=== PATIENT | male | born 1975 | race Caucasian/White ===

== ENCOUNTER 2018-04-04 17:18 | Emergency (ER) | payer MEDICAID, SELFPAY ==
[2018-04-04 17:21] VITALS: BP 130/93; PULSE 105; RESP 16; TEMP 36.9; O2SAT 93; BMI 28.0
--- NOTE | 2018-04-04 17:51 | EKG12_ITS ---
Test Reason : Blood Pressure : / mmHG Vent. Rate : 091 BPM Atrial Rate : 091 BPM P-R Int : 170 ms QRS Dur : 102 ms QT Int : 372 ms P-R-T Axes : 058 118 007 degrees QTc Int : 457 ms Normal sinus rhythm Right ventricular hypertrophy Abnormal ECG Confirmed by ANN-MARIE STUBBS, DELIA ([id number]), photo editor EILEEN DOVE ([id number]) on 04/09/2018 1:37:49 PM Referred By: MACKENZIE Confirmed By:DELIA JACOBSEN MD
--- NOTE | 2018-04-04 17:57 | ED.DCSUM_ITS ---
- ER Visit Summary Date of Service: 04/04/18 Chief Complaint: Right upper quadrant epigastric abdominal pain History of Present Illness: The patient is a 42 M history of cirrhosis which he states he stopped drinking and his liver functions are back to normal according the patient. Also reflux, insulin-dependent diabetes and pulmonary hypertension. Patient denies any prior abdominal surgeries. States for the last 2 days since Sunday he has had epigastric right upper quadrant abdominal pain. Associated nausea no vomiting or diarrhea no fever or melena no trauma. Says food may make it a little worse. No prior history of this. It does wrap around both sides. He denies any chest pain or shortness of breath. He has never had pain like this before he states. Physical Examination: Well-appearing middle-age male. Vital signs are stable afebrile. He does not look septic or toxic. He is in no acute distress. H EENT exam unremarkable neck nontender. Lungs clear to auscultation bilaterally. Heart regular rhythm no murmur rate about 100. Abdomen is soft nondistended. Normal bowel sounds. He does have mild epigastric and right upper quadrant tenderness. No Mendoza sign. No pulsatile masses. Both the right lower quadrant left upper and left lower quadrants are unremarkable. No hernias or masses normal bowel sounds. Soft he is moving all 4 extremities. Neurovascular intact. Calves are nontender without edema or cords. Neurologically is awake alert without focal deficits. Back exam nontender. Test Results: CBC normal with a white count of 9. Normal H&H. BMP unremarkable gap of 11. Creatinine normal. Liver enzymes are elevated but consistent with prior elevated liver enzymes in this particular patient. Troponin normal. Lipase elevated at 2686 consistent with acute pancreatitis. EKG sinus rhythm a rate of 91. Right upper quadrant ultrasound revealed multiple gallstones. But a normal common bile duct. With also a thickened gallbladder wall. Emergency Department Course and Treatment: Patient with abdominal pain. Will be treated with morphine and Zofran for pain. Labs will be obtained. Treatment Plan: Patient was initially treated with morphine and Zofran had some improvement was then given Toradol and additional dose of morphine is resting much more comfortably on multiple repeat exams. I spoke to the general surgeon chief librarian circulation department who was concerned due to the patient's history of liver disease and the only surgeon that does ERCP is currently out of town that she felt the patient would be better served to be transferred. I discussed that with the patient and obtain a receiving facility. Disposition: Admission Impression: Acute abdominal pain secondary to gallstone pancreatitis This note was generated with [employer] dictation software. It may contain incorrect words, spelling, and punctuation that were not noted in review of the chart prior to signing ED Disposition - Plan for ED Patient: Chief Complaint: Abd Pain Referrals: Tino Ovalle MD [Primary Care Provider] -
[2018-04-04] MEDS: Ondansetron 4 MG/2 ML Vial IV (18:02)
[2018-04-04] MEDS: Morphine 4 MG/ML Syringe IV (18:02)
[2018-04-04 18:25] LABS: AST(SGOT) 101 U/L (15-37); Alanine Aminotransfer ALT/SGPT 96 U/L (16-61); Alkaline Phosphatase 77 U/L (45-117); Anion Gap 11 (5-15); BUN 14 mg/dL (7-18); BUN/Creat Ratio 15.3 RATIO (10-20); Bilirubin, Direct 0.81 mg/dL (0.00-0.30); Chloride 106 mmol/L (98-107); Creatinine, Serum 0.92 mg/dL (0.70-1.30); EST Glomerular Filtration Rate 95 mL/min (>60); Est Glom Filt Rate - Afr Amer 115 mL/min (>60); Estimated Creatinine Clearance 102.46 ml/min; Globulin 3.9 g/dL (2.2-4.2); Glucose 134 mg/dL (74-106); Lipase 2686 U/L (73-393); Potassium 3.4 mmol/L (3.5-5.1); Protein, Total 7.9 g/dL (6.4-8.2); Sodium Level 141 mmol/L (136-145)
[2018-04-04 18:33] LABS: Absolute Lymphocyte Count 1.61 X10^3/ul (0.83-4.51); Absolute Neutrophil Count 6.6 X10^3/uL (2.0-7.7); Basophil# 0.02 X10^3/uL; Basophil% 0.2 % (0-1); Eosinophil# 0.28 X10^3/uL; Hematocrit 46.9 % (40-54); Hemoglobin 16.9 g/dl (13.0-16.5); Lymphocyte # 1.61 X10^3/ul (4.0); Lymphocyte % 17.4 % (19-41); Mean Corpuscular Hgb 30.6 pg (27.0-32.0); Mean Platelet Vol. 11.5 fl (6.2-12.0); Monocyte# 0.74 X10^3/uL; Neutrophil # 6.56 X10^3/uL (2.7-7.7); Neutrophil % 71.2 % (47-70); Platelet Count 96 K/mm3 (150-450); RBC Distribution Width CV 14.9 % (11.6-14.6); RBC Distribution Width SD 46.2 fl (35.1-43.9); Red Blood Count 5.52 M/mm3 (4.6-6.2); White Blood Count 9.2 K/mm3 (4.4-11.0)
[2018-04-04 18:46] LABS: Differential Indicated SCAN CRITERIA MET; POSITIVE COUNT NO; POSITIVE DIFFERENTIAL NO; POSITIVE MORPHOLOGY YES
--- NOTE | 2018-04-04 19:32 | US_ITS ---
STUDY: ABDOMINAL ULTRASOUND - RIGHT UPPER QUADRANT REASON FOR VISIT: Male, 42 years old. Epigastric pain TECHNIQUE: Ultrasound evaluation of the right upper quadrant was performed with real-time and static reyes-scale imaging. TECHNICAL QUALITY: Adequate. COMPARISON: None. FINDINGS: Liver: The liver measures 16.7 cm. There is heterogeneous echogenicity of the liver. The bile ducts are within normal limits. There is hepatic color flow. The direction of portal flow is hepatopetal. There is no demonstrated mass lesion. Gallbladder: Normal distended gallbladder. The gallbladder wall measures 4 mm. There is a negative sonographic Mendoza's sign. There is no pericholecystic fluid. There are multiple gallstones. Common Bile Duct (C.B.D.): The common bile duct measures 4 mm. Pancreas: Not well visualized due to bowel gas producing artifact. Right Kidney: Normal size of the right kidney. The right kidney measures 11.8 x 5.3 x 5.9 cm. Normal renal cortex. The right cortex measures 2.1 cm. There is no demonstrated renal mass or cyst. There is no right hydronephrosis. US/Gallbladder IMPRESSION: Findings consistent with nonspecific hepatocellular disease. Thick-walled gallbladder with multiple stones. If concern for acute inflammation HIDA scan recommended for further assessment Electronically Signed: Daren Bates MD at 20:55 EDT , Service support ,
[2018-04-04] MEDS: Ketorolac 30 MG/ML Syringe IV (20:13)
[2018-04-04] MEDS: morphine 8 MG/ML Syringe 6 MG IV (20:13)
[2018-04-04 20:16] VITALS: BP 107/63; PULSE 110; RESP 16; O2SAT 96
[2018-04-04 20:30] VITALS: BP 107/63; PULSE 110; RESP 16; TEMP 36.7; O2SAT 95
--- NOTE | 2018-04-04 21:31 | HP.PCM_ITS ---
History of Present Illness The patient is a 42 year old M [] Past Medical History Past Medical History (Chronic Problems): Chronic Problems (Last Reviewed 02/26/18 @ 12:32 by Kinsey Raines) Tobacco dependence in remission (Chronic) Cirrhosis (Chronic) Portopulmonary hypertension (Chronic) Allergies No Known Allergies Allergy (Verified 02/26/18 12:31) Home Medications: Ambulatory Orders Medication Instructions Recorded Liraglutide [Victoza 2-Terry] 1.8 mg SQ DAILY 02/19/14 Omeprazole [Prilosec] 20 mg PO DAILY 02/19/14 Insulin Glargine [Lantus (BKC)] 30 units SC BID 03/07/16 Magnesium Oxide [Mag-Ox 400] 400 mg PO TID 03/07/16 Rifaximin [Xifaxan] 550 mg PO BID 03/07/16 furosemide 20 mg tablet 40 mg PO TID tab 02/22/18 oxazepam 10 mg capsule 10 mg PO DAILY cap 02/22/18 oxycodone 5 mg capsule 5 mg PO Q8H cap 02/22/18 potassium citrate ER 10 mEq (1,080 10 meq PO BID tab 02/22/18 mg) tablet,extended release pramipexole 0.125 mg tablet 0.25 mg PO DAILY tab 02/22/18 spironolactone 25 mg tablet 50 mg PO QDAY tab 02/22/18 ambrisentan 10 mg tablet 10 mg PO DAILY #30 tab 02/26/18 Paroxetine [Paxil] 10 mg PO DAILY 04/04/18 Smoking Status: Never smoker - Physical Exam Vital Signs Temp Pulse Resp BP Pulse Ox 98.1 F 110 H 16 107/63 95 04/04/18 20:30 04/04/18 20:30 04/04/18 20:30 04/04/18 20:30 04/04/18 20:30 Oxygen Delivery Method Room Air Weight: 190 lb Body Mass Index (BMI) 28.0 Laboratory Tests Past 24 Hrs 04/04/18 04/04/18 17:30 17:30 WBC 9.2 RBC 5.52 Hgb 16.9 H Hct 46.9 MCV 85.0 MCH 30.6 MCHC 36.0 RDW 14.9 H RDW Differential 46.2 H Plt Count 96 L MPV 11.5 Immature Gran % (Auto) 0.200 Neut % (Auto) 71.2 H Lymph % (Auto) 17.4 L [place] % (Auto) 8.0 Eos % (Auto) 3.0 Baso % (Auto) 0.2 Absolute Neuts (auto) 6.6 Absolute Lymphs (auto) 1.61 Total Counted Not Reportable Differential Comment Sodium 141 Potassium 3.4 L Chloride 106 Carbon Dioxide 24.0 Anion Gap 11 BUN 14 Creatinine 0.92 Estim Creat Clear Calc 102.46 Est GFR (MDRD) Af Amer 115 Est GFR (MDRD) Non-Af 95 BUN/Creatinine Ratio 15.3 Glucose 134 H Calcium 9.0 Total Bilirubin 1.80 H Direct Bilirubin 0.81 H AST 101 H ALT 96 H Alkaline Phosphatase 77 Troponin I < 0.015 Total Protein 7.9 Albumin 4.0 Globulin 3.9 Lipase 2686 H
[2018-04-04 23:03] VITALS: BP 112/74; PULSE 108; RESP 16; TEMP 36.3; O2SAT 96
[2018-04-04 23:04] VITALS: BP 112/74; PULSE 108; RESP 16; TEMP 36.3; O2SAT 96
[2018-04-05] MEDS: Morphine 4 MG/ML Syringe IV
== END 2018-04-05 01:01 | disposition short-term general hospital (02) ==
PROVIDERS: Emergency Provider Emergency Medicine; Family Provider Family Medicine; PCP Family Medicine
DX: K85.10 Biliary acute pancreatitis without necrosis or infection (principal); K21.9 Gastro-esophageal reflux disease without esophagitis; I27.20 Pulmonary hypertension, unspecified; E11.9 Type 2 diabetes mellitus without complications; Z79.4 Long term (current) use of insulin; Z79.899 Other long term (current) drug therapy
CPT/HCPCS: 76705; 80048; 80076; 83690; 84484; 85025; 93005; 96374; 96375; 96376; 99284; A4216; J2405

== ENCOUNTER → 2018-04-12 12:11 | Outpatient (CLI) | payer MEDICAID, SELFPAY ==
[2018-04-12 13:16] LABS: Anion Gap 8 (5-15); BUN 14 mg/dL (7-18); BUN/Creat Ratio 10.2 RATIO (10-20); Calcium,Total 8.8 mg/dL (8.5-10.1); Chloride 100 mmol/L (98-107); Creatinine, Serum 1.37 mg/dL (0.70-1.30); EST Glomerular Filtration Rate 60 mL/min (>60); Est Glom Filt Rate - Afr Amer 72 mL/min (>60); Glucose 385 mg/dL (74-106); Potassium 3.9 mmol/L (3.5-5.1); Sodium Level 135 mmol/L (136-145)
== END ==
PROVIDERS: Nurse Practitioner Acute Care; Family Provider Family Medicine; PCP Family Medicine; Visit Provider Family Medicine
DX: K76.6 Portal hypertension (principal)
CPT/HCPCS: 36415; 80048

== ENCOUNTER 2018-04-12 12:23 | Emergency (ER) | payer MEDICAID, SELFPAY ==
[2018-04-12 12:25] VITALS: BP 134/85; PULSE 93; RESP 18; TEMP 36.3; O2SAT 96; BMI 27.7
--- NOTE | 2018-04-12 14:04 | ED.VISSUMM ---
- ER Visit Summary Date of Service: 04/12/18 Chief Complaint: Chronic abdominal pain History of Present Illness: The patient is a 42 M recently diagnosed with gallstone pancreatitis was transferred to [facility] they currently have him on antibiotics and are planning a cholecystectomy once he inflammation resolves according to the patient. He presented a primary care physician office and was sent to the ER. He states his abdominal pain he always has. He denies any fever or hematemesis he denies any nausea or vomiting. Denies any melena or currently any diarrhea. He is just looking for something to help him with his pain. Physical Examination: Well-appearing middle-age male. Vital signs stable afebrile. No distress. H EENT exam unremarkable. Neck nontender lungs clear to auscultation bilaterally. Heart regular rate and rhythm no murmur. Abdomen is soft. He has ascites. However he is nontender currently. There are no peritoneal signs. Normal bowel sounds. No hernias or masses. No signs of obstruction. In all 4 extremities. Neurologically is awake and alert without focal motor deficits. Test Results: None. Emergency Department Course and Treatment: Patient has no change. He said this is the same discomfort as all the time his abdominal exam is benign. He is hoping for something for pain. Normally his primary care physician Dr. Tino Ovalle according to the patient prescribed oxycodone. Treatment Plan: Oxycodone 10 no refill. Follow his primary care physician for further pain medication. Her labs of the patient was discharged I was called by the pharmacist at 1425 where he was trying to fill the prescription. He states this patient gets chronic pain medication gets it filled the beginning of every month and is written for 3 oxycodone per day. He just had filled around 2 weeks ago and should have plenty for the rest of the month. We canceled his prescription for today then. Disposition: Discharge Impression: Acute on chronic abdominal pain Drug seeking behavior History of alcoholic cirrhosis History of gallstones Status post pancreatitis. History of insulin diabetes and pulmonary hypertension This note was generated with [employer] dictation software. It may contain incorrect words, spelling, and punctuation that were not noted in review of the chart prior to signing ED Disposition - Plan for ED Patient: Disposition: Home or Assisted Living Chief Complaint: Abd Pain Instructions: ED Chronic Pain Management Prescriptions: Oxycodone [Oxyir] 5 mg PO Q6H PRN PRN #10 tab PRN Reason: Pain Referrals: Tino Ovalle MD [Primary Care Provider] - As soon as possible Additional Instructions: On follow-up with your doctor for further pain medication. Use her pain medication sparingly and limited to make it last.
--- NOTE | 2018-04-12 14:08 | ED.DEP ---
ED Disposition - Plan for ED Patient: Disposition: Home or Assisted Living Chief Complaint: Abd Pain Instructions: ED Chronic Pain Management Prescriptions: Oxycodone [Oxyir] 5 mg PO Q6H PRN PRN #10 tab PRN Reason: Pain Referrals: Tino Ovalle MD [Primary Care Provider] - As soon as possible Additional Instructions: On follow-up with your doctor for further pain medication. Use her pain medication sparingly and limited to make it last.
== END 2018-04-12 14:25 | disposition home or self-care (01) ==
PROVIDERS: Emergency Provider Emergency Medicine; Family Provider Family Medicine; PCP Family Medicine
DX: R10.9 Unspecified abdominal pain (principal); G89.29 Other chronic pain; Z76.5 Malingerer [conscious simulation]; K70.30 Alcoholic cirrhosis of liver without ascites; K85.10 Biliary acute pancreatitis without necrosis or infection; E11.9 Type 2 diabetes mellitus without complications; I27.20 Pulmonary hypertension, unspecified; Z87.891 Personal history of nicotine dependence; Z79.4 Long term (current) use of insulin; Z79.899 Other long term (current) drug therapy; K76.6 Portal hypertension
CPT/HCPCS: 36415; 80048; 99282

== ENCOUNTER 2018-04-28 20:51 | Inpatient (IN) | payer MEDICAID, SELFPAY ==
[2018-04-28 20:51] VITALS: BP 152/92; PULSE 107; RESP 16; TEMP 36.4; O2SAT 97; BMI 25.8
[2018-04-28] MEDS: Ondansetron 4 MG/2 ML Vial IV (21:40)
[2018-04-28] MEDS: Ketorolac 30 MG/ML Syringe IV (21:40)
[2018-04-28] MEDS: 0.9% Normal Saline 1,000 ML 1000 ML IV (21:41)
[2018-04-28] MEDS: morphine 8 MG/ML Syringe 6 MG IV ×2 (21:42→23:30)
[2018-04-28 21:53] LABS: Absolute Neutrophil Count 8.1 X10^3/uL (2.0-7.7); Basophil# 0.02 X10^3/uL; Basophil% 0.2 % (0-1); Eosinophil# 0.01 X10^3/uL; Eosinophils% 0.1 % (0-5); Hematocrit 45.6 % (40-54); Lymphocyte % 5.4 % (19-41); Mean Corp Hgb Conc 35.1 g/gl (32-36); Mean Corpuscular Hgb 30.1 pg (27.0-32.0); Mean Corpuscular Volume 85.9 fL (80-94); Mean Platelet Vol. 12.1 fl (6.2-12.0); Monocyte# 0.63 X10^3/uL; Monocyte% 6.8 % (0-10); Neutrophil # 8.09 X10^3/uL (2.7-7.7); Neutrophil % 87.4 % (47-70); Platelet Count 79 K/mm3 (150-450); RBC Distribution Width CV 14.8 % (11.6-14.6); RBC Distribution Width SD 46.2 fl (35.1-43.9); Red Blood Count 5.31 M/mm3 (4.6-6.2); White Blood Count 9.3 K/mm3 (4.4-11.0)
[2018-04-28 21:55] LABS: Differential Indicated SCAN CRITERIA MET; POSITIVE COUNT NO; POSITIVE DIFFERENTIAL YES; POSITIVE MORPHOLOGY NO
[2018-04-28 22:08] LABS: AST(SGOT) 128 U/L (15-37); Alanine Aminotransfer ALT/SGPT 155 U/L (16-61); Albumin, Serum 3.6 g/dL (3.2-5.0); Alkaline Phosphatase 271 U/L (45-117); Anion Gap 12 (5-15); BUN 13 mg/dL (7-18); BUN/Creat Ratio 14.1 RATIO (10-20); Bilirubin, Direct 6.72 mg/dL (0.00-0.30); Calcium,Total 9.1 mg/dL (8.5-10.1); Chloride 106 mmol/L (98-107); Creatinine, Serum 0.92 mg/dL (0.70-1.30); EST Glomerular Filtration Rate 94 mL/min (>60); Est Glom Filt Rate - Afr Amer 114 mL/min (>60); Estimated Creatinine Clearance 102.46 ml/min; Glucose 132 mg/dL (74-106); Lipase 29323 U/L (73-393); Potassium 3.8 mmol/L (3.5-5.1); Protein, Total 7.6 g/dL (6.4-8.2); Sodium Level 135 mmol/L (136-145)
[2018-04-28 22:20] LABS: Differential Comment SCANNED
[2018-04-28 23:10] VITALS: BP 134/89; PULSE 93; RESP 16; O2SAT 94
--- NOTE | 2018-04-28 23:10 | ED.VISSUMM ---
- ER Visit Summary Date of Service: 04/28/18 Chief Complaint: Epigastric abdominal pain History of Present Illness: The patient is a 42 M known history of pancreatitis, gallstones, and diabetes. Complaining of epigastric abdominal pain for the last 3 hours. Associated nausea and vomiting. No hematemesis. No melena. No fever. Physical Examination: Signs are stable afebrile. He does not look septic or toxic. HEENT exam unremarkable with moist wheeze membranes. Neck nontender. Lungs clear to auscultation bilaterally. Heart regular rate and rhythm. Rate about 100. Abdomen is soft. Epigastric tenderness. Nondistended. Normal bowel sounds. No peritoneal signs. Right upper and right lower quadrants are unremarkable. No signs of obstruction. Moving all 4 extremities. Back exam normal and nontender. Neurologically is awake and alert. Test Results: CBC shows low platelets of 79,000. His platelets have been low before. Normal white count. Normal H&H. Electrolytes are unremarkable. Normal gap and creatinine. CO2 is low at 17. Liver enzymes are elevated including a total bilirubin of 8.7. Lipase is elevated at 29,000. Consistent with acute pancreatitis. Emergency Department Course and Treatment: Patient treated with IV fluids, IV morphine, IV Zofran and Toradol. He will be given a second dose of morphine. And admitted. On repeat exam he still having some pain but is feeling better. Treatment Plan: IV fluids and pain medication. Admitted via the hospitalist. Disposition: Admission Impression: Acute abdominal pain secondary to acute pancreatitis Hx of Gallstones History of liver cirrhosis This note was generated with [employer] dictation software. It may contain incorrect words, spelling, and punctuation that were not noted in review of the chart prior to signing ED Disposition - Plan for ED Patient: Chief Complaint: Abd Pain Referrals: Tino Ovalle MD [Primary Care Provider] -
--- NOTE | 2018-04-28 23:15 | ED.DCSUM_ITS ---
- ER Visit Summary Date of Service: 04/28/18 Chief Complaint: Epigastric abdominal pain History of Present Illness: The patient is a 42 M known history of pancreatitis , gallstones, and diabetes. Complaining of epigastric abdominal pain for the last 3 hours. Associated nausea and vomiting. No hematemesis. No melena. No fever. Physical Examination: Signs are stable afebrile. He does not look septic or toxic. HEENT exam unremarkable with moist wheeze membranes. Neck nontender. Lungs clear to auscultation bilaterally. Heart regular rate and rhythm. Rate about 100. Abdomen is soft. Epigastric tenderness. Nondistended. Normal bowel sounds. No peritoneal signs. Right upper and right lower quadrants are unremarkable. No signs of obstruction. Moving all 4 extremities. Back exam normal and nontender. Neurologically is awake and alert. Test Results: CBC shows low platelets of 79,000. His platelets have been low before. Normal white count. Normal H&H. Electrolytes are unremarkable. Normal gap and creatinine. CO2 is low at 17. Liver enzymes are elevated including a total bilirubin of 8.7. Lipase is elevated at 29,000. Consistent with acute pancreatitis. Emergency Department Course and Treatment: Patient treated with IV fluids, IV morphine, IV Zofran and Toradol. He will be given a second dose of morphine. And admitted. On repeat exam he still having some pain but is feeling better. Treatment Plan: IV fluids and pain medication. Admitted via the hospitalist. Disposition: Admission Impression: Acute abdominal pain secondary to acute pancreatitis Hx of Gallstones History of liver cirrhosis This note was generated with [employer] dictation software. It may contain incorrect words, spelling, and punctuation that were not noted in review of the chart prior to signing ED Disposition - Plan for ED Patient: Chief Complaint: Abd Pain Referrals: Tino Ovalle MD [Primary Care Provider] -
[2018-04-28 23:23] VITALS: BP 147/96; PULSE 95; RESP 16; O2SAT 94
--- NOTE | 2018-04-28 23:53 | PCM.HP.STD ---
Problem List (1) Pancreatitis Status: Acute (2) Transaminitis Status: Acute (3) HTN (hypertension) Status: Chronic (4) Tobacco dependence in remission Status: Chronic (5) Cirrhosis Status: Chronic (6) Portopulmonary hypertension Status: Chronic History of Present Illness Date of Admission: 04/28/18 Chief Complaint: Pancreatitis The patient is a 42 year old male w/ h/o cirrhosis, HTN, and pancreatitis admitted for pancreatitis. He had an episode of gall stone pancreatitis a month ago. However, there was no surgical followup. He has been having sharp epigastric abdominal pain x 4 days. Nothing appeared to make it better or worse. Pain was not associated with food. He also has nausea and vomiting. In the last few days, he ate mostly soup. His pain radiated to the back. In the last day, he noted that pain is constant and severe. Pain also has gradually worsened. He went to the ED for further workup. Past Medical History Past Medical History (Chronic Problems): Chronic Problems (Last Reviewed 02/26/18 @ 12:32 by Kinsey Raines) HTN (hypertension) (Chronic) Tobacco dependence in remission (Chronic) Cirrhosis (Chronic) Portopulmonary hypertension (Chronic) Medical History: Medical History (Last Reviewed 02/26/18 @ 12:32 by Kinsey Raines) Abnormal electrocardiogram R94.31 Tobacco dependence in remission F17.201 Tobacco use Z72.0 Anxiety F41.9 Cardiomyopathy I42.9 Cervical radiculopathy M54.12 Cirrhosis K74.60 with alcohol abuse Diverticulitis K57.92 Impingement syndrome, shoulder, left M75.42 Left shoulder pain M25.512 Left ventricular hypertrophy I51.7 Nonrheumatic tricuspid (valve) insufficiency I36.1 Pulmonary HTN I27.20 Type 2 diabetes mellitus with complication E11.8 Allergies No Known Allergies Allergy (Verified 04/28/18 20:53) Home Medications: Ambulatory Orders Medication Instructions Recorded Liraglutide [Victoza 2-Terry] 1.8 mg SQ DAILY 02/19/14 Omeprazole [Prilosec] 20 mg PO DAILY 02/19/14 Insulin Glargine [Lantus (BKC)] 30 units SC BID 03/07/16 Magnesium Oxide [Mag-Ox 400] 400 mg PO TID 03/07/16 Rifaximin [Xifaxan] 550 mg PO BID 03/07/16 oxazepam 10 mg capsule 10 mg PO DAILY cap 02/22/18 potassium citrate ER 10 mEq (1,080 10 meq PO BID tab 02/22/18 mg) tablet,extended release pramipexole 0.125 mg tablet 0.25 mg PO DAILY tab 02/22/18 spironolactone 25 mg tablet 50 mg PO QDAY tab 02/22/18 Paroxetine [Paxil] 10 mg PO DAILY 04/04/18 Oxycodone [Oxyir] 5 mg PO Q6H PRN PRN #10 tab 04/12/18 Ambrisentan [Letairis] 10 mg PO DAILY 04/29/18 Furosemide 40 mg PO TID 04/29/18 Surgical History: Surgical History (Last Reviewed 02/26/18 @ 12:32 by Kinsey Raines) History of liver biopsy Z98.890 2010 Lives: Spouse/ Significant Other Smoking Status: Former smoker Alcohol: None Drugs: None - *Family History Maternal Family History: Family History (Last Reviewed 02/26/18 @ 12:32 by Kinsey Raines) Brother CAD (coronary artery disease) Mother Lung cancer Father Lung cancer History Items: No pertinent history Review of Systems Constitutional: Denies: Chills, Fever, Weight Change HEENT: Denies: Head Aches, Sinus Congestion, Sinus Drainage Cardiovascular: Denies: Chest Pain, Palpitations Respiratory: Denies: Cough, Shortness of breath at rest, Sputum production Gastrointestinal: Reports: Abdominal Pain, Nausea, Vomiting Genitourinary: Denies: Dysuria Musculoskeletal: Denies: Joint Pain, Joint Tenderness Skin: Denies: Rash, Wounds Neurological: Denies: Numbness, Tingling, Focal weakness Psychiatric: Denies: Anxiety, Depression, Homicidal Ideations, Suicidal Ideations Hematologic/ Lymphatic: Denies: Easy Bruising, Easy Bleeding VTE Information - Inpt Only VTE Present on Admission: No VTE Mechan Device Prophylaxis: SCD's VTE Pharm Prophylaxis ordered?: Yes Patient Problems: Active and Suspected Problems (Last Reviewed 02/26/18 @ 12:32 by Kinsey Raines) Pancreatitis (Acute) Transaminitis (Acute) - Physical Exam General: Alert, Oriented x3, Cooperative HEENT: Atraumatic, PERRLA, EOMI, Normocephalic Neck: Supple, No JVD, Negative Carotid Bruits Lungs: Clear to auscultation, Normal air movement Cardiovascular: Regular rate, No murmurs Abdomen: Bowel Sounds Present, Soft, Tender Extremities: No edema, Capillary Refill Less than 3 Seconds Skin: No rashes, No breakdown Musculoskeletal: No Tenderness to Palpation of Joints or Extremities Neurological: Cranial nerves II-XII grossly intact Psych/Mental Status: Normal Affect, Appropriate Vital Signs Temp Pulse Resp BP Pulse Ox 97.5 F L 95 16 147/96 H 94 04/28/18 20:51 04/28/18 23:23 04/28/18 23:23 04/28/18 23:23 04/28/18 23:23 Oxygen Delivery Method Room Air Weight: 79.379 kg Body Mass Index (BMI) 25.8 Laboratory Tests Past 24 Hrs 04/28/18 04/28/18 21:45 21:45 WBC 9.3 RBC 5.31 Hgb 16.0 Hct 45.6 MCV 85.9 MCH 30.1 MCHC 35.1 RDW 14.8 H RDW Differential 46.2 H Plt Count 79 L MPV 12.1 H Immature Gran % (Auto) 0.100 Neut % (Auto) 87.4 H Lymph % (Auto) 5.4 L [place] % (Auto) 6.8 Eos % (Auto) 0.1 Baso % (Auto) 0.2 Absolute Neuts (auto) 8.1 H Absolute Lymphs (auto) 0.50 L Total Counted Not Reportable Differential Comment SCANNED Sodium 135 L Potassium 3.8 Chloride 106 Carbon Dioxide 17.0 L Anion Gap 12 BUN 13 Creatinine 0.92 Estim Creat Clear Calc 102.46 Est GFR (MDRD) Af Amer 114 Est GFR (MDRD) Non-Af 94 BUN/Creatinine Ratio 14.1 Glucose 132 H Calcium 9.1 Total Bilirubin 8.70 H Direct Bilirubin 6.72 H AST 128 H ALT 155 H Alkaline Phosphatase 271 H Total Protein 7.6 Albumin 3.6 Globulin 4.0 Lipase 34133 H Assessment/Plan All Active Problems (Last Reviewed 02/26/18 @ 12:32 by Kinsey Raines) Pancreatitis (Acute) Transaminitis (Acute) 42 year old male w/ h/o cirrhosis, HTN, and pancreatitis admitted for pancreatitis. 1) Pancreatitis: Probably gallstone pancreatitis. Lipase 29K Will get gallstone US. IVF hydration. Pain controlled w/ morphine. Consult surgery. 2) Transaminitis: Probably secondary to gallstone pancreatitis. H/o cirrhosis. Will get hepatitis panel. Will also follow level. If no improvement, will consider auto-immune and other workup. 3) HTN: Resume home meds. Monitor. 4) Prophylaxis: Heparin / SCD.
--- NOTE | 2018-04-29 00:07 | DT_ITS ---
This patient was seen during an EMR downtime April 29, 2018 - May 06, 2018. This patient may have a combination of paper and electronic documentation or all paper documentation. All documentation is viewable within the e-chart portion of [facility] for each patient visit.
[2018-04-29 00:15] VITALS: BMI 26.8
[2018-04-29 00:17] VITALS: BMI 26.8
[2018-04-29 00:31] VITALS: BP 148/99; PULSE 95; RESP 14; TEMP 36.8; O2SAT 97
[2018-04-29] MEDS: 0.9% Normal Saline 1,000 ML 150 ML IV (00:44)
[2018-04-29] MEDS: Morphine 2 MG/ML Syringe IV (00:56)
[2018-04-29] MEDS: HYDROmorphone 0.5 MG/0.5 ML SYRINGE 1 MG IV (02:10)
[2018-04-29] MEDS: 0.9% NaCl Peripheral Flush Adult/Peds IV (02:11)
[2018-04-29 02:26] LABS: Bedside Glucose 115 mg/dL (70-110)
--- NOTE | 2018-04-29 05:55 | US_ITS ---
STUDY: ABDOMINAL ULTRASOUND - RIGHT UPPER QUADRANT REASON FOR VISIT: Male, 42 years old. Abnormal labs. TECHNIQUE: Ultrasound evaluation of the right upper quadrant was performed with real-time and static reyes-scale imaging. TECHNICAL QUALITY: Examination limited by bowel gas. COMPARISON: Gallbladder ultrasound, April 04, 2018. CT of the abdomen and pelvis, April 02, 2017. FINDINGS: Liver: The liver measures 15.4 cm. There is increased echogenicity consistent with fatty infiltration. The liver is cirrhotic in appearance with nodular surface pattern and prominent left lateral and caudate lobes The bile ducts are within normal limits. There is hepatic color flow. The direction of portal flow is hepatopetal. There is no demonstrated mass lesion. Gallbladder: The gallbladder is well distended. The gallbladder wall measures 6 mm. There is a negative sonographic Mendoza's sign. There is no pericholecystic fluid. There are multiple layering gallstones. Common Bile Duct (C.B.D.): The common bile duct measures 6 mm. Pancreas: The pancreas is partially obscured by bowel gas. There is normal echogenicity of the pancreas. There is no demonstrated pancreatic mass or cyst. Right Kidney: Normal size of the right kidney. The right kidney measures 11.1 cm. Normal renal cortex. The right cortex measures 1.9 cm. There is no demonstrated renal mass or cyst. There is no right hydronephrosis. US/Gallbladder IMPRESSION: 1. Cirrhotic appearing liver with increased echogenicity consistent with fatty infiltration or diffuse hepatocellular process. 2. Multiple gallstones and mildly thickened gallbladder. There is a negative sonographic Mendoza's sign. If there is concern for acute cholecystitis, HIDA scan is recommended. 3. No major change in findings from the prior ultrasound. Electronically Signed: Jarrod Rabago DO at 16:04 EDT Tel [phone], Service support ,
--- NOTE | 2018-05-01 16:16 | ECHOD_ITS ---
Reason For Study: ABN EKG, PRE OP Procedure This was a 2D Doppler, Color Flow transthoracic echocardiogram. Exam performed in department. Left Ventricle Severe concentric left ventricular hypertrophy. D shaped septum in diastole. The estimated ejection fraction is 75 %. Stage 1 diastolic dysfunction. No regional wall motion abnormalities noted. Right Ventricle Severely dilated right ventricle. Moderate segmental dysfunction of right ventricle. Atria Normal left atrium. The right atrium is severely enlarged. Normal atrial septum. Mitral Valve The mitral valve is structurally normal. No prolapse or stenosis seen. Tricuspid Valve Normal tricuspid valve. Moderately severe (3+) tricuspid valve insufficiency. Right ventricular systolic pressure estimated to be 118 mmHg. Severe pulmonary hypertension. Aortic Valve Normal aortic valve. Trisinus/trileaflet aortic valve. Pulmonic Valve Normal pulmonic valve. Great Vessels Normal aortic root. The inferior vena cava is dilated. Inferior vena cava collapse with sniff. Pericardium/Pleural No pericardial effusion. MMode/2D Measurements & Calculations LVIDd: 2.9 cm IVSd: 1.4 cm Ao root diam: 3.1 cm LVIDs: 1.7 cm LVPWd: 1.4 cm LA dimension: 3.2 cm RVDd: 4.8 cm FS: 41.0 % Doppler Measurements & Calculations MV E max sam: 85.4 cm/sec Lat Peak E' Sam: 9.6 cm/sec Med Peak E' Sam: 10.0 cm/sec MV A max sam: 108.8 cm/sec E/E' lat: 8.9 E/E' med: 8.5 MV E/A: 0.78 Ao V2 max: 151.5 cm/sec LV V1 max: 137.0 cm/sec PA V2 max: 117.3 cm/sec Ao max P.2 mmHg LV V1 max P.5 mmHg TR max sam: 524.5 cm/sec TR max P.1 mmHg Interpretation Summary Severe concentric left ventricular hypertrophy. The estimated ejection fraction is 75 %. D shaped septum in diastole. Stage 1 diastolic dysfunction. Severely dilated right ventricle. Moderate segmental dysfunction of right ventricle. The right atrium is severely enlarged. Moderately severe (3+) tricuspid valve insufficiency. Right ventricular systolic pressure estimated to be 118 mmHg. Severe pulmonary hypertension. Compared to echo report dated 01/31/2017, LV function has remained the same, but RVSP has increased from 80 to 118 mm Hg. Ordering Physician: Tino Mensah Referring Physician: Tino Ovalle Performed By: Analilia Lazar RDCS, RVT
[2018-05-02 17:19] LABS: Hematocrit 41.1 % (40-54); Hemoglobin 14.2 g/dl (13.0-16.5); Lymphocyte % 6.5 % (19-41); Mean Corp Hgb Conc 34.5 g/gl (32-36); Mean Corpuscular Hgb 30.5 pg (27.0-32.0); Mean Corpuscular Volume 88.4 fL (80-94); Mean Platelet Vol. 12.6 fl (6.2-12.0); Neutrophil % 86.2 % (47-70); POSITIVE COUNT NO; POSITIVE DIFFERENTIAL NO; POSITIVE MORPHOLOGY NO; Platelet Count 69 K/mm3 (150-450); RBC Distribution Width CV 15.2 % (11.6-14.6); RBC Distribution Width SD 48.8 fl (35.1-43.9); Red Blood Count 4.65 M/mm3 (4.6-6.2); White Blood Count 10.2 K/mm3 (4.4-11.0)
[2018-05-02 17:20] LABS: Absolute Lymphocyte Count 0.67 X10^3/ul (0.83-4.51); Absolute Neutrophil Count 8.8 X10^3/uL (2.0-7.7); Basophil% 0.1 % (0-1); Eosinophils% 0.2 % (0-5); Lymphocyte # 0.67 X10^3/ul (4.0); Monocyte% 6.7 % (0-10); Neutrophil # 8.82 X10^3/uL (2.7-7.7)
[2018-05-03 11:34] LABS: Hematocrit 39.3 % (40-54); Hemoglobin 13.3 g/dl (13.0-16.5); Mean Corpuscular Volume 90.3 fL (80-94); Red Blood Count 4.35 M/mm3 (4.6-6.2); White Blood Count 8.4 K/mm3 (4.4-11.0)
[2018-05-03 11:35] LABS: Mean Corp Hgb Conc 33.8 g/gl (32-36); Mean Corpuscular Hgb 30.6 pg (27.0-32.0); Mean Platelet Vol. 12.4 fl (6.2-12.0); Platelet Count 57 K/mm3 (150-450); RBC Distribution Width CV 15.5 % (11.6-14.6); RBC Distribution Width SD 50.9 fl (35.1-43.9); Scan Indicated on CBC? Y/N NO
[2018-05-04 08:26] LABS: BUN 13 mg/dL (7-18); BUN/Creat Ratio 12.3 RATIO (10-20); Calcium,Total 8.2 mg/dL (8.5-10.1); Creatinine, Serum 1.06 mg/dL (0.70-1.30); EST Glomerular Filtration Rate 81 mL/min (>60); Est Glom Filt Rate - Afr Amer 98 mL/min (>60); Estimated Creatinine Clearance 88.93 ml/min; Glucose 106 mg/dL (74-106); Magnesium 1.4 mg/dL (1.6-2.6); Potassium 4.1 mmol/L (3.5-5.1); Sodium Level 140 mmol/L (136-145)
[2018-05-04 08:27] LABS: Anion Gap 10 (5-15); Chloride 107 mmol/L (98-107)
[2018-05-04 09:21] LABS: Platelet Count 81 K/mm3 (150-450)
[2018-05-04 09:57] LABS: ALB/GLOB Ratio 0.7 RATIO (0.9-2.4); AST(SGOT) 42 U/L (15-37); Albumin, Serum 2.9 g/dL (3.2-5.0); BUN 11 mg/dL (7-18); BUN/Creat Ratio 11.2 RATIO (10-20); Calcium,Total 7.8 mg/dL (8.5-10.1); Creatinine, Serum 0.98 mg/dL (0.70-1.30); EST Glomerular Filtration Rate 88 mL/min (>60); Est Glom Filt Rate - Afr Amer 107 mL/min (>60); Estimated Creatinine Clearance 96.19 ml/min; Glucose 91 mg/dL (74-106); Phosphorus 2.4 mg/dL (2.5-4.9); Protein, Total 6.9 g/dL (6.4-8.2)
[2018-05-04 09:58] LABS: Alanine Aminotransfer ALT/SGPT 77 U/L (16-61); Alkaline Phosphatase 179 U/L (45-117); Anion Gap 10 (5-15); Chloride 107 mmol/L (98-107); Magnesium 1.6 mg/dL (1.6-2.6); Potassium 3.2 mmol/L (3.5-5.1); Sodium Level 140 mmol/L (136-145)
[2018-05-04 10:28] LABS: Hematocrit 38.8 % (40-54); International Normalized Ratio 1.3; Mean Corp Hgb Conc 33.5 g/gl (32-36); Mean Corpuscular Hgb 30.2 pg (27.0-32.0); Partial Thromboplast Time 46.8 Seconds (24.1-36.2); Prothrombin Time (Protime)PT. 15.9 SECONDS (11.7-14.9); RBC Distribution Width CV 15.3 % (11.6-14.6); Red Blood Count 4.31 M/mm3 (4.6-6.2); White Blood Count 7.3 K/mm3 (4.4-11.0)
[2018-05-04 10:29] LABS: Mean Platelet Vol. 12.3 fl (6.2-12.0); Platelet Count 73 K/mm3 (150-450); Scan Indicated on CBC? Y/N NO
[2018-05-04 10:31] LABS: Lipase 8607 U/L (73-393)
[2018-05-04 10:48] LABS: Fibrinogen 681 mg/dl (203-444); International Normalized Ratio 1.2; Prothrombin Time (Protime)PT. 14.8 SECONDS (11.7-14.9)
[2018-05-04 12:45] LABS: ALB/GLOB Ratio 0.7 RATIO (0.9-2.4); AST(SGOT) 31 U/L (15-37); Alanine Aminotransfer ALT/SGPT 59 U/L (16-61); Albumin, Serum 2.6 g/dL (3.2-5.0); Alkaline Phosphatase 150 U/L (45-117); Anion Gap 8 (5-15); BUN 8 mg/dL (7-18); BUN/Creat Ratio 9.5 RATIO (10-20); Calcium,Total 8.1 mg/dL (8.5-10.1); Chloride 102 mmol/L (98-107); Creatinine, Serum 0.84 mg/dL (0.70-1.30); EST Glomerular Filtration Rate 106 mL/min (>60); Est Glom Filt Rate - Afr Amer 128 mL/min (>60); Estimated Creatinine Clearance 112.22 ml/min; Globulin 3.8 g/dL (2.2-4.2); Glucose 134 mg/dL (74-106); Magnesium 1.6 mg/dL (1.6-2.6); Phosphorus 2.4 mg/dL (2.5-4.9); Potassium 2.9 mmol/L (3.5-5.1); Protein, Total 6.4 g/dL (6.4-8.2); Sodium Level 139 mmol/L (136-145)
[2018-05-04 12:49] LABS: ALB/GLOB Ratio 0.7 RATIO (0.9-2.4); Albumin, Serum 2.9 g/dL (3.2-5.0); BUN 8 mg/dL (7-18); BUN/Creat Ratio 9.3 RATIO (10-20); Calcium,Total 8.2 mg/dL (8.5-10.1); Creatinine, Serum 0.86 mg/dL (0.70-1.30); EST Glomerular Filtration Rate 103 mL/min (>60); Est Glom Filt Rate - Afr Amer 125 mL/min (>60); Estimated Creatinine Clearance 109.61 ml/min; Glucose 138 mg/dL (74-106); Protein, Total 6.9 g/dL (6.4-8.2)
[2018-05-04 12:50] LABS: AST(SGOT) 37 U/L (15-37); Alanine Aminotransfer ALT/SGPT 63 U/L (16-61); Alkaline Phosphatase 165 U/L (45-117); Anion Gap 9 (5-15); Chloride 101 mmol/L (98-107); Potassium 2.9 mmol/L (3.5-5.1); Sodium Level 138 mmol/L (136-145)
[2018-05-05 10:47] LABS: Hematocrit 35.1 % (40-54); Mean Corpuscular Volume 87.3 fL (80-94); Red Blood Count 4.02 M/mm3 (4.6-6.2); White Blood Count 6.9 K/mm3 (4.4-11.0)
[2018-05-05 10:48] LABS: Absolute Lymphocyte Count 1.06 X10^3/ul (0.83-4.51); Basophil# 0.02 X10^3/uL; Basophil% 0.3 % (0-1); Eosinophil# 0.23 X10^3/uL; Eosinophils% 3.4 % (0-5); Lymphocyte # 1.06 X10^3/ul (4.0); Lymphocyte % 15.5 % (19-41); Mean Corp Hgb Conc 34.2 g/gl (32-36); Mean Corpuscular Hgb 29.9 pg (27.0-32.0); Mean Platelet Vol. 11.9 fl (6.2-12.0); Monocyte# 0.59 X10^3/uL; Monocyte% 8.6 % (0-10); Neutrophil # 4.95 X10^3/uL (2.7-7.7); Neutrophil % 72.2 % (47-70); POSITIVE COUNT NO; POSITIVE DIFFERENTIAL NO; POSITIVE MORPHOLOGY NO; Platelet Count 74 K/mm3 (150-450); RBC Distribution Width CV 14.5 % (11.6-14.6); RBC Distribution Width SD 46.2 fl (35.1-43.9)
[2018-05-05 10:49] LABS: International Normalized Ratio 1.2; Partial Thromboplast Time 43.9 Seconds (24.1-36.2); Prothrombin Time (Protime)PT. 15.4 SECONDS (11.7-14.9)
[2018-05-07 14:43] LABS: Bedside Glucose 137 mg/dL (70-110)
[2018-05-07 14:45] LABS: Bedside Glucose 92 mg/dL (70-110)
[2018-05-07 14:46] LABS: Bedside Glucose 148 mg/dL (70-110)
[2018-05-07 14:55] LABS: Bedside Glucose 144 mg/dL (70-110)
--- NOTE | 2018-05-08 11:36 | CON.PCM_ITS ---
- Problem List (1) Coagulopathy Status: Acute (2) Thrombocytopenia Status: Acute (3) Pancreatitis Status: Acute (4) Cirrhosis Status: Chronic Consult Referring Physician: Dr. Delong Consult Results: Coagulopathy and thrombocytopenia Subjective Date of Service:: 05/01/18 Chief Complaint: Severe Abd pain History of Present Illness: Patient is a 42-year-old male admitted with acute abdominal pain and a working diagnosis of acute pancreatitis secondary to calculi or gallbladder disease. This is his second hospitalization this year with the same illness. His first hospitalization was at [facility]. None of the [facility] records were available. An elective cholecystectomy has been advised to prevent further attacks of pancreatitis. Patient's past medical history is notable for liver cirrhosis secondary to alcoholism plus or minus untreated chronic virus hepatitis. Patient's reports that his disease had advanced to a point where he developed ascites and required tapping when he decided to stop alcohol approximately 6 years ago. He has not required any tapping for ascites since. He has no prior history of excessive bleeding and is unaware of any present external blood loss. However he developed an extensive subcutaneous bruising following low-dose prophylactic heparin the last dose of which was over 12 hours earlier (April 30 at 10 PM). Hematology is being consulted due to abnormal prolongation of PT, PTT and thrombocytopenia. Past Medical History: Chronic Problems (Last Reviewed 02/26/18 @ 12:32 by Kinsey Raines) HTN (hypertension) (Chronic) Tobacco dependence in remission (Chronic) Cirrhosis (Chronic) Portopulmonary hypertension (Chronic) Past Medical/Surgical History: Past Medical History - Most Recent Inpatient Visit Past Medical History Start: 04/29/18 00: 12 Text: Status: Complete Freq: ONCE Protocol: Document 04/29/18 00:17 BD (Rec: 04/29/18 00:22 [facility] [id number]) BMI Required to complete PMH What is Patient's BMI 26.8 Neurologic Medical History Hx Stroke/TIA No Hx Dementia/Alzheimer's No Hx Parkinson's Disease No Hx Seizures No Hx Multiple Sclerosis No Hx Migraines No Cardiac Medical History VTE Present on Admission No Hx of Deep Vein Thrombosis/VTE/PE No Hx Hypertension No Hx Chest Pain/Angina Yes: EVERY DAY CHEST PAIN Hx Heart Attack No Hx Cardiac Surgery/Stents/Etc. No Hx Heart Failure No Hx Pacemaker/AICD No Hx Irregular Heartbeat and/or Afib Yes: CARDIOMYOPATHY PULMONARY HYPERTENSION Hx Anticoagulant Therapy No Query Text:(Coumadin, Aspirin, Plavix, Xarelto, etc.) Hx Pain in Legs when Walking/Leg Cramps No Respiratory Medical History Hx COPD No Hx Emphysema No Hx Smoking Yes Smoking Status Former smoker Hx Smoking Cessation Counseling No Hx Smoking Exposure No Hx Tobacco Use in last 12 months No Hx of Pipe Smoking No Hx Sleep Apnea No CPAP No BIPAP No Do you snore loudly (louder than talking No or can be heard through closed doors)? Do you often feel tired/ fatigued/ Yes sleepy during daytime? Has anyone observed you stop breathing No during sleep? STOP Results Negative GI Medical History Hx Ulcer No Hx Hepatitis No Hx Cirrhosis Yes: LIVER Hx GI Bleed No Hx Unplanned Weight Loss Yes: current admission Genitourinary Medical History Indwelling Catheter in Place on Arrival/ No Admission Hx Renal Disease No Hx Dialysis No Musculoskeletal History Hx Arthritis No Hx Rheumatoid Arthritis No Endocrine Medical History Hx Diabetes Yes: type 2 Hx Thyroid Disease No Hematologic Medical History Hx of Blood Transfusion No Hx of Transfusion in last 3 Months No Ever experience any problems with No transfusion(s)? Hx of Preganancy in last 3 Months N/A Nurse Filling Out Transfusion & [id number] Questions: Date: 04/29/18 Time: 00:21 Psycho/Social Medical History Hx Depression No Hx Anxiety Yes: ON MEDS Hx Behavior Disorder No Hx Alcohol Use Yes: 6 YRS sober Hx Substance Use No Other Medical History Hx Blood Disorders No Hx Anemia No Hx Cancer No Hx Drug Resistant Organism No Wound/Pressure Injury Present on Arrival No /Admission Query Text:If yes, chart assessment in Shift/Clinical Findings Central Line/PICC/VAD Present on Arrival No /Admission Antibiotics within last 7 days? No Methicillin Resistant Staphylococcus aureus Screening Active MRSA No Risk for Readmission Number of Risk Factors 5 At Risk for Readmission Patient is At Risk For Readmission Patient is eligible for Call Back Y Past Medical History (Last Reviewed 02/26/18 @ 12:32 by Kinsey Raines) Abnormal electrocardiogram (Acute) Tobacco dependence in remission (Acute) Tobacco use (Acute) Anxiety (Chronic) Cardiomyopathy (Chronic) Cervical radiculopathy (Chronic) Cirrhosis (Chronic) Diverticulitis (Chronic) Impingement syndrome, shoulder, left (Chronic) Left shoulder pain (Chronic) Left ventricular hypertrophy (Chronic) Nonrheumatic tricuspid (valve) insufficiency (Chronic) Pulmonary HTN (Chronic) Type 2 diabetes mellitus with complication (Chronic) Past Surgical History (Last Reviewed 02/26/18 @ 12:32 by Kinsey Raines) History of liver biopsy (Resolved) Maternal Family History: Family History (Last Reviewed 02/26/18 @ 12:32 by Kinsey Raines) Brother CAD (coronary artery disease) Mother Lung cancer Father Lung cancer Family History: No pertinent history - Social History Lives: Spouse/ Significant Other Smoking Status: Former smoker Alcohol: None Drugs: None Allergies/Adverse Reactions: Allergy/AdvReac Type Severity Reaction Status Date / Time No Known Allergies Allergy Verified 04/28/18 20:53 Review of Systems Constitutional:: Denies: Fever, Sweats, Weight loss, Appetite change, Chills Cardiovascular:: Denies: Chest pain, Palpitations, Dyspnea on exertion, Orthopnea, PND, Shortness of breath Respiratory: Denies: Cough, Hemoptysis, Shortness of Breath, Wheezing Gastrointestinal:: Reports: Abdominal pain. Denies: Nausea, Vomiting, Diarrhea , Constipation, Hematochezia Genitourinary: Denies: Dysuria, Hematuria, 15, Flank pain Musculoskeletal:: Denies: Back pain, Myalgia, Arthralgia Skin: Reports: - - Bruise right lower quadrant abdomen following subcu heparin. Denies: Rash, Skin Changes, Wounds Neurological:: Denies: Headache, Dizziness, Visual changes, Tinnitus, Hearing loss Psychiatric: Denies: Anxiety, Depression, Homicidal Ideations, Suicidal Ideations Vital Signs Height 5 ft 9 in Weight: 82.27 kg Weight in Pounds 181.4 lbs Pulse Ox 97 Temperature 98.2 F Pulse Rate 95 Respiratory Rate 14 Blood Pressure 148/99 Blood Pressure Position Sitting - Physical Exam General: Alert, Oriented x3, No apparent distress, - - ECOG 0 HEENT: Atraumatic, PERRLA, EOMI, Normocephalic, - - scleral icterus no mucosal petechiae Oropharynx:: Dry mucosa Neck:: Supple, Trachea midline. Negative for: JVD, bilateral Cardiac:: Regular rate, Regular rhythm, Normal S1, Normal S2. Negative for: Murmur Lungs: Clear to auscultation, Diminished, Excusion symmetrical. Negative for: Rhonchi, Wheezes Abdomen:: Soft, Non-tender, Non-distended, - - No ascites to palpation. Negative for: Hepatosplenomegaly Extremities:: Negative for: Cyanosis, Edema Neurological: Neuro grossly intact Skin:: Ecchymosis - An extensive area of subcutaneous bruising occupies most of the right lower quadrant of the abdomen. Negative for: Lesions, Rash, Petechiae Psychiatric:: Appropriate affect, Euthymic Lymphatics:: Negative for: Cervical lymphadenopathy, Supraclavicular lymphadenopathy, Axillary lymphadenopathy Laboratory Data: Laboratory Tests 3 04/29/18 04/29/18 04/29/18 Range/Units 21:40 16:50 11:00 POC Glucose 144 H 148 H 92 (70-110) mg/dL 3 04/29/18 Range/Units 08:45 POC Glucose 137 H (70-110) mg/dL Laboratory Tests 09/12/12 09/12/12 11/12/13 13:57 13:57 11:19 Plt Count 97 L 81 L PT APTT Fibrinogen Total Bilirubin Direct Bilirubin ALT Alkaline Phosphatase Prealbumin 12.7 L Albumin 02/18/14 10/23/14 08/23/15 09:17 10:24 14:20 Plt Count 90 L 114 L PT 15.1 H APTT Fibrinogen Total Bilirubin Direct Bilirubin ALT Alkaline Phosphatase Prealbumin Albumin 04/02/17 04/04/18 04/28/18 12:55 17:30 21:45 Plt Count 96 L 96 L 79 L PT APTT Fibrinogen Total Bilirubin Direct Bilirubin ALT Alkaline Phosphatase Prealbumin Albumin 04/28/18 04/29/18 04/29/18 21:45 09:45 Unknown Plt Count 57 L 69 L PT APTT Fibrinogen Total Bilirubin 8.70 H Direct Bilirubin 6.72 H ALT Alkaline Phosphatase Prealbumin Albumin 05/01/18 05/01/18 05/01/18 05:00 05:00 17:35 Plt Count 73 L 81 L PT 15.9 H APTT 46.8 H Fibrinogen Total Bilirubin Direct Bilirubin ALT Alkaline Phosphatase Prealbumin Albumin 05/01/18 05/02/18 05/02/18 Unknown 05:00 05:00 Plt Count 74 L PT 14.8 15.4 H APTT 40.0 H 43.9 H Fibrinogen 681 H Total Bilirubin Direct Bilirubin ALT Alkaline Phosphatase Prealbumin Albumin 05/02/18 08:00 Plt Count PT APTT Fibrinogen Total Bilirubin 2.90 H Direct Bilirubin ALT 63 H Alkaline Phosphatase 165 H Prealbumin Albumin 2.9 L Diagnostic Data: Diagnostic Data Gallbladder Ultrasound 04/29/18 05:55 IMPRESSION: 1. Cirrhotic appearing liver with increased echogenicity consistent with fatty infiltration or diffuse hepatocellular process. 2. Multiple gallstones and mildly thickened gallbladder. There is a negative sonographic Mendoza's sign. If there is concern for acute cholecystitis, HIDA scan is recommended. 3. No major change in findings from the prior ultrasound. Electronically Signed: Jarrod Rabago DO at 16:04 EDT Tel [phone], Service support , Assessment and Plan 42-year-old male admitted with recurrent acute pancreatitis secondary to gallbladder disease. Patient's medical history notable for liver cirrhosis due to past alcoholism plus or minus chronic virus hepatitis, not treated (outside records requested). Patient is advised to have elective cholecystectomy to prevent recurrent attacks of pancreatitis. From the hematology consult view patient has a chronic coagulopathy with prolongation of PT, PTT and a moderately severe thrombocytopenia which appears to be of several years duration and are most consistent with coagulopathy of chronic liver disease plus or minus untreated virus hepatitis. An antiphospholipid antibody within inhibitor is less likely. The hematologic abnormalities were discussed was Baljeet then was patient and his . His surgery is elective and with the coagulopathy he is at a higher risk for excessive potentially life-threatening bleeding and therefore advice rescheduling surgery for a future date once his coagulopathy is further worked up by special coag testing. Lab tests ordered include factors 2, 5, 7, and 8. A repeat PT PTT, T and fibrinogen level. Follow-up in 10-14 days to review the special coag tests (sent out to special coag lab). Further testing may be indicated if the diagnosis remains unclear. Medications: Prescriptions This Visit Medication Instructions Recorded Ambrisentan [Letairis] 10 mg PO DAILY 04/29/18 Furosemide 40 mg PO TID 04/29/18 Primary Care Provider: Tino Ovalle Referring Provider:
[2018-05-08 15:02] LABS: Anion Gap 11 (5-15); BUN 16 mg/dL (7-18); BUN/Creat Ratio 16.7 RATIO (10-20); Calcium,Total 8.5 mg/dL (8.5-10.1); Chloride 110 mmol/L (98-107); Creatinine, Serum 0.96 mg/dL (0.70-1.30); EST Glomerular Filtration Rate 90 mL/min (>60); Est Glom Filt Rate - Afr Amer 109 mL/min (>60); Estimated Creatinine Clearance 98.19 ml/min; Glucose 148 mg/dL (74-106); Potassium 4.1 mmol/L (3.5-5.1); Sodium Level 140 mmol/L (136-145)
[2018-05-11 14:18] LABS: Thrombin Time 13.4 sec (0.0-23.0)
[2018-05-15 10:36] LABS: Bedside Glucose 126 mg/dL (70-110)
[2018-05-15 10:36] LABS: Bedside Glucose 104 mg/dL (70-110)
[2018-05-15 10:36] LABS: Bedside Glucose 114 mg/dL (70-110)
[2018-05-15 10:36] LABS: Bedside Glucose 107 mg/dL (70-110)
== END 2018-05-02 12:26 | disposition home or self-care (01) | DRG 204 ==
LOC: ED 21:26 → MS3 04-29 00:15
PROVIDERS: Internal Medicine; Internal Medicine Hematology & Oncology; Surgery; Admitting Provider Internal Medicine; Emergency Provider Emergency Medicine; Family Provider Family Medicine; PCP Family Medicine; Visit Provider Internal Medicine
DX: K85.10 Biliary acute pancreatitis without necrosis or infection (principal); K70.30 Alcoholic cirrhosis of liver without ascites; D68.4 Acquired coagulation factor deficiency; D69.6 Thrombocytopenia, unspecified; I10 Essential (primary) hypertension; Z53.09 Procedure and treatment not carried out because of other contraindication; I27.20 Pulmonary hypertension, unspecified; F10.11 Alcohol abuse, in remission; E11.9 Type 2 diabetes mellitus without complications; Z79.4 Long term (current) use of insulin; E87.6 Hypokalemia; E83.42 Hypomagnesemia; F17.201 Nicotine dependence, unspecified, in remission
CPT/HCPCS: 36415; 76705; 80048; 80053; 80074; 80076; 82962; 83690; 83735; 84100; 84484; 85025; 85027; 85049; 85384; 85610; 85670; 85730; 86850; 86900; 93005; 93306; 97802; 99284; J7030; A4216; J2405

== ENCOUNTER → 2018-05-14 10:59 | Outpatient (CLI) | payer MEDICAID, SELFPAY ==
[2018-05-14 12:35] LABS: Absolute Lymphocyte Count 1.28 X10^3/ul (0.83-4.51); Absolute Neutrophil Count 4.6 X10^3/uL (2.0-7.7); Basophil# 0.03 X10^3/uL; Basophil% 0.5 % (0-1); Hematocrit 43.7 % (40-54); Hemoglobin 15.3 g/dl (13.0-16.5); Lymphocyte # 1.28 X10^3/ul (4.0); Lymphocyte % 19.5 % (19-41); Mean Corpuscular Hgb 30.2 pg (27.0-32.0); Mean Corpuscular Volume 86.2 fL (80-94); Mean Platelet Vol. 11.3 fl (6.2-12.0); Monocyte# 0.42 X10^3/uL; Monocyte% 6.4 % (0-10); Neutrophil # 4.62 X10^3/uL (2.7-7.7); Neutrophil % 70.3 % (47-70); Platelet Count 196 K/mm3 (150-450); RBC Distribution Width CV 14.9 % (11.6-14.6); RBC Distribution Width SD 46.4 fl (35.1-43.9); Red Blood Count 5.07 M/mm3 (4.6-6.2); White Blood Count 6.6 K/mm3 (4.4-11.0)
[2018-05-14 12:36] LABS: POSITIVE COUNT NO; POSITIVE DIFFERENTIAL NO; POSITIVE MORPHOLOGY NO
[2018-05-14 12:47] LABS: ALB/GLOB Ratio 0.8 RATIO (0.9-2.4); AST(SGOT) 36 U/L (15-37); Alanine Aminotransfer ALT/SGPT 67 U/L (16-61); Albumin, Serum 3.9 g/dL (3.2-5.0); Alkaline Phosphatase 113 U/L (45-117); Anion Gap 6 (5-15); BUN 20 mg/dL (7-18); BUN/Creat Ratio 17.9 RATIO (10-20); Calcium,Total 9.9 mg/dL (8.5-10.1); Chloride 105 mmol/L (98-107); Creatinine, Serum 1.12 mg/dL (0.70-1.30); EST Glomerular Filtration Rate 75 mL/min (>60); Est Glom Filt Rate - Afr Amer 91 mL/min (>60); Globulin 4.6 g/dL (2.2-4.2); Glucose 310 mg/dL (74-106); Lipase 840 U/L (73-393); Potassium 4.3 mmol/L (3.5-5.1); Protein, Total 8.5 g/dL (6.4-8.2); Sodium Level 137 mmol/L (136-145)
[2018-05-14 12:54] LABS: Hemoglobin A1c 7.6 % (4.2-6.3)
== END ==
PROVIDERS: Family Provider Family Medicine; PCP Family Medicine; Visit Provider Family Medicine
DX: K80.20 Calculus of gallbladder without cholecystitis without obstruction (principal); E11.9 Type 2 diabetes mellitus without complications
CPT/HCPCS: 36415; 80053; 83036; 83690; 85025

== ENCOUNTER 2018-05-20 19:57 | Inpatient (IN) | payer MEDICAID, SELFPAY ==
[2018-05-20 19:58] VITALS: BP 163/100; PULSE 91; RESP 20; TEMP 36.7; O2SAT 98; BMI 25.4
[2018-05-20 20:19] LABS: Bacteria 0 SEEN /hpf (None Seen); Mucous, Urine 0 SEEN /hpf (<or=2+); Red Blood Cells-Urine 0 SEEN /hpf (0-5); Squamous Epithelial Cells - UA 0 SEEN /hpf (0-5); White Blood Cells 0 SEEN /hpf (0-5)
[2018-05-20 20:22] LABS: Color, Urine Yellow (Yellow); Glucose, Dipstick Normal (Normal); Ketone-Dipstick Negative (Negative); Leukocyte Esterase-Dipstick Negative /ul (Negative); Nitrite-Dipstick Negative (Negative); Occult Blood-Urine Negative /ul (Negative); Protein-Dipstick 30 mg/dl (Negative); Urine Bilirubin Dipstick Negative (Negative); Urine Clarity Clear (Clear); Urine Urobilinogen 8 mg/dl (Normal)
[2018-05-20 20:44] LABS: Absolute Lymphocyte Count 1.52 X10^3/ul (0.83-4.51); Absolute Neutrophil Count 9.2 X10^3/uL (2.0-7.7); Basophil# 0.02 X10^3/uL; Basophil% 0.2 % (0-1); Eosinophil# 0.19 X10^3/uL; Eosinophils% 1.7 % (0-5); Hematocrit 49.3 % (40-54); Hemoglobin 17.9 g/dl (13.0-16.5); Lymphocyte # 1.52 X10^3/ul (4.0); Lymphocyte % 13.2 % (19-41); Mean Corp Hgb Conc 36.3 g/gl (32-36); Mean Corpuscular Hgb 30.3 pg (27.0-32.0); Mean Corpuscular Volume 83.6 fL (80-94); Mean Platelet Vol. 11.4 fl (6.2-12.0); Monocyte# 0.52 X10^3/uL; Monocyte% 4.5 % (0-10); Neutrophil # 9.22 X10^3/uL (2.7-7.7); Neutrophil % 80.2 % (47-70); Platelet Count 142 K/mm3 (150-450); RBC Distribution Width CV 14.6 % (11.6-14.6); RBC Distribution Width SD 44.6 fl (35.1-43.9); White Blood Count 11.5 K/mm3 (4.4-11.0)
[2018-05-20 20:45] LABS: POSITIVE COUNT NO; POSITIVE DIFFERENTIAL NO; POSITIVE MORPHOLOGY NO
[2018-05-20 20:57] LABS: Anion Gap 10 (5-15); BUN 23 mg/dL (7-18); BUN/Creat Ratio 19.8 RATIO (10-20); Calcium,Total 9.7 mg/dL (8.5-10.1); Chloride 99 mmol/L (98-107); Creatinine, Serum 1.16 mg/dL (0.70-1.30); EST Glomerular Filtration Rate 72 mL/min (>60); Est Glom Filt Rate - Afr Amer 88 mL/min (>60); Estimated Creatinine Clearance 81.26 ml/min; Glucose 126 mg/dL (74-106); Potassium 3.6 mmol/L (3.5-5.1); Sodium Level 136 mmol/L (136-145)
[2018-05-20 22:41] VITALS: BP 156/108; PULSE 87; RESP 18; O2SAT 98
--- NOTE | 2018-05-20 23:01 | EKG12_ITS ---
Test Reason : CP Blood Pressure : / mmHG Vent. Rate : 074 BPM Atrial Rate : 074 BPM P-R Int : 174 ms QRS Dur : 092 ms QT Int : 436 ms P-R-T Axes : 030 117 033 degrees QTc Int : 483 ms Normal sinus rhythm Prolonged QT Abnormal ECG Confirmed by DELIA JACOBSEN MD ([id number]), editorial project manager MIKE THOMPSON ([id number]) on 05/23/2018 4:20:59 PM Referred By: Tino Ovalle Confirmed By:DELIA JACOBSEN MD
--- NOTE | 2018-05-20 23:01 | US_ITS ---
STUDY: ABDOMINAL ULTRASOUND - RIGHT UPPER QUADRANT REASON FOR VISIT: Male, 42 years old. Abdominal pain, nausea and vomiting. TECHNIQUE: Ultrasound evaluation of the right upper quadrant was performed with real-time and static reyes-scale imaging. TECHNICAL QUALITY: Adequate. COMPARISON: 04/29/2018. FINDINGS: Liver: The liver measures 16 cm. There is a heterogeneous echogenicity of the liver. The bile ducts are within normal limits. There is hepatic color flow. The direction of portal flow is hepatopetal. There is no demonstrated mass lesion. Gallbladder: Normal distended gallbladder. The gallbladder wall measures 4 mm. There is a negative sonographic Mendoza's sign. There is no pericholecystic fluid. There are multiple echogenic structures within the gallbladder, consistent with multiple gallstones. Common Bile Duct (C.B.D.): The common bile duct measures 6 mm. Pancreas: Normal size of the head, body and tail of the pancreas. There is normal echogenicity of the pancreas. There is a probable small hypoechoic lesion likely representing cysts in the head of the pancreas measuring about 8 mm. Right Kidney: Normal size of the right kidney. The right kidney measures 10.4 x 4.9 x 4.8 cm. Normal renal cortex. The right cortex measures 1.5 cm. There is a small cyst in the right kidney measuring about 1.7 cm. There is no right hydronephrosis. US/Gallbladder IMPRESSION: Heterogeneous irregular liver which may reflect cirrhosis and fatty infiltration. Multiple gallstones. Probable small hypoechoic lesion or small cyst near the head of the pancreas . Electronically Signed: Twin Espinoza MD at 0:26 EDT Tel , Service support ,
[2018-05-20] MEDS: 0.9% Normal Saline 1,000 ML 1000 ML IV (23:08)
[2018-05-20] MEDS: Ondansetron 4 MG/2 ML Vial IV (23:08)
[2018-05-20] MEDS: HYDROmorphone 1 MG/ML Syringe IV (23:08)
[2018-05-21] VITALS (7 sets, daily range): BP systolic 132–158; BP diastolic 88–98; PULSE 76–97; RESP 12–18; TEMP 36.6–37; O2SAT 91–97; BMI 25.4; BMI 25.5
[2018-05-21 00:19] LABS: AST(SGOT) 40 U/L (15-37); Alanine Aminotransfer ALT/SGPT 60 U/L (16-61); Albumin, Serum 4.3 g/dL (3.2-5.0); Alkaline Phosphatase 122 U/L (45-117); Bilirubin, Direct 1.07 mg/dL (0.00-0.30); Globulin 5.3 g/dL (2.2-4.2); Lipase 19498 U/L (73-393); Protein, Total 9.6 g/dL (6.4-8.2)
--- NOTE | 2018-05-21 01:13 | PCM.HP.STD ---
Problem List (1) Pancreatitis Status: Acute Qualifiers: Pancreatitis type: unspecified pancreatitis type (2) HTN (hypertension) Status: Chronic (3) Coagulopathy Status: Chronic (4) Tobacco dependence in remission Status: Chronic (5) Cirrhosis Status: Chronic (6) Portopulmonary hypertension Status: Chronic History of Present Illness Date of Admission: 05/21/18 Chief Complaint: abdominal pain The patient is a 42 year old male patient with a significant past medical history of pancreatitis who has been hospitalized several times over the past three weeks presents with the same abdominal pain. He reports having lost 20 lbs over the past 2-3 weeks. He has been afraid to eat. Ultrasound reveals multiple gall stones within the gallbladder but no cholecystitis. He has a remote alcohol history. He will be admitted for recurrent pancreatitis. Past Medical History Past Medical History (Chronic Problems): Chronic Problems (Last Reviewed 02/26/18 @ 12:32 by Kinsey Raines) HTN (hypertension) (Chronic) Coagulopathy (Chronic) Tobacco dependence in remission (Chronic) Cirrhosis (Chronic) Portopulmonary hypertension (Chronic) Medical History: Medical History (Last Reviewed 02/26/18 @ 12:32 by Kinsey Raines) Abnormal electrocardiogram R94.31 Tobacco dependence in remission F17.201 Tobacco use Z72.0 Anxiety F41.9 Cardiomyopathy I42.9 Cervical radiculopathy M54.12 Cirrhosis K74.60 with alcohol abuse Diverticulitis K57.92 Impingement syndrome, shoulder, left M75.42 Left shoulder pain M25.512 Left ventricular hypertrophy I51.7 Nonrheumatic tricuspid (valve) insufficiency I36.1 Pulmonary HTN I27.20 Type 2 diabetes mellitus with complication E11.8 Allergies No Known Allergies Allergy (Verified 05/20/18 20:00) Home Medications: Ambulatory Orders Medication Instructions Recorded Omeprazole [Prilosec] 20 mg PO DAILY 02/19/14 Insulin Glargine [Lantus (BKC)] 30 units SC BID 03/07/16 Magnesium Oxide [Mag-Ox 400] 400 mg PO TID 03/07/16 Rifaximin [Xifaxan] 550 mg PO BID 03/07/16 oxazepam 10 mg capsule 10 mg PO DAILY cap 02/22/18 potassium citrate ER 10 mEq (1,080 10 meq PO BID tab 02/22/18 mg) tablet,extended release pramipexole 0.125 mg tablet 0.25 mg PO DAILY tab 02/22/18 spironolactone 25 mg tablet 50 mg PO QDAY tab 02/22/18 Paroxetine [Paxil] 10 mg PO DAILY 04/04/18 Oxycodone [Oxyir] 5 mg PO Q6H PRN PRN #10 tab 04/12/18 Ambrisentan [Letairis] 10 mg PO DAILY 04/29/18 Furosemide 40 mg PO TID 04/29/18 Insulin Lispro [Humalog] 10 unit SQ TID 05/20/18 Surgical History: Surgical History (Last Reviewed 02/26/18 @ 12:32 by Kinsey Raines) History of liver biopsy Z98.890 2010 Smoking Status: Never smoker - *Family History Maternal Family History: Family History (Last Reviewed 02/26/18 @ 12:32 by Kinsey Raines) Brother CAD (coronary artery disease) Mother Lung cancer Father Lung cancer History Items: No pertinent history Review of Systems Constitutional: Denies: Chills, Fever, Weight Change HEENT: Denies: Head Aches, Sinus Congestion, Sinus Drainage Cardiovascular: Denies: Chest Pain, Palpitations Respiratory: Denies: Cough, Shortness of breath at rest, Sputum production Gastrointestinal: Reports: Abdominal Pain, Nausea Genitourinary: Denies: Dysuria Musculoskeletal: Denies: Joint Pain, Joint Tenderness Skin: Denies: Rash, Wounds Neurological: Denies: Numbness, Tingling, Focal weakness Psychiatric: Denies: Anxiety, Depression, Homicidal Ideations, Suicidal Ideations Hematologic/ Lymphatic: Denies: Easy Bruising, Easy Bleeding VTE Information - Inpt Only VTE Present on Admission: No VTE Mechan Device Prophylaxis: SCD's VTE Pharm Prophylaxis ordered?: No - Physical Exam General: Alert, Oriented x3, Cooperative HEENT: Atraumatic, Normocephalic Neck: Supple Lungs: Clear to auscultation, Normal air movement Cardiovascular: Regular rate, Normal S1, Normal S2, No murmurs Abdomen: Bowel Sounds Present, Guarding, Rigid Extremities: No edema Skin: No rashes, No breakdown Musculoskeletal: No Tenderness to Palpation of Joints or Extremities Neurological: Neuro grossly intact Psych/Mental Status: Normal Affect, Appropriate Vital Signs Temp Pulse Resp BP Pulse Ox 98.0 F 85 18 151/93 H 97 05/20/18 19:58 05/21/18 00:00 05/21/18 00:00 05/21/18 00:00 05/21/18 00:00 Oxygen Delivery Method Room Air Weight: 172 lb 6.424 oz Body Mass Index (BMI) 25.4 Laboratory Tests Past 24 Hrs 05/20/18 05/20/18 05/20/18 20:15 20:32 20:32 WBC 11.5 H RBC 5.90 Hgb 17.9 H Hct 49.3 MCV 83.6 MCH 30.3 MCHC 36.3 H RDW 14.6 RDW Differential 44.6 H Plt Count 142 L MPV 11.4 Immature Gran % (Auto) 0.200 Neut % (Auto) 80.2 H Lymph % (Auto) 13.2 L [place] % (Auto) 4.5 Eos % (Auto) 1.7 Baso % (Auto) 0.2 Absolute Neuts (auto) 9.2 H Absolute Lymphs (auto) 1.52 Total Counted Not Reportable Sodium 136 Potassium 3.6 Chloride 99 Carbon Dioxide 27.0 Anion Gap 10 BUN 23 H Creatinine 1.16 Estim Creat Clear Calc 81.26 Est GFR (MDRD) Af Amer 88 Est GFR (MDRD) Non-Af 72 BUN/Creatinine Ratio 19.8 Glucose 126 H Calcium 9.7 Total Bilirubin Direct Bilirubin AST ALT Alkaline Phosphatase Total Protein Albumin Globulin Lipase Urine Color Yellow Urine Clarity Clear Urine pH 7.0 Ur Specific [place] 1.010 Urine Protein 30 H Urine Glucose (UA) Normal Urine Ketones Negative Urine Occult Blood Negative Urine Nitrite Negative Urine Bilirubin Negative Urine Urobilinogen 8 H Ur Leukocyte Esterase Negative Urine RBC 0 SEEN Urine WBC 0 SEEN Ur Squamous Epith Cells 0 SEEN Urine Bacteria 0 SEEN Urine Mucus 0 SEEN 05/20/18 20:32 WBC RBC Hgb Hct MCV MCH MCHC RDW RDW Differential Plt Count MPV Immature Gran % (Auto) Neut % (Auto) Lymph % (Auto) [place] % (Auto) Eos % (Auto) Baso % (Auto) Absolute Neuts (auto) Absolute Lymphs (auto) Total Counted Sodium Potassium Chloride Carbon Dioxide Anion Gap BUN Creatinine Estim Creat Clear Calc Est GFR (MDRD) Af Amer Est GFR (MDRD) Non-Af BUN/Creatinine Ratio Glucose Calcium Total Bilirubin 2.70 H Direct Bilirubin 1.07 H AST 40 H ALT 60 Alkaline Phosphatase 122 H Total Protein 9.6 H Albumin 4.3 Globulin 5.3 H Lipase 97942 H Urine Color Urine Clarity Urine pH Ur Specific [place] Urine Protein Urine Glucose (UA) Urine Ketones Urine Occult Blood Urine Nitrite Urine Bilirubin Urine Urobilinogen Ur Leukocyte Esterase Urine RBC Urine WBC Ur Squamous Epith Cells Urine Bacteria Urine Mucus Assessment/Plan All Active Problems (Last Reviewed 02/26/18 @ 12:32 by Kinsey Raines) Pancreatitis (Acute) Transaminitis (Acute) Thrombocytopenia (Acute) admit to general medical floor - NPO - dilaudid 1mg IV q 2 hrs - IV normal saline at 125cc/hr - cbc, CMP and lipase in am - SCDs for DVT prophylaxis Code Visit Inpatient E&M: [id number] Init Hosp L2
--- NOTE | 2018-05-21 01:16 | ED.DCSUM_ITS ---
- ER Visit Summary Date of Service: 05/21/18 Chief Complaint: [Abdominal pain] History of Present Illness: The patient is a 42 M [who presents with abdominal pain is epigastric and radiates around both sides to the back. It started yesterday. He has had 3-4 episodes of emesis. He had loose stool yesterday none today. He has not been able to keep anything down. He has had 3 episodes of similar pain in the past where he has had pancreatitis that they think is secondary to gallstones but has not followed up for surgery. He does have a history of cirrhosis and severe pulmonary hypertension. He is followed by Tino Ovalle. He denies alcohol.] Physical Examination: [] WN WD NAD PERRL EOMI MMM NECK supple and nontender, no masses RRR no murmur rub or gallop, no peripheral edema, symmetric radial pulses CTAB no respiratory distress ABDOMEN is soft a tenderness to palpation bilateral upper quadrants and epigastric region no rebound or guarding, normal bowel sounds, no distension, no rebound or guarding he has mild bilateral CVA tenderness SKIN is warm and dry no rashes Alert and Oriented x3, CN II-XII in tact, no motor or sensory deficits, gait normal No lymphadenopathy Test Results: [] Emergency Department Course and Treatment: [She was given fluids nausea medicine and pain medicine. Screening labs were obtained and show a mild leukocytosis and a lipase of 19,000. He also has elevated T bili and D bili. These are slightly increased from the patient's baseline. Right upper quadrant ultrasound shows gallstones with no common bile duct dilation. He was given a second dose of pain and nausea medicine and will be admitted to the hospital I spoke with Dr. Molina] Treatment Plan: [] Disposition: [Admit] Impression: [1. Acute pancreatitis 2. Cholelithiasis] This note was generated with [employer] dictation software. It may contain incorrect words, spelling, and punctuation that were not noted in review of the chart prior to signing ED Disposition - Plan for ED Patient: Chief Complaint: Abd Pain Referrals: Tino Ovalle MD [Primary Care Provider] -
[2018-05-21] MEDS: Ondansetron 4 MG/2 ML Vial IV ×2 (01:21→13:05)
[2018-05-21] MEDS: HYDROmorphone 1 MG/ML Syringe IV ×8 (01:21→18:39)
--- NOTE | 2018-05-21 01:32 | NURSING ---
Called [facility] charge nurse agustín GARNICA to send patient to the floor.
[2018-05-21] MEDS: 0.9% Normal Saline 1,000 ML 125 ML IV ×3 (01:56→18:39)
[2018-05-21] MEDS: LORazepam 2 MG/ML Syringe 0.5 MG IV ×2 (03:30→16:29)
[2018-05-21] MEDS: 0.9% NaCl Peripheral Flush Adult/Peds IV ×5 (03:30→19:26)
[2018-05-21 05:41] LABS: Bedside Glucose 98 mg/dL (70-110)
[2018-05-21 06:11] LABS: Hematocrit 44.1 % (40-54); Hemoglobin 15.7 g/dl (13.0-16.5); Mean Corp Hgb Conc 35.6 g/gl (32-36); Mean Corpuscular Hgb 30.1 pg (27.0-32.0); Mean Corpuscular Volume 84.5 fL (80-94); Mean Platelet Vol. 11.4 fl (6.2-12.0); Platelet Count 139 K/mm3 (150-450); Red Blood Count 5.22 M/mm3 (4.6-6.2)
[2018-05-21 06:15] LABS: Scan Indicated on CBC? Y/N NO
[2018-05-21 06:47] LABS: ALB/GLOB Ratio 0.8 RATIO (0.9-2.4); AST(SGOT) 37 U/L (15-37); Alanine Aminotransfer ALT/SGPT 52 U/L (16-61); Albumin, Serum 3.7 g/dL (3.2-5.0); Alkaline Phosphatase 113 U/L (45-117); Anion Gap 8 (5-15); BUN 21 mg/dL (7-18); BUN/Creat Ratio 18.9 RATIO (10-20); Calcium,Total 8.1 mg/dL (8.5-10.1); Chloride 103 mmol/L (98-107); Creatinine, Serum 1.11 mg/dL (0.70-1.30); EST Glomerular Filtration Rate 76 mL/min (>60); Est Glom Filt Rate - Afr Amer 92 mL/min (>60); Estimated Creatinine Clearance 84.92 ml/min; Globulin 4.6 g/dL (2.2-4.2); Glucose 86 mg/dL (74-106); Lipase 2483 U/L (73-393); Potassium 3.4 mmol/L (3.5-5.1); Protein, Total 8.3 g/dL (6.4-8.2); Sodium Level 139 mmol/L (136-145)
--- NOTE | 2018-05-21 11:44 | CASEMGMT ---
See RN CM Assessment Link. DC PLAN: HOME Pt states it was recommended that he f/u with [facility] for recurrent pancreatitis. Pt states he plans to pursue this and his S.O. Renu can assist with transportation. No other dc needs identified. READMIT NOTE: 04/29/18-05/02/18- treatment for pancreatitis. Pt dc'd to home. States he did f/u with his PCP, had been feeling improved, however recent worsening and susbsequently came to ER.
[2018-05-21 12:16] LABS: Bedside Glucose 83 mg/dL (70-110)
--- NOTE | 2018-05-21 15:12 | CASEMGMT ---
According to [facility] website, the following are in-network tertiary facilities: [facility], [facility], [facility], [facility], [facility], [facility], [place], [facility], and . Kevin PETERS CM
--- NOTE | 2018-05-21 15:16 | PCM.CONS.GEN ---
Problem List (1) Cholelithiasis Status: Acute (2) Pancreatitis Status: Acute Qualifiers: Pancreatitis type: unspecified pancreatitis type Reason for Consult Date of Consultation: 05/21/18 Reason for Consultation: Recurrent pancreatitis. Cholelithiasis. History of Present Illness: The patient is a 42 year old M who presents with a 1 1/2 month history of epigastric pain radiating to the right upper quadrant into mid posterior back. Patient has been admitted on multiple occasions for similar symptoms. His last admission was on April 29. Previous admission he was transferred to [facility]. Both occurrences, he was treated with conservative measures and discharged to home on antibiotics. Patient noted he has also been evaluated in the ED on several occasions between admissions. His last hospitalization, he was discharged on May 02. He followed up with his PCP who assisted with referral to surgeon in [facility]. Patient is uncertain of the surgeons name. Last admission patient was also being worked up for abnormal liver enzymes and thrombocytopenia. Patient notes he was to have a follow-up with Dr. Husain tomorrow. Patient notes in the interim, his symptoms were more under control. He notes last night his RUQ discomfort became worse. He had a repeat RUQ ultrasound which demonstrated cholelithiasis, pancreatic lesion or cyst and irregular liver. Patient has a history of alcoholic cirrhosis, pulmonary hypertension, thrombocytopenia, diabetes. Patient notes taking multiple medications including Victoza, which he has been on for years for diabetes. Patient denies previous abdominal surgeries. Patient follows with Dr. Manrique for pulmonary hypertension. His PCP is Dr. Ovalle. He denies previous myocardial infarction, stroke, and blood clots. Patient denies current alcohol use. Patient notes being a recovering alcoholic for 6 years. Prior to him being sober, he used to drink a case of beer daily. He denies illicit drug use and smoking. He notes losing at least 20 pounds due to the nausea, vomiting and not being able to eat. Past Medical History Past Medical History (Chronic Problems): Chronic Problems (Last Reviewed 02/26/18 @ 12:32 by Kinsey Raines) HTN (hypertension) (Chronic) Coagulopathy (Chronic) Tobacco dependence in remission (Chronic) Cirrhosis (Chronic) Portopulmonary hypertension (Chronic) Medical History: Medical History (Last Reviewed 02/26/18 @ 12:32 by Kinsey Raines) Abnormal electrocardiogram R94.31 Tobacco dependence in remission F17.201 Tobacco use Z72.0 Anxiety F41.9 Cardiomyopathy I42.9 Cervical radiculopathy M54.12 Cirrhosis K74.60 with alcohol abuse Diverticulitis K57.92 Impingement syndrome, shoulder, left M75.42 Left shoulder pain M25.512 Left ventricular hypertrophy I51.7 Nonrheumatic tricuspid (valve) insufficiency I36.1 Pulmonary HTN I27.20 Type 2 diabetes mellitus with complication E11.8 Allergies No Known Allergies Allergy (Verified 05/20/18 20:00) Home Medications: Ambulatory Orders Medication Instructions Recorded Omeprazole [Prilosec] 20 mg PO DAILY 02/19/14 Insulin Glargine [Lantus (BKC)] 30 units SC BID 03/07/16 Magnesium Oxide [Mag-Ox 400] 400 mg PO TID 03/07/16 Rifaximin [Xifaxan] 550 mg PO BID 03/07/16 oxazepam 10 mg capsule 10 mg PO DAILY cap 02/22/18 potassium citrate ER 10 mEq (1,080 10 meq PO BID tab 02/22/18 mg) tablet,extended release pramipexole 0.125 mg tablet 0.25 mg PO DAILY tab 02/22/18 spironolactone 25 mg tablet 50 mg PO QDAY tab 02/22/18 Paroxetine [Paxil] 10 mg PO DAILY 04/04/18 Oxycodone [Oxyir] 5 mg PO Q6H PRN PRN #10 tab 04/12/18 Ambrisentan [Letairis] 10 mg PO DAILY 04/29/18 Furosemide 40 mg PO TID 04/29/18 Insulin Lispro [Humalog] 10 unit SQ TID 05/20/18 Surgical History: Surgical History (Last Reviewed 02/26/18 @ 12:32 by Kinsey Raines) History of liver biopsy Z98.890 2010 Surgical History: no surgical history Psychiatric History: Anxiety Lives: Spouse/ Significant Other Smoking Status: Never smoker - *Family History Maternal Family History: Family History (Last Reviewed 02/26/18 @ 12:32 by Kinsey Raines) Brother CAD (coronary artery disease) Mother Lung cancer Father Lung cancer History Items: No pertinent history Paternal Family History: Family History (Last Reviewed 02/26/18 @ 12:32 by Kinsey Raines) Brother CAD (coronary artery disease) Mother Lung cancer Father Lung cancer History Items: No pertinent history Review of Systems Constitutional: Reports: Anorexia, Weight Change HEENT: Denies: Head Aches, Sinus Congestion, Sinus Drainage Cardiovascular: Denies: Chest Pain, Palpitations Respiratory: Denies: Cough, Shortness of breath at rest, Sputum production Gastrointestinal: Reports: Abdominal Pain, Nausea, Vomiting Genitourinary: Denies: Dysuria Musculoskeletal: Denies: Joint Pain, Joint Tenderness Skin: Denies: Rash, Wounds Neurological: Denies: Numbness, Tingling, Focal weakness Psychiatric: Reports: Anxiety Hematologic/ Lymphatic: Reports: Easy Bruising, Easy Bleeding. Denies: Hx of blood clot, Hx of blood transfusion Patient Problems: Active and Suspected Problems (Last Reviewed 02/26/18 @ 12:32 by Kinsey Raines) Cholelithiasis (Acute) - Physical Exam General: Alert, Oriented x3, Cooperative HEENT: Atraumatic, PERRLA, EOMI, Normocephalic Neck: Supple, No JVD, Negative Carotid Bruits Lungs: Clear to auscultation, Normal air movement Cardiovascular: Regular rate, No murmurs Abdomen: Bowel Sounds Present, Soft, Distended, Tender - epigastric and RUQ pain Extremities: No edema, Capillary Refill Less than 3 Seconds Skin: No rashes, No breakdown Musculoskeletal: No Tenderness to Palpation of Joints or Extremities Neurological: Neuro grossly intact Psych/Mental Status: Normal Affect, Appropriate, Anxious Vital Signs Temp Pulse Resp BP Pulse Ox 98 F 92 14 133/88 H 95 05/21/18 11:43 05/21/18 11:43 05/21/18 11:43 05/21/18 11:43 05/21/18 11:43 Oxygen Delivery Method Room Air Weight: 172 lb 9.951 oz Body Mass Index (BMI) 25.4 Intake and Output for Last 24 Hours 05/19/18 05/20/18 05/21/18 23:59 23:59 23:59 Intake Total 1331 / 1331 Balance 1331 / 1331 Laboratory Tests Past 24 Hrs 05/21/18 05/21/18 05:55 05:55 WBC 8.0 RBC 5.22 Hgb 15.7 Hct 44.1 MCV 84.5 MCH 30.1 MCHC 35.6 RDW 15.0 H RDW Differential 46.0 H Plt Count 139 L MPV 11.4 Sodium 139 Potassium 3.4 L Chloride 103 Carbon Dioxide 28.0 Anion Gap 8 BUN 21 H Creatinine 1.11 Estim Creat Clear Calc 84.92 Est GFR (MDRD) Af Amer 92 Est GFR (MDRD) Non-Af 76 BUN/Creatinine Ratio 18.9 Glucose 86 Calcium 8.1 L Total Bilirubin 2.10 H AST 37 ALT 52 Alkaline Phosphatase 113 Total Protein 8.3 H Albumin 3.7 Globulin 4.6 H Albumin/Globulin Ratio 0.8 L Lipase 2483 H POC Glucose 05/21/18 05/21/18 11:39 05:36 POC Glucose 83 98 Assessment/Plan All Active Problems (Last Reviewed 02/26/18 @ 12:32 by Kinsey Ranies) Pancreatitis (Acute) Transaminitis (Acute) Thrombocytopenia (Acute) Cholelithiasis (Acute) I have been asked to evaluate this patient in conjunction with Dr. Barraza. Impression: Recurrent gallstone pancreatitis. History of alcoholic cirrhosis, pulmonary hypertension, thrombocytopenia Plan: Discussed this patient in conjunction with Dr. Barraza. Patient is at high risk for surgery secondary to his comorbidities. Patient was scheduled for laparoscopic cholecystectomy with Dr. Delong last admission, however was canceled due to abnormal EKG and low platelets. It was recommended the patient be evaluated by a tertiary general surgeon for gallbladder removal. He had followed-up with his PCP for referral to general surgeon. After discussion with Dr. Barraza, it is in the patient's best interest to be transferred to a tertiary facility for a laparoscopic cholecystectomy. Patient is in agreement with transfer. He would like to feel better. Patient had the opportunity to ask and have questions answered. Patient was also discussed with Una Truong CNP. Thank you allowing me to participate in this patient's care. My recommendations will be available via electronic medical records. Code Visit Office Visits / Consults: [id number] IP Consult L3
--- NOTE | 2018-05-21 15:45 | PCM.PROGNOTE ---
<Una Truong - Last Filed: 05/21/18 15:58> Patient Problems: Active and Suspected Problems (Last Reviewed 02/26/18 @ 12:32 by Kinsey Raines) Cholelithiasis (Acute) Subjective: Patient seen and examined. Resting in bed in no acute distress. Continues to complain of mid abdominal pain 9 out of 10. Denies further nausea, vomiting. Remains n.p.o. No other complaints at this time. - Physical Exam General: Alert, Oriented x3, Cooperative, No apparent distress HEENT: Atraumatic, PERRLA, EOMI, Normocephalic Neck: Supple, No JVD, Negative Carotid Bruits Lungs: Clear to auscultation, Normal air movement Cardiovascular: Regular rate, Regular Rhythm, Normal S1, Normal S2, No murmurs Abdomen: Bowel Sounds Present, Soft, Non Tender, Non-Distended Extremities: No clubbing, No cyanosis, No edema, Capillary Refill Less than 3 Seconds Skin: No rashes, No breakdown Musculoskeletal: No Tenderness to Palpation of Joints or Extremities Neurological: Cranial nerves II-XII grossly intact, Neuro grossly intact Psych/Mental Status: Normal Affect, Appropriate Vital Signs Temp Pulse Resp BP Pulse Ox 98 F 92 14 133/88 H 95 05/21/18 11:43 05/21/18 11:43 05/21/18 11:43 05/21/18 11:43 05/21/18 11:43 Oxygen Delivery Method Room Air Weight: 78.3 kg Body Mass Index (BMI) 25.4 Intake and Output for Last 24 Hours 05/19/18 05/20/18 05/21/18 23:59 23:59 23:59 Intake Total 1331 / 1331 Balance 1331 / 1331 Laboratory Tests Past 24 Hrs 05/21/18 05/21/18 05:55 05:55 WBC 8.0 RBC 5.22 Hgb 15.7 Hct 44.1 MCV 84.5 MCH 30.1 MCHC 35.6 RDW 15.0 H RDW Differential 46.0 H Plt Count 139 L MPV 11.4 Sodium 139 Potassium 3.4 L Chloride 103 Carbon Dioxide 28.0 Anion Gap 8 BUN 21 H Creatinine 1.11 Estim Creat Clear Calc 84.92 Est GFR (MDRD) Af Amer 92 Est GFR (MDRD) Non-Af 76 BUN/Creatinine Ratio 18.9 Glucose 86 Calcium 8.1 L Total Bilirubin 2.10 H AST 37 ALT 52 Alkaline Phosphatase 113 Total Protein 8.3 H Albumin 3.7 Globulin 4.6 H Albumin/Globulin Ratio 0.8 L Lipase 2483 H POC Glucose 05/21/18 05/21/18 11:39 05:36 POC Glucose 83 98 Medical Necessity - Tobacco Use Smoking Status: Never smoker Assessment/Plan All Active Problems (Last Reviewed 02/26/18 @ 12:32 by Kinsey Raines) Pancreatitis (Acute) Transaminitis (Acute) Thrombocytopenia (Acute) Cholelithiasis (Acute) Patient is a 42-year-old male admitted 05/21/2018 due to abdominal pain. He has had 3 hospitalizations over the past month due to recurrent pancreatitis. His past medical history includes hypertension, type 2 diabetes mellitus, pulmonary hypertension, liver cirrhosis, history of tobacco use, history of alcohol use. 1. Recurrent gallstone pancreatitis-lipase significantly improved since admission. Remain n.p.o. IV fluids. PRN pain regimen. Patient is high risk for surgery due to severe pulmonary hypertension, liver cirrhosis, coagulopathy. Patient was seen by Dr. Delong during previous admission. It is recommended at this time that patient be transferred to tertiary care center for further evaluation for cholecystectomy. Transfer pending bed availability at [facility]. 2. Severe portal pulmonary arterial hypertension-following with Dr. Manrique. Echocardiogram 05/15/2018 showed an RVSP estimated to be 118 mmHg. Stage I diastolic dysfunction. Moderately severe tricuspid valve insufficiency. 3. Liver cirrhosis secondary to alcoholism-untreated chronic virus hepatitis? Undergoing outpatient workup with Dr. Husain. Special coag tests pending. Patient was to follow-up in office to review results. 4. Coagulopathy-secondary to #3 5. History of alcohol abuse-denies current alcohol use. No alcohol level drawn on admission. 6. Type 2 diabetes mellitus-continue home insulin regimen. Accu-Chek before meals at bedtime with sliding scale insulin. 7. Hypertension-stable, continue home regimen. DVT prophylaxis-SCDs. This patient was seen by SHAVONNE Javier under the supervision of Dr. Diana. <Tino Diana - Last Filed: 05/21/18 16:36> - Physical Exam General: Alert, No apparent distress, - - appears older than stated age. HEENT: Atraumatic, PERRLA, EOMI Neck: No Nodes, Thyroid Normal Size and Texture Lungs: Clear to auscultation, Normal air movement, No rhonchi, No wheeze Cardiovascular: Regular rate, Regular Rhythm, Normal S1, Normal S2 Abdomen: Bowel Sounds Present, Soft Extremities: No edema, No Calf Tenderness Skin: No rashes, No breakdown Psych/Mental Status: Normal Affect, Appropriate Vital Signs Temp Pulse Resp BP Pulse Ox 36.6 C 92 14 133/88 H 95 05/21/18 11:43 05/21/18 11:43 05/21/18 11:43 05/21/18 11:43 05/21/18 11:43 Oxygen Delivery Method Room Air Weight: 78.3 kg Body Mass Index (BMI) 25.4 Intake and Output for Last 24 Hours 05/19/18 05/20/18 05/21/18 23:59 23:59 23:59 Intake Total 1331 / 1331 Balance 1331 / 1331 Laboratory Tests Past 24 Hrs 05/21/18 05/21/18 05:55 05:55 WBC 8.0 RBC 5.22 Hgb 15.7 Hct 44.1 MCV 84.5 MCH 30.1 MCHC 35.6 RDW 15.0 H RDW Differential 46.0 H Plt Count 139 L MPV 11.4 Sodium 139 Potassium 3.4 L Chloride 103 Carbon Dioxide 28.0 Anion Gap 8 BUN 21 H Creatinine 1.11 Estim Creat Clear Calc 84.92 Est GFR (MDRD) Af Amer 92 Est GFR (MDRD) Non-Af 76 BUN/Creatinine Ratio 18.9 Glucose 86 Calcium 8.1 L Total Bilirubin 2.10 H AST 37 ALT 52 Alkaline Phosphatase 113 Total Protein 8.3 H Albumin 3.7 Globulin 4.6 H Albumin/Globulin Ratio 0.8 L Lipase 2483 H POC Glucose 05/21/18 05/21/18 11:39 05:36 POC Glucose 83 98 Assessment/Plan Patient seen and examined independently. Data reviewed. I agree with the above note by the nurse practitioner. 1. Recurrent gallstone pancreatitis Now patient's third admission in slightly over the past month Lipase down today General surgery, again recommends transfer to tertiary facility for cholecystectomy. Given the patient's severe pulmonary hypertension, patient deemed too high risk for this facility. [facility] has been contacted and patient has tentatively been accepted and will be notified when the patient can be transferred In the meantime, patient will be on supportive management with IV fluids, pain control and antiemetics Did review some limited information from March 2018. Limited information was provided with the did mention some bacteremia on top of the gallstone pancreatitis. I do not see any kind of surgical notes or any notes for that matter other than just the patient's discharge instructions. 2. Pulmonary hypertension Patient had right ventricular systolic pressure of 118 from echocardiogram earlier this month which was increased from 2017 where it was [address] Manrique and per his office note from February, this is felt to be due to portopulmonary hypertension Patient had been on medications and including ambrisentan, which will restart but patient will likely have to use his own medications as we likely do not have this in her formulary. 3. Cirrhosis Patient does have an extensive alcohol history but states that he has been sober for 7 years. He states that his cirrhosis is due to alcohol abuse. Patient did have hepatitis studies that were ordered earlier this month but for some reason those were canceled. No prior lab work for hepatitis studies have been performed at this facility. Using [employer],, I did not see any evidence of any acute hepatitis studies being performed. This goes back as far as February 26, 2018. Greater than 45 minutes spent. Greater than 50% of time was coordinating care in regards to discussing general surgery and arranging transport to the [facility] Code Visit Inpatient E&M: 38125 Subs Hosp L3
--- NOTE | 2018-05-21 15:58 | PN_ITS ---
<Una Truong - Last Filed: 05/21/18 15:58> Patient Problems: Active and Suspected Problems (Last Reviewed 02/26/18 @ 12:32 by Kinsey Raines) Cholelithiasis (Acute) Subjective: Patient seen and examined. Resting in bed in no acute distress. Continues to complain of mid abdominal pain 9 out of 10. Denies further nausea, vomiting. Remains n.p.o. No other complaints at this time. - Physical Exam General: Alert, Oriented x3, Cooperative, No apparent distress HEENT: Atraumatic, PERRLA, EOMI, Normocephalic Neck: Supple, No JVD, Negative Carotid Bruits Lungs: Clear to auscultation, Normal air movement Cardiovascular: Regular rate, Regular Rhythm, Normal S1, Normal S2, No murmurs Abdomen: Bowel Sounds Present, Soft, Non Tender, Non-Distended Extremities: No clubbing, No cyanosis, No edema, Capillary Refill Less than 3 Seconds Skin: No rashes, No breakdown Musculoskeletal: No Tenderness to Palpation of Joints or Extremities Neurological: Cranial nerves II-XII grossly intact, Neuro grossly intact Psych/Mental Status: Normal Affect, Appropriate Vital Signs Temp Pulse Resp BP Pulse Ox 98 F 92 14 133/88 H 95 05/21/18 11:43 05/21/18 11:43 05/21/18 11:43 05/21/18 11:43 05/21/18 11:43 Oxygen Delivery Method Room Air Weight: 78.3 kg Body Mass Index (BMI) 25.4 Intake and Output for Last 24 Hours 05/19/18 05/20/18 05/21/18 23:59 23:59 23:59 Intake Total 1331 / 1331 Balance 1331 / 1331 Laboratory Tests Past 24 Hrs 05/21/18 05/21/18 05:55 05:55 WBC 8.0 RBC 5.22 Hgb 15.7 Hct 44.1 MCV 84.5 MCH 30.1 MCHC 35.6 RDW 15.0 H RDW Differential 46.0 H Plt Count 139 L MPV 11.4 Sodium 139 Potassium 3.4 L Chloride 103 Carbon Dioxide 28.0 Anion Gap 8 BUN 21 H Creatinine 1.11 Estim Creat Clear Calc 84.92 Est GFR (MDRD) Af Amer 92 Est GFR (MDRD) Non-Af 76 BUN/Creatinine Ratio 18.9 Glucose 86 Calcium 8.1 L Total Bilirubin 2.10 H AST 37 ALT 52 Alkaline Phosphatase 113 Total Protein 8.3 H Albumin 3.7 Globulin 4.6 H Albumin/Globulin Ratio 0.8 L Lipase 2483 H POC Glucose 05/21/18 05/21/18 11:39 05:36 POC Glucose 83 98 Medical Necessity - Tobacco Use Smoking Status: Never smoker Assessment/Plan All Active Problems (Last Reviewed 02/26/18 @ 12:32 by Kinsey Raines) Pancreatitis (Acute) Transaminitis (Acute) Thrombocytopenia (Acute) Cholelithiasis (Acute) Patient is a 42-year-old male admitted 05/21/2018 due to abdominal pain. He has had 3 hospitalizations over the past month due to recurrent pancreatitis. His past medical history includes hypertension, type 2 diabetes mellitus, pulmonary hypertension, liver cirrhosis, history of tobacco use, history of alcohol use. 1. Recurrent gallstone pancreatitis-lipase significantly improved since admission. Remain n.p.o. IV fluids. PRN pain regimen. Patient is high risk for surgery due to severe pulmonary hypertension, liver cirrhosis, coagulopathy. Patient was seen by Dr. Delong during previous admission. It is recommended at this time that patient be transferred to tertiary care center for further evaluation for cholecystectomy. Transfer pending bed availability at [facility]. 2. Severe portal pulmonary arterial hypertension-following with Dr. Manrique. Echocardiogram 05/15/2018 showed an RVSP estimated to be 118 mmHg. Stage I diastolic dysfunction. Moderately severe tricuspid valve insufficiency. 3. Liver cirrhosis secondary to alcoholism-untreated chronic virus hepatitis? Undergoing outpatient workup with Dr. Husain. Special coag tests pending. Patient was to follow-up in office to review results. 4. Coagulopathy-secondary to #3 5. History of alcohol abuse-denies current alcohol use. No alcohol level drawn on admission. 6. Type 2 diabetes mellitus-continue home insulin regimen. Accu-Chek before meals at bedtime with sliding scale insulin. 7. Hypertension-stable, continue home regimen. DVT prophylaxis-SCDs. This patient was seen by SHAVONNE Javier under the supervision of Dr. Diana. <Tino Diana - Last Filed: 05/21/18 16:36> - Physical Exam General: Alert, No apparent distress, - - appears older than stated age. HEENT: Atraumatic, PERRLA, EOMI Neck: No Nodes, Thyroid Normal Size and Texture Lungs: Clear to auscultation, Normal air movement, No rhonchi, No wheeze Cardiovascular: Regular rate, Regular Rhythm, Normal S1, Normal S2 Abdomen: Bowel Sounds Present, Soft Extremities: No edema, No Calf Tenderness Skin: No rashes, No breakdown Psych/Mental Status: Normal Affect, Appropriate Vital Signs Temp Pulse Resp BP Pulse Ox 36.6 C 92 14 133/88 H 95 05/21/18 11:43 05/21/18 11:43 05/21/18 11:43 05/21/18 11:43 05/21/18 11:43 Oxygen Delivery Method Room Air Weight: 78.3 kg Body Mass Index (BMI) 25.4 Intake and Output for Last 24 Hours 05/19/18 05/20/18 05/21/18 23:59 23:59 23:59 Intake Total 1331 / 1331 Balance 1331 / 1331 Laboratory Tests Past 24 Hrs 05/21/18 05/21/18 05:55 05:55 WBC 8.0 RBC 5.22 Hgb 15.7 Hct 44.1 MCV 84.5 MCH 30.1 MCHC 35.6 RDW 15.0 H RDW Differential 46.0 H Plt Count 139 L MPV 11.4 Sodium 139 Potassium 3.4 L Chloride 103 Carbon Dioxide 28.0 Anion Gap 8 BUN 21 H Creatinine 1.11 Estim Creat Clear Calc 84.92 Est GFR (MDRD) Af Amer 92 Est GFR (MDRD) Non-Af 76 BUN/Creatinine Ratio 18.9 Glucose 86 Calcium 8.1 L Total Bilirubin 2.10 H AST 37 ALT 52 Alkaline Phosphatase 113 Total Protein 8.3 H Albumin 3.7 Globulin 4.6 H Albumin/Globulin Ratio 0.8 L Lipase 2483 H POC Glucose 05/21/18 05/21/18 11:39 05:36 POC Glucose 83 98 Assessment/Plan Patient seen and examined independently. Data reviewed. I agree with the above note by the nurse practitioner. 1. Recurrent gallstone pancreatitis * Now patient's third admission in slightly over the past month * Lipase down today * General surgery, again recommends transfer to tertiary facility for cholecystectomy. Given the patient's severe pulmonary hypertension, patient deemed too high risk for this facility. * [facility] has been contacted and patient has tentatively been accepted and will be notified when the patient can be transferred * In the meantime, patient will be on supportive management with IV fluids, pain control and antiemetics * Did review some limited information from March 2018. Limited information was provided with the did mention some bacteremia on top of the gallstone pancreatitis. I do not see any kind of surgical notes or any notes for that matter other than just the patient's discharge instructions. 2. Pulmonary hypertension * Patient had right ventricular systolic pressure of 118 from echocardiogram earlier this month which was increased from 2017 where it was 80 * Seen by Dr. Manrique and per his office note from February, this is felt to be due to portopulmonary hypertension * Patient had been on medications and including ambrisentan, which will restart but patient will likely have to use his own medications as we likely do not have this in her formulary. 3. Cirrhosis * Patient does have an extensive alcohol history but states that he has been sober for 7 years. He states that his cirrhosis is due to alcohol abuse. * Patient did have hepatitis studies that were ordered earlier this month but for some reason those were canceled. No prior lab work for hepatitis studies have been performed at this facility. * Using [facility],, I did not see any evidence of any acute hepatitis studies being performed. This goes back as far as February 26, 2018. Greater than 45 minutes spent. Greater than 50% of time was coordinating care in regards to discussing general surgery and arranging transport to the [facility] Code Visit Inpatient E&M: 71261 Subs Hosp L3
--- NOTE | 2018-05-21 16:27 | CASEMGMT ---
INSURANCE REVIEW FOR IN-NETWORK FACILITIES IF TRANSFER IS RECOMMENDED: [facility], [facility], [facility], [facility], [facility], [facility], AND . For further questions, please contact Case Mgmnt. Meme KITCHENN RN CM
[2018-05-21 16:45] LABS: Bedside Glucose 94 mg/dL (70-110)
--- NOTE | 2018-05-21 17:00 | DS.PCM_ITS ---
<Una Truong - Last Filed: 05/21/18 17:00> Discharge Date and Diagnosis Date of Admission: 05/21/18 Date of Discharge: 05/21/18 - Primary Discharge Diagnosis Active and Suspected Problems (Last Reviewed 02/26/18 @ 12:32 by Kinsey Raines) 1. Recurrent gallstone pancreatitis 2. Severe portal pulmonary arterial hypertension 3. Liver cirrhosis secondary to alcoholism versus possible untreated chronic viral hepatitis 4. Coagulopathy-secondary to #3 - Secondary Discharge Diagnosis Chronic Problems (Last Reviewed 02/26/18 @ 12:32 by Kinsey Raines) HTN (hypertension) (Chronic) Coagulopathy (Chronic) Tobacco dependence in remission (Chronic) Cirrhosis (Chronic) Portopulmonary hypertension (Chronic) Type 2 diabetes mellitus Hospital Course and Treatment Imaging Results: Diagnostic Data Gallbladder Ultrasound 05/20/18 23:01 IMPRESSION: Heterogeneous irregular liver which may reflect cirrhosis and fatty infiltration. Multiple gallstones. Probable small hypoechoic lesion or small cyst near the head of the pancreas . Electronically Signed: Twin Espinoza MD at 0:26 EDT Tel , Service support , Dr. Barraza- Surgery Operations: None Procedures: None Summary of Care Provided: Patient is a 42-year-old male admitted 05/21/2018 due to abdominal pain. He has had 3 hospitalizations over the past month due to recurrent pancreatitis. His past medical history includes hypertension, type 2 diabetes mellitus, pulmonary hypertension, liver cirrhosis, history of tobacco use, history of alcohol use. 1. Recurrent gallstone pancreatitis-lipase significantly improved since admission. Remain n.p.o. IV fluids. PRN pain regimen. Patient is high risk for surgery due to severe pulmonary hypertension, liver cirrhosis, coagulopathy. Patient was seen by Dr. Delong during previous admission. It is recommended at this time that patient be transferred to tertiary care center for further evaluation for cholecystectomy. Transfer to [facility] facility for further evaluation. 2. Severe portal pulmonary arterial hypertension-following with Dr. Manrique. Echocardiogram 05/15/2018 showed an RVSP estimated to be 118 mmHg. Stage I diastolic dysfunction. Moderately severe tricuspid valve insufficiency. 3. Liver cirrhosis secondary to alcoholism-untreated chronic virus hepatitis? Undergoing outpatient workup with Dr. Husain. Special coag tests pending. Patient was to follow-up in office to review results. 4. Coagulopathy-secondary to #3 5. History of alcohol abuse-denies current alcohol use. No alcohol level drawn on admission. 6. Type 2 diabetes mellitus-continue home insulin regimen. 7. Hypertension-stable, continue home regimen. General: Alert, Oriented x3, Cooperative, No apparent distress HEENT: Atraumatic, PERRLA, EOMI, Normocephalic Neck: Supple, No JVD, Negative Carotid Bruits Lungs: Clear to auscultation, Normal air movement Cardiovascular: Regular rate, Regular Rhythm, Normal S1, Normal S2, No murmurs Abdomen: Bowel Sounds Present, Soft, Non Tender, Non-Distended Extremities: No clubbing, No cyanosis, No edema, Capillary Refill Less than 3 Seconds Skin: No rashes, No breakdown Musculoskeletal: No Tenderness to Palpation of Joints or Extremities Neurological: Cranial nerves II-XII grossly intact, Neuro grossly intact Psych/Mental Status: Normal Affect, Appropriate Patient seen exam prior to discharge. Physical assessment as noted above. Patient is stable for transfer to [facility] for further evaluation of recurrent gallstone pancreatitis. This patient was seen by SHAVONNE Javier under the supervision of Dr. Diana. Home Medications: Medications to take at Discharge Omeprazole [Prilosec] 20 mg PO DAILY 02/19/14 Insulin Glargine [Lantus (BKC)] 30 units SC BID 03/07/16 Magnesium Oxide [Mag-Ox 400] 400 mg PO TID 03/07/16 Rifaximin [Xifaxan] 550 mg PO BID 03/07/16 oxazepam 10 mg capsule 10 mg PO DAILY cap 02/22/18 potassium citrate ER 10 mEq (1,080 mg) tablet,extended release 10 meq PO BID tab 02/22/18 pramipexole 0.125 mg tablet 0.25 mg PO DAILY tab 02/22/18 spironolactone 25 mg tablet 50 mg PO QDAY tab 02/22/18 Paroxetine [Paxil] 10 mg PO DAILY 04/04/18 Oxycodone [Oxyir] 5 mg PO Q6H PRN PRN #10 tab 04/12/18 Ambrisentan [Letairis] 10 mg PO DAILY 04/29/18 Furosemide 40 mg PO TID 04/29/18 Insulin Lispro [Humalog] 10 unit SQ TID 05/20/18 Primary Care Physician: Tino Ovalle MD [Primary Care Provider] - Disposition: Acute care Hospital Minutes spent on discharge:: 35 Patient Condition:: Stable Medical Necessity - Tobacco Use Smoking Status: Never smoker Meaningful Use Info Meaningful Use Diagnoses (Choose all that apply): None applicable <Tino Diana - Last Filed: 05/22/18 07:56> Discharge Date and Diagnosis - Secondary Discharge Diagnosis Chronic Problems (Last Reviewed 02/26/18 @ 12:32 by Kinsey Raines) HTN (hypertension) (Chronic) Coagulopathy (Chronic) Tobacco dependence in remission (Chronic) Cirrhosis (Chronic) Portopulmonary hypertension (Chronic) Hospital Course and Treatment Operations: None Procedures: None Summary of Care Provided: Patient seen and examined independently. Data reviewed. I agree with the above note by the nurse practitioner. The patient is a 42 year old M presents again with gallstone pancreatitis. Patient was deemed high risk given very severe pulmonary hypertension with right ventricular systolic pressure of 118. [facility] contacted and accepted the patient for transfer. Patient was transferred for possible cholecystectomy and a high risk patient. [] Discharge Diet: - - NPO for now Disposition: Acute care Hospital Minutes spent on discharge:: 35 Patient Condition:: Stable Meaningful Use Info Meaningful Use Diagnoses (Choose all that apply): None applicable Code Visit Inpatient E&M: 60824 Disch Hosp
[2018-05-21] MEDS: LORazepam 2 MG/ML Syringe 1 MG IV (19:27)
== END 2018-05-21 19:00 | disposition short-term general hospital (02) | DRG 204 ==
LOC: ED 23:46 → PCU 05-21 01:28
PROVIDERS: Admitting Provider Family Medicine; Emergency Provider Emergency Medicine; Family Provider Family Medicine; PCP Family Medicine
DX: K85.10 Biliary acute pancreatitis without necrosis or infection (principal); I07.1 Rheumatic tricuspid insufficiency; K70.30 Alcoholic cirrhosis of liver without ascites; D68.4 Acquired coagulation factor deficiency; D69.6 Thrombocytopenia, unspecified; I10 Essential (primary) hypertension; F17.201 Nicotine dependence, unspecified, in remission; Z79.4 Long term (current) use of insulin; I27.21 Secondary pulmonary arterial hypertension; E11.9 Type 2 diabetes mellitus without complications; F10.21 Alcohol dependence, in remission
CPT/HCPCS: 36415; 76705; 80048; 80053; 80076; 81001; 82962; 83690; 85025; 85027; 93005; 97802; 99282; J7030; A4216; J2405

== ENCOUNTER → 2018-07-16 09:21 | Outpatient (CLI) | payer MEDICAID, SELFPAY ==
[2018-07-16 10:14] LABS: Absolute Lymphocyte Count 1.14 X10^3/ul (0.83-4.51); Absolute Neutrophil Count 4.1 X10^3/uL (2.0-7.7); Basophil# 0.02 X10^3/uL; Basophil% 0.3 % (0-1); Eosinophil# 0.21 X10^3/uL; Eosinophils% 3.5 % (0-5); Hematocrit 45.8 % (40-54); Hemoglobin 16.4 g/dl (13.0-16.5); Lymphocyte # 1.14 X10^3/ul (4.0); Lymphocyte % 19.2 % (19-41); Mean Corp Hgb Conc 35.8 g/gl (32-36); Mean Corpuscular Hgb 30.4 pg (27.0-32.0); Mean Corpuscular Volume 84.8 fL (80-94); Mean Platelet Vol. 12.4 fl (6.2-12.0); Monocyte# 0.45 X10^3/uL; Monocyte% 7.6 % (0-10); Neutrophil % 69.2 % (47-70); Platelet Count 94 K/mm3 (150-450); RBC Distribution Width CV 14.9 % (11.6-14.6); RBC Distribution Width SD 46.3 fl (35.1-43.9); White Blood Count 5.9 K/mm3 (4.4-11.0)
[2018-07-16 10:15] LABS: POSITIVE COUNT NO; POSITIVE DIFFERENTIAL NO; POSITIVE MORPHOLOGY NO
[2018-07-16 10:42] LABS: ALB/GLOB Ratio 0.9 RATIO (0.9-2.4); AST(SGOT) 21 U/L (15-37); Alanine Aminotransfer ALT/SGPT 25 U/L (16-61); Albumin, Serum 3.9 g/dL (3.2-5.0); Alkaline Phosphatase 67 U/L (45-117); Anion Gap 8 (5-15); BUN 18 mg/dL (7-18); BUN/Creat Ratio 19.6 RATIO (10-20); Calcium,Total 9.2 mg/dL (8.5-10.1); Chloride 104 mmol/L (98-107); Creatinine, Serum 0.92 mg/dL (0.70-1.30); EST Glomerular Filtration Rate 95 mL/min (>60); Est Glom Filt Rate - Afr Amer 115 mL/min (>60); Globulin 4.2 g/dL (2.2-4.2); Glucose 260 mg/dL (74-106); Lipase 309 U/L (73-393); Potassium 3.8 mmol/L (3.5-5.1); Protein, Total 8.1 g/dL (6.4-8.2); Sodium Level 138 mmol/L (136-145)
== END ==
PROVIDERS: Family Provider Family Medicine; PCP Family Medicine; Visit Provider Family Medicine
DX: E11.9 Type 2 diabetes mellitus without complications (principal); K85.90 Acute pancreatitis without necrosis or infection, unspecified
CPT/HCPCS: 36415; 80053; 83690; 85025

== ENCOUNTER → 2018-09-26 11:22 | Outpatient (CLI) | payer MEDICAID, SELFPAY ==
--- NOTE | 2018-09-26 11:26 | RAD_ITS ---
STUDY: X-RAY - CERVICAL SPINE REASON FOR EXAM: Male, 43 years old. Left cervical radiculopathy. TECHNIQUE: 5 view(s) of the cervical spine were obtained. COMPARISON: None FINDINGS: Normal anterior atlantoaxial articulation. Normal odontoid process. There is straightening of the normal cervical lordosis. There is multi-level endplate spondylosis with spurring. There is multi-level degenerative disc disease with C3-4, C5-6 and C6-7 disc space narrowing. There is multi-level osseous foraminal stenosis on the left more than the right. The soft tissue structures are unremarkable. RAD/Cerv Spine 4 or 5 Views IMPRESSION: Cervical spondylosis with left greater than right foraminal narrowing. Electronically Signed: Keo Ojeda MD at 8:00 EDT , Service support ,
[2018-09-26 14:16] LABS: Absolute Lymphocyte Count 1.51 X10^3/ul (0.83-4.51); Absolute Neutrophil Count 3.6 X10^3/uL (2.0-7.7); Basophil# 0.03 X10^3/uL; Basophil% 0.5 % (0-1); Eosinophil# 0.33 X10^3/uL; Eosinophils% 5.6 % (0-5); Hemoglobin 16.6 g/dl (13.0-16.5); Lymphocyte # 1.51 X10^3/ul (4.0); Lymphocyte % 25.5 % (19-41); Mean Corp Hgb Conc 36.1 g/gl (32-36); Mean Corpuscular Hgb 30.7 pg (27.0-32.0); Mean Corpuscular Volume 85.2 fL (80-94); Mean Platelet Vol. 12.4 fl (6.2-12.0); Monocyte# 0.46 X10^3/uL; Monocyte% 7.8 % (0-10); Neutrophil # 3.59 X10^3/uL (2.7-7.7); Neutrophil % 60.4 % (47-70); Platelet Count 112 K/mm3 (150-450); RBC Distribution Width CV 14.9 % (11.6-14.6); RBC Distribution Width SD 46.5 fl (35.1-43.9); White Blood Count 5.9 K/mm3 (4.4-11.0)
[2018-09-26 14:23] LABS: POSITIVE COUNT NO; POSITIVE DIFFERENTIAL NO; POSITIVE MORPHOLOGY NO
[2018-09-26 14:25] LABS: Hemoglobin A1c 7.7 % (4.2-6.3)
[2018-09-26 14:29] LABS: AST(SGOT) 25 U/L (15-37); Alanine Aminotransfer ALT/SGPT 46 U/L (16-61); Albumin, Serum 4.1 g/dL (3.2-5.0); Alkaline Phosphatase 64 U/L (45-117); Anion Gap 8 (5-15); BUN 20 mg/dL (7-18); BUN/Creat Ratio 21.8 RATIO (10-20); Bilirubin, Direct 0.27 mg/dL (0.00-0.30); Calcium,Total 9.1 mg/dL (8.5-10.1); Chloride 108 mmol/L (98-107); Creatinine, Serum 0.92 mg/dL (0.70-1.30); EST Glomerular Filtration Rate 95 mL/min (>60); Est Glom Filt Rate - Afr Amer 115 mL/min (>60); Globulin 3.8 g/dL (2.2-4.2); Glucose 201 mg/dL (74-106); Protein, Total 7.9 g/dL (6.4-8.2); Sodium Level 140 mmol/L (136-145); Thyroid Stim Hormone (TSH) 1.23 uIU/mL (0.358-3.74)
== END ==
PROVIDERS: Family Provider Family Medicine; PCP Family Medicine; Referring Provider Family Medicine; Visit Provider Family Medicine
DX: M54.12 Radiculopathy, cervical region (principal); M47.892 Other spondylosis, cervical region; K74.60 Unspecified cirrhosis of liver; E11.8 Type 2 diabetes mellitus with unspecified complications
CPT/HCPCS: 36415; 72050; 80048; 80076; 83036; 84443; 85025

== ENCOUNTER → 2019-01-27 15:53 | Outpatient (CLI) | payer MEDICAID, SELFPAY ==
--- NOTE | 2019-01-27 15:56 | RAD_ITS ---
STUDY: X-RAY - ABDOMEN/PELVIS REASON FOR EXAM: Male, 43 years old. Nausea. TECHNIQUE: 4 frontal images of the abdomen were obtained COMPARISON: CT dated April 02, 2017 FINDINGS: Normal visualized lung bases. There are scattered air-fluid levels within nondistended loops of bowel. There is no demonstrated free abdominal air. There are rounded calcific foci within the expected region of the gallbladder consistent with gallstones. Normal soft tissue structures. Normal visualized osseous structures. RAD/Abd Inc Decub and/or Erect IMPRESSION: Nonspecific bowel gas pattern. Cholelithiasis. Electronically Signed: Tammy Toscano MD at 20:18 EST Tel , Service support ,
== END ==
PROVIDERS: Family Provider Family Medicine; PCP Family Medicine; Referring Provider Family Medicine; Visit Provider Family Medicine
DX: K80.20 Calculus of gallbladder without cholecystitis without obstruction (principal); R10.13 Epigastric pain
CPT/HCPCS: 74019

== ENCOUNTER → 2019-02-26 08:20 | Outpatient (CLI) | payer MEDICAID, SELFPAY ==
[2019-02-26 09:35] LABS: Anion Gap 4 (5-15); BUN 16 mg/dL (7-18); Chloride 109 mmol/L (98-107); Creatinine, Serum 0.94 mg/dL (0.70-1.30); EST Glomerular Filtration Rate 92 mL/min (>60); Est Glom Filt Rate - Afr Amer 111 mL/min (>60); Glucose 377 mg/dL (74-106); Sodium Level 137 mmol/L (136-145)
== END ==
PROVIDERS: Family Provider Family Medicine; PCP Family Medicine; Referring Provider Nurse Practitioner Acute Care; Visit Provider Nurse Practitioner Acute Care
DX: K76.6 Portal hypertension (principal)
CPT/HCPCS: 36415; 80048

== ENCOUNTER → 2019-03-31 15:16 | Outpatient (CLI) | payer MEDICAID, SELFPAY ==
[2019-02-26 08:01] VITALS: BMI 28.3
[2019-03-31 17:56] LABS: Absolute Lymphocyte Count 1.75 X10^3/ul (0.83-4.51); Absolute Neutrophil Count 3.9 X10^3/uL (2.0-7.7); Basophil# 0.03 X10^3/uL; Basophil% 0.5 % (0-1); Eosinophil# 0.23 X10^3/uL; Eosinophils% 3.6 % (0-5); Hematocrit 49.8 % (40-54); Hemoglobin 17.6 g/dl (13.0-16.5); Lymphocyte # 1.75 X10^3/ul (4.0); Lymphocyte % 27.2 % (19-41); Mean Corp Hgb Conc 35.3 g/gl (32-36); Mean Corpuscular Hgb 29.5 pg (27.0-32.0); Mean Corpuscular Volume 83.6 fL (80-94); Monocyte# 0.56 X10^3/uL; Monocyte% 8.7 % (0-10); Neutrophil # 3.86 X10^3/uL (2.7-7.7); Neutrophil % 59.8 % (47-70); POSITIVE COUNT NO; POSITIVE DIFFERENTIAL NO; POSITIVE MORPHOLOGY NO; Platelet Count 108 K/mm3 (150-450); RBC Distribution Width CV 14.9 % (11.6-14.6); RBC Distribution Width SD 45.1 fl (35.1-43.9); Red Blood Count 5.96 M/mm3 (4.6-6.2); White Blood Count 6.4 K/mm3 (4.4-11.0)
[2019-03-31 18:17] LABS: Hemoglobin A1c 7.9 % (4.2-6.3)
[2019-03-31 18:19] LABS: Vitamin B12 1005 pg/mL (211-911)
[2019-03-31 18:50] LABS: BUN 15 mg/dL (7-18); Creatinine, Serum 1.01 mg/dL (0.70-1.30); Glucose 266 mg/dL (74-106)
[2019-03-31 18:51] LABS: ALB/GLOB Ratio 1.1 RATIO (0.9-2.4); AST(SGOT) 31 U/L (15-37); Alanine Aminotransfer ALT/SGPT 46 U/L (16-61); Albumin, Serum 4.2 g/dL (3.2-5.0); Alkaline Phosphatase 58 U/L (45-117); Anion Gap 9 (5-15); BUN/Creat Ratio 14.9 RATIO (10-20); Calcium,Total 9.2 mg/dL (8.5-10.1); Chloride 107 mmol/L (98-107); EST Glomerular Filtration Rate 85 mL/min (>60); Est Glom Filt Rate - Afr Amer 102 mL/min (>60); Ferritin 286 ng/mL (26-388); Globulin 3.9 g/dL (2.2-4.2); Potassium 4.1 mmol/L (3.5-5.1); Protein, Total 8.1 g/dL (6.4-8.2); Sodium Level 138 mmol/L (136-145); Thyroid Stim Hormone (TSH) 1.52 uIU/mL (0.358-3.74)
== END ==
PROVIDERS: Family Provider Family Medicine; PCP Family Medicine; Referring Provider Family Medicine; Visit Provider Family Medicine
DX: E11.8 Type 2 diabetes mellitus with unspecified complications (principal); F12.90 Cannabis use, unspecified, uncomplicated; R20.2 Paresthesia of skin
CPT/HCPCS: 36415; 80053; 82607; 82728; 82746; 83036; 83655; 84443; 85025

== ENCOUNTER 2019-04-14 16:30 | Outpatient (RCR) | payer MEDICAID, SELFPAY ==
[2019-02-26 08:01] VITALS: BMI 28.3
--- NOTE | 2019-04-07 16:56 | HP.PTEVAL_ITS ---
Patient's Visit Information PAO WARNER is a 43 year old M referred to Physical Therapy by Tino Ovalle MD with a diagnosis of CERVICAL DDD, DJD AND FINGER PARESTHESIA. Date of Evaluation: 04/07/19 Physical Therapist: Valerie Nixon PT, Cert MDT - Visit Plan Frequency: 2-3x /Week Duration: 4-6 Weeks Plan: CONSIDER CTX, POSTURE CORRECTION/STRENGTHENING, INSTRUCTION IN APPROPRIATE BODY MECHANICS AND ACTIVITY MODIFICATIONS. YOBANI UE ROM, STRETCHING AND ST RENGTHENING. HEP INSTRUCTION. - Subjective Findings: Diagnosis: FINGER PARESTHESIA; CERVICAL DDD, DJD. Work/Leisure: UNEMPLOYEED. Disability: YES - SINCE APPROX 2011 - FOR PULMONARY HYPERTENSION. Present symptoms: NECK PAIN, SHOULDER PAIN, AND YOBANI UE PAIN, NUMBNESS AND TINGLING DOWN UE'S TO FINGERS. YOBANI UE WEAKNESS. Present since: LUE SX'S HAVE BEEN GOING ON FOR 20 PLUS YEARS. RIGHT UE NUMBNESS STARTED ABOUT 6 MONTHS AGO. Pain Scale: Worst - 10/10 Least - 6/10. Currently: 10. Commenced as a result of: PINCHED NERVE IN NECK FOR NO APPARENT REASON A LONG TIME AGO - ABOUT 18 YEARS OLD. RIGHT UE SX'S STARTED RECENTLY FOR NO APPARENT REASON. Symptoms at onset: LEFT NECK. Worse: ANY KIND OF LIFTING, REACHING, SWEEPING, GOING GROERY SHOPPING, PUTTING MILK IN THE FRIG, MOWING THE YARD, FISHING, PLAYING GUITAR, EVERYTHING. Better: NOTHING. OXICODONE. Disturbed sleep: YES. Previous history/Previous treatment: PRESCRIPTION MEDICATION, PHYSICAL THERAPY - WORSE, NO CHIROPRACTOR, NO NECK SURGERY. PAIN MGMT YEARS AGO - MELITON'S ABOUT 5 TIMES OR LESS - DIDN'T HELP. Dizziness: SOMETIMES. Tinnitis: NO. Nausea: NO. Shortness of Breath: ALWAYS. Difficulty Swollowing: NO. Gait: NORMAL. Accidents: NO. Unexplained weight loss: NO. Imaging: RECENT X-RAYS OF NECK - STUDY: X-RAY - CERVICAL SPINE. REASON FOR EXAM: Male, 43 years old. Left cervical radiculopathy. TECHNIQUE: 5 view(s) of the cervical spine were obtained. COMPARISON: None. . FINDINGS: Normal anterior atlantoaxial articulation. Normal odontoid process. There is straightening of the normal cervical lordosis. There is. multi-level endplate spondylosis with spurring. There is multi-level. degenerative disc disease with C3-4, C5-6 and C6-7 disc space narrowing. There is multi-level osseous foraminal stenosis on the left more than the. right. The soft tissue structures are unremarkable. . RAD/Cerv Spine 4 or 5 Views. IMPRESSION: Cervical spondylosis with left greater than right foraminal narrowing. PMH/Recent major surgery: PULMONARY HYPERTENSION, IDDM. PLOF (Prior Level of Function): PRIOR TO 6 MONTHS AGO COULD DO ALMOST EVERYTHING WITH RIGHT UE BUT LIMITED NOW STATED ABOVE. RIGHT HAND DOMINANT. - Objective Sitting Posture/Standing Posture: POOR. FORWARD HEAD AND ROUNDED SHOULDERS. NO TORTICOLLIS. Active Correction of posture: BETTER. Other Observations: INDEP GAIT AND TRANSFERS. Motor deficit: YOBANI UE WEAKNESS LEFT > RIGHT. 65 LBS RIGHT CERTIFIED MEDICAL BILLER, 55 LBS LEFT CERTIFIED MEDICAL BILLER STRENGTH. RIGHT SHOULDER 4-/5, ELBOW 4/5. LEFT SHOULDER 3+/5, ELBOW 4-/5. Sensory deficit: ALTERED SENSATION WITH LIGHT TOUCH TESTING THOUGHOUT YOBANI UE'S LEFT > RIGHT. ROM deficit: APPROX 25% LIMITED YOBANI SHOULDER ROM. FULL YOBANI ELBOW, FOREARM, WRIST AND HAND AROM. Reflexes: UNABLE TO ELICIT YOBANI UE DTR'S. Dural Signs: POSITIVE YOBANI UE'S. Cervical Mvmt Loss: Flex: MIN. Pro: NIL. Ext: MOD. Ret: PAO. RSB: MOD. LSB: MOD. R Rot: MOD. L Rot: MOD. PATIENT C/O INCREASED NECK AND YOBANI UE SX'S WITH CERVICAL ROM TESTING ALL PLANES. Postural strength: POOR. Palpation: PATIENT REPORTS VIBRATING NUMBNESS IN YOBANI UE'S WITH LIGHT PALPATION OF CERVICAL PARASPINALS FROM APPROX C3 TO T2. OTHER - SEATED CERVICAL DISTRACTION TESTING RESULTS IN C/O RIGHT SHOULDER PAIN - NO WORSE A RESULT. PATIENT RESPONDS WELL TO PASSIVE LUMBAR SUPPORT IN SITTING IN THE CLINIC TODAY. - Goals Goal 1:: DECREASE C/O NECK AND YOBANI UE SX'S Goal Time Frame: 4-6 Weeks Goal 2:: IMPROVE PERSONAL CARE, LIFTING, READING, SLEEP, WORK, DRIVING AND RECRETIONAL FUNCTION Goal Time Frame: 4-6 Weeks Goal 3:: INSTRUCT IN PROPHYLAXIS Goal Time Frame: 4-6 Weeks - Rehabilitation Potential Rehabilitation Potential: Fair - Anticipated Interventions Patient/Client Instruction: Educate patient on: Condition, Plan of Care, Risk Factors, Benefits of Fitness Program For the Purpose of:: To improve self management Therapeutic Exercise to Include: Strength training, Body mechanics, Postural training, Active ROM, Scapular Strength/Stabilization For the Purpose of:: To decrease pain, To improve muscle performance and motor f unction, To increase tolerance to activity/condition/position, To improve ability of physical actions for home/community/work/leisure Cryotherapy (ice pack, ice massage): Yes Thermo therapy (hot pack): Yes Ultrasound (thermal/non thermal): Yes Intermittent cervical traction: Yes For the Purpose of:: To decrease pain, To decrease swelling/inflammation, To increase ROM, To improve nutrient delivery to tissue Thank you for the opportunity to evaluate your patient. For Medicare and Medicare HMO plans, please review the plan of care and approve it. It will need to be FAXED BACK to us at [phone] for Medicare purposes. For Medicare only, by signing this I certify the plan of care. Please let me know if there are questions or concerns regarding this plan of care. Physician Signature: Date:
--- NOTE | 2019-04-30 16:22 | HP.PT.NRP ---
HP - Discharge Summary (1) - Patient Information PAO WARNER was seen in my office for initial evaluation on 04/07/19. The following Plan of Care was established for this patient: Initial Frequency: 2-3x /Week Initial Duration: 4-6 Weeks - Anticipated Interventions Patient/Client Instruction: Educate patient on: Condition, Plan of Care, Risk Factors, Benefits of Fitness Program For the Purpose of:: To improve self management Therapeutic Exercise to Include: Strength training, Body mechanics, Postural training, Active ROM, Scapular Strength/Stabilization For the Purpose of:: To decrease pain, To improve muscle performance and motor function, To increase tolerance to activity/condition/position, To improve ability of physical actions for home/community/work/leisure Cryotherapy (ice pack, ice massage): Yes Thermo therapy (hot pack): Yes Ultrasound (thermal/non thermal): Yes Intermittent cervical traction: Yes For the Purpose of:: To decrease pain, To decrease swelling/inflammation, To increase ROM, To improve nutrient delivery to tissue This patient was last seen in our office 04/14/19. Pertinent comments regarding their Physical therapy will appear below: This patient has not returned to Physical Therapy without notice x 3 visits and is appropriate to return to MD for further follow-up as needed. At this point I will be discontinuing this patient from physical therapy. I would be happy to see this patient again in the future if found appropriate by the physician. Thank you! Valerie Nixon, PT, Cert MDT
== END 2019-04-14 19:00 | disposition home or self-care (01) ==
LOC: PT 16:30
PROVIDERS: Family Provider Family Medicine; PCP Family Medicine; Referring Provider Family Medicine; Visit Provider Family Medicine
DX: R20.2 Paresthesia of skin (principal); M50.30 Other cervical disc degeneration, unspecified cervical region; M47.9 Spondylosis, unspecified
CPT/HCPCS: 97012; 97140; 97162; 97530

== ENCOUNTER 2019-05-06 08:42 | Outpatient (RCR) | payer MEDICAID, SELFPAY ==
[2019-02-26 08:01] VITALS: BMI 28.3
== END 2019-05-06 08:42 | disposition home or self-care (01) ==
LOC: PT 08:42
PROVIDERS: Family Provider Family Medicine; PCP Family Medicine; Visit Provider Family Medicine
DX: Z00.00 Encounter for general adult medical examination without abnormal findings (principal)

== ENCOUNTER → 2019-06-17 07:15 | Outpatient (CLI) | payer MEDICAID, SELFPAY ==
[2019-02-26 08:01] VITALS: BMI 28.3
--- NOTE | 2019-06-17 10:24 | NEURO ---
NCS and/or EMG Patient Report Ordering Doctor: Tino Ovalle DATE OF SERVICE: 06/17/19 This is a left upper extremity EMG and a bilateral upper extremity nerve conduction study performed on this 43-year-old male with numbness tingling and pain in both hands and fingertips. On the left side the symptoms have been present for 25 years, on the right side one year. The patient did use a alcohol excessively in the past but he says he has been recovering for 8 years. He also has a history of diabetes with sugars running in the 160 range. He does not know a recent hemoglobin A1c but says this was around 7 several months ago and is never been much higher. Bilateral upper extremity sensory and motor nerve conduction studies performed. The median motor and sensory distal latencies are mild to moderately prolonged bilaterally with preservation of amplitudes and conduction velocities. The ulnar motor and sensory and radial sensory responses bilaterally are normal. The median and ulnar F waves are intact bilaterally. Left upper extremity needle electromyography was performed. Muscles evaluated included first dorsal osseous, abductor pollicis brevis, brachial radialis, biceps, triceps and deltoid muscles. All muscles demonstrated normal insertional activity with absence of pathologic spontaneous activity. Motor unit potential recruitment pattern and amplitude is normal in all muscles tested. Impression: This is an abnormal elective his logic study of the bilateral upper extremities consistent with mild to moderate carpal tunnel syndrome at the wrists bilaterally. This may be complicated by the patient's history of diabetes although this appears to be well-controlled currently.
== END ==
PROVIDERS: Family Provider Family Medicine; PCP Family Medicine; Referring Provider Family Medicine; Visit Provider Family Medicine
DX: M54.12 Radiculopathy, cervical region (principal)
CPT/HCPCS: 95886; 95913

== ENCOUNTER 2019-08-11 09:29 | Emergency (ER) | payer MEDICAID, SELFPAY ==
[2019-02-26 08:01] VITALS: BMI 28.3
[2019-08-11 09:29] VITALS: BP 136/92; PULSE 100; RESP 19; TEMP 36.1; O2SAT 96; BMI 25.8
[2019-08-11] MEDS: 0.9% Normal Saline 1,000 ML 1000 ML IV (10:05)
[2019-08-11] MEDS: Morphine 4 MG/ML Syringe IV (10:05)
[2019-08-11] MEDS: Ondansetron 4 MG/2 ML Vial IV (10:06)
[2019-08-11 10:18] LABS: Absolute Lymphocyte Count 1.26 X10^3/uL (0.83-4.51); Absolute Neutrophil Count 9.4 X10^3/uL (2.0-7.7); Basophil# 0.02 X10^3/uL; Basophil% 0.2 % (0-1); Eosinophils% 0.9 % (0-5); Hematocrit 51.9 % (40-54); Lymphocyte # 1.26 X10^3/ul (4.0); Lymphocyte % 10.9 % (19-41); Mean Corp Hgb Conc 35.5 g/dL (32-36); Mean Corpuscular Hgb 30.6 pg (27.0-32.0); Mean Corpuscular Volume 86.4 fL (80-94); Mean Platelet Vol. 12.9 fl (6.2-12.0); Monocyte# 0.81 X10^3/uL; NRBC Flagged by Analyzer 0 % (0-5); Neutrophil # 9.36 X10^3/uL (2.7-7.7); Neutrophil % 80.7 % (47-70); Platelet Count 94 K/mm3 (150-450); RBC Distribution Width CV 15.8 % (11.6-14.6); RBC Distribution Width SD 48.4 fl (35.1-43.9); Red Blood Count 6.01 M/mm3 (4.6-6.2); White Blood Count 11.6 K/mm3 (4.4-11.0)
[2019-08-11 10:23] LABS: Differential Indicated SCAN CRITERIA MET; Hemoglobin 18.4 g/dL (13.0-16.5)
[2019-08-11 10:37] LABS: AST(SGOT) 25 U/L (15-37); Alanine Aminotransfer ALT/SGPT 41 U/L (16-61); Alkaline Phosphatase 73 U/L (45-117); Anion Gap 7 (5-15); BUN 16 mg/dL (7-18); BUN/Creat Ratio 14.8 RATIO (10-20); Bilirubin, Direct 0.66 mg/dL (0.00-0.30); Calcium,Total 8.9 mg/dL (8.5-10.1); Chloride 99 mmol/L (98-107); Creatinine, Serum 1.08 mg/dL (0.70-1.30); EST Glomerular Filtration Rate 78 mL/min (>60); Est Glom Filt Rate - Afr Amer 95 mL/min (>60); Estimated Creatinine Clearance 85.47 ml/min; Globulin 4.4 g/dL (2.2-4.2); Glucose 268 mg/dL (74-106); Lipase 200 U/L (73-393); Potassium 4.1 mmol/L (3.5-5.1); Protein, Total 8.4 g/dL (6.4-8.2); Sodium Level 132 mmol/L (136-145)
--- NOTE | 2019-08-11 10:47 | US_ITS ---
STUDY: ABDOMINAL ULTRASOUND - RIGHT UPPER QUADRANT REASON FOR VISIT: Male, 44 years old one week history of right upper quadrant pain. Abnormal liver function tests. TECHNIQUE: Ultrasound evaluation of the right upper quadrant was performed with real-time and static reyes-scale imaging. TECHNICAL QUALITY: Adequate. COMPARISON: Comparison is made with prior study dated May 20, 2018. FINDINGS: Liver: The liver is enlarged and measures 19.4 cm. There is increased echogenicity consistent with fatty infiltration. The bile ducts are within normal limits. There is hepatic color flow. The direction of portal flow is hepatopetal. There is no demonstrated mass lesion. Gallbladder: Normal distended gallbladder. The gallbladder wall measures 3.0 mm. There is a positive sonographic Mendoza's sign. There is a trace of pericholecystic fluid. There are multiple echogenic structures within the gallbladder, consistent with multiple gallstones. Common Bile Duct (C.B.D.): The common bile duct measures 4.8 mm. Pancreas: Normal size of the head, body and tail of the pancreas. There is increased echogenicity of the pancreas. There is no demonstrated pancreatic mass or cyst. Right Kidney: Normal size of the right kidney. The right kidney measures 10.8 cm x 5.7 cm x 5.4 cm. Normal renal cortex. The right cortex measures 1.6 cm. There is no demonstrated renal mass or cyst. There is no right hydronephrosis. US/Gallbladder IMPRESSION: Multiple gallstones. Trace amount of pericholecystic fluid. Slightly enlarged liver with the fatty infiltration of the liver. There is enlargement of the caudate lobe of the liver. Electronically Signed: Carlin Wheatley, at 14:12 EDT , Service support ,
[2019-08-11 12:26] VITALS: BP 128/67; PULSE 71; RESP 15; O2SAT 98
--- NOTE | 2019-08-11 12:45 | ED.VISSUMM ---
- ER Visit Summary Date of Service: 08/11/19 Chief Complaint: Abdominal pain, nausea and vomiting History of Present Illness: The patient is a 44 M who has had abdominal pain, nausea and vomiting. He had this for 1 week. He has sharp pain in his epigastric region. Does not radiate. Nothing makes it worse or better. He has vomited multiple times at home. No diarrhea or urinary symptoms. He does have a history of pancreatitis in the past which they thought was due to his diabetes medication Victoza. He tried omeprazole at home without any relief. He denies any fevers. Physical Examination: Vital signs reviewed. HEENT exam unremarkable. Heart is tachycardic and regular rhythm without murmurs. Lungs are clear to auscultation. Abdomen is soft with epigastric tenderness. No guarding or rebound tenderness. Extremities reveal no edema. Skin exam normal. Neurologic exam normal. Test Results: White blood cell count 11.6, hemoglobin 18.4. Platelet count 94. Sodium 132 and glucose 268. Total bilirubin 3.1, direct bilirubin 0.66. ALT 41, AST 25, lipase 200 Emergency Department Course and Treatment: Patient was given morphine and then fentanyl for pain. His ultrasound shows some gallstones and pericholecystic fluid. The common bile duct is only 4.6 mm. However, I spoke with the surgeon, Dr. Barraza and she believes the patient needs to be transferred for possible ERCP. She states that he had to be transferred previously for similar issues because anesthesia declined because of his low platelet count. Patient will be given a dose of Zosyn. He requested [facility]. I spoke with their physician there and he will be accepted by the internal medicine service. They did consult with GI and they will be willing to see the patient as well. Treatment Plan: [] Disposition: Transfer Impression: Cholecystitis, choledocholithiasis This note was generated with [employer] dictation software. It may contain incorrect words, spelling, and punctuation that were not noted in review of the chart prior to signing ED Disposition - Plan for ED Patient: Referrals: Tino Ovalle MD [Primary Care Provider] -
[2019-08-11] MEDS: fentaNYL 100 MCG/2 ML Ampul 50 MCG IV (13:54)
--- NOTE | 2019-08-11 13:58 | ED.RN ---
PT STATES NO MATTER WHAT MEDICATION WE GIVE HIM FOR PAIN IT WON'T BE ENOUGH. PT STATES THE PAIN MEDICATION IS NOT WORKING AND WANTS SOMETHING ELSE WHILE IT IS STILL BEING ADMINISTERED. EXPLAINED TO PT HE NEEDS TO GIVE IT TIME TO WIRK AND PT IS AGGITATED AND STATES HE NEEDS MORE.
[2019-08-11 14:28] VITALS: BP 138/79; PULSE 72; RESP 15; O2SAT 98
[2019-08-11 16:22] VITALS: BP 138/77; PULSE 62; RESP 15; O2SAT 98
--- NOTE | 2019-08-11 16:26 | CASEMGMT ---
Case Management Progress Note: According to patient [facility] [place] [facility] hospitals: JAVIER Glass, [facility], [place], [place], [facility], . Malu Eli RNCM
[2019-08-11 17:04] VITALS: BP 132/77; PULSE 62; RESP 15; TEMP 36.1; O2SAT 98
[2019-08-11] MEDS: HYDROmorphone 1 MG/ML Syringe IV (17:19)
[2019-08-12 13:05] LABS: Pathologist Review Reviewed
== END 2019-08-11 18:14 | disposition short-term general hospital (02) ==
LOC: ED 09:53
PROVIDERS: Emergency Provider Emergency Medicine; Family Provider Family Medicine; PCP Family Medicine
DX: K80.40 Calculus of bile duct with cholecystitis, unspecified, without obstruction (principal); E11.9 Type 2 diabetes mellitus without complications; I27.20 Pulmonary hypertension, unspecified; Z79.4 Long term (current) use of insulin; Z79.899 Other long term (current) drug therapy
CPT/HCPCS: 76705; 80048; 80076; 83690; 85025; 96361; 96374; 96375; 99284; J7030; A4216; J2405

== ENCOUNTER → 2019-09-23 10:10 | Outpatient (CLI) | payer MEDICAID, SELFPAY ==
--- NOTE | 2019-09-23 10:14 | US_ITS ---
STUDY: ABDOMINAL ULTRASOUND REASON FOR EXAM: Male, 44 years old. Abdominal pain TECHNIQUE: Transabdominal ultrasound was performed with real-time and static reyes scale imaging. TECHNICAL QUALITY: Adequate. COMPARISON: 08/11/2019. FINDINGS: Aorta: Visualized portions of abdominal aorta are normal in diameter. IVC: Visualized portions appear patent. Pancreas: Visualized portions of pancreas are unremarkable. Liver: Measures 17.6 cm. Liver shows heterogeneous echogenicity. No liver masses identified. Cirrhotic liver. Reidentified caudate lobe hypertrophy. Gallbladder: Multiple gallstones. Negative sonographic Mendoza's sign. Common bile duct: Measures 4 mm. No intraductal stones identified. Right kidney: Measures 10.6 cm in length. Normal contour. 1.7 cm simple cyst. No masses, stones, or hydronephrosis identified. Renal cortical thickness appears normal. Left kidney: Measures 11.2 cm in length. Normal contour. No cysts. No masses, stones, or hydronephrosis identified. Renal cortical thickness appears normal. Spleen: Measures 12.7 cm. It shows homogeneous echotexture. Additional findings: Recanalized umbilical vein is noted. US/Abdomen Complete IMPRESSION: Cirrhosis. Reidentified caudate lobe hypertrophy. Recanalized umbilical vein. Multiple gallstones. Electronically Signed: Uri Howe, at 13:37 EDT Tel , Service support ,
== END ==
PROVIDERS: Family Provider Family Medicine; PCP Family Medicine
DX: K80.20 Calculus of gallbladder without cholecystitis without obstruction (principal); K74.60 Unspecified cirrhosis of liver; R18.8 Other ascites
CPT/HCPCS: 76700

== ENCOUNTER 2019-12-30 15:00 | Outpatient (RCR) | payer MEDICAID, SELFPAY ==
--- NOTE | 2019-12-16 17:19 | HP.OTEVAL ---
Patient's Visit Information PAO WARNER is a 44 year old M, referred to Occupational Therapy by Tino Ovalle MD, with a diagnosis of carpal tunnel syndrome. Date of Evaluation: 12/16/19 Occupational Therapist: Maryuri Davenport - Subjective Subjective: Pt seen for initial occupational therapy evaluation for carpel tunnel R/L hand with increased numbness/tingling. Pt states started to have R hand numb about a year ago. Pt states increased pain all fingers right hand. Pt states L arm has had numbness for 25 yrs. Pt states he is still independent with BADL's but has to visually look at things because of the numbness at his hands. Pt states able to open new containers as long as he looks as what he is doing. Pt is right hand dominent. Pt does not work. Plays [employer] as hobby - Pain R hand 5 Pain Intensity Range: 5, 7 L hand pain 5 Pain Intensity Range: 5, 7 - Objective Objective/Observation: pt demo good coordiantion bilatearl hands, pt demo increased numbness and tingling and pain bilateral hands. No edema noted - ROM Wrist: R 63'/78', L 65'/87' ROM Comments: pt able to make bilateral hand composite fists, states increased pain to complete bilateral composite fist motion - Strength Pediatric Lpn: R 85#, L 68# Lateral Pinch: R 18#, L 13# Tripod Pinch: R 17#, L 18# - Edema Other: No edema - Sensation Sensation Comments: R UE pt reports numb middle forearm distally. L UE pt reports numb middle forearm distally. R UE monofilament 3.22 all digits. L UE monofilament 3.22 middle finger, 3.61 other digits. - Quick DASH-Disab of Arm,Shoulder& Hand Quick DASH Score: 75.0000 - Goals Goal:: Pt will progress w/ L hand sales agent business services strength by 7# to assist w/ BADL/IADL tasks independently Goal:: Pt will demo no pain greater than 2/10 with movement romina hands by d/c from OT services. Goal:: Pt will be educated on BUE HEP with good understanding and demo 100%x - Rehabilitation General Assessment: Pt seen for bilateral hand carpal tunnel. Pt demo increased numbness and tingling bilateral hands, increased pain with movement, decrease sales agent business services strength w/ L hand all indicating a need for skilled OT interventions to increase L UE strength decrease pain to increase pts quality of life 1-2x/wk x 4-6wks Rehabilitation Potential: Good - Anticipated Interventions Anticipated Interventions: Strengthening, Massage, Triggerpoint Release, Modalities, Orthoses, Joint Protection/Energy Conservation, ADL Training, Education re assistive Equipment, Education re Diagnosis, Education re Self Massage Techniques, Education re Correct Donning Tech,Care&Wearing Sched Comp Garments, Home Program - Visit Plan Frequency: 1-2x /Week Duration: 4-6 Weeks General Plan: increase L UE strength decrease pain, educate HEP to increase pts quality of life 1-2x/wk x 4-6wks TEXT: Thank you for the opportunity to evaluate your patient. For Medicare and Medicare HMO plans, please review the plan of care and approve it. It will need to be FAXED BACK to us at [phone] for Medicare purposes. Please let me know if there are questions or concerns regarding this plan of care. Physician Signature: Date:
--- NOTE | 2020-05-21 16:43 | HP.OT.NRP ---
PAO WARNER was seen in my office for initial evaluation on 12/16/19. The following Plan of Care was established for this patient: Plan: rec return back to dr. gilliam to no decrease with pain- pt d/c at this time. Anticipated Interventions: Strengthening, Massage, Triggerpoint Release, Modalities, Orthoses, Joint Protection/Energy Conservation, ADL Training, Education re assistive Equipment, Education re Diagnosis, Education re Self Massage Techniques, Education re Correct Donning Tech,Care&Wearing Sched Comp Garments, Home Program This patient was last seen in our office . Pertinent comments regarding their Occupational therapy will appear below: At this point I will be discontinuing this patient from occupational therapy. I would be happy to see this patient again in the future if found appropriate by the physician. Thank you! Olya Hayden, OTR/L, CHT
== END 2019-12-30 19:00 | disposition home or self-care (01) ==
LOC: OT 15:00
PROVIDERS: PCP Family Medicine; Referring Provider Family Medicine; Visit Provider Family Medicine
DX: G56.00 Carpal tunnel syndrome, unspecified upper limb (principal)
CPT/HCPCS: 97035; 97140; 97165; 97166; 97530

== ENCOUNTER 2020-01-15 14:28 | Inpatient (IN) | payer MEDICAID, SELFPAY ==
[2020-01-15 14:29] VITALS: BP 153/108; PULSE 94; RESP 16; TEMP 36.4; O2SAT 98; BMI 27.7
--- NOTE | 2020-01-15 14:41 | EKG12_ITS ---
Test Reason : Blood Pressure : / mmHG Vent. Rate : 094 BPM Atrial Rate : 094 BPM P-R Int : 170 ms QRS Dur : 106 ms QT Int : 372 ms P-R-T Axes : 059 111 016 degrees QTc Int : 465 ms Normal sinus rhythm Possible Left atrial enlargement Right axis deviation Incomplete right bundle branch block Right ventricular hypertrophy with repolarization abnormality Abnormal ECG Confirmed by KERRI STUBBS, LANA ([id number]), senior technical editor ANAIS BAKER ([id number]) on 01/19/2020 2:17:11 PM Referred By: FORREST Confirmed By:KARTIK MANNING MD
[2020-01-15] MEDS: 0.9% Normal Saline 1,000 ML 125 ML IV ×2 (14:59→21:26)
[2020-01-15] MEDS: HYDROmorphone 1 MG/ML Syringe IV ×2 (15:00→15:53)
[2020-01-15] MEDS: Ondansetron 4 MG/2 ML Vial IV (15:00)
[2020-01-15 15:03] VITALS: PULSE 90; RESP 20; TEMP 36.6; O2SAT 98
[2020-01-15 15:03] LABS: Absolute Lymphocyte Count 1.28 X10^3/uL (0.83-4.51); Absolute Neutrophil Count 3.4 X10^3/uL (2.0-7.7); Basophil# 0.04 X10^3/uL; Basophil% 0.8 % (0-1); Eosinophils% 3.8 % (0-5); Hematocrit 47.2 % (40-54); Hemoglobin 16.3 g/dL (13.0-16.5); Lymphocyte # 1.28 X10^3/ul (4.0); Lymphocyte % 24.4 % (19-41); Mean Corp Hgb Conc 34.5 g/dL (32-36); Mean Corpuscular Hgb 30.5 pg (27.0-32.0); Mean Corpuscular Volume 88.4 fL (80-94); Mean Platelet Vol. 11.8 fl (6.2-12.0); Monocyte# 0.33 X10^3/uL; Monocyte% 6.3 % (0-10); NRBC Flagged by Analyzer 0 % (0-5); Neutrophil # 3.37 X10^3/uL (2.7-7.7); Neutrophil % 64.3 % (47-70); POSITIVE COUNT YES; Platelet Count 88 K/mm3 (150-450); RBC Distribution Width CV 13.5 % (11.6-14.6); RBC Distribution Width SD 43.5 fl (35.1-43.9); Red Blood Count 5.34 M/mm3 (4.6-6.2); White Blood Count 5.2 K/mm3 (4.4-11.0)
[2020-01-15 15:17] LABS: AST(SGOT) 22 U/L (15-37); Alanine Aminotransfer ALT/SGPT 36 U/L (16-61); Albumin, Serum 3.7 g/dL (3.2-5.0); Alkaline Phosphatase 50 U/L (45-117); Anion Gap 3 (5-15); BUN 15 mg/dL (7-18); BUN/Creat Ratio 13.4 RATIO (10-20); Calcium,Total 8.7 mg/dL (8.5-10.1); Chloride 112 mmol/L (98-107); Creatinine, Serum 1.12 mg/dL (0.70-1.30); EST Glomerular Filtration Rate 75 mL/min (>60); Est Glom Filt Rate - Afr Amer 91 mL/min (>60); Estimated Creatinine Clearance 82.41 ml/min; Globulin 3.6 g/dL (2.2-4.2); Glucose 211 mg/dL (74-106); Lipase 1581 U/L (73-393); Potassium 3.8 mmol/L (3.5-5.1); Protein, Total 7.3 g/dL (6.4-8.2); Sodium Level 140 mmol/L (136-145)
--- NOTE | 2020-01-15 15:26 | ED.VISSUMM ---
- ER Visit Summary Date of Service: 01/15/20 Chief Complaint: [Abdominal pain] History of Present Illness: The patient is a 44 M [presents the emergency department complaint of abdominal pain that started 4 5 hours ago. Patient states that he was at work when he started having gradual onset of pain that is in the epigastric region radiating through to his back. Patient complains of nausea but no vomiting yet. He denies any diarrhea. Denies any fever. He denies urinary symptoms. He has had similar pains in the past with history of pancreatitis. Patient does have history of diabetes as well as hypertension and history of cirrhosis of the liver as well as pulmonary hypertension.] Physical Examination: [HEENT-PERRLA, EOMI. Cranial nerves II through XII grossly intact. TMs clear. Mucous membranes moist. No adenopathy. Cardiovascular-regular rate and rhythm without murmur or ectopy Lungs-clear to auscultation, chest wall stable without crepitus or subcu emphysema Abdomen-normoactive bowel sounds, soft. Patient has tenderness over the epigastric region with guarding. There is no rebound, rigidity, or perineal signs. Extremities-intact ?4, normal range of motion, normal pulses, atraumatic] Test Results: [CBC with differential ordered and pending. Chemistries unremarkable. LFTs were normal. Lipase was elevated 1581. Troponin was less than 0.015. EKG obtained on arrival shows sinus rhythm with a ventricular rate of 94 bpm with nonspecific diffuse ST changes. When compared with prior EKG from May 20, 2018 no new changes are noted.] Emergency Department Course and Treatment: [An IV line established and was given a liter normal same fluid bolus. Patient was medicated with Zofran and Dilaudid.] Treatment Plan: [Admit] Disposition: [Admit] Impression: [Acute pancreatitis Abdominal pain] This note was generated with [employer] dictation software. It may contain incorrect words, spelling, and punctuation that were not noted in review of the chart prior to signing ED Disposition - Plan for ED Patient: Referrals: Tino Ovalle MD [Primary Care Provider] -
[2020-01-15 15:30] LABS: Differential Indicated SCAN CRITERIA MET
--- NOTE | 2020-01-15 15:40 | US_ITS ---
STUDY: ABDOMINAL ULTRASOUND - RIGHT UPPER QUADRANT REASON FOR VISIT: Male, 44 years old. Midline abdominal pain TECHNIQUE: Ultrasound evaluation of the right upper quadrant was performed with real-time and static reyes-scale imaging. TECHNICAL QUALITY: Adequate. COMPARISON: 23 September 2019 FINDINGS: Liver: The liver measures 18 cm. The liver is cirrhotic with possible mild biliary dilation. There is recanalization of the umbilical vein. Gallbladder: Normal distended gallbladder. The gallbladder wall measures 3.5 mm. There is a negative sonographic Mendoza''s sign. There is no pericholecystic fluid. There are multiple gallstones. Common Bile Duct (C.B.D.): The common bile duct measures 6 mm. There is a possible stone in the common bile duct. Pancreas: Normal size of the head, body and tail of the pancreas. There is normal echogenicity of the pancreas. There is no demonstrated pancreatic mass or cyst. Right Kidney: Normal size of the right kidney. The right kidney measures 11 x 6.5 x 5.0 cm. Normal renal cortex. The right cortex measures 1.4 cm. There is a 1.5 cm cyst.. There is no right hydronephrosis. US/Gallbladder IMPRESSION: 1. Limited assessment of the pancreas due to ultrasound technique. 2. Cirrhosis. 3. Cholecystolithiasis, possible choledocholithiasis. Electronically Signed: Court Mendoza, at 18:34 EST Tel , Service support ,
[2020-01-15 15:45] LABS: Differential Comment SCANNED; Platelet Estimate MOD DEC (ADEQ)
[2020-01-15 15:54] VITALS: BMI 37.7
--- NOTE | 2020-01-15 16:23 | HP.PCM_ITS ---
<Tulio Fitzpatrick - Last Filed: 01/15/20 16:23> Problem List (1) Pancreatitis Status: Acute (2) Diabetes Status: Chronic Qualifiers: Diabetes mellitus type: type 2 (3) HTN (hypertension) Status: Chronic (4) Cirrhosis Status: Chronic (5) Portopulmonary hypertension Status: Chronic History of Present Illness Date of Admission: 01/15/20 Chief Complaint: abd pain The patient is a 44 year old M with pmhx of recurrent gallbladder pancreatitis, portopulmonary HTN, Dmt2, former alcoholism with cirrhosis, HTN, who presented to the ER with c/o abdominal pain. He states he was doing well until today. About 5 hours prior he was sitting and playing guitar and started having midepigastric mild pain. This progressively worsened into severe pain radiating bilaterally around his sides and into his back. He is nauseous but has not vomited. He denies drinking. He has no fever chills. He has no diarrhea. He states that it feels like prior pancreatitis. He has been told that it is his gallbladder and he was evaluated at [facility] main for removal however for unclear reasons he did not have it done. He has had ascites in the past requiring drainage, but not for several years. He feels some mild bloating currently. He also had one episode that was attributed to his former DM medication Viktoza. He is no longer on this. He has started a new pulmonary htn medicine recently - [facility]. [] Past Medical History Past Medical History (Chronic Problems): Chronic Problems (Last Reviewed 02/26/19 @ 08:12 by Kinsey Raines) Diabetes (Chronic) HTN (hypertension) (Chronic) Coagulopathy (Chronic) Tobacco dependence in remission (Chronic) Cirrhosis (Chronic) Portopulmonary hypertension (Chronic) Medical History: Medical History (Last Reviewed 02/26/19 @ 08:12 by Kinsey Raines) Abnormal electrocardiogram R94.31 Tobacco dependence in remission F17.201 Tobacco use Z72.0 Anxiety F41.9 Cardiomyopathy I42.9 Cervical radiculopathy M54.12 Cirrhosis K74.60 with alcohol abuse Diverticulitis K57.92 Impingement syndrome, shoulder, left M75.42 Left shoulder pain M25.512 Left ventricular hypertrophy I51.7 Nonrheumatic tricuspid (valve) insufficiency I36.1 Pulmonary HTN I27.20 Type 2 diabetes mellitus with complication E11.8 Allergies No Known Allergies Allergy (Verified 01/15/20 14:31) Home Medications: Ambulatory Orders Medication Instructions Recorded Omeprazole [Prilosec] 20 mg PO DAILY 02/19/14 Insulin Glargine [Lantus (BKC)] 38 units SC BID 03/07/16 Magnesium Oxide [Mag-Ox 400] 400 mg PO TID 03/07/16 Rifaximin [Xifaxan] 550 mg PO BID 03/07/16 oxazepam 10 mg capsule 10 mg PO DAILY cap 02/22/18 pramipexole 0.125 mg tablet 0.25 mg PO QHS tab 02/22/18 Oxycodone [Oxyir] 5 mg PO Q6H PRN PRN #10 tab 04/12/18 Insulin Lispro [Humalog] 13 unit SQ TIDCM 05/20/18 furosemide 40 mg tablet 40 mg PO TID #90 tab 09/29/19 Ambrisentan [Letairis] 10 mg PO DAILY 01/15/20 Potassium Citrate [Potassium 10 meq PO BID 01/15/20 Citrate ER] Spironolactone [Aldactone] 100 mg PO DAILY 01/15/20 Treprostinil Diolamine [Orenitram 2.5 mg PO TID 01/15/20 ER] Surgical History: Surgical History (Last Reviewed 02/26/19 @ 08:12 by Kinsey Raines) History of liver biopsy Z98.890 2010 Surgical History: no surgical history Psychiatric History: Anxiety Lives: Spouse/ Significant Other Smoking Status: Former smoker Tobacco Use: Non-smoker Alcohol: None Drugs: None - *Family History Maternal Family History: Family History (Last Reviewed 01/15/20 @ 16:32 by NEENA España) Brother CAD (coronary artery disease) Mother Lung cancer Father Lung cancer History Items: No pertinent history Paternal Family History: Family History (Last Reviewed 01/15/20 @ 16:32 by NEENA España) Brother CAD (coronary artery disease) Mother Lung cancer Father Lung cancer History Items: No pertinent history Review of Systems Constitutional: Denies: Chills, Fever, Weight Change HEENT: Denies: Head Aches, Sinus Congestion, Sinus Drainage Cardiovascular: Denies: Chest Pain, Palpitations Respiratory: Denies: Cough, Shortness of breath at rest, Sputum production Gastrointestinal: Reports: Abdominal Pain, Nausea. Denies: Diarrhea, Vomiting Genitourinary: Denies: Dysuria Musculoskeletal: Denies: Joint Pain, Joint Tenderness Skin: Denies: Rash, Wounds Neurological: Denies: Numbness, Tingling, Focal weakness Psychiatric: Denies: Anxiety, Depression, Homicidal Ideations, Suicidal Ideations Hematologic/ Lymphatic: Denies: Easy Bruising, Easy Bleeding VTE Information - Inpt Only VTE Present on Admission: No VTE Mechan Device Prophylaxis: None VTE Pharm Prophylaxis ordered?: Yes - Physical Exam Vitals/I&O's: Vital Signs Temp Pulse Resp BP Pulse Ox 98 F 90 20 H 153/108 H 98 01/15/20 15:03 01/15/20 15:03 01/15/20 15:03 01/15/20 14:29 01/15/20 15:03 Oxygen Delivery Method Room Air Weight: 187 lb 9.814 oz Body Mass Index (BMI) 27.7 General: Alert, Oriented x3, Cooperative HEENT: Atraumatic, PERRLA, EOMI, Normocephalic Neck: Supple, No JVD, Negative Carotid Bruits Lungs: Clear to auscultation, Normal air movement Cardiovascular: Regular rate, No murmurs Abdomen: Soft, Hypoactive Bowel Sounds, Distended - mild, Tender Extremities: No edema, Capillary Refill Less than 3 Seconds Skin: No rashes, No breakdown Musculoskeletal: No Tenderness to Palpation of Joints or Extremities Neurological: Cranial nerves II-XII grossly intact Psych/Mental Status: Normal Affect, Appropriate, Alert and oriented to time, place, person, mood and affect Laboratory Results 01/15/20 14:50: WBC 5.2, RBC 5.34, Hgb 16.3, Hct 47.2, MCV 88.4, MCH 30.5, MCHC 34.5, RDW Std Deviation 43.5, RDW Coeff of Yolanda 13.5, Plt Count 88 L, MPV 11.8, Immature Gran % (Auto) 0.400, Neut % (Auto) 64.3, Lymph % (Auto) 24.4, Wright % (Auto) 6.3, Eos % (Auto) 3.8, Baso % (Auto) 0.8, Absolute Neuts (auto) 3.4, Absolute Lymphs (auto) 1.28, Nucleated RBC % 0, Differential Comment SCANNED, Platelet Estimate MOD DEC 01/15/20 14:50: Sodium 140, Potassium 3.8, Chloride 112 H, Carbon Dioxide 25.0, Anion Gap 3 L, BUN 15, Creatinine 1.12, Estim Creat Clear Calc 82.41, Est GFR (MDRD) Af Amer 91, Est GFR (MDRD) Non-Af 75, BUN/Creatinine Ratio 13.4, Glucose 211 H, Calcium 8.7, Total Bilirubin 1.10 H, AST 22, ALT 36, Alkaline Phosphatase 50, Troponin I < 0.015, Total Protein 7.3, Albumin 3.7, Globulin 3.6, Albumin/Globulin Ratio 1.0, Lipase 1581 H Current Medications Sodium Chloride () 1,000 mls @ 125 mls/hr IV .Q8H CAROL Last Admin: 01/15/20 14:59 Dose: 125 mls/hr Documented by: Sodium Chloride () 10 - 40 ml IV UD PRN PRN Reason: SALINE FLUSH Assessment/Plan All Active Problems (Last Reviewed 02/26/19 @ 08:12 by Kinsey Raines) Pancreatitis (Acute) Transaminitis (Acute) Thrombocytopenia (Acute) Cholelithiasis (Acute) 1. Recurrent, acute pancreatitis - suspected gallbladder pancreatitis - lipase elevated at 1581 abrupt onset of midepigastric pain. Bili mildly elevated. Complicated by hx of diabetes, medication reaction pancreatitis (viktoza) and former alcoholism. Pt will be made NPO with IV fluids/antiemtics/pain meds. Check FLP. He may benefit from a surgical eval concerning his gallbladder. -this is also complicated by starting a new medication for pulmonary htn which listed in common side effects are upper abdominal pain, abd discomfort, and nausea. However this should not be abruptly stopped as it can cause rebound pulmonary htn. Pancreatitis is NOT a listed side effect. 2. Cirrhosis 2/2 former alcoholism - sober now. ALT/AST/ALP wnl. Continue xifaxan. 3. Portopulmonary HTN _ as per #1 new medication possibly contributing to symptoms but cannot abruptly DC. He just this week titrated his dose up. Continue lasix, aldactone, ambreisentan 4. DMt2 - insulin dependent. continue lantus + mealtime insulin, + SSI. 5. Thrombocytopenia - likely 2/2 cirrhosis - avoid heparin agents. DVT ppx: SCDs This patient was seen by Tulio Fitzpatrick PA-C under the supervision of Dr. Edouard. <Alec Edouard - Last Filed: 01/15/20 19:20> History of Present Illness The patient is a 44 year old M [] Past Medical History Medical History: Medical History (Last Reviewed 02/26/19 @ 08:12 by Kinsey Raines) Abnormal electrocardiogram R94.31 Tobacco dependence in remission F17.201 Tobacco use Z72.0 Anxiety F41.9 Cardiomyopathy I42.9 Cervical radiculopathy M54.12 Cirrhosis K74.60 with alcohol abuse Diverticulitis K57.92 Impingement syndrome, shoulder, left M75.42 Left shoulder pain M25.512 Left ventricular hypertrophy I51.7 Nonrheumatic tricuspid (valve) insufficiency I36.1 Pulmonary HTN I27.20 Type 2 diabetes mellitus with complication E11.8 Allergies No Known Allergies Allergy (Verified 01/15/20 14:31) Surgical History: Surgical History (Last Reviewed 02/26/19 @ 08:12 by Kinsey Raines) History of liver biopsy Z98.890 2010 - *Family History Maternal Family History: Family History (Last Reviewed 01/15/20 @ 16:32 by NEENA España) Brother CAD (coronary artery disease) Mother Lung cancer Father Lung cancer Paternal Family History: Family History (Last Reviewed 01/15/20 @ 16:32 by NEENA España) Brother CAD (coronary artery disease) Mother Lung cancer Father Lung cancer - Physical Exam Vitals/I&O's: Vital Signs Temp Pulse Resp BP Pulse Ox 99.3 F H 83 16 132/86 H 99 01/15/20 18:11 01/15/20 18:11 01/15/20 18:11 01/15/20 18:11 01/15/20 18:11 Oxygen Delivery Method Room Air Weight: 184 lb 3.2 oz Body Mass Index (BMI) 27.1 Laboratory Results 01/15/20 14:50: WBC 5.2, RBC 5.34, Hgb 16.3, Hct 47.2, MCV 88.4, MCH 30.5, MCHC 34.5, RDW Std Deviation 43.5, RDW Coeff of Yolanda 13.5, Plt Count 88 L, MPV 11.8, Immature Gran % (Auto) 0.400, Neut % (Auto) 64.3, Lymph % (Auto) 24.4, Wright % (Auto) 6.3, Eos % (Auto) 3.8, Baso % (Auto) 0.8, Absolute Neuts (auto) 3.4, Absolute Lymphs (auto) 1.28, Nucleated RBC % 0, Differential Comment SCANNED, Platelet Estimate MOD 01/15/20 14:50: Sodium 140, Potassium 3.8, Chloride 112 H, Carbon Dioxide 25.0, Anion Gap 3 L, BUN 15, Creatinine 1.12, Estim Creat Clear Calc 82.41, Est GFR (MDRD) Af Amer 91, Est GFR (MDRD) Non-Af 75, BUN/Creatinine Ratio 13.4, Glucose 211 H, Calcium 8.7, Total Bilirubin 1.10 H, AST 22, ALT 36, Alkaline Phosphatase 50, Troponin I < 0.015, Total Protein 7.3, Albumin 3.7, Globulin 3.6, Albumin/Globulin Ratio 1.0, Lipase 1581 H 01/15/20 18:26: POC Glucose 192 H Current Medications Enoxaparin Sodium (Lovenox) 40 mg SC DAILY CAROL Glucagon () 1 mg IM .X1 PRN PRN Reason: Hypoglycemia Sodium Chloride () 1,000 mls @ 125 mls/hr IV .Q8H CAROL Last Admin: 01/15/20 14:59 Dose: 125 mls/hr Documented by: Dextrose (Dextrose 10%-Water) 250 mls @ 999 mls/hr IV .Q16M PRN; Protocol PRN Reason: HYPOGLYCEMIA Insulin Human Lispro (Humalog Kwikpen (Bkc)) 0 unit SC Q4 CAROL; Protocol Last Admin: 01/15/20 18:27 Dose: Not Given Documented by: Melatonin (Melatonin) 3 mg PO QHS PRN PRN PRN Reason: INSOMNIA Morphine Sulfate () 2 mg IV Q3H PRN PRN PRN Reason: Pain Score 6-10/10 Ondansetron HCl (Zofran) 4 mg IV Q8H PRN PRN PRN Reason: NAUSEA/VOMITING Code Visit Addendum: Dr. Edouard I personally examined the patient and reviewed the chart. I agree with the above. 44-year-old male has had pancreatitis in the past and quit drinking alcohol about 6 years ago presents with another episode of pancreatitis. He says of the last time this happened he went to a [facility] and he thought that he was can have his gallbladder removed at that time however because of his pulmonary hypertension he thinks it may be the that is why they did not do it. He is on a new medication for his pulmonary hypertension as well as his Lasix that he takes 3 times a day. His abdominal pain started today and it was consistent with his previous pancreatitis episodes therefore he presented to the hospital. His lipase was elevated to over 1500 so he was started on IV fluids and made n.p.o. He can continue his medications with sips, however since he is getting IV fluids we will continue to hold his Lasix. We will check a lipid panel in the morning just to make sure that his triglycerides are not the cause. He did have an ultrasound of his gallbladder which showed a slightly minimally dilated common bile duct to 6 mm, so I feel that he will need to have his gallbladder out sooner rather than later. Inpatient E&M: 91376 Init Hosp L3
[2020-01-15 17:39] VITALS: BP 118/75; PULSE 84; RESP 18; O2SAT 97
[2020-01-15 17:58] VITALS: BMI 27.1
[2020-01-15 18:10] VITALS: BP 132/86; PULSE 83; RESP 16; TEMP 37.4; O2SAT 99
[2020-01-15 18:11] VITALS: BP 132/86; PULSE 83; RESP 16; TEMP 37.4; O2SAT 99
[2020-01-15 18:41] LABS: Bedside Glucose 192 mg/dL (70-110)
[2020-01-15] MEDS: Morphine 2 MG/ML Syringe IV (20:19)
[2020-01-15] MEDS: CLARIFY ORDER NOTE ×4 (21:27→21:28)
[2020-01-15] MEDS: Magnesium Oxide 400 MG Tablet PO (21:50)
[2020-01-15] MEDS: rifAXIMin 550 MG Tablet PO (21:50)
[2020-01-15 21:55] LABS: Bedside Glucose 191 mg/dL (70-110)
[2020-01-15] MEDS: HYDROmorphone 0.5 MG/0.5 ML SYRINGE IV (22:49)
[2020-01-15 22:53] VITALS: BP 129/78; PULSE 90; RESP 16; TEMP 37.2; O2SAT 100
[2020-01-16] MEDS: HYDROmorphone 0.5 MG/0.5 ML SYRINGE IV ×2 (01:57→05:12)
[2020-01-16] MEDS: Insulin Lispro 100 UNIT/ML INSULN.PEN SC ×2 (02:03→05:16)
[2020-01-16 02:06] VITALS: BP 118/76; PULSE 74; RESP 16; TEMP 36.6; O2SAT 95
[2020-01-16 02:06] LABS: Bedside Glucose 209 mg/dL (70-110)
[2020-01-16] MEDS: Magnesium Oxide 400 MG Tablet PO (05:16)
[2020-01-16] MEDS: 0.9% Normal Saline 1,000 ML 125 ML IV (05:17)
[2020-01-16 05:20] LABS: Bedside Glucose 164 mg/dL (70-110)
[2020-01-16 06:14] LABS: Absolute Lymphocyte Count 1.71 X10^3/uL (0.83-4.51); Absolute Neutrophil Count 3.6 X10^3/uL (2.0-7.7); Basophil# 0.05 X10^3/uL; Basophil% 0.8 % (0-1); Eosinophil# 0.26 X10^3/uL; Eosinophils% 4.4 % (0-5); Hematocrit 43.4 % (40-54); Hemoglobin 14.7 g/dL (13.0-16.5); Lymphocyte # 1.71 X10^3/ul (4.0); Lymphocyte % 28.6 % (19-41); Mean Corp Hgb Conc 33.9 g/dL (32-36); Mean Corpuscular Hgb 30.2 pg (27.0-32.0); Mean Corpuscular Volume 89.1 fL (80-94); Mean Platelet Vol. 11.5 fl (6.2-12.0); Monocyte# 0.37 X10^3/uL; Monocyte% 6.2 % (0-10); NRBC Flagged by Analyzer 0 % (0-5); Neutrophil # 3.56 X10^3/uL (2.7-7.7); Neutrophil % 59.7 % (47-70); POSITIVE COUNT YES; Platelet Count 96 K/mm3 (150-450); RBC Distribution Width CV 14.2 % (11.6-14.6); RBC Distribution Width SD 45.4 fl (35.1-43.9); Red Blood Count 4.87 M/mm3 (4.6-6.2)
[2020-01-16 06:39] LABS: AST(SGOT) 24 U/L (15-37); Alanine Aminotransfer ALT/SGPT 35 U/L (16-61); Albumin, Serum 3.4 g/dL (3.2-5.0); Alkaline Phosphatase 44 U/L (45-117); Anion Gap 2 (5-15); BUN 15 mg/dL (7-18); BUN/Creat Ratio 17.6 RATIO (10-20); Calcium,Total 8.1 mg/dL (8.5-10.1); Chloride 115 mmol/L (98-107); Cholesterol 123 mg/dL (200); Creatinine, Serum 0.85 mg/dL (0.70-1.30); EST Glomerular Filtration Rate 103 mL/min (>60); Est Glom Filt Rate - Afr Amer 124 mL/min (>60); Estimated Creatinine Clearance 108.59 ml/min; Globulin 3.4 g/dL (2.2-4.2); Glucose 146 mg/dL (74-106); High Density Lipoprotein 27 mg/dL; Potassium 3.9 mmol/L (3.5-5.1); Protein, Total 6.8 g/dL (6.4-8.2); Sodium Level 142 mmol/L (136-145); Triglycerides 155 mg/dL; Very Low Density Lipoprotein 31 mg/dL (5-40)
--- NOTE | 2020-01-16 08:15 | NURSING ---
Entered patient's room to do morning assessment and vitals. Patient sitting on couch in street clothes. Immediately requesting to leave now. I explained to the patient that the doctor had not rounded yet and therefore he could not be discharged. The patient stated In the past I have always just signed the AMA papers. This RN then went out to text and messaged Dr. Hazel who said she would come to see the patient. Dr. Hazel spent appx 15 minutes at bedside explaining the need for patient to remain in facility and potential need for transfer due to the patient's high risk for surgery. The patient insisted that he would just come back if the pain flared up again and stated he still wished to leave AMA. Patient became slightly more agitated and said just get this IV out of me. AMA papers were signed at this time witnessed by this RN, Beatriz buckley RN, and Dr. Hazel.
--- NOTE | 2020-01-16 08:40 | NURSING ---
Doctor wanted records from hospitals [facility], [facility], and [facility] but patient left AMA before I could get him to sign a release of medical records form.
--- NOTE | 2020-01-16 14:54 | PCM.DC.SUM ---
Discharge Date and Diagnosis Date of Admission: 01/15/20 Date of Discharge: 01/16/20 - Primary Discharge Diagnosis acute gallstone pancreatitis - Secondary Discharge Diagnosis Chronic Problems (Last Reviewed 02/26/19 @ 08:12 by Kinsey Raines) Diabetes (Chronic) HTN (hypertension) (Chronic) Coagulopathy (Chronic) Tobacco dependence in remission (Chronic) Cirrhosis (Chronic) Portopulmonary hypertension (Chronic) Hospital Course and Treatment Imaging Results: Diagnostic Data Gallbladder Ultrasound 01/15/20 15:40 IMPRESSION: 1. Limited assessment of the pancreas due to ultrasound technique. 2. Cirrhosis. 3. Cholecystolithiasis, possible choledocholithiasis. Electronically Signed: Court Mendoza, at 18:34 EST Tel , Service support , Operations: None Procedures: None Summary of Care Provided: The patient is a 44 year old M with a past medical history of recurrent gallstone pancreatitis, type 2 diabetes mellitus, cirrhosis due to alcohol abuse and hypertension as well as portal pulmonary hypertension. He was admitted through the ED on 01/15/2020 with a complaint of abdominal pain which started about 5 hours prior to admission and gradually worsened. He had associated nausea but did not vomit and denied having drank any alcohol prior to onset of symptoms. On admission in the ED he was found to have elevated lipase of 1500. He had been evaluated in [facility] in April 2018 and was found to have gallstone pancreatitis but at that point was transferred to [facility] because he was deemed to be high risk for the gallbladder surgery here. He states he went to [facility] and he did not have a cholecystectomy. He was unable to tell me why. He had also been seen at [facility] in the recent past and states he had ERCP there but he was told no stone was removed and again he cannot say why. Patient was admitted and managed for acute gallstone pancreatitis. He was kept n.p.o. and started on pain meds and IV fluids. On 01/16/2020, patient stated that he was signing out AMA as he felt much better. I went to review patient. He had no complaints and said abdominal pain had resolved. He denied any nausea vomiting or diarrhea. I counseled patient that his abdominal pain had improved because of the pain meds that he was on because of bowel rest as he had not been eating. Could therefore not be determined whether pain would recur once he ate or the pain meds were stopped. Patient was however insistent on being discharged. Gallbladder ultrasound done on admission showed multiple gallstones and also possible stone in the common bile duct. I personally discussed this with Dr. Forde the surgeon radiation control health physicist. Per discussion, Dr. Forde advised that based on patient's previous history of having been deemed high risk and so could not have surgery in this hospital, she recommended patient be transferred to follow-up with general surgery in a tertiary center for cholecystectomy to be done. I did advise patient of this conversation and informed him that general surgery had recommended that he follow-up with surgeons in a tertiary center will be transferred today. Patient refused these options and said he wanted to leave and would come back to the hospital if the pain persisted or recurred. Advised patient that he would have to leave AGAINST MEDICAL ADVICE. Patient agreed to this and despite counseling that acute pancreatitis could be severe and resulted in a severe infection, debilitating pain and even , patient expressed understanding of these but still insisted on leaving AMA. Patient signed out AGAINST MEDICAL ADVICE on 01/16/2020. Patient was seen and examined prior to discharge. He felt well and abdominal pain had resolved. Review of stems otherwise negative. Labs and vitals reviewed. Her medication reviewed and reconciled. o/e: Vital Signs Height 5 ft 9 in Weight: 184 lb 3.2 oz Weight in Pounds 184.2 lbs Pulse Ox 95 Temperature 97.8 F Pulse Rate 74 Respiratory Rate 16 Blood Pressure [BP] 132/86 Blood Pressure 118/76 Blood Pressure Position [BP] Sitting Blood Pressure Position Sitting []General: Alert, Oriented x3, Cooperative HEENT: Atraumatic, PERRLA, EOMI, Normocephalic Neck: Supple, No JVD, Negative Carotid Bruits Lungs: Clear to auscultation, Normal air movement Cardiovascular: Regular rate, No murmurs Abdomen: Soft, Hypoactive Bowel Sounds, nontender Extremities: No edema, Capillary Refill Less than 3 Seconds Skin: No rashes, No breakdown Musculoskeletal: No Tenderness to Palpation of Joints or Extremities Neurological: Cranial nerves II-XII grossly intact Psych/Mental Status: Normal Affect, Appropriate, Alert and oriented to time, place, person, mood and affect Patient signed out AGAINST MEDICAL ADVICE - Physical Exam Vitals/I&O's: Vital Signs Temp Pulse Resp BP Pulse Ox 97.8 F 74 16 118/76 95 01/16/20 02:06 01/16/20 02:06 01/16/20 02:06 01/16/20 02:06 01/16/20 02:06 Oxygen Delivery Method Room Air Weight: 184 lb 3.2 oz Body Mass Index (BMI) 27.1 Intake and Output for Last 24 Hours 01/14/20 01/15/20 01/16/20 23:59 23:59 23:59 Intake Total 806.25 / 836.25 1061.25 / 1061.25 Balance 806.25 / 836.25 1061.25 / 1061.25 Laboratory Results 01/15/20 14:50: WBC 5.2, RBC 5.34, Hgb 16.3, Hct 47.2, MCV 88.4, MCH 30.5, MCHC 34.5, RDW Std Deviation 43.5, RDW Coeff of Yolanda 13.5, Plt Count 88 L, MPV 11.8, Immature Gran % (Auto) 0.400, Neut % (Auto) 64.3, Lymph % (Auto) 24.4, [place] % (Auto) 6.3, Eos % (Auto) 3.8, Baso % (Auto) 0.8, Absolute Neuts (auto) 3.4, Absolute Lymphs (auto) 1.28, Nucleated RBC % 0, Differential Comment SCANNED, Platelet Estimate MOD DEC 01/15/20 14:50: Sodium 140, Potassium 3.8, Chloride 112 H, Carbon Dioxide 25.0, Anion Gap 3 L, BUN 15, Creatinine 1.12, Estim Creat Clear Calc 82.41, Est GFR (MDRD) Af Amer 91, Est GFR (MDRD) Non-Af 75, BUN/Creatinine Ratio 13.4, Glucose 211 H, Calcium 8.7, Total Bilirubin 1.10 H, AST 22, ALT 36, Alkaline Phosphatase 50, Troponin I < 0.015, Total Protein 7.3, Albumin 3.7, Globulin 3.6, Albumin/Globulin Ratio 1.0, Lipase 1581 H 01/15/20 18:26: POC Glucose 192 H 01/15/20 21:49: POC Glucose 191 H 01/16/20 02:00: POC Glucose 209 H 01/16/20 05:16: POC Glucose 164 H 01/16/20 06:00: WBC 6.0, RBC 4.87, Hgb 14.7, Hct 43.4, MCV 89.1, MCH 30.2, MCHC 33.9, RDW Std Deviation 45.4 H, RDW Coeff of Yolanda 14.2, Plt Count 96 L, MPV 11.5, Immature Gran % (Auto) 0.300, Neut % (Auto) 59.7, Lymph % (Auto) 28.6, [place] % (Auto) 6.2, Eos % (Auto) 4.4, Baso % (Auto) 0.8, Absolute Neuts (auto) 3.6, Absolute Lymphs (auto) 1.71, Nucleated RBC % 0 01/16/20 06:00: Sodium 142, Potassium 3.9, Chloride 115 H, Carbon Dioxide 25.0, Anion Gap 2 L, BUN 15, Creatinine 0.85, Estim Creat Clear Calc 108.59, Est GFR (MDRD) Af Amer 124, Est GFR (MDRD) Non-Af 103, BUN/Creatinine Ratio 17.6, Glucose 146 H, Calcium 8.1 L, Total Bilirubin 1.00, AST 24, ALT 35, Alkaline Phosphatase 44 L, Total Protein 6.8, Albumin 3.4, Globulin 3.4, Albumin/Globulin Ratio 1.0, Triglycerides 155, Cholesterol 123, LDL Cholesterol 65, VLDL Cholesterol 31, HDL Cholesterol 27 L Discharge Diet: Low fat/ Low Cholesterol Discharge Activity: Return to Normal Activity Weight Bearing Status: Weight bearing as tolerated Call your doctor if you observe: Fever of 101 or Higher, Shortness of breath, Uncontrolled pain Home Medications: Medications to take at Discharge Omeprazole [Prilosec] 20 mg PO DAILY 02/19/14 Insulin Glargine [Lantus (BKC)] 38 units SC BID 03/07/16 Magnesium Oxide [Mag-Ox 400] 400 mg PO TID 03/07/16 Rifaximin [Xifaxan] 550 mg PO BID 03/07/16 oxazepam 10 mg capsule 10 mg PO DAILY cap 02/22/18 pramipexole 0.125 mg tablet 0.25 mg PO QHS tab 02/22/18 Oxycodone [Oxyir] 5 mg PO Q6H PRN PRN #10 tab 04/12/18 Insulin Lispro [Humalog] 13 unit SQ TIDCM 05/20/18 furosemide 40 mg tablet 40 mg PO TID #90 tab 09/29/19 Ambrisentan [Letairis] 10 mg PO DAILY 01/15/20 Potassium Citrate [Potassium Citrate ER] 10 meq PO BID 01/15/20 Spironolactone [Aldactone] 100 mg PO DAILY 01/15/20 Treprostinil Diolamine [Orenitram ER] 2.5 mg PO TID 01/15/20 Primary Care Physician: Tino Ovalle MD [Primary Care Provider] - Please follow up with your Primary Care Physician in: 1-2 weeks Disposition: Against Medical Advice Minutes spent on discharge:: 40 Patient Condition:: Fair Medical Necessity - Tobacco Use Smoking Status: Former smoker Tobacco Use: Non-smoker Meaningful Use Info Meaningful Use Diagnoses (Choose all that apply): None applicable Code Visit Inpatient E&M: 64126 Disch Hosp
== END 2020-01-16 08:42 | disposition left against medical advice (07) ==
LOC: ED 14:50 → MS3 15:51
PROVIDERS: Admitting Provider Family Medicine; Emergency Provider Emergency Medicine; PCP Family Medicine; Visit Provider Student in an Organized Health Care Education/Training Program
DX: K80.70 Calculus of gallbladder and bile duct without cholecystitis without obstruction (principal); K85.10 Biliary acute pancreatitis without necrosis or infection; E11.9 Type 2 diabetes mellitus without complications; I10 Essential (primary) hypertension; F17.201 Nicotine dependence, unspecified, in remission; K70.30 Alcoholic cirrhosis of liver without ascites; I27.21 Secondary pulmonary arterial hypertension; K76.6 Portal hypertension; D68.9 Coagulation defect, unspecified; F10.21 Alcohol dependence, in remission; Y90.9 Presence of alcohol in blood, level not specified; Z79.4 Long term (current) use of insulin; Z53.29 Procedure and treatment not carried out because of patient's decision for other reasons
CPT/HCPCS: 36415; 76705; 80053; 80061; 82962; 83690; 84484; 85025; 93005; 99284; J7030; A4216; J2405

== ENCOUNTER → 2020-02-03 13:49 | Outpatient (CLI) | payer MEDICAID, SELFPAY ==
[2020-01-15 17:58] VITALS: BMI 27.1
[2020-02-03 14:57] LABS: Absolute Lymphocyte Count 1.33 X10^3/uL (0.83-4.51); Absolute Neutrophil Count 4.6 X10^3/uL (2.0-7.7); Basophil# 0.02 X10^3/uL; Basophil% 0.3 % (0-1); Eosinophil# 0.19 X10^3/uL; Eosinophils% 2.9 % (0-5); Hematocrit 42.4 % (40-54); Hemoglobin 15.2 g/dL (13.0-16.5); Lymphocyte # 1.33 X10^3/ul (4.0); Mean Corp Hgb Conc 35.8 g/dL (32-36); Mean Corpuscular Hgb 30.6 pg (27.0-32.0); Mean Corpuscular Volume 85.5 fL (80-94); Mean Platelet Vol. 11.4 fl (6.2-12.0); Monocyte# 0.47 X10^3/uL; Monocyte% 7.1 % (0-10); NRBC Flagged by Analyzer 0 % (0-5); Neutrophil # 4.61 X10^3/uL (2.7-7.7); Neutrophil % 69.4 % (47-70); Platelet Count 116 K/mm3 (150-450); RBC Distribution Width CV 13.7 % (11.6-14.6); RBC Distribution Width SD 42.1 fl (35.1-43.9); Red Blood Count 4.96 M/mm3 (4.6-6.2); White Blood Count 6.6 K/mm3 (4.4-11.0)
[2020-02-03 15:37] LABS: BNP,B-Type NATRIURETIC PEPTIDE 11.3 pg/mL (0-100)
[2020-02-03 15:42] LABS: ALB/GLOB Ratio 1.1 RATIO (0.9-2.4); AST(SGOT) 24 U/L (15-37); Alanine Aminotransfer ALT/SGPT 32 U/L (16-61); Albumin, Serum 3.8 g/dL (3.2-5.0); Alkaline Phosphatase 57 U/L (45-117); Anion Gap 5 (5-15); BUN 16 mg/dL (7-18); BUN/Creat Ratio 12.7 RATIO (10-20); Calcium,Total 8.6 mg/dL (8.5-10.1); Chloride 107 mmol/L (98-107); Creatinine, Serum 1.26 mg/dL (0.70-1.30); EST Glomerular Filtration Rate 65 mL/min (>60); Est Glom Filt Rate - Afr Amer 79 mL/min (>60); Globulin 3.6 g/dL (2.2-4.2); Glucose 263 mg/dL (74-106); Protein, Total 7.4 g/dL (6.4-8.2); Sodium Level 139 mmol/L (136-145)
== END ==
PROVIDERS: PCP Family Medicine
DX: I27.20 Pulmonary hypertension, unspecified (principal); Z79.899 Other long term (current) drug therapy; R06.02 Shortness of breath
CPT/HCPCS: 36415; 80053; 83880; 85025

== ENCOUNTER → 2020-03-18 11:50 | Outpatient (CLI) | payer MEDICAID, SELFPAY ==
[2020-02-27 10:00] VITALS: BMI 27.1
[2020-03-18 15:23] LABS: Absolute Lymphocyte Count 1.17 X10^3/uL (0.83-4.51); Absolute Neutrophil Count 3.3 X10^3/uL (2.0-7.7); Basophil# 0.04 X10^3/uL; Basophil% 0.8 % (0-1); Eosinophil# 0.21 X10^3/uL; Eosinophils% 4.2 % (0-5); Hemoglobin 16.3 g/dL (13.0-16.5); Lymphocyte # 1.17 X10^3/ul (4.0); Lymphocyte % 23.2 % (19-41); Mean Corpuscular Hgb 29.8 pg (27.0-32.0); Mean Corpuscular Volume 87.8 fL (80-94); Mean Platelet Vol. 11.8 fl (6.2-12.0); Monocyte# 0.35 X10^3/uL; Monocyte% 6.9 % (0-10); NRBC Flagged by Analyzer 0 % (0-5); Neutrophil # 3.27 X10^3/uL (2.7-7.7); Neutrophil % 64.7 % (47-70); Platelet Count 117 K/mm3 (150-450); RBC Distribution Width CV 14.1 % (11.6-14.6); RBC Distribution Width SD 45.3 fl (35.1-43.9); Red Blood Count 5.47 M/mm3 (4.6-6.2); White Blood Count 5.1 K/mm3 (4.4-11.0)
[2020-03-18 15:38] LABS: Vitamin B12 521 pg/mL (211-911)
[2020-03-18 16:12] LABS: AST(SGOT) 28 U/L (15-37); Alanine Aminotransfer ALT/SGPT 42 U/L (16-61); Albumin, Serum 3.9 g/dL (3.2-5.0); Alkaline Phosphatase 55 U/L (45-117); Anion Gap 8 (5-15); BUN 12 mg/dL (7-18); BUN/Creat Ratio 12.4 RATIO (10-20); CRP < 2.90 mg/L (0.0-3.0); Chloride 104 mmol/L (98-107); Creatinine, Serum 0.97 mg/dL (0.70-1.30); EST Glomerular Filtration Rate 88 mL/min (>60); Est Glom Filt Rate - Afr Amer 107 mL/min (>60); Globulin 3.8 g/dL (2.2-4.2); Glucose 273 mg/dL (74-106); Potassium 3.9 mmol/L (3.5-5.1); Protein, Total 7.7 g/dL (6.4-8.2); Sodium Level 135 mmol/L (136-145); Thyroid Stim Hormone (TSH) 0.89 uIU/mL (0.358-3.74)
[2020-03-22 14:01] LABS: ANTINUCLEAR ANTIBODIES DIRECT Negative (Negative)
[2020-03-23 12:07] LABS: PROEL- A/G Ratio 1.1 (0.7-1.7); PROEL- Albumin 3.8 g/dL (2.9-4.4); PROEL- Alpha-1 Globulin 0.3 g/dL (0.0-0.4); PROEL- Alpha-2 Globulin 0.7 g/dL (0.4-1.0); PROEL- Beta Globulin 1.2 g/dL (0.7-1.3); PROEL- Gamma Globulin 1.3 g/dL (0.4-1.8); PROEL- Globulin, Total 3.5 g/dL (2.2-3.9); PROEL- TOTAL PROTEIN 7.3 g/dL (6.0-8.5); PROELU- Albumin, Urine 60.2 % (.); PROELU- Alpha-2-Globulin,Ur 5.2 % (.); PROELU- Beta Globulin, Ur 14.9 % (.); PROELU- Gamma Globulin, Ur 12.7 % (.); Total Protein, Ur 11.5 mg/dL (Not Estab.)
[2020-03-23 23:54] LABS: PROELU- M-Spike, Ur 0 % (Not Observed)
[2020-03-25 01:34] LABS: Rapid Plasmin Reagin (RPR) NONREACTIVE (NONREACTIVE)
== END ==
PROVIDERS: PCP Family Medicine; Referring Provider Family Medicine; Visit Provider Family Medicine
DX: G62.9 Polyneuropathy, unspecified (principal)
CPT/HCPCS: 36415; 80053; 82607; 82746; 84165; 84166; 84443; 85025; 86038; 86140; 86592

== ENCOUNTER 2020-03-25 17:04 | Emergency (ER) | payer MEDICAID, SELFPAY ==
[2020-02-27 10:00] VITALS: BMI 27.1
[2020-03-25 17:05] VITALS: BP 141/94; PULSE 86; RESP 16; TEMP 36.7; O2SAT 97; BMI 27.0
--- NOTE | 2020-03-25 17:20 | ED.DCSUM_ITS ---
History of Present Illness Chief Complaint: Abd Pain Informant: Patient Onset: Today Context: Gradual Onset Current Severity: Moderate Maximum Severity: Moderate Narrative: Patient presents with epigastric abdominal pain that started 3 or 4 hours ago. He said it does wrap around to his back. He denies nausea, vomiting, or diarrhea. He denies fever or chills. Patient does have a history of gallstones and pancreatitis. He states that because he has pulmonary hypertension he has not had surgery for his gallbladder. He also has a history of cirrhosis and follows with a specialist in [place]. - Past Medical History (1) Diabetes Status: Chronic (2) Pancreatitis Status: Chronic (3) HTN (hypertension) Status: Chronic (4) Cholelithiasis Status: Chronic (5) Cirrhosis Status: Chronic (6) Portopulmonary hypertension Status: Chronic Past Medical History - Allergies and Home Meds Allergies/Adverse Reactions: Allergies No Known Allergies Allergy (Verified 03/25/20 17:07) Primary Care Physician: Tino Ovalle MD [Primary Care Provider] - Prior records reviewed: Yes Surgical History: no surgical history Lives: Spouse/ Significant Other Smoking Status: Former smoker - Family History Maternal Family History: Family History (Last Reviewed 02/27/20 @ 09:[address] Adelfo Manrique DO) Brother CAD (coronary artery disease) Mother Lung cancer Father Lung cancer Family History: Reports: No pertinent history Paternal Family History: Family History (Last Reviewed 02/27/20 @ 09:[address] Adelfo Manrique DO) Brother CAD (coronary artery disease) Mother Lung cancer Father Lung cancer Family History: Reports: No pertinent history Review of Systems General: Denies: Chills, Fever Eyes: Denies: Visual changes - bilaterally ENT: Denies: Bilateral ear pain Cardiovascular: Denies: Chest pain Respiratory: Denies: Dyspnea, Cough Gastrointestinal: Reports: Abdominal pain. Denies: Nausea, Vomiting, Diarrhea Genitourinary: Denies: Dysuria Musculoskeletal: Denies: Extremity Pain Skin: Denies: Rash Neurological: Denies: Headache Allergy: Denies: Uticaria Physical Exam Vital Signs/Narrative: Vital Signs Temp Pulse Resp BP Pulse Ox 03/25/20 17:05 98.0 F 86 16 141/94 H 97 Inital Vital Signs reviewed: Yes General: Well nourished Head: Normocephalic ENT: Moist mucous membranes Neck: Supple Cardiovascular: Regular rate, Regular rhythm Respiratory: No distress, CTA bilaterally Abdomen: Soft, Tender - Gastric tenderness palpation., Hypoactive bowel sounds. Negative for: Guarding Skin: Normal color Neurological: Alert, Oriented x3 Psychological: Normal affect Diagnostic/Tx/Re-eval Impressions Abdomen Ultrasound 03/25/20 17:21 IMPRESSION: 1. Gallstones with gallbladder wall thickening and positive Mendoza''s sign. The findings suggest acute cholecystitis. 2. Heterogenous liver with nodular surface pattern, enlarged caudate lobe and recannulized umbilical vein. The findings suggest cirrhosis. 3. Nonvisualization of pancreas due to bowel gas. 4. Nonvisualization of the right renal cyst described on the previous ultrasound. N.B. : The above information has been verbally conveyed by Jarrod Rabago DO to Kaplana Vasquez MD, on 03/25/2020 18:42:53 (ET). Electronically Signed: Jarrod Rabago DO at 18:44 EDT Tel [phone], Service support , ADDENDUM: 03/25/20 1851 IMPRESSION: 1. Gallstones with gallbladder wall thickening and positive Mendoza''s sign. The findings suggest acute cholecystitis. 2. Heterogenous liver with nodular surface pattern, enlarged caudate lobe and recannulized umbilical vein. The findings suggest cirrhosis. 3. Nonvisualization of pancreas due to bowel gas. 4. Nonvisualization of the right renal cyst described on the previous ultrasound. N.B. : The above information has been verbally conveyed by Jarrod Rabago DO to Kalpana Vasquez MD, on 03/25/2020 18:42:53 (ET). Electronically Signed: Jarrod Rabago DO at 18:44 EDT Tel [phone], Service support , 03/25/20 17:21 US Abd [Abdomen Limited] [US] Stat Laboratory Results 03/25/20 03/25/20 17:30 17:30 WBC 7.6 RBC 5.28 Hgb 15.5 Hct 45.4 MCV 86.0 MCH 29.4 MCHC 34.1 RDW Std Deviation 44.1 H RDW Coeff of Yolanda 14.0 Plt Count 116 L MPV 11.2 Immature Gran % (Auto) 0.300 Neut % (Auto) 64.8 Lymph % (Auto) 23.7 [place] % (Auto) 6.5 Eos % (Auto) 4.0 Baso % (Auto) 0.7 Absolute Neuts (auto) 4.9 Absolute Lymphs (auto) 1.79 Nucleated RBC % 0 Sodium 139 Potassium 4.1 Chloride 109 H Carbon Dioxide 24.0 Anion Gap 6 BUN 17 Creatinine 0.94 Estim Creat Clear Calc 98.19 Est GFR (MDRD) Af Amer 111 Est GFR (MDRD) Non-Af 92 BUN/Creatinine Ratio 18.1 Glucose 152 H Calcium 9.1 Total Bilirubin 1.00 Direct Bilirubin 0.19 AST 31 ALT 37 Alkaline Phosphatase 50 Total Protein 7.1 Albumin 3.6 Globulin 3.5 Lipase 148 - Medical Decision Making Patient was given morphine and Zofran on arrival. Test results are discussed with the patient at bedside. Due to continued pain he is given another dose of morphine and Zosyn is ordered. I spoke with Dr. Castro. Due to the patient's history of cirrhosis he felt the patient should be transferred to a facility with GI/liver availability. Patient had been seen by Dr. Sandoval through [facility] for this. The last imaging study I have from Dr. Sandoval is an EGD from 2016 which showed grade 1 varices at that time. I discussed with the patient that they were recommending transfer. Patient does not have preference on where he was transferred to. Because he has seen GI through the [facility] we will attempt [facility] ED Disposition - Plan for ED Patient: Disposition: [facility] Diagnosis: Cholecystitis Referrals: Tino Ovalle MD [Primary Care Provider] -
--- NOTE | 2020-03-25 17:21 | US_ITS ---
STUDY: ABDOMINAL ULTRASOUND - RIGHT UPPER QUADRANT REASON FOR VISIT: Male, 44 years old. Right upper quadrant pain. TECHNIQUE: Ultrasound evaluation of the right upper quadrant was performed with real-time and static reyes-scale imaging. TECHNICAL QUALITY: Examination limited by bowel gas. COMPARISON: Abdominal ultrasound, January 15, 2020. FINDINGS: Liver: The liver measures 16.2 cm. There is coarsening of the echotexture of the liver with normal echogenicity. There is enlargement of the caudate lobe with a nodular surface pattern and recannulization of the umbilical vein suggesting cirrhosis. The bile ducts are within normal limits. There is hepatic color flow. The direction of portal flow is hepatopetal. There is no demonstrated mass lesion. Gallbladder: Normal distended gallbladder. The gallbladder wall measures 4 mm. There is a positive sonographic Mendoza''s sign. There is no pericholecystic fluid. There are multiple echogenic structures within the gallbladder, consistent with multiple gallstones. Common Bile Duct (C.B.D.): The common bile duct measures 6 mm. Pancreas: The pancreas is obscured by overlying bowel gas. Right Kidney: Normal size of the right kidney. The right kidney measures 11.1 cm. Normal renal cortex. The right cortex measures 1.3 cm. There is no demonstrated renal mass or cyst. There is no right hydronephrosis. US/Abdomen Limited IMPRESSION: 1. Gallstones with gallbladder wall thickening and positive Mendoza''s sign. The findings suggest acute cholecystitis. 2. Heterogenous liver with nodular surface pattern, enlarged caudate lobe and recannulized umbilical vein. The findings suggest cirrhosis. 3. Nonvisualization of pancreas due to bowel gas. 4. Nonvisualization of the right renal cyst described on the previous ultrasound. N.B. : The above information has been verbally conveyed by Jarrod Rabago DO to Kalpana Vasquez MD, on 03/25/2020 18:42:53 (ET). Electronically Signed: Jarrod Rabago DO at 18:44 EDT Tel [phone], Service support ,
[2020-03-25] MEDS: 0.9% Normal Saline 1,000 ML 150 ML IV (17:32)
[2020-03-25] MEDS: Morphine 4 MG/ML Syringe IV ×2 (17:32→19:11)
[2020-03-25] MEDS: Ondansetron 4 MG/2 ML Vial IV (17:32)
[2020-03-25 17:53] LABS: Absolute Lymphocyte Count 1.79 X10^3/uL (0.83-4.51); Absolute Neutrophil Count 4.9 X10^3/uL (2.0-7.7); Basophil# 0.05 X10^3/uL; Basophil% 0.7 % (0-1); Hematocrit 45.4 % (40-54); Hemoglobin 15.5 g/dL (13.0-16.5); Lymphocyte # 1.79 X10^3/ul (4.0); Lymphocyte % 23.7 % (19-41); Mean Corp Hgb Conc 34.1 g/dL (32-36); Mean Corpuscular Hgb 29.4 pg (27.0-32.0); Mean Platelet Vol. 11.2 fl (6.2-12.0); Monocyte# 0.49 X10^3/uL; Monocyte% 6.5 % (0-10); NRBC Flagged by Analyzer 0 % (0-5); Neutrophil % 64.8 % (47-70); Platelet Count 116 K/mm3 (150-450); RBC Distribution Width SD 44.1 fl (35.1-43.9); Red Blood Count 5.28 M/mm3 (4.6-6.2); White Blood Count 7.6 K/mm3 (4.4-11.0)
[2020-03-25 18:13] LABS: AST(SGOT) 31 U/L (15-37); Alanine Aminotransfer ALT/SGPT 37 U/L (16-61); Albumin, Serum 3.6 g/dL (3.2-5.0); Alkaline Phosphatase 50 U/L (45-117); Anion Gap 6 (5-15); BUN 17 mg/dL (7-18); BUN/Creat Ratio 18.1 RATIO (10-20); Bilirubin, Direct 0.19 mg/dL (0.00-0.30); Calcium,Total 9.1 mg/dL (8.5-10.1); Chloride 109 mmol/L (98-107); Creatinine, Serum 0.94 mg/dL (0.70-1.30); EST Glomerular Filtration Rate 92 mL/min (>60); Est Glom Filt Rate - Afr Amer 111 mL/min (>60); Estimated Creatinine Clearance 98.19 ml/min; Globulin 3.5 g/dL (2.2-4.2); Glucose 152 mg/dL (74-106); Lipase 148 U/L (73-393); Potassium 4.1 mmol/L (3.5-5.1); Protein, Total 7.1 g/dL (6.4-8.2); Sodium Level 139 mmol/L (136-145)
[2020-03-25 19:16] VITALS: BP 134/86; PULSE 83; RESP 16; O2SAT 97
[2020-03-25] MEDS: HYDROmorphone 0.5 MG/0.5 ML SYRINGE IV ×2 (19:36→20:06)
[2020-03-25 19:46] VITALS: BP 134/86; PULSE 83; RESP 16; O2SAT 97
== END 2020-03-25 20:11 | disposition short-term general hospital (02) ==
LOC: ED 18:20
PROVIDERS: Emergency Provider Emergency Medicine; PCP Family Medicine
DX: K80.10 Calculus of gallbladder with chronic cholecystitis without obstruction (principal); K74.60 Unspecified cirrhosis of liver; I10 Essential (primary) hypertension; I27.20 Pulmonary hypertension, unspecified; E11.9 Type 2 diabetes mellitus without complications; Z79.4 Long term (current) use of insulin; Z87.891 Personal history of nicotine dependence
CPT/HCPCS: 76705; 80048; 80076; 83690; 85025; 96365; 96367; 96375; 96376; 99284; J7030; A4216; J2405

== ENCOUNTER 2020-04-11 13:22 | Emergency (ER) | payer MEDICAID, SELFPAY ==
[2020-04-11 13:24] VITALS: BP 151/106; PULSE 89; RESP 20; TEMP 36.4; O2SAT 97; BMI 25.7
[2020-04-11] MEDS: Ondansetron 4 MG/2 ML Vial IV ×2 (14:10→16:24)
[2020-04-11] MEDS: Morphine 4 MG/ML Syringe IV (14:10)
[2020-04-11] MEDS: 0.9% Normal Saline 1,000 ML 1000 ML IV (14:11)
[2020-04-11 14:12] LABS: Absolute Lymphocyte Count 1.42 X10^3/uL (0.83-4.51); Absolute Neutrophil Count 3.5 X10^3/uL (2.0-7.7); Basophil# 0.03 X10^3/uL; Basophil% 0.6 % (0-1); Eosinophil# 0.17 X10^3/uL; Eosinophils% 3.1 % (0-5); Hematocrit 46.3 % (40-54); Hemoglobin 16.3 g/dL (13.0-16.5); Lymphocyte # 1.42 X10^3/ul (4.0); Lymphocyte % 26.1 % (19-41); Mean Corp Hgb Conc 35.2 g/dL (32-36); Mean Corpuscular Hgb 29.5 pg (27.0-32.0); Mean Corpuscular Volume 83.9 fL (80-94); Mean Platelet Vol. 11.2 fl (6.2-12.0); Monocyte# 0.28 X10^3/uL; Monocyte% 5.1 % (0-10); NRBC Flagged by Analyzer 0 % (0-5); Neutrophil # 3.53 X10^3/uL (2.7-7.7); Neutrophil % 64.7 % (47-70); Platelet Count 166 K/mm3 (150-450); RBC Distribution Width CV 14.4 % (11.6-14.6); RBC Distribution Width SD 43.2 fl (35.1-43.9); Red Blood Count 5.52 M/mm3 (4.6-6.2); White Blood Count 5.5 K/mm3 (4.4-11.0)
--- NOTE | 2020-04-11 14:14 | ED.VISSUMM ---
- ER Visit Summary Date of Service: 04/11/20 Chief Complaint: Abdominal pain History of Present Illness: The patient is a 44 M who presents with abdominal pain that began today. Patient states this feels similar to pancreatitis pain. Patient describes her pain as crushing. Patient states the pain is localized to the epigastric area. Patient states nothing makes it worse or makes it better. Patient denies any nausea or vomiting. Patient denies any diarrhea, melena, or hematochezia. Patient denies any dysuria or hematuria. Patient states he was recently transferred to [facility] and had a drain placed. Patient states that the drain has been working without problems. Patient denies any fevers or chills. Physical Examination: Vital signs are stable. Patient is afebrile. Patient is in no acute distress. Oral mucosa is pink and moist. Neck is supple. Trachea is midline. There is no JVD noted. Heart was regular rate and rhythm. Lungs are clear and equal bilaterally. Abdomen is soft. Bowel sounds are normal. There is epigastric tenderness. There is no rebound or guarding noted. Skin is warm dry. Cranial nerves II through XII are intact. There are no focal motor or sensory deficits noted. Extremities are intact. There is no calf tenderness or edema. Test Results: CBC and comprehensive metabolic profile were obtained. Glucose was 385. Total bilirubin was slightly elevated at 1.1. Lipase was also slightly elevated at 411. Emergency Department Course and Treatment: Patient was given IV fluids, morphine, and Zofran. Patient had no improvement with morphine. Patient was given a dose of Dilaudid. Patient states this was starting to improve his pain. Patient was advised of his findings. [place]AR[place] report was reviewed which showed the patient has a current prescription for oxycodone. Patient was instructed to take this as prescribed. Patient was advised that would not be able to prescribe him any further pain medication. Patient was instructed to follow-up with his primary care physician and surgeon at [facility] in 3 to 5 days. Patient understood and was agreeable with the plan. All questions were answered. Disposition: Discharge home Impression: Epigastric abdominal pain This note was generated with [employer] software. It may contain incorrect words, spelling, and punctuation that were not noted in review of the chart prior to signing ED Disposition - Plan for ED Patient: Disposition: Home or Assisted Living Diagnosis: Epigastric abdominal pain, Cirrhosis, Cholelithiasis Instructions: ED Gallstones with Biliary Colic, ED Cirrhosis Referrals: Tino Ovalle MD [Primary Care Provider] - 3-5 Days
[2020-04-11 14:28] LABS: AST(SGOT) 104 U/L (15-37); Alanine Aminotransfer ALT/SGPT 87 U/L (16-61); Albumin, Serum 4.1 g/dL (3.2-5.0); Alkaline Phosphatase 84 U/L (45-117); Anion Gap 7 (5-15); BUN 16 mg/dL (7-18); BUN/Creat Ratio 16.4 RATIO (10-20); Calcium,Total 9.7 mg/dL (8.5-10.1); Chloride 106 mmol/L (98-107); Creatinine, Serum 0.97 mg/dL (0.70-1.30); EST Glomerular Filtration Rate 88 mL/min (>60); Est Glom Filt Rate - Afr Amer 106 mL/min (>60); Estimated Creatinine Clearance 95.16 ml/min; Globulin 4.3 g/dL (2.2-4.2); Glucose 385 mg/dL (74-106); Lipase 411 U/L (73-393); Protein, Total 8.4 g/dL (6.4-8.2); Sodium Level 137 mmol/L (136-145)
[2020-04-11 15:17] VITALS: BP 124/82; O2SAT 95
[2020-04-11 15:30] LABS: Mucous, Urine 0 SEEN /hpf (<or=2+); Red Blood Cells-Urine 0 SEEN /hpf (0-5)
[2020-04-11 15:40] LABS: Color, Urine Yellow (Yellow); Glucose, Dipstick 1000 mg/dl (Normal); Ketone-Dipstick Negative (Negative); Leukocyte Esterase-Dipstick Negative /ul (Negative); Nitrite-Dipstick Negative (Negative); Occult Blood-Urine Negative /ul (Negative); Protein-Dipstick 30 mg/dl (Negative); Specific Gravity, Urine 1.015 (1.002-1.030); Urine Bilirubin Dipstick Negative (Negative); Urine Clarity Clear (Clear); Urine Urobilinogen 1 mg/dl (Normal)
[2020-04-11 15:55] LABS: Squamous Epithelial Cells - UA 0-5 SEEN /hpf (0-5); White Blood Cells 0-5 SEEN /hpf (0-5)
[2020-04-11 15:56] LABS: Bacteria RARE /hpf (None Seen)
[2020-04-11] MEDS: HYDROmorphone 1 MG/ML Syringe IV (16:25)
[2020-04-11 16:29] VITALS: BP 120/80
[2020-04-11 17:07] VITALS: BP 111/73; PULSE 84; RESP 18
== END 2020-04-11 17:11 | disposition home or self-care (01) ==
PROVIDERS: Emergency Provider Emergency Medicine; PCP Family Medicine
DX: R10.13 Epigastric pain (principal); K74.60 Unspecified cirrhosis of liver; K80.20 Calculus of gallbladder without cholecystitis without obstruction; E11.9 Type 2 diabetes mellitus without complications; Z79.4 Long term (current) use of insulin
CPT/HCPCS: 80053; 81001; 83690; 85025; 96361; 96374; 96375; 96376; 99285; J7030; A4216; J2405

== ENCOUNTER → 2020-04-29 12:41 | Outpatient (CLI) | payer MEDICAID, SELFPAY ==
[2020-04-11 13:24] VITALS: BMI 25.7
[2020-04-29 12:46] LABS: Lyme Ab Screen Interpretation REF LAB
[2020-04-29 15:40] LABS: Absolute Lymphocyte Count 1.16 X10^3/uL (0.83-4.51); Absolute Neutrophil Count 4.4 X10^3/uL (2.0-7.7); Basophil# 0.03 X10^3/uL; Basophil% 0.5 % (0-1); Eosinophil# 0.31 X10^3/uL; Hematocrit 49.6 % (40-54); Hemoglobin 16.3 g/dL (13.0-16.5); Lymphocyte # 1.16 X10^3/ul (4.0); Lymphocyte % 18.7 % (19-41); Mean Corp Hgb Conc 32.9 g/dL (32-36); Mean Corpuscular Hgb 28.7 pg (27.0-32.0); Mean Corpuscular Volume 87.5 fL (80-94); Mean Platelet Vol. 12.5 fl (6.2-12.0); Monocyte# 0.29 X10^3/uL; Monocyte% 4.7 % (0-10); NRBC Flagged by Analyzer 0 % (0-5); Neutrophil % 70.9 % (47-70); Platelet Count 135 K/mm3 (150-450); RBC Distribution Width CV 14.4 % (11.6-14.6); RBC Distribution Width SD 46.3 fl (35.1-43.9); Red Blood Count 5.67 M/mm3 (4.6-6.2); White Blood Count 6.2 K/mm3 (4.4-11.0)
[2020-04-29 15:55] LABS: ALB/GLOB Ratio 0.9 RATIO (0.9-2.4); AST(SGOT) 22 U/L (15-37); Alanine Aminotransfer ALT/SGPT 36 U/L (16-61); Albumin, Serum 3.9 g/dL (3.2-5.0); Alkaline Phosphatase 70 U/L (45-117); Anion Gap 7 (5-15); BUN 15 mg/dL (7-18); BUN/Creat Ratio 15.6 RATIO (10-20); Calcium,Total 8.9 mg/dL (8.5-10.1); Chloride 103 mmol/L (98-107); Creatinine, Serum 0.96 mg/dL (0.70-1.30); EST Glomerular Filtration Rate 89 mL/min (>60); Est Glom Filt Rate - Afr Amer 108 mL/min (>60); Globulin 4.2 g/dL (2.2-4.2); Glucose 333 mg/dL (74-106); Lipase 183 U/L (73-393); Magnesium 1.8 mg/dL (1.6-2.6); Potassium 4.4 mmol/L (3.5-5.1); Protein, Total 8.1 g/dL (6.4-8.2); Sodium Level 135 mmol/L (136-145)
[2020-04-29 16:14] LABS: Hemoglobin A1c 10.1 % (3.8-5.6)
[2020-05-07 13:26] LABS: Arsenic 7245 6 ug/L (2-23)
[2020-05-07 13:27] LABS: Lyme Scn Total Ab w/Rflx <0.91 ISR (0.00-0.90)
== END ==
PROVIDERS: PCP Family Medicine; Referring Provider Family Medicine; Visit Provider Family Medicine
DX: E11.8 Type 2 diabetes mellitus with unspecified complications (principal); K80.20 Calculus of gallbladder without cholecystitis without obstruction; R20.2 Paresthesia of skin
CPT/HCPCS: 36415; 80053; 82175; 83036; 83655; 83690; 83735; 83825; 85025; 86618

== ENCOUNTER → 2020-06-09 12:21 | Outpatient (CLI) | payer MEDICAID, SELFPAY ==
--- NOTE | 2020-06-09 14:23 | NEURO ---
NCS and/or EMG Patient Report Ordering Doctor: Nate Diaz DATE OF SERVICE: 06/09/20 Rip Etienne presents for electrodiagnostic testing in the left upper and right lower limb. He reports numbness and tingling in the left hand as well is in the right foot. Electrodiagnostic findings: Left median motor nerve demonstrates normal distal latency, amplitude and conduction velocity. Normal left ulnar motor response. Normal median and ulnar F-wave. Normal median sensory latency at the wrist. Normal left ulnar and radial sensory responses. Right peroneal motor nerve demonstrates prolonged distal latency with reduced amplitude and conduction velocity. Right tibial motor nerve demonstrates normal distal latency and amplitude with borderline reduced conduction velocity. Prolonged right tibial F wave is noted absent right common peroneal F wave. Borderline prolonged H reflex bilaterally. Absent right superficial peroneal response. Prolonged right sural latency is noted. On needle EMG, all muscles tested in the left upper and right lower limb showed no evidence of denervation with normal motor unit action potentials. Electrodiagnostic impression: This is an abnormal study. 1. 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 2. Electrodiagnostic findings demonstrate right superficial peroneal neuropathy. 3. There is no electrodiagnostic evidence for left-sided median neuropathy, i.e. carpal tunnel syndrome. 4. There is no electrodiagnostic evidence for cervical radiculopathy. 5. There is no electrodiagnostic evidence for lumbosacral radiculopathy. 6. Recommend correlation with the left lower limb to better evaluate for peripheral polyneuropathy.
== END ==
PROVIDERS: PCP Family Medicine; Referring Provider Family Medicine; Visit Provider Family Medicine
DX: G62.9 Polyneuropathy, unspecified (principal)
CPT/HCPCS: 95886; 95913

== ENCOUNTER 2020-06-20 07:28 | Emergency (ER) | payer MEDICAID, SELFPAY ==
[2020-06-20 07:28] VITALS: BP 153/87; PULSE 91; RESP 16; TEMP 36.4; BMI 25.8
--- NOTE | 2020-06-20 07:47 | ED.DCSUM_ITS ---
History of Present Illness Chief Complaint: Upper Extremity Injury Informant: Patient Onset: Today Context: Sudden Onset Timing: Continuous Quality: [place] left little finger Location: Left little finger volar ulnar side Current Severity: - - No discomfort Maximum Severity: Moderate Worsened by: Initial injury Relieved by: Nothing Associated Symptoms: None Narrative: Patient is a 44-year-old male who is right-hand dominant. He presents with fishhook with entrance wound volar ulnar side of his left little finger and exit wound dorsal ulnar side. He denies paresthesia, anesthesia motors. He states his last was approximately 5 years ago. Prior similar symptoms: No Recent Illness/Hospitalization: No - Past Medical History (1) Thrombocytopenia Status: Acute (2) Cholelithiasis Status: Chronic (3) Cirrhosis Status: Chronic (4) Coagulopathy Status: Chronic (5) Diabetes Status: Chronic (6) HTN (hypertension) Status: Chronic (7) Tobacco dependence in remission Status: Chronic Past Medical History - Allergies and Home Meds Allergies/Adverse Reactions: Allergies No Known Allergies Allergy (Verified 06/20/20 07:30) Primary Care Physician: Tino Ovalle MD [Primary Care Provider] - Surgical History: no surgical history Lives: Alone Smoking Status: Never smoker Drugs: None - Family History Maternal Family History: Family History (Last Reviewed 02/27/20 @ 09:[address] Adelfo Manrique DO) Brother CAD (coronary artery disease) Mother Lung cancer Father Lung cancer Family History: Reports: No pertinent history Paternal Family History: Family History (Last Reviewed 02/27/20 @ 09:[address] Adelfo Manrique DO) Brother CAD (coronary artery disease) Mother Lung cancer Father Lung cancer Family History: Reports: No pertinent history Review of Systems Musculoskeletal: Reports: Extremity Pain. Denies: Myalgias, Arthralgias, Neck pain, Back pain, Swelling Skin: Reports: Wounds. Denies: Rash, Abrasions Neurological: Denies: Weakness, Parasthesia, Numbness Hematologic: Reports: Easy bruising. Denies: Easy bleeding Physical Exam Vital Signs/Narrative: Vital Signs Temp Pulse Resp BP 06/20/20 07:28 97.5 F L 91 16 153/87 H Inital Vital Signs reviewed: Yes General: Well nourished, Well developed, No Acute Distress Head: Normocephalic, Atraumatic Eyes: Perrl, EOMI. Negative for: Pale conjunctiva, Scleral icterus Cardiovascular: Regular rate, Regular rhythm Respiratory: No distress Extremities: Nontender, No edema, - - Sensory my tendon is intact. The flexor digitorum superficialis and flexor digitorum profundus are intact. Cap refill is normal. Sensation is normal. Skin: Normal color, No rash, Trauma Neurological: Normal Strength, Normal Sensation Procedures Procedure(s): The proximal end of the barbed fishhook was cut. The proximal and was grabbed with hemostats and pulled through without difficulty. Patient did not require anesthesia. Plan is wound care and discharge. ED Disposition - Plan for ED Patient: Disposition: Home or Assisted Living Diagnosis: [place] injury to finger Instructions: ED Foreign Body Soft Tissue Removed Referrals: Tino Ovalle MD [Primary Care Provider] - As Needed
== END 2020-06-20 08:00 | disposition home or self-care (01) ==
LOC: ED 07:54
PROVIDERS: Emergency Provider Emergency Medicine; PCP Family Medicine
DX: S60.457A Superficial foreign body of left little finger, initial encounter (principal); X58.XXXA Exposure to other specified factors, initial encounter; Y93.9 Activity, unspecified; Y92.9 Unspecified place or not applicable; I10 Essential (primary) hypertension; E11.9 Type 2 diabetes mellitus without complications; F17.201 Nicotine dependence, unspecified, in remission; Z79.4 Long term (current) use of insulin; Z79.899 Other long term (current) drug therapy
CPT/HCPCS: 99282

== ENCOUNTER 2020-09-21 07:34 | Emergency (ER) | payer MEDICAID, SELFPAY ==
[2020-08-10 13:46] VITALS: BMI 25.8
[2020-09-21 07:36] VITALS: BP 137/86; PULSE 92; RESP 16; TEMP 37; O2SAT 97; BMI 26.4
--- NOTE | 2020-09-21 08:02 | ED.DCSUM_ITS ---
History of Present Illness Chief Complaint: Abd Pain Informant: Patient Narrative: 45-year-old male with a history of recurrent pancreatitis, diabetes, portopulmonary hypertension, alcoholism with cirrhosis, and known cholelithiasis presents with upper abdominal pain. States is diffusely across the front and to his back. It makes him nauseous. Patient states that he does not know why they have not removed his gallbladder. He states he was supposed to see somebody in [place] but does not know who. He denies any prior surgeries on the abdomen. States this feels like pancreatitis. - Past Medical History (1) Cholelithiasis Status: Chronic (2) Cirrhosis Status: Chronic (3) Diabetes Status: Chronic (4) HTN (hypertension) Status: Chronic (5) Pancreatitis Status: Chronic (6) Portopulmonary hypertension Status: Chronic Past Medical History - Allergies and Home Meds Allergies/Adverse Reactions: Allergies No Known Allergies Allergy (Verified 09/21/20 07:37) Primary Care Physician: Tino Ovalle MD [Primary Care Provider] - As Needed Prior records reviewed: Yes Surgical History: no surgical history Smoking Status: Never smoker Drugs: None - Family History Maternal Family History: Family History (Last Reviewed 02/27/20 @ 09:[address] Adelfo Manrique DO) Brother CAD (coronary artery disease) Mother Lung cancer Father Lung cancer Family History: Reports: No pertinent history Paternal Family History: Family History (Last Reviewed 02/27/20 @ 09:[address] Adelfo Manrique DO) Brother CAD (coronary artery disease) Mother Lung cancer Father Lung cancer Family History: Reports: No pertinent history Review of Systems General: Denies: Chills, Fever, Sweats Eyes: Denies: Visual changes - bilaterally, Diplopia ENT: Denies: Rhinorrhea, Sore throat Cardiovascular: Denies: Chest pain, Palpitations Respiratory: Denies: Dyspnea, Cough, Dyspnea on exertion Gastrointestinal: Reports: Abdominal pain, Nausea. Denies: Vomiting, Diarrhea, Melena, Hematochezia Genitourinary: Denies: Dysuria, Hematuria, Frequency Musculoskeletal: Denies: Back pain, Extremity Pain Skin: Denies: Rash, Wounds Neurological: Denies: Headache, Weakness, Numbness Physical Exam Vital Signs/Narrative: Vital Signs Temp Pulse Resp BP Pulse Ox 09/21/20 07:36 98.6 F 92 16 137/86 H 97 Inital Vital Signs reviewed: Yes General: Well nourished, Well developed, No Acute Distress, - - Patient clinically appears well. He walked briskly around the department. Head: Normocephalic, Atraumatic Eyes: Perrl, EOMI ENT: Moist mucous membranes, No rhinorrhea Neck: Supple, Nontender Cardiovascular: Regular rate, Regular rhythm, No murmurs Respiratory: No distress, CTA bilaterally, Chest nontender Abdomen: Soft, Nondistended, Normal bowel sounds, Tender Back: Nontender, Normal Inspection Extremities: Nontender, No edema Skin: Normal color, No rash Neurological: Alert, Oriented x3, Cranial nerves II-XII grossly intact, Normal Strength, Normal Sensation Psychological: Normal affect, Normal Mood Diagnostic/Tx/Re-eval Clinical Impression(s) from Imaging Studies Gallbladder Ultrasound 09/21/20 08:46 IMPRESSION: Multiple gallstones and sludge in the gallbladder lumen with mildly thickened gallbladder wall. Findings suggestive of cirrhosis of the liver. Electronically Signed: Carlin Corry, at 9:59 EDT , Service support , Laboratory Last Values WBC 11.2 K/mm3 (4.4-11.0) H 09/21/20 08:16 RBC 5.32 M/mm3 (4.6-6.2) 09/21/20 08:16 Hgb 16.0 g/dL (13.0-16.5) 09/21/20 08:16 Hct 46.3 % (40-54) 09/21/20 08:16 MCV 87.0 fL (80-94) 09/21/20 08:16 MCH 30.1 pg (27.0-32.0) 09/21/20 08:16 MCHC 34.6 g/dL (32-36) 09/21/20 08:16 RDW Std Deviation 45.1 fl (35.1-43.9) H 09/21/20 08:16 RDW Coeff of Yolanda 14.1 % (11.6-14.6) 09/21/20 08:16 Plt Count 94 K/mm3 (150-450) L 09/21/20 08:16 MPV 12.0 fl (6.2-12.0) 09/21/20 08:16 Immature Gran % (Auto) 0.300 % (0.0-0.9) 09/21/20 08:16 Neut % (Auto) 81.5 % (47-70) H 09/21/20 08:16 Lymph % (Auto) 10.0 % (19-41) L 09/21/20 08:16 [place] % (Auto) 5.4 % (0-10) 09/21/20 08:16 Eos % (Auto) 2.4 % (0-5) 09/21/20 08:16 Baso % (Auto) 0.4 % (0-1) 09/21/20 08:16 Absolute Neuts (auto) 9.2 X10^3/uL (2.0-7.7) H 09/21/20 08:16 Absolute Lymphs (auto) 1.12 X10^3/uL (0.83-4.51) 09/21/20 08:16 Nucleated RBC % 0 % (0-5) 09/21/20 08:16 Platelet Estimate MOD DEC (ADEQ) 09/21/20 08:16 Plt Morphology Comment LARGE 09/21/20 08:16 Sodium 138 mmol/L (136-145) 09/21/20 08:16 Potassium 4.2 mmol/L (3.5-5.1) 09/21/20 08:16 Chloride 107 mmol/L (98-107) 09/21/20 08:16 Carbon Dioxide 24.0 mmol/L (21.0-32.0) 09/21/20 08:16 Anion Gap 7 (5-15) 09/21/20 08:16 BUN 18 mg/dL (7-18) 09/21/20 08:16 Creatinine 0.98 mg/dL (0.70-1.30) 09/21/20 08:16 Estim Creat Clear Calc 93.18 ml/min 09/21/20 08:16 Est GFR (MDRD) Af Amer 105 mL/min (>60) 09/21/20 08:16 Est GFR (MDRD) Non-Af 87 mL/min (>60) 09/21/20 08:16 BUN/Creatinine Ratio 18.3 RATIO (-20) 09/21/20 08:16 Glucose 367 mg/dL (74-106) H 09/21/20 08:16 Calcium 8.6 mg/dL (8.5-10.1) 09/21/20 08:16 Total Bilirubin 1.20 mg/dL (0.20-1.00) H 09/21/20 08:16 Direct Bilirubin 0.32 mg/dL (0.00-0.30) H 09/21/20 08:16 AST 23 U/L (15-37) 09/21/20 08:16 ALT 51 U/L (16-61) 09/21/20 08:16 Alkaline Phosphatase 71 U/L (45-117) 09/21/20 08:16 Total Protein 7.6 g/dL (6.4-8.2) 09/21/20 08:16 Albumin 3.7 g/dL (3.2-5.0) 09/21/20 08:16 Globulin 3.9 g/dL (2.2-4.2) 09/21/20 08:16 Lipase 195 U/L (73-393) 09/21/20 08:16 - Medical Decision Making Patient's white count is slightly elevated at 2. Gallbladder ultrasound shows sludge and stones but no pericholecystic fluid. Thickened wall. We know that he has known gallbladder disease. He cannot have surgery here because of his thrombocytopenia, severe pulmonary hypertension, and anesthesia has not approved him. He is supposed to be working with the doctors in [place] but reportedly has not been consistent with follow-up. I did speak with general surgery here. They agree that he should be seen in [place]. I spoke with the patient. We talked about him needing to work with the doctors in [place] to get his gallbladder out. We talked about possible transfer. At this time we are going to write him to have pain and nausea medication at home. He is going to call his surgeon when he gets home. ED Disposition - Plan for ED Patient: Disposition: Home or Assisted Living Diagnosis: Biliary colic, Cholelithiasis Instructions: ED Gallstones with Biliary Colic Prescriptions: Oxycodone HCl/Acetaminophen [Percocet 5/325] 1 tab PO Q6H PRN PRN 3 Days #12 tab PRN Reason: Pain Transmission Status: Received by [id number] Ondansetron [Zofran Odt] 4 mg PO Q8H PRN PRN #10 tab PRN Reason: Nausea Transmission Status: Received by [id number] Referrals: Tino Ovalle MD [Primary Care Provider] - As Needed Additional Instructions: You need to call your surgeon as soon as possible. Should you worsen you may return here would also have you consider going to [facility] where your doctor works out of as your surgery cannot be performed here.
[2020-09-21] MEDS: 0.9% Normal Saline 1,000 ML 1000 ML IV (08:15)
[2020-09-21] MEDS: Morphine 4 MG/ML Syringe IV (08:15)
[2020-09-21] MEDS: Ondansetron 4 MG/2 ML Vial IV (08:15)
[2020-09-21 08:29] LABS: Absolute Lymphocyte Count 1.12 X10^3/uL (0.83-4.51); Absolute Neutrophil Count 9.2 X10^3/uL (2.0-7.7); Basophil# 0.04 X10^3/uL; Basophil% 0.4 % (0-1); Eosinophil# 0.27 X10^3/uL; Eosinophils% 2.4 % (0-5); Hematocrit 46.3 % (40-54); Lymphocyte # 1.12 X10^3/ul (4.0); Mean Corp Hgb Conc 34.6 g/dL (32-36); Mean Corpuscular Hgb 30.1 pg (27.0-32.0); Monocyte# 0.61 X10^3/uL; Monocyte% 5.4 % (0-10); NRBC Flagged by Analyzer 0 % (0-5); Neutrophil # 9.16 X10^3/uL (2.7-7.7); Neutrophil % 81.5 % (47-70); POSITIVE COUNT YES; Platelet Count 94 K/mm3 (150-450); RBC Distribution Width CV 14.1 % (11.6-14.6); RBC Distribution Width SD 45.1 fl (35.1-43.9); Red Blood Count 5.32 M/mm3 (4.6-6.2); White Blood Count 11.2 K/mm3 (4.4-11.0)
[2020-09-21 08:31] LABS: Differential Indicated SCAN CRITERIA MET
[2020-09-21 08:44] LABS: AST(SGOT) 23 U/L (15-37); Alanine Aminotransfer ALT/SGPT 51 U/L (16-61); Albumin, Serum 3.7 g/dL (3.2-5.0); Alkaline Phosphatase 71 U/L (45-117); Anion Gap 7 (5-15); BUN 18 mg/dL (7-18); BUN/Creat Ratio 18.3 RATIO (10-20); Bilirubin, Direct 0.32 mg/dL (0.00-0.30); Calcium,Total 8.6 mg/dL (8.5-10.1); Chloride 107 mmol/L (98-107); Creatinine, Serum 0.98 mg/dL (0.70-1.30); EST Glomerular Filtration Rate 87 mL/min (>60); Est Glom Filt Rate - Afr Amer 105 mL/min (>60); Estimated Creatinine Clearance 93.18 ml/min; Globulin 3.9 g/dL (2.2-4.2); Glucose 367 mg/dL (74-106); Lipase 195 U/L (73-393); Potassium 4.2 mmol/L (3.5-5.1); Protein, Total 7.6 g/dL (6.4-8.2); Sodium Level 138 mmol/L (136-145)
--- NOTE | 2020-09-21 08:46 | US_ITS ---
STUDY: ABDOMINAL ULTRASOUND - RIGHT UPPER QUADRANT REASON FOR VISIT: Male, 45 years old RUQ, NAUSEA, HX OF CIRRHOSIS TECHNIQUE: Ultrasound evaluation of the right upper quadrant was performed with real-time and static reyes-scale imaging. TECHNICAL QUALITY: Adequate. COMPARISON: Comparison is made with prior study dated 01/15/2020. FINDINGS: Liver: The liver is mildly enlarged and measures 18.9 cm. There is a heterogeneous echogenicity of the liver. Lobulated contour suggestive of cirrhotic change. The bile ducts are within normal limits. There is hepatic color flow. The direction of portal flow is hepatopetal. There is no demonstrated mass lesion. Gallbladder: Normal distended gallbladder. The gallbladder wall is mildly thickened and measures 5.0 mm. There is a negative sonographic Mendoza''s sign. There is no pericholecystic fluid. There are multiple echogenic structures within the gallbladder, consistent with multiple gallstones. Sludge is also seen within the gallbladder lumen. Common Bile Duct (C.B.D.): The common bile duct measures 5.0 mm. Pancreas: There is nonvisualization of the pancreas due to overlying bowel gas. Right Kidney: Normal size of the right kidney. The right kidney measures 11 cm x 7.8 cm x 4.9 cm. Normal renal cortex. The right cortex measures 1.5 cm. There is no demonstrated renal mass or cyst. There is no right hydronephrosis. US/Gallbladder IMPRESSION: Multiple gallstones and sludge in the gallbladder lumen with mildly thickened gallbladder wall. Findings suggestive of cirrhosis of the liver. Electronically Signed: Carlin Wheatley, at 9:59 EDT , Service support ,
[2020-09-21 09:09] LABS: Platelet Estimate MOD DEC (ADEQ); Platelet Morphology LARGE
[2020-09-21 10:15] VITALS: BP 130/80; PULSE 86; RESP 18; O2SAT 99
[2020-09-21 11:20] VITALS: BP 135/78; PULSE 85; RESP 16; O2SAT 98
== END 2020-09-21 11:21 | disposition home or self-care (01) ==
PROVIDERS: Emergency Provider Emergency Medicine; PCP Family Medicine
DX: K80.70 Calculus of gallbladder and bile duct without cholecystitis without obstruction (principal); K70.30 Alcoholic cirrhosis of liver without ascites; K86.1 Other chronic pancreatitis; K76.6 Portal hypertension; I27.20 Pulmonary hypertension, unspecified; I10 Essential (primary) hypertension; E11.9 Type 2 diabetes mellitus without complications; D69.6 Thrombocytopenia, unspecified; F10.20 Alcohol dependence, uncomplicated; Y90.9 Presence of alcohol in blood, level not specified; Z79.4 Long term (current) use of insulin; Z79.899 Other long term (current) drug therapy
CPT/HCPCS: 76705; 80048; 80076; 83690; 85025; 96361; 96374; 96375; 99282; J7030; A4216; J2405

== ENCOUNTER 2020-09-30 17:52 | Emergency (ER) | payer MEDICAID, SELFPAY ==
[2020-09-30 17:54] VITALS: BP 129/99; PULSE 89; RESP 16; TEMP 36.3; O2SAT 100; BMI 25.1
[2020-09-30 18:29] LABS: Absolute Lymphocyte Count 1.39 X10^3/uL (0.83-4.51); Absolute Neutrophil Count 8.8 X10^3/uL (2.0-7.7); Basophil# 0.04 X10^3/uL; Basophil% 0.4 % (0-1); Eosinophil# 0.08 X10^3/uL; Eosinophils% 0.7 % (0-5); Hematocrit 49.5 % (40-54); Hemoglobin 16.4 g/dL (13.0-16.5); Lymphocyte # 1.39 X10^3/ul (4.0); Lymphocyte % 12.4 % (19-41); Mean Corp Hgb Conc 33.1 g/dL (32-36); Mean Corpuscular Hgb 29.2 pg (27.0-32.0); Mean Corpuscular Volume 88.1 fL (80-94); Mean Platelet Vol. 10.9 fl (6.2-12.0); Monocyte# 0.84 X10^3/uL; Monocyte% 7.5 % (0-10); NRBC Flagged by Analyzer 0 % (0-5); Neutrophil # 8.76 X10^3/uL (2.7-7.7); Neutrophil % 77.9 % (47-70); Platelet Count 165 K/mm3 (150-450); RBC Distribution Width CV 13.7 % (11.6-14.6); RBC Distribution Width SD 44.4 fl (35.1-43.9); Red Blood Count 5.62 M/mm3 (4.6-6.2); White Blood Count 11.2 K/mm3 (4.4-11.0)
--- NOTE | 2020-09-30 18:32 | ED.VIS.GEN ---
History of Present Illness Chief Complaint: Abd Pain Informant: Patient Narrative: Patient is a 45-year-old male with a past medical history of liver cirrhosis, pulmonary hypertension who presents to the emergency department for epigastric and right upper quadrant abdominal pain. He states that this is a chronic issue for him. He has known gallstones but states that no surgeon will touch him due to his pulmonary hypertension. He was supposed to follow-up with a surgeon from [place] but has never went to see them. He states that he comes in here to get pain medications. He was seen last week and discharged with oxycodone which he never filled because he states they do not help. He has been nauseous and vomited yesterday. Denies any fevers or chills. No change in bowel habits. He has had some urinary frequency. No previous abdominal surgeries. No associated chest pain or shortness of breath. Past Medical History - Allergies and Home Meds Allergies/Adverse Reactions: Allergies No Known Allergies Allergy (Verified 09/30/20 17:56) Primary Care Physician: Tino Ovalle MD [Primary Care Provider] - Neda Barraza MD [STAFF PHYSICIAN] - As soon as possible Prior records reviewed: Yes Past Medical History: - - Pulmonary hypertension, cirrhosis, diabetes, hypertension Surgical History: no surgical history Smoking Status: Former smoker Alcohol: Sober - Family History Maternal Family History: Family History (Last Reviewed 02/27/20 @ 09:[address] Adelfo Manrique DO) Brother CAD (coronary artery disease) Mother Lung cancer Father Lung cancer Family History: Reports: No pertinent history Paternal Family History: Family History (Last Reviewed 02/27/20 @ 09:[address] Adelfo Manrique DO) Brother CAD (coronary artery disease) Mother Lung cancer Father Lung cancer Family History: Reports: No pertinent history Review of Systems All systems negative except as indicated General: Denies: Chills, Fever, Sweats Eyes: Denies: Visual changes - bilaterally, Diplopia ENT: Denies: Rhinorrhea, Sore throat Cardiovascular: Denies: Chest pain, Palpitations Respiratory: Denies: Dyspnea, Cough, Dyspnea on exertion Gastrointestinal: Reports: Abdominal pain, Nausea, Vomiting. Denies: Diarrhea, Melena, Hematochezia Genitourinary: Denies: Dysuria, Hematuria, Frequency Musculoskeletal: Denies: Back pain, Extremity Pain Skin: Denies: Rash, Wounds Neurological: Denies: Headache, Weakness, Numbness Physical Exam Vital Signs/Narrative: Vital Signs Temp Pulse Resp BP Pulse Ox 09/30/20 17:54 97.3 F L 89 16 129/99 H 100 Inital Vital Signs reviewed: Yes General: Well nourished, Well developed, No Acute Distress Head: Normocephalic, Atraumatic Eyes: Perrl, EOMI ENT: Moist mucous membranes, No rhinorrhea Neck: Supple, Nontender Cardiovascular: Regular rate, Regular rhythm, No murmurs Respiratory: No distress, CTA bilaterally, Chest nontender Abdomen: Soft, Nondistended, Normal bowel sounds, Tender - Right upper quadrant and epigastric region.. Negative for: Guarding, Rebound tenderness, Mendoza's sign Back: Nontender, Normal Inspection Extremities: Nontender, No edema Skin: No rash, Jaundice Neurological: Alert, Oriented x3, Cranial nerves II-XII grossly intact, Normal Strength, Normal Sensation Psychological: Normal affect, Normal Mood Diagnostic/Tx/Re-eval - Medical Decision Making Patient presents to the emergency department for abdominal pain and nausea/vomiting. This is acute on chronic issue for him. Upon arrival to the emergency department vital signs within normal limits. He does not appear in any acute distress. He does have tenderness on physical exam but no peritoneal signs. Basic lab work being obtained. Patient's lab work showed his white blood cell count to be the same as his last hospital's visit. His bilirubin is mildly elevated. At that time we got an ultrasound of the right upper quadrant. This did not show any evidence of cholecystitis. There is evidence of cirrhosis. I did reevaluate the patient after imaging was completed. He was found to have a urinary tract infection so I ordered him a dose of Keflex and was going to write a prescription. Patient asked for outpatient pain management I told him I could not prescribe anything stronger than the oxycodone he already has at home. At that time patient became agitated and was expressing his unhappiness with that idea. I told him we would give him another dose of pain medication here. At that time I returned to my computer. Nurses state that patient eloped at that time and removed his own IV. Did not receive any antibiotic treatment. ED Disposition - Plan for ED Patient: Disposition: Home or Assisted Living Diagnosis: Abdominal pain, Cholelithiasis, UTI (urinary tract infection) Instructions: ED Gallstones with Biliary Colic, ED CYSTITIS Male Adult Prescriptions: Cephalexin [Keflex] 500 mg PO Q12 #14 cap Transmission Status: Received by [id number] Ondansetron [Zofran Odt] 4 mg PO Q8H PRN PRN #10 tab PRN Reason: Nausea Transmission Status: Received by [id number] Referrals: Tino Ovalle MD [Primary Care Provider] - Neda Barraza MD [STAFF PHYSICIAN] - As soon as possible
[2020-09-30 18:42] LABS: ALB/GLOB Ratio 0.6 RATIO (0.9-2.4); AST(SGOT) 33 U/L (15-37); Alanine Aminotransfer ALT/SGPT 74 U/L (16-61); Alkaline Phosphatase 201 U/L (45-117); Anion Gap 6 (5-15); BUN 19 mg/dL (7-18); BUN/Creat Ratio 16.1 RATIO (10-20); Calcium,Total 8.8 mg/dL (8.5-10.1); Chloride 103 mmol/L (98-107); Creatinine, Serum 1.18 mg/dL (0.70-1.30); EST Glomerular Filtration Rate 70 mL/min (>60); Est Glom Filt Rate - Afr Amer 85 mL/min (>60); Estimated Creatinine Clearance 77.39 ml/min; Globulin 5.1 g/dL (2.2-4.2); Glucose 255 mg/dL (74-106); Lipase 117 U/L (73-393); Protein, Total 8.1 g/dL (6.4-8.2); Sodium Level 134 mmol/L (136-145)
[2020-09-30 18:47] LABS: Bacteria 0 SEEN /hpf (None Seen); Mucous, Urine 0 SEEN /hpf (<or=2+); Red Blood Cells-Urine 0 SEEN /hpf (0-5); Squamous Epithelial Cells - UA 0 SEEN /hpf (0-5)
[2020-09-30 18:51] VITALS: TEMP 37.3
[2020-09-30] MEDS: Ondansetron 4 MG/2 ML Vial IV (19:08)
[2020-09-30] MEDS: Morphine 4 MG/ML Syringe IV (19:08)
[2020-09-30 19:15] LABS: Color, Urine Amber (Yellow); Glucose, Dipstick 100 mg/dl (Normal); Ketone-Dipstick 5 mg/dl (Negative); Leukocyte Esterase-Dipstick 500 /ul (Negative); Nitrite-Dipstick Positive (Negative); Occult Blood-Urine 150 /ul (Negative); Protein-Dipstick 500 mg/dl (Negative); Urine Clarity Cloudy (Clear); Urine Urobilinogen 12 mg/dl (Normal)
--- NOTE | 2020-09-30 19:23 | US_ITS ---
STUDY: ABDOMINAL ULTRASOUND - RIGHT UPPER QUADRANT REASON FOR VISIT: Male, 45 years old ELEV BILI AND RUQ PAIN TECHNIQUE: Ultrasound evaluation of the right upper quadrant was performed with real-time and static reyes-scale imaging. TECHNICAL QUALITY: Adequate. COMPARISON: 09/21/2020, CT abdomen 04/02/2017. FINDINGS: Liver: The liver measures 15.7 cm. There is a heterogeneous echogenicity of the liver. The bile ducts are within normal limits. There is hepatic color flow. The direction of portal flow is hepatopetal. There is no demonstrated mass lesion. Recanalized umbilical vein. Gallbladder: Normal distended gallbladder. The gallbladder wall measures 4 mm. There is a negative sonographic Mendoza''s sign. There is no pericholecystic fluid. Several shadowing stones in the gallbladder. Common Bile Duct (C.B.D.): The common bile duct measures 4 mm. Pancreas: Visualized pancreas is unremarkable. The tail is not seen. Right Kidney: Normal size of the right kidney. The right kidney measures 11.5 x 4.9 x 6.1 cm. Normal renal cortex. The right cortex measures 1.8 cm. There is no demonstrated renal mass or cyst. There is no right hydronephrosis. US/Abdomen Limited IMPRESSION: 1. Cholelithiasis, no acute cholecystitis. 2. Findings consistent with cirrhosis and suggestive of portal hypertension. Electronically Signed: Jessica Augustine MD at 21:18 EST Tel , Service support ,
[2020-09-30 19:28] LABS: Urine Bilirubin Dipstick 3 mg/dL (Negative)
[2020-09-30 19:31] LABS: White Blood Cells >100 SEEN /hpf (0-5)
[2020-09-30 20:00] VITALS: BP 118/88; PULSE 81; RESP 18; O2SAT 98
--- NOTE | 2020-09-30 21:25 | ED.RN ---
Pt removed his IV and left prior to receiving D/C instructions or antibiotics
== END 2020-09-30 21:42 | disposition home or self-care (01) ==
PROVIDERS: Emergency Provider Emergency Medicine; PCP Family Medicine
DX: K80.20 Calculus of gallbladder without cholecystitis without obstruction (principal); N39.0 Urinary tract infection, site not specified; I27.20 Pulmonary hypertension, unspecified; I10 Essential (primary) hypertension; K74.60 Unspecified cirrhosis of liver; E11.9 Type 2 diabetes mellitus without complications; Z79.4 Long term (current) use of insulin; Z79.899 Other long term (current) drug therapy
CPT/HCPCS: 76705; 80053; 81001; 83690; 85025; 87086; 87088; 87186; 96374; 96375; 99283; J7030; A4216; J2405

== ENCOUNTER 2020-11-15 06:58 | Emergency (ER) | payer MEDICAID, SELFPAY ==
[2020-11-15 07:00] VITALS: BP 151/94; PULSE 85; RESP 16; TEMP 36.3; O2SAT 99; BMI 25.4
--- NOTE | 2020-11-15 07:09 | US_ITS ---
STUDY: ABDOMINAL ULTRASOUND - RIGHT UPPER QUADRANT REASON FOR VISIT: Male, 45 years old gallstones and pancreas titis TECHNIQUE: Ultrasound evaluation of the right upper quadrant was performed with real-time and static reyes-scale imaging. TECHNICAL QUALITY: Adequate. COMPARISON: Comparison is made with prior study dated 09/30/2020. FINDINGS: Liver: The liver is enlarged and measures 18.7 cm. There is increased echogenicity consistent with fatty infiltration. There is enlargement of the caudate lobe. The bile ducts are within normal limits. There is hepatic color flow. The direction of portal flow is hepatopetal. There is no demonstrated mass lesion. Once again, there is evidence of recannulization of the umbilical veins and varicosities. Gallbladder: Normal distended gallbladder. The gallbladder wall is thickened and measures 6 mm. There is a negative sonographic Mendoza''s sign. There is no pericholecystic fluid. There is a solitary echogenic gallstone within the gallbladder. Common Bile Duct (C.B.D.): The common bile duct measures 6 mm. Pancreas: Normal size of the head, body and tail of the pancreas. There is normal echogenicity of the pancreas. There is no demonstrated pancreatic mass or cyst. Right Kidney: Normal size of the right kidney. The right kidney measures 11.3 cm x 5.8 cm x 5.6 cm. Normal renal cortex. The right cortex measures 1.6 cm. There is no demonstrated renal mass or cyst. There is no right hydronephrosis. US/Gallbladder IMPRESSION: Hepatomegaly. Heterogeneous appearance of the liver with the irregular contour. Solitary gallstone. Gallbladder wall thickening. Electronically Signed: Carlin Wheatley, at 8:27 EST , Service support ,
--- NOTE | 2020-11-15 07:14 | ED.VISSUMM ---
- ER Visit Summary Date of Service: 11/15/20 Chief Complaint: Abdominal pain History of Present Illness: The patient is a 45 M with abdominal pain that started last evening. Nothing seemed to bring it on. The pain is mostly in his epigastric region and then radiates around his upper abdomen in a bandlike pattern. Pain is severe at times. He has not noticed an association with food or anything else. He has had this before, and it sounds like he has a history of pancreatitis and gallstones. He is planning to follow-up with a surgeon regarding the gallstones in November. He has a history of pancreatitis and cirrhosis from alcohol use. He has been sober for 10 years. No fevers or other associated symptoms. Physical Examination: Afebrile and vital signs unremarkable. Patient is alert and oriented. Appears uncomfortable. Skin is normal in color. Heart regular. Lungs clear. Abdomen is tender over the upper hemiabdomen. No guarding or rebound. Test Results: Labs, ultrasound pending. Emergency Department Course and Treatment: Patient has most likely GI pathology, pancreatitis, biliary colic, cholecystitis, etc. He was treated with fluids, Zofran, morphine. Will recheck his labs and ultrasound. CBC normal. Glucose 319, BUN 20, alkaline phosphatase 139. Liver enzymes normal. Lipase normal. INR pending. Ultrasound shows gallstone with a 6 mm gallbladder wall. The common bile duct is 6 mm. There is no pericholecystic fluid or sonographic Mendoza sign. I believe the patient has biliary colic with possibly chronic cholecystitis complicated by cirrhosis, pulmonary hypertension, history of thrombocytopenia, diabetes. He required 2 additional doses of morphine as well as Phenergan. I do not believe that his symptoms will allow him to be discharged home safely. I spoke with Dr. Castro here, and because of the patient's complicated medical history, he felt that the patient would be better served at a tertiary care facility. I did speak with the patient. He was treated at [facility] in the past with ERCP. He would be willing to be transferred there as his next choice. I spoke with the call center who will have the patient transferred to the emergency department. The accepting doctor was . Patient does not have Covid symptoms. [facility] will test the patient in the ED. His INR still pending at the time of this dictation. Treatment Plan: As above Disposition: Transfer Impression: Gallstones, biliary colic This note was generated with [employer] dictation software. It may contain incorrect words, spelling, and punctuation that were not noted in review of the chart prior to signing ED Disposition - Plan for ED Patient: Referrals: Tino Ovalle MD [Primary Care Provider] -
[2020-11-15 07:16] LABS: Absolute Lymphocyte Count 1.47 X10^3/uL (0.83-4.51); Absolute Neutrophil Count 4.7 X10^3/uL (2.0-7.7); Basophil# 0.03 X10^3/uL; Basophil% 0.4 % (0-1); Eosinophil# 0.28 X10^3/uL; Eosinophils% 4.1 % (0-5); Hematocrit 45.9 % (40-54); Hemoglobin 15.6 g/dL (13.0-16.5); Lymphocyte # 1.47 X10^3/ul (4.0); Lymphocyte % 21.3 % (19-41); Mean Corpuscular Hgb 28.2 pg (27.0-32.0); Mean Platelet Vol. 10.5 fl (6.2-12.0); Monocyte# 0.36 X10^3/uL; Monocyte% 5.2 % (0-10); NRBC Flagged by Analyzer 0 % (0-5); Neutrophil # 4.73 X10^3/uL (2.7-7.7); Neutrophil % 68.4 % (47-70); Platelet Count 177 K/mm3 (150-450); RBC Distribution Width SD 45.4 fl (35.1-43.9); Red Blood Count 5.53 M/mm3 (4.6-6.2); White Blood Count 6.9 K/mm3 (4.4-11.0)
[2020-11-15] MEDS: Morphine 4 MG/ML Syringe IV ×3 (07:19→09:12)
[2020-11-15] MEDS: 0.9% Normal Saline 1,000 ML 1000 ML IV (07:19)
[2020-11-15] MEDS: Ondansetron 4 MG/2 ML Vial IV (07:20)
[2020-11-15 07:31] LABS: ALB/GLOB Ratio 0.8 RATIO (0.9-2.4); AST(SGOT) 24 U/L (15-37); Alanine Aminotransfer ALT/SGPT 51 U/L (16-61); Albumin, Serum 3.5 g/dL (3.2-5.0); Alkaline Phosphatase 139 U/L (45-117); Anion Gap 5 (5-15); BUN 20 mg/dL (7-18); Calcium,Total 9.4 mg/dL (8.5-10.1); Chloride 106 mmol/L (98-107); EST Glomerular Filtration Rate 85 mL/min (>60); Est Glom Filt Rate - Afr Amer 103 mL/min (>60); Estimated Creatinine Clearance 91.32 ml/min; Globulin 4.3 g/dL (2.2-4.2); Glucose 319 mg/dL (74-106); Lipase 204 U/L (73-393); Potassium 3.9 mmol/L (3.5-5.1); Protein, Total 7.8 g/dL (6.4-8.2); Sodium Level 136 mmol/L (136-145)
[2020-11-15 08:59] VITALS: BP 125/108; PULSE 78; RESP 16; O2SAT 96
[2020-11-15 09:12] VITALS: BP 146/93; PULSE 82; RESP 16; O2SAT 97
[2020-11-15] MEDS: proMETHazine 25 MG/ML Syringe 12.5 MG IV (09:12)
[2020-11-15 09:30] LABS: International Normalized Ratio 1.1; Prothrombin Time (Protime)PT. 13.3 SECONDS (11.7-14.9)
[2020-11-15] MEDS: HYDROmorphone 1 MG/ML Syringe IV (09:50)
== END 2020-11-15 10:03 | disposition short-term general hospital (02) ==
LOC: ED 08:01
PROVIDERS: Emergency Provider Emergency Medicine; PCP Family Medicine
DX: K80.70 Calculus of gallbladder and bile duct without cholecystitis without obstruction (principal); I27.20 Pulmonary hypertension, unspecified; E11.9 Type 2 diabetes mellitus without complications; Z79.4 Long term (current) use of insulin; Z79.899 Other long term (current) drug therapy; Z87.19 Personal history of other diseases of the digestive system
CPT/HCPCS: 76705; 80053; 83690; 85025; 85610; 96361; 96374; 96375; 96376; 99285; J7030; A4216; J2405

== ENCOUNTER → 2021-05-02 09:53 | Outpatient (CLI) | payer MEDICAID, SELFPAY ==
[2021-05-02 12:37] LABS: Absolute Lymphocyte Count 1.32 X10^3/uL (0.83-4.51); Absolute Neutrophil Count 4.6 X10^3/uL (2.0-7.7); Basophil# 0.04 X10^3/uL; Basophil% 0.6 % (0-1); Eosinophil# 0.37 X10^3/uL; Eosinophils% 5.5 % (0-5); Hematocrit 48.9 % (40-54); Hemoglobin 17.6 g/dL (13.0-16.5); Lymphocyte # 1.32 X10^3/ul (0.83-4.51); Lymphocyte % 19.7 % (19-41); Mean Corpuscular Volume 83.4 fL (80-94); Mean Platelet Vol. 11.6 fl (6.2-12.0); Monocyte# 0.37 X10^3/uL; Monocyte% 5.5 % (0-10); NRBC Flagged by Analyzer 0 % (0-5); Neutrophil % 68.6 % (47-70); Platelet Count 122 K/mm3 (150-450); RBC Distribution Width CV 14.5 % (11.6-14.6); RBC Distribution Width SD 43.6 fl (35.1-43.9); Red Blood Count 5.86 M/mm3 (4.6-6.2); White Blood Count 6.7 K/mm3 (4.4-11.0)
[2021-05-02 13:16] LABS: Hemoglobin A1c 8.8 % (3.8-5.6)
[2021-05-02 13:31] LABS: ALB/GLOB Ratio 1.2 RATIO (0.9-2.4); AST(SGOT) 19 U/L (15-37); Alanine Aminotransfer ALT/SGPT 35 U/L (16-61); Albumin, Serum 4.1 g/dL (3.2-5.0); Alkaline Phosphatase 70 U/L (45-117); Anion Gap 10 (5-15); BUN 12 mg/dL (7-18); BUN/Creat Ratio 12.8 RATIO (10-20); Calcium,Total 9.1 mg/dL (8.5-10.1); Chloride 104 mmol/L (98-107); Creatinine, Serum 0.94 mg/dL (0.70-1.30); EST Glomerular Filtration Rate 91 mL/min (>60); Est Glom Filt Rate - Afr Amer 111 mL/min (>60); Globulin 3.3 g/dL (2.2-4.2); Glucose 333 mg/dL (74-106); Protein, Total 7.4 g/dL (6.4-8.2); Sodium Level 137 mmol/L (136-145)
== END ==
PROVIDERS: PCP Family Medicine; Referring Provider Family Medicine; Visit Provider Family Medicine
DX: K74.60 Unspecified cirrhosis of liver (principal); E11.8 Type 2 diabetes mellitus with unspecified complications
CPT/HCPCS: 36415; 80053; 83036; 84443; 85025

== ENCOUNTER 2021-05-13 10:50 | Outpatient (RCR) | payer MEDICAID, SELFPAY | END 2021-06-17 23:59 | LOC: IMMUN 10:50 | PROVIDERS: PCP Family Medicine; Referring Provider Family Medicine; Visit Provider Family Medicine | DX: Z23 Encounter for immunization (principal) | CPT/HCPCS: 0001A; 91300 ==

== ENCOUNTER → 2021-08-25 12:31 | Outpatient (CLI) | payer MEDICAID, SELFPAY ==
[2021-08-25 15:35] LABS: Vitamin B12 846 pg/mL (211-911)
[2021-08-25 15:36] LABS: Hemoglobin A1c 10.5 % (3.8-5.6)
[2021-08-25 15:46] LABS: ALB/GLOB Ratio 0.9 RATIO (0.9-2.4); AST(SGOT) 20 U/L (15-37); Alanine Aminotransfer ALT/SGPT 34 U/L (16-61); Albumin, Serum 3.9 g/dL (3.2-5.0); Alkaline Phosphatase 68 U/L (45-117); Anion Gap 8 (5-15); BUN 21 mg/dL (7-18); BUN/Creat Ratio 21.8 RATIO (10-20); Calcium,Total 9.4 mg/dL (8.5-10.1); Chloride 99 mmol/L (98-107); Creatinine, Serum 0.96 mg/dL (0.70-1.30); EST Glomerular Filtration Rate 88 mL/min (>60); Est Glom Filt Rate - Afr Amer 107 mL/min (>60); Ferritin 393 ng/mL (26-388); Globulin 4.2 g/dL (2.2-4.2); Glucose 398 mg/dL (74-106); Lipase 387 U/L (73-393); Potassium 4.1 mmol/L (3.5-5.1); Protein, Total 8.1 g/dL (6.4-8.2); Sodium Level 133 mmol/L (136-145); Thyroid Stim Hormone (TSH) 0.66 uIU/mL (0.358-3.74)
== END ==
PROVIDERS: PCP Family Medicine; Referring Provider Family Medicine; Visit Provider Family Medicine
DX: K74.60 Unspecified cirrhosis of liver (principal); G62.9 Polyneuropathy, unspecified; E11.8 Type 2 diabetes mellitus with unspecified complications
CPT/HCPCS: 36415; 80053; 82607; 82728; 82746; 83036; 83690; 84443

== ENCOUNTER → 2022-05-12 | Outpatient (CLI) | payer MEDICAID, SELFPAY | END | disposition home or self-care (01) | LOC: LABSPEC 13:44 | PROVIDERS: PCP Family Medicine; Referring Provider Family Medicine; Visit Provider Family Medicine | DX: N30.90 Cystitis, unspecified without hematuria (principal) | CPT/HCPCS: 87086; 87088; 87186 ==

== ENCOUNTER → 2022-05-15 | Outpatient (CLI) | payer MEDICAID, SELFPAY ==
[2022-05-15 15:23] LABS: Absolute Lymphocyte Count 1.24 X10^3/uL (0.83-4.51); Absolute Neutrophil Count 3.7 X10^3/uL (2.0-7.7); Basophil# 0.04 X10^3/uL; Basophil% 0.7 % (0-1); Eosinophil# 0.29 X10^3/uL; Eosinophils% 5.2 % (0-5); Hematocrit 46.3 % (40-54); Hemoglobin 15.5 g/dL (13.0-16.5); Lymphocyte # 1.24 X10^3/ul (0.83-4.51); Lymphocyte % 22.1 % (19-41); Mean Corp Hgb Conc 33.5 g/dL (32-36); Mean Corpuscular Hgb 29.5 pg (27.0-32.0); Mean Platelet Vol. 11.6 fl (6.2-12.0); Monocyte% 5.3 % (0-10); NRBC Flagged by Analyzer 0 % (0-5); Neutrophil # 3.73 X10^3/uL (2.7-7.7); Neutrophil % 66.5 % (47-70); Platelet Count 154 K/mm3 (150-450); RBC Distribution Width CV 14.5 % (11.6-14.6); Red Blood Count 5.26 M/mm3 (4.6-6.2); White Blood Count 5.6 K/mm3 (4.4-11.0)
[2022-05-15 16:37] LABS: ALB/GLOB Ratio 1.2 RATIO (0.9-2.4); AST(SGOT) 22 U/L (15-37); Alanine Aminotransfer ALT/SGPT 37 U/L (16-61); Albumin, Serum 3.6 g/dL (3.2-5.0); Alkaline Phosphatase 53 U/L (45-117); Anion Gap 4 (5-15); BUN 17 mg/dL (7-18); CRP < 2.90 mg/L (0.0-3.0); Calcium,Total 8.7 mg/dL (8.5-10.1); Chloride 109 mmol/L (98-107); Creatinine, Serum 0.85 mg/dL (0.70-1.30); EST Glomerular Filtration Rate 102 mL/min (>60); Est Glom Filt Rate - Afr Amer 123 mL/min (>60); Globulin 3.1 g/dL (2.2-4.2); Glucose 204 mg/dL (74-106); Lipase 1573 U/L (73-393); Potassium 4.2 mmol/L (3.5-5.1); Protein, Total 6.7 g/dL (6.4-8.2); Sodium Level 139 mmol/L (136-145)
== END | disposition home or self-care (01) ==
LOC: MTLAB 14:10
PROVIDERS: PCP Family Medicine; Referring Provider Family Medicine; Visit Provider Family Medicine
DX: K86.89 Other specified diseases of pancreas (principal); E11.8 Type 2 diabetes mellitus with unspecified complications; G89.29 Other chronic pain
CPT/HCPCS: 36415; 80053; 83690; 85025; 86140

== ENCOUNTER → 2022-05-25 | Outpatient (CLI) | payer MEDICAID, SELFPAY ==
--- NOTE | 2022-05-25 15:32 | MRI_ITS ---
EXAM: MR ABDOMEN WITHOUT INTRAVENOUS CONTRAST, MRCP PROTOCOL CLINICAL INDICATION: ACUTE PANCREATITIS, abd pain TECHNIQUE: Multiplanar and multisequence MR images of the abdomen without intravenous contrast obtained with MRCP sequence. Three-dimensional post-processing reconstructions were performed. This report was created using [employer] report generation technology. COMPARISON: Right upper quadrant ultrasound 11/15/2020 and 09/21/2020 FINDINGS: LOWER THORAX: Unremarkable. No pleural effusion. LIVER: The left and caudate lobes of the liver are enlarged consistent with underlying cirrhosis. GALLBLADDER AND BILE DUCTS: Multiple stones are noted within the gallbladder. Common bile duct measures 4 mm in maximum diameter. No gallbladder distention or wall edema. PANCREAS: No evidence of acute pancreatitis. No focal cystic mass. No pancreatic duct dilation. SPLEEN: Spleen is mildly enlarged measuring 13.9 cm in length. ADRENALS: Unremarkable. No nodules. KIDNEYS AND URETERS: 12 mm right renal cysts. No specific follow-up recommended. Normal renal size and position. No hydronephrosis. INTRAPERITONEAL SPACE: Unremarkable. No ascites or other fluid collection. VASCULATURE: A large patent umbilical vein noted extending to the anterior abdominal wall terminating in caput medusae appearance of the distal vessels. These findings are secondary to underlying portal hypertension.. LYMPH NODES: No enlarged lymph nodes. MRI/MRCP Abdomen without Contrast IMPRESSION: 1. Liver cirrhosis with portal hypertension. 2. Cholelithiasis. 3. No evidence of acute pancreatitis. Electronically Signed: Conor Shepherd MD at 9:07 EDT ,
== END | disposition home or self-care (01) ==
LOC: MRI 15:26
PROVIDERS: PCP Family Medicine; Referring Provider Family Medicine; Visit Provider Family Medicine
DX: K85.90 Acute pancreatitis without necrosis or infection, unspecified (principal); K76.6 Portal hypertension; K74.60 Unspecified cirrhosis of liver; K80.20 Calculus of gallbladder without cholecystitis without obstruction
CPT/HCPCS: 74181

== ENCOUNTER → 2022-09-19 | Outpatient (CLI) | payer MEDICAID, SELFPAY ==
[2022-09-19 18:18] LABS: OXY Internal Control LINE = VALID (VALID)
[2022-09-19 18:19] LABS: Oxycodone Drug Screen Positive (<100 ng/mL)
== END | disposition home or self-care (01) ==
LOC: MFPLAB 15:42 → LABSPEC 16:08
PROVIDERS: PCP Family Medicine; Referring Provider Family Medicine; Visit Provider Family Medicine
DX: G89.29 Other chronic pain (principal)
CPT/HCPCS: 80365; G0480

== ENCOUNTER → 2022-12-18 | Outpatient (CLI) | payer MEDICAID, SELFPAY ==
[2022-12-18 12:23] LABS: Absolute Lymphocyte Count 1.88 X10^3/uL (0.83-4.51); Absolute Neutrophil Count 4.7 X10^3/uL (2.0-7.7); Basophil# 0.04 X10^3/uL; Basophil% 0.5 % (0-1); Eosinophil# 0.49 X10^3/uL; Eosinophils% 6.4 % (0-5); Hematocrit 49.2 % (40-54); Hemoglobin 17.2 g/dL (13.0-16.5); Lymphocyte # 1.88 X10^3/ul (0.83-4.51); Lymphocyte % 24.4 % (19-41); Mean Corpuscular Volume 85.9 fL (80-94); Mean Platelet Vol. 11.5 fl (6.2-12.0); Monocyte# 0.56 X10^3/uL; Monocyte% 7.3 % (0-10); NRBC Flagged by Analyzer 0 % (0-5); Neutrophil # 4.72 X10^3/uL (2.7-7.7); Neutrophil % 61.1 % (47-70); Platelet Count 129 K/mm3 (150-450); RBC Distribution Width CV 14.7 % (11.6-14.6); RBC Distribution Width SD 45.8 fl (35.1-43.9); Red Blood Count 5.73 M/mm3 (4.6-6.2); White Blood Count 7.7 K/mm3 (4.4-11.0)
[2022-12-18 12:34] LABS: Vitamin B12 822 pg/mL (211-911); Vitamin D,25 Hydroxy 14.7 ng/mL
[2022-12-18 12:40] LABS: PTHIN 26.5 pg/mL (18.4-80.1)
[2022-12-18 12:46] LABS: AST(SGOT) 29 U/L (15-37); Alanine Aminotransfer ALT/SGPT 53 U/L (16-61); Albumin, Serum 3.9 g/dL (3.2-5.0); Alkaline Phosphatase 60 U/L (45-117); Anion Gap 6 (5-15); BUN 16 mg/dL (7-18); BUN/Creat Ratio 18.9 RATIO (10-20); Calcium,Total 9.1 mg/dL (8.5-10.1); Chloride 104 mmol/L (98-107); Creatinine, Serum 0.84 mg/dL (0.70-1.30); EST Glomerular Filtration Rate 102 mL/min (>60); Est Glom Filt Rate - Afr Amer 124 mL/min (>60); Ferritin 257 ng/mL (26-388); Glucose 215 mg/dL (74-106); Potassium 3.9 mmol/L (3.5-5.1); Protein, Total 7.9 g/dL (6.4-8.2); Sodium Level 137 mmol/L (136-145)
[2022-12-18 12:51] LABS: Hemoglobin A1c 8.8 % (3.8-5.6)
[2022-12-18 12:55] LABS: Amphetamine Urine VISTA NEGATIVE (<1000 ng/mL); Barbiturate Urine VISTA NEGATIVE (< 200 ng/mL); Benzodiazepine Urine VISTA NEGATIVE (< 200 ng/mL); Cocaine Urine VISTA NEGATIVE (< 300 ng/mL); Ecstacy Urine VISTA NEGATIVE (< 500 ng/mL); Methadone Urine VISTA NEGATIVE (< 300 ng/mL); PCP Urine VISTA NEGATIVE (< 25 ng/mL); THC Urine VISTA POSITIVE (< 50 ng/mL); Vista UDS pH Range 5
== END | disposition home or self-care (01) ==
PROVIDERS: PCP Family Medicine; Referring Provider Family Medicine; Visit Provider Family Medicine
DX: E11.42 Type 2 diabetes mellitus with diabetic polyneuropathy (principal); E11.22 Type 2 diabetes mellitus with diabetic chronic kidney disease; G89.29 Other chronic pain; N18.2 Chronic kidney disease, stage 2 (mild)
CPT/HCPCS: 36415; 80053; 80307; 82043; 82306; 82570; 82607; 82728; 82746; 83036; 83970; 85025

== ENCOUNTER → 2023-03-14 | Outpatient (CLI) | payer MEDICAID, SELFPAY ==
--- NOTE | 2023-03-14 12:58 | NEURO ---
NCS and/or EMG Patient Report Ordering Doctor: Tino Ovalle DATE OF SERVICE: 03/14/23 Rip presents for electrodiagnostic testing of the upper limbs. He reports pain in both wrists numbness and tingling in both hands. Electrodiagnostic findings: Median motor nerve demonstrates normal distal latency, amplitude and conduction velocity bilaterally. Normal ulnar motor response bilaterally. Normal median and ulnar F waves. Sensory responses are within normal limits. On needle EMG, all muscles tested in the upper limbs showed no evidence of denervation with normal motor unit action potentials. Electrodiagnostic impression: This is a normal electrodiagnostic study of the upper limbs. There is no electrodiagnostic evidence for peripheral neuropathy, including carpal tunnel syndrome. There is no electrodiagnostic evidence for cervical radiculopathy.
== END | disposition home or self-care (01) ==
LOC: PSN 10:08
PROVIDERS: PCP Family Medicine; Visit Provider Family Medicine
DX: M79.641 Pain in right hand (principal); M79.642 Pain in left hand
CPT/HCPCS: 95886; 95913

== ENCOUNTER → 2023-03-16 | Outpatient (CLI) | payer MEDICAID, SELFPAY ==
[2023-03-16 12:07] LABS: Absolute Neutrophil Count 5.1 X10^3/uL (2.0-7.7); Basophil# 0.05 X10^3/uL; Basophil% 0.6 % (0-1); Eosinophil# 0.61 X10^3/uL; Eosinophils% 7.5 % (0-5); Hematocrit 47.1 % (40-54); Hemoglobin 16.7 g/dL (13.0-16.5); Lymphocyte % 22.2 % (19-41); Mean Corp Hgb Conc 35.5 g/dL (32-36); Mean Corpuscular Hgb 30.8 pg (27.0-32.0); Mean Corpuscular Volume 86.9 fL (80-94); Mean Platelet Vol. 11.7 fl (6.2-12.0); Monocyte# 0.52 X10^3/uL; Monocyte% 6.4 % (0-10); NRBC Flagged by Analyzer 0 % (0-5); Neutrophil # 5.11 X10^3/uL (2.7-7.7); Neutrophil % 63.1 % (47-70); Platelet Count 140 K/mm3 (150-450); RBC Distribution Width CV 15.3 % (11.6-14.6); RBC Distribution Width SD 48.3 fl (35.1-43.9); Red Blood Count 5.42 M/mm3 (4.6-6.2); White Blood Count 8.1 K/mm3 (4.4-11.0)
[2023-03-16 12:21] LABS: International Normalized Ratio 1.1; Prothrombin Time (Protime)PT. 13.8 SECONDS (11.7-14.9)
[2023-03-16 12:47] LABS: ALB/GLOB Ratio 1.1 RATIO (0.9-2.4); AST(SGOT) 28 U/L (15-37); Alanine Aminotransfer ALT/SGPT 56 U/L (16-61); Alkaline Phosphatase 58 U/L (45-117); Anion Gap 2 (5-15); BUN 19 mg/dL (7-18); BUN/Creat Ratio 20.9 RATIO (10-20); Calcium,Total 9.6 mg/dL (8.5-10.1); Chloride 108 mmol/L (98-107); Creatinine, Serum 0.91 mg/dL (0.70-1.30); EST Glomerular Filtration Rate 94 mL/min (>60); Est Glom Filt Rate - Afr Amer 113 mL/min (>60); Ferritin 182 ng/mL (26-388); Globulin 3.8 g/dL (2.2-4.2); Glucose 260 mg/dL (74-106); Potassium 4.1 mmol/L (3.5-5.1); Protein, Total 7.8 g/dL (6.4-8.2); Sodium Level 135 mmol/L (136-145)
[2023-03-19 10:07] LABS: Lead, Blood Adult 16+yrs < 1.0 ug/dL (0.0-3.4)
== END | disposition home or self-care (01) ==
PROVIDERS: PCP Family Medicine; Visit Provider Family Medicine
DX: K74.60 Unspecified cirrhosis of liver (principal)
CPT/HCPCS: 36415; 80053; 82728; 83655; 85025; 85610

== ENCOUNTER 2023-05-21 10:41 | Day surgery (SDC) | payer MEDICAID, SELFPAY ==
[2023-05-21] VITALS (7 sets, daily range): BP systolic 89–115; BP diastolic 59–80; PULSE 66–79; RESP 16; TEMP 35.9–36.4; O2SAT 91–97; BMI 25.8
--- NOTE | 2023-05-21 11:11 | PCM.HP.BLA ---
History and Physical Date of Admission: 05/21/23 47 M who presents to the office today to establish care. [facility] established 03.09.23 with referral from [facility]. ? ? GI Hx gallstone pancreatitis; alcoholic cirrhosis. PMH severe pulmonary HTN, anxiety, DMII, BCC eye lid? ? [facility] Dr. Sandoval established 2015.? MRI abd [facility]?with history of alcoholic cirrhosis with ascites 4..16 with hepatic nodular lobular contour consistent with cirrhosis; focal hepatic fibrosis with capsular retraction in dome of right lobe; splenomegaly; normal pancreas; gallbladder pack with stones; main portal vein prominent; varices noted draining into superior ? mesentery vein suggestive of portal HTN.? ? [facility] ED presentation 08.11.19 with abdominal pain. Transferred to [facility] for ongoing care.? [facility] and transferred to for worsening hepatic function evidenced by LFT changes of ALT 53-3164: AST 127-5813: t. Bili 5.3-6.4 and LENY with creatinine 1.3-2.4. Tylenol level negative.? MRCP 08.12.19?slight lobulation of liver contour compatible with underlying hepatocellular disease; gallbladder dilated with innumerable cholelithiasis and sludge with thickened wall; pericholeystic fluid/perihepatic ascites; cystic dilation likely from prior ERCP; main portal vein prominent with GE varices, portal HTN; small hiatal hernia.?ERCP? ? hospitalization 08.16.19-08.26.19 for acute liver failure with sepsis r/t bacteroids and complicated by need for heart catheterization. Vitamin K, IVF utilized with downward trend of LFT. Developed abdominal pain and tachycardia with blood cultures sent (bacteroids) and Zosyn started. Transplant team consulted and not pursued r/t pulmonary HTN. He left AMA 08.26.19.? US liver 08.17.19?liver with coarsened and diffusely heterogeneous echotexture consistent with cirrhosis; gallbladder wall thickened with stones and sludge; CBD mildly dilated without intrahepatic biliary dilation. Portal vein, splenic vein, hepatic vein with IVC patent with noted of recanalized umbilical vein; splenic measurement 13.8cm? ? [facility] hospitalization .30.20-5.3.20 with RUQ pain with US and HIDA scan showing cholelithiasis. Because of comorbidities and high risk the plan was to insert cholecystotomy tube. Tube cultures E.Coli+ and treated with antibiotics.?Cholecystotomy tube placement 03.26.20? [facility] outpatient? Cholangiogram via cholecystotomy tube 04.21.22 [facility]?via tube noting small filling defects of gallbladder; small filling defect in distal CBD consistent with small calculus; duodenal diverticulum.? ? [facility] ED 11.15.20 with abdominal pain; suspected GI etiology with suspicion of chronic cholecystitis complicated by cirrhosis. Symptoms did not allow discharge home and transferred to [facility] for further care.?US RUQ 11.15.20?hepatic measurement 18.7cm with fatty infiltration, enlargement of caudate lobe; gallbladder wall thickening with solitary gallstone.? [facility] admission 11.15.20-11.17.20 with epigastric pain radiating into back. Semi-elective cholecystectomy cancelled r/t abnormal ECG with heart catheterization required. Discharged.?HIDA 11.15.20?findings suggestive of acute cholecystitis.? ? PCP workup for abdominal pain with history of acute pancreatitis.? MRCP 05.25.22?left and caudate lobes of liver enlarged consistent with underlying cirrhosis; splenomegaly 13.9cm; large patent umbilical vein extending to anterior abdominal wall terminating in caput medusae, portal HTN; multiple stone of gallbladder; no pancreatitis.? ? [facility] established .08.18 with a history of cirrhosis with portal HTN and esophageal varices. Dr. Castro declined to do any procedures and recommended GI consult.? ROS Const Constitutional: Positive for weakness; No fatigue ENT ENT: No difficulty swallowing Gastro GI: Positive for bloating, diarrhea, heartburn, excessive flatus, nausea/dyspepsia and vomiting; No abdominal pain, belching, change in bowel habits, change in stool character, coffee ground emesis, constipation, cramping, difficulty swallowing, feeling full early, incontinent of stools, Vomiting blood/hematemesis, Blood in stool, loose stools, Black,tarry stools, pain with swallowing or other Musc Musculoskeletal: Positive for joint pain, muscle cramps, muscle weakness, numbness, stiffness, tingling and Arthritis Skin Skin: No yellowing of the eye or itchy eyes Neuro Neurology: Positive for weakness, numbness and tingling Psych Psychiatric: Positive for anxiety, Positive for depression, Positive for Behavioral Problems and Positive for inattentiveness Endo Endocrine: No fatigue Aller/Imm Allergy/Immunologic: No itchy eyes Andi/Lymp Hematologic/Lymphatic: No easy bleeding or easy bruising Exam Const General: cooperative and comfortable Nutritional Appearance: average body habitus and well nourished HENMT Head: normal to inspection Ears: hearing grossly normal bilaterally Nose: external nose normal Face and sinus: normal facial exam Mouth: oral mucosae normal Throat: posterior oropharynx normal Eyes General: appearance normal, both eyes and all related structures Neck Neck: normal visual inspection Chest Chest palpation & inspection: normal inspection of the chest and normal palpation of entire chest wall Resp Effort & Inspection: normal respiratory effort Auscultation: Bilateral: Clear to Auscultation Cardio Palpation: normal PMI Rate: regular rate Rhythm: regular rhythm GI Inspection: normal to inspection Auscultation: normal bowel sounds Percussion: normal to percussion Palpation: no hepatosplenomegaly Skin General: no rashes or lesions noted Neuro General: patient alert Extrem General: normal to inspection Psych Affect: normal affect Assessment and Plan Assessment and Plan (1) Screening for malignant neoplasm of colon: ?Status:?Acute ?Plan: She will need to undergo screening colonoscopy. ? He was explained alternatives, risk, benefits including bleeding, infection, sepsis, perforation, need for emergent surgery and .? He will have an ASA of 3. (2) Pancreatitis: ?Status:?Chronic ?Plan: He does not have any signs or symptoms of chronic pancreatitis.? I am assuming that if he does have a history of chronic pancreatitis to be from alcohol induced pancreatitis.? We will get an MRI and MRCP to look for signs and symptoms of chronic pancreatitis.? At this time I will pancreatic enzymes.? He has not had any alcohol for 12 years. (3) Transaminitis: ?Status:?Acute ?Plan: Mildly elevated transaminitis likely secondary to underlying liver disease.? He does not think he was checked for hepatitis C, HIV, CMP or CBC contributing to his already known alcoholic cirrhosis. (4) Cirrhosis: ?Status:?Chronic ?Plan: His meld at 15.? He is a child Kaminski class A.? He has a history of anemia, leukopenia, thrombocytopenia secondary to cirrhosis.? Also his cirrhosis was complicated by ascites and development of acute cholecystitis status post percutaneous drain placement and removal.? We will check him for hyperammonemia by checking ammonia level we will also get biochemical work-up for autoimmune disease related fatty liver.? Recommend Xifaxan 550 mg twice a day and he will need to undergo an upper endoscopy for varices screening. I have examined the patient and the H&P has been reviewed. There are no clinical changes since date of exam.
[2023-05-21] MEDS: Lactated Ringers 1,000 ML 15 ML IV (11:36)
--- NOTE | 2023-05-21 11:45 | COLBX_PTH ---
PATIENT: PAO WARNER LOC: EN U#:[id number] AGE/SX: 47/M ROOM: RE05/21/[address]: Dr. Nelson Andrews DO : 1975 BED: DIS: 05/21/2023 SPEC #: [id number] RECD: 05/21/23 13:09 STATUS: DARRICK ALFONSO #: [id number] DARREL: 05/21/23 11:[address]: Nelson Andrews DEPT: SURGICAL PATHOLOGY RECD BY: Jessica Stout ENTERED: 05/21/23 13:36 SP TYPE: COLON BX OTHR DR: Dr. Tino Ovalle MD Tissues: A - Duodenum, NOS B - Esophagus, NOS C - COLON BIOPSY D - Sigmoid colon biopsy Procedures: Surgery Specimen Level IV HEADER OPERATION: Colonoscopy with biopsies and polypectomy, [place] [place] PRE-OP DIAGNOSIS: Screening, pancreatitis, transaminitis, cirrhosis TISSUE SUBMITTED: A - Duodenum biopsy, B - Random esophagus biopsy, C - Splenic flexure polyp biopsy, D - Sigmoid polyp MICROSCOPIC DIAGNOSIS A. Duodenum, biopsy: Fragments of duodenal mucosa, no pathologic diagnosis. B. Esophagus, random biopsy: Fragments of squamous mucosa with chronic inflammation, congestion and changes consistent with gastroesophageal reflux disease. See comment. C. Splenic flexure polyp, biopsy: Tubular adenoma. D. Sigmoid polyp, polypectomy: Fragments of tubular adenoma. SJ:gualberto 05/22/2023 COMMENT B. Special stain for fungi is positive for a few organisms (yeast and pseudohyphae) consistent with Shanon species; matched control is appropriate. Correlation with clinical, endoscopic findings and appropriate follow up are necessary. MICROSCOPIC DESCRIPTION Slides are reviewed. GROSS DESCRIPTION A - Received in fixative is one container labeled with the patient's name and designated duodenum biopsy. The specimen consists of multiple irregular fragments of light acosta soft tissue that in aggregate measure 1.0 x 0.3 x 0.1 cm. The specimen is totally submitted in one cassette. B - Received in fixative is one container labeled with the patient's name and designated random esophagus biopsy. The specimen consists of two irregular fragments of light acosta soft tissue that in aggregate measure 1.0 x 0.4 x 0.1 cm. The specimen is totally submitted in one cassette. C - Received in fixative is one container labeled with the patient's name and designated splenic flexure polyp biopsy. The specimen consists of one irregular fragment of light acosta soft tissue that measures 0.4 x 0.4 x 0.1 cm. The specimen is totally submitted in one cassette. D - Received in fixative is one container labeled with the patient's name and designated sigmoid polyp. The specimen consists of multiple irregular fragments of light acosta soft tissue that in aggregate measure 0.8 x 0.5 x 0.1 cm. The specimen is totally submitted in one cassette. / SJ:rg 05/21/2023 TC:1 CPT: 75151 x4, 85584
[2023-05-21 11:55] LABS: Bedside Glucose 77 mg/dL (74-106)
--- NOTE | 2023-05-21 12:24 | OP.EGD_ITS ---
Patient Name: Rip Etienne Procedure Date: 05/21/2023 11:41 AM Date of : 1975 Age: 47 Procedure: Upper GI endoscopy Indications: Functional Dyspepsia, Cirrhosis with suspected esophageal varices Providers: Nelson Andrews DO Referring MD: Nelson Andrews DO Medicines: Monitored Anesthesia Care Patient Profile: This is a 47 year old male. Refer to note in patient chart for documentation of history and physical. Patient has symptoms of chronic dyspepsia and chronic nausea. Complications: No immediate complications. Procedure: Pre-Anesthesia Assessment: - Prior to the procedure, a History and Physical was performed, and patient medications and allergies were reviewed. The patient is competent. The risks and benefits of the procedure and the sedation options and risks were discussed with the patient. All questions were answered and informed consent was obtained. Patient identification and proposed procedure were verified by the physician. Mental Status Examination: normal. Prophylactic Antibiotics: The patient does not require prophylactic antibiotics. Prior Anticoagulants: The patient has taken no previous anticoagulant or antiplatelet agents. ASA Grade Assessment: II - A patient with mild systemic disease. After reviewing the risks and benefits, the patient was deemed in satisfactory condition to undergo the procedure. The anesthesia plan was to use monitored anesthesia care (MAC). Immediately prior to administration of medications, the patient was re-assessed for adequacy to receive sedatives. The heart rate, respiratory rate, oxygen saturations, blood pressure, adequacy of pulmonary ventilation, and response to care were monitored throughout the procedure. The physical status of the patient was re-assessed after the procedure. After obtaining informed consent, the endoscope was passed under direct vision. Throughout the procedure, the patient's blood pressure, pulse, and oxygen saturations were monitored continuously. The pediatric colonoscope was introduced through the mouth, and advanced to the second part of duodenum. The upper GI endoscopy was accomplished without difficulty. The patient tolerated the procedure well. Scope In: 11:50:51 AM Scope Out: 11:56:14 AM Total Procedure Duration Time 0 hours 5 minutes 23 seconds Findings: Patchy, white plaques were found in the lower third of the esophagus. Biopsies were taken with a cold forceps for histology. Verification of patient identification for the specimen was done. Estimated blood loss was minimal. No gross lesions were noted in the entire examined stomach. Localized mild inflammation characterized by congestion (edema) and erythema was found in the duodenal bulb. Biopsies were taken with a cold forceps for histology. Verification of patient identification for the specimen was done. Estimated blood loss was minimal. Impression: - Esophageal plaques were found, suspicious for candidiasis. Biopsied. - No gross lesions in the stomach. - Chronic duodenitis. Biopsied. Recommendation: - Discharge patient to home. - Resume previous diet. - Continue present medications. - Await pathology results. Procedure Code(s): --- Professional --- 78278, Esophagogastroduodenoscopy, flexible, transoral; with biopsy, single or multiple CPT copyright 2017 [employer]. All rights reserved. The codes documented in this report are preliminary and upon semi conductor assembler review may be revised to meet current compliance requirements. Nelson Andrews DO 05/21/2023 12:23:41 PM This report has been signed electronically. Number of Addenda: 0 Note Initiated On: 05/21/2023 11:41 AM
--- NOTE | 2023-05-21 12:24 | OP.CCLET_ITS ---
05/21/2023 Tino Ovalle [address] [place] [address] Re : Upper GI endoscopy procedure for Rip Etienne Dear Dr. Ovalle This procedure was performed on Sunday, May 21, 2023. My impressions and recommendations are as follows: Impressions : - Esophageal plaques were found, suspicious for candidiasis. Biopsied. - No gross lesions in the stomach. - Chronic duodenitis. Biopsied. Recommendations : - Discharge patient to home. - Resume previous diet. - Continue present medications. - Await pathology results. My findings are described in the full procedure note, which is enclosed. If I can be of further assistance, please feel free to contact me at . Sincerely, Nelson Andrews, 05/21/2023 12:23:41 PM This report has been signed electronically.
--- NOTE | 2023-05-21 13:02 | OP.COLON_ITS ---
Patient Name: Rip Etienne Procedure Date: 05/21/2023 11:56 AM Date of : 1975 Age: 47 Procedure: Colonoscopy Indications: Screening for colorectal malignant neoplasm Providers: Nelson Andrews DO Referring MD: Nelson Andrews DO Medicines: Monitored Anesthesia Care Patient Profile: This is a 47 year old male. Refer to note in patient chart for documentation of history and physical. Patient has symptoms of chronic dyspepsia and chronic nausea. Last Colonoscopy: date unknown. Unable to locate last colonoscopy report. Complications: No immediate complications. Procedure: Pre-Anesthesia Assessment: - Prior to the procedure, a History and Physical was performed, and patient medications and allergies were reviewed. The patient is competent. The risks and benefits of the procedure and the sedation options and risks were discussed with the patient. All questions were answered and informed consent was obtained. Patient identification and proposed procedure were verified by the physician. Mental Status Examination: normal. Prophylactic Antibiotics: The patient does not require prophylactic antibiotics. Prior Anticoagulants: The patient has taken no previous anticoagulant or antiplatelet agents. ASA Grade Assessment: II - A patient with mild systemic disease. After reviewing the risks and benefits, the patient was deemed in satisfactory condition to undergo the procedure. The anesthesia plan was to use monitored anesthesia care (MAC). Immediately prior to administration of medications, the patient was re-assessed for adequacy to receive sedatives. The heart rate, respiratory rate, oxygen saturations, blood pressure, adequacy of pulmonary ventilation, and response to care were monitored throughout the procedure. The physical status of the patient was re-assessed after the procedure. After I obtained informed consent, the scope was passed under direct vision. Throughout the procedure, the patient's blood pressure, pulse, and oxygen saturations were monitored continuously. The pediatric colonoscope was introduced through the anus and advanced to the cecum, identified by appendiceal orifice and ileocecal valve. The colonoscopy was performed without difficulty. The patient tolerated the procedure well. The quality of the bowel preparation was adequate. Scope In: 11:58:11 AM Scope Withdrawal Time 0 hours 14 minutes 13 seconds Scope Out: 12:15:58 PM Total Procedure Duration Time 0 hours 17 minutes 47 seconds Findings: The perianal and digital rectal examinations were normal. A few small-mouthed diverticula were found in the recto-sigmoid colon and sigmoid colon. A 9 mm polyp was found in the sigmoid colon. The polyp was sessile. The polyp was removed with a hot snare. Resection and retrieval were complete. Verification of patient identification for the specimen was done. Estimated blood loss was minimal. A 5 mm polyp was found in the descending colon. The polyp was sessile. The polyp was removed with a jumbo cold forceps. Resection and retrieval were complete. Verification of patient identification for the specimen was done. Estimated blood loss was minimal. Stool was found in the sigmoid colon and at the splenic flexure. Impression: - Diverticulosis in the recto-sigmoid colon and in the sigmoid colon. - One 9 mm polyp in the sigmoid colon, removed with a hot snare. Resected and retrieved. - One 5 mm polyp in the descending colon, removed with a jumbo cold forceps. Resected and retrieved. - Stool in the sigmoid colon and at the splenic flexure. Recommendation: - Discharge patient to home. - Resume previous diet. - Continue present medications. - Await pathology results. - Repeat colonoscopy in 5 years for surveillance. Procedure Code(s): --- Professional --- 71096, Colonoscopy, flexible; with removal of tumor(s), polyp(s), or other lesion(s) by snare technique 61602, 59, Colonoscopy, flexible; with biopsy, single or multiple CPT copyright 2017 [employer]. All rights reserved. The codes documented in this report are preliminary and upon medical practitioners review may be revised to meet current compliance requirements. Nelson Andrews DO 05/21/2023 1:02:09 PM This report has been signed electronically. Number of Addenda: 0 Note Initiated On: 05/21/2023 11:56 AM
--- NOTE | 2023-05-21 13:03 | OP.CCLET_ITS ---
05/21/2023 Tino Ovalle [address] [place] [address] Re : Colonoscopy procedure for Rip Etienne Dear Dr. Ovalle This procedure was performed on Sunday, May 21, 2023. My impressions and recommendations are as follows: Impressions : - Diverticulosis in the recto-sigmoid colon and in the sigmoid colon. - One 9 mm polyp in the sigmoid colon, removed with a hot snare. Resected and retrieved. - One 5 mm polyp in the descending colon, removed with a jumbo cold forceps. Resected and retrieved. - Stool in the sigmoid colon and at the splenic flexure. Recommendations : - Discharge patient to home. - Resume previous diet. - Continue present medications. - Await pathology results. - Repeat colonoscopy in 5 years for surveillance. My findings are described in the full procedure note, which is enclosed. If I can be of further assistance, please feel free to contact me at . Sincerely, Nelson Andrews, 05/21/2023 1:02:09 PM This report has been signed electronically.
== END 2023-05-21 13:08 | disposition home or self-care (01) ==
LOC: EN 10:42 → AC 10:43
PROVIDERS: PCP Family Medicine; Referring Provider Family Medicine; Visit Provider Internal Medicine Gastroenterology
PROC: 0DJD8ZZ Inspection of Lower Intestinal Tract, Via Natural or Artificial Opening Endoscopic (ICD-10-PCS; CPT 45378; principal; 2023-05-21 11:40)
DX: Z12.11 Encounter for screening for malignant neoplasm of colon (principal); K76.6 Portal hypertension; K70.31 Alcoholic cirrhosis of liver with ascites; I27.20 Pulmonary hypertension, unspecified; E11.9 Type 2 diabetes mellitus without complications; Z79.4 Long term (current) use of insulin; D12.3 Benign neoplasm of transverse colon; D12.5 Benign neoplasm of sigmoid colon; K57.30 Diverticulosis of large intestine without perforation or abscess without bleeding; K29.80 Duodenitis without bleeding; K30 Functional dyspepsia; F17.201 Nicotine dependence, unspecified, in remission; F10.11 Alcohol abuse, in remission; Y90.9 Presence of alcohol in blood, level not specified; Z79.899 Other long term (current) drug therapy
CPT/HCPCS: 45380; 43239; 45385; 82962; 88305; J7120; J2405

== ENCOUNTER → 2024-02-25 | Outpatient (CLI) | payer MEDICAID, SELFPAY ==
[2024-02-25 18:14] LABS: Absolute Lymphocyte Count 1.25 X10^3/uL (0.83-4.51); Absolute Neutrophil Count 4.7 X10^3/uL (2.0-7.7); Basophil# 0.05 X10^3/uL; Basophil% 0.7 % (0-1); Eosinophil# 0.29 X10^3/uL; Eosinophils% 4.3 % (0-5); Hematocrit 47.2 % (40-54); Hemoglobin 15.7 g/dL (13.0-16.5); Lymphocyte # 1.25 X10^3/ul (0.83-4.51); Lymphocyte % 18.7 % (19-41); Mean Corp Hgb Conc 33.3 g/dL (32-36); Mean Corpuscular Hgb 28.8 pg (27.0-32.0); Mean Corpuscular Volume 86.4 fL (80-94); Mean Platelet Vol. 11.3 fl (6.2-12.0); Monocyte# 0.38 X10^3/uL; Monocyte% 5.7 % (0-10); NRBC Flagged by Analyzer 0 % (0-5); Neutrophil # 4.69 X10^3/uL (2.7-7.7); Neutrophil % 70.2 % (47-70); Platelet Count 141 K/mm3 (150-450); RBC Distribution Width CV 14.7 % (11.6-14.6); RBC Distribution Width SD 46.8 fl (35.1-43.9); Red Blood Count 5.46 M/mm3 (4.6-6.2); White Blood Count 6.7 K/mm3 (4.4-11.0)
[2024-02-25 18:49] LABS: ALB/GLOB Ratio 1.2 RATIO (0.9-2.4); AST(SGOT) 16 U/L (15-37); Alanine Aminotransfer ALT/SGPT 27 U/L (16-61); Albumin, Serum 4.2 g/dL (3.2-5.0); Alkaline Phosphatase 57 U/L (45-117); Anion Gap 8 (5-15); BUN 15 mg/dL (7-18); BUN/Creat Ratio 14.7 RATIO (10-20); Calcium,Total 9.1 mg/dL (8.5-10.1); Chloride 104 mmol/L (98-107); Creatinine, Serum 1.02 mg/dL (0.70-1.30); EST Glomerular Filtration Rate 82 mL/min (>60); Est Glom Filt Rate - Afr Amer 99 mL/min (>60); Globulin 3.6 g/dL (2.2-4.2); Glucose 281 mg/dL (74-106); Lipase 77 U/L (13-75); Potassium 4.3 mmol/L (3.5-5.1); Protein, Total 7.8 g/dL (6.4-8.2); Sodium Level 137 mmol/L (136-145); Thyroid Stim Hormone (TSH) 1.06 uIU/mL (0.358-3.74)
[2024-02-25 18:51] LABS: Hemoglobin A1c 7.9 % (3.8-5.6)
== END | disposition home or self-care (01) ==
PROVIDERS: PCP Family Medicine; Referring Provider Family Medicine; Visit Provider Family Medicine
DX: E11.43 Type 2 diabetes mellitus with diabetic autonomic (poly)neuropathy (principal); G25.81 Restless legs syndrome
CPT/HCPCS: 36415; 80053; 83036; 83690; 84443; 85025

== ENCOUNTER → 2025-01-16 | Outpatient (CLI) | payer MEDICAID, SELFPAY ==
[2025-01-16 10:25] LABS: Vitamin D,25 Hydroxy 14.6 ng/mL
[2025-01-16 10:37] LABS: ALB/GLOB Ratio 0.8 RATIO (0.9-2.4); AST(SGOT) 29 U/L (15-37); Alanine Aminotransfer ALT/SGPT 38 U/L (16-61); Albumin, Serum 3.5 g/dL (3.2-5.0); Alkaline Phosphatase 69 U/L (45-117); Anion Gap 5 (5-15); BUN 18 mg/dL (7-18); BUN/Creat Ratio 18.6 RATIO (10-20); Calcium,Total 8.9 mg/dL (8.5-10.1); Chloride 108 mmol/L (98-107); Creatinine, Serum 0.97 mg/dL (0.70-1.30); EST Glomerular Filtration Rate 87 mL/min (>60); Est Glom Filt Rate - Afr Amer 105 mL/min (>60); Globulin 4.2 g/dL (2.2-4.2); Glucose 138 mg/dL (74-106); Lipase 124 U/L (73-393); Potassium 4.1 mmol/L (3.5-5.1); Protein, Total 7.7 g/dL (6.4-8.2); Sodium Level 139 mmol/L (136-145)
[2025-01-16 10:41] LABS: Hemoglobin A1c 8.6 % (3.8-5.6)
== END | disposition home or self-care (01) ==
LOC: MTLAB 09:01
PROVIDERS: PCP Family Medicine
DX: I27.20 Pulmonary hypertension, unspecified (principal); I42.0 Dilated cardiomyopathy; E11.22 Type 2 diabetes mellitus with diabetic chronic kidney disease; G89.29 Other chronic pain; N18.9 Chronic kidney disease, unspecified
CPT/HCPCS: 36415; 80053; 82306; 83036; 83690; 84443

== ENCOUNTER → 2025-11-03 | Outpatient (CLI) | payer MEDICAID, SELFPAY ==
[2025-11-03 12:41] LABS: Hematocrit 43.5 % (40-54); Hemoglobin 15.1 g/dL (13.0-16.5); Immature Granulocytes Count 0.020 X10^3/uL (0.0-0.0); Mean Corp Hgb Conc 34.7 g/dL (32-36); Mean Corpuscular Volume 86.0 fL (80-94); Mean Platelet Vol. 10.8 fl (6.2-12.0); NRBC Flagged by Analyzer 0 % (0-5); Platelet Count 144 K/mm3 (150-450); RBC Distribution Width CV 15.9 % (11.6-14.6); RBC Distribution Width SD 49.3 fl (35.1-43.9); Red Blood Count 5.06 M/mm3 (4.6-6.2); White Blood Count 5.1 K/mm3 (4.4-11.0)
[2025-11-03 12:59] LABS: PTHIN 21 pg/mL (11-61)
[2025-11-03 13:15] LABS: Pro- Brain NATRIURETIC PEPTIDE 74 pg/mL (<=900)
[2025-11-03 13:16] LABS: CRP < 3.00 mg/L (0.0-3.0)
[2025-11-03 15:39] LABS: AST(SGOT) 27 U/L (<=37); Alanine Aminotransfer ALT/SGPT 36 U/L (<=46); Albumin, Serum 4.4 g/dL (3.5-5.0); Alkaline Phosphatase 62 U/L (40-129); Anion Gap 11 (5-15); BUN 12 mg/dL (4-19); BUN/Creat Ratio 14.9 RATIO (10-20); Calcium,Total 9.4 mg/dL (7.6-11.0); Carbon Dioxide 23.2 mmol/L (21.0-32.0); Chloride 102 mmol/L (98-108); Globulin 3.3 g/dL (2.2-4.2); Glucose 355 mg/dL (70-99); Potassium 4.4 mmol/L (3.3-5.1); Syphilis Antibodies Nonreactive (Nonreactive)
[2025-11-04 15:09] LABS: ANTINUCLEAR ANTIBODIES DIRECT Negative (Negative)
[2025-11-06 18:08] LABS: Copper, Serum or Plasma 96 ug/dL (69-132); GGTP 30 IU/L (0-65); PROEL- A/G Ratio 1.1 (0.7-1.7); PROEL- Albumin 3.7 g/dL (2.9-4.4); PROEL- Alpha-1 Globulin 0.2 g/dL (0.0-0.4); PROEL- Alpha-2 Globulin 0.7 g/dL (0.4-1.0); PROEL- Beta Globulin 1.0 g/dL (0.7-1.3); PROEL- Gamma Globulin 1.6 g/dL (0.4-1.8); PROEL- Globulin, Total 3.5 g/dL (2.2-3.9); PROEL- TOTAL PROTEIN 7.2 g/dL (6.0-8.5); PROEL-M-Spike Not Observed g/dL (Not Observed)
== END | disposition home or self-care (01) ==
PROVIDERS: PCP Family Medicine
DX: R20.2 Paresthesia of skin (principal); K74.60 Unspecified cirrhosis of liver; I27.20 Pulmonary hypertension, unspecified; E11.8 Type 2 diabetes mellitus with unspecified complications; R06.02 Shortness of breath; Z79.899 Other long term (current) drug therapy
CPT/HCPCS: 80053; 82525; 82977; 83036; 83880; 83970; 84165; 84439; 84443; 85025; 85652; 86038; 86140; 86780

== ENCOUNTER → 2025-11-20 | Outpatient (CLI) | payer MEDICAID, SELFPAY ==
--- NOTE | 2025-11-20 09:01 | US_ITS ---
PROCEDURE: ABD LIMITED W/ ELASTOGRAPHY REASON FOR EXAM: CIRRHOSIS, F/U SCREEN COMPARISON: May 25, 2022 TECHNIQUE: Procedure Code: USABDLELPARO Modality: US Procedure: ABD LIMITED W/ ELASTOGRAPHY Right upper quadrant abdominal ultrasound. Oxtex ElastQ Imaging shear wave elastography for non-invasive assessment of liver tissue stiffness. Selvin EPIQ Elite. FINDINGS: LIVER: Length: 16.4 cm Echotexture: Heterogeneous, coarsened, hyperechoic. Contour: Normal Lesions: Nodular Elastography: EQI Med: 13.4 kPa EQI Med Sam: 2.11 m/s IQR/Med: 27.5 %* GALLBLADDER: Partially contracted. Negative sonographic Mendoza's sign. Gallbladder sludge and calculus are present. COMMON BILE DUCT: Normal body portion distally is obscured by bowel gas. Maximal dimension 2.8 mm. PANCREAS: Normal Visualized portions of the right kidney are unremarkable except for a simple cyst at the upper pole measuring 0.8 x 1.0 x 0.9 cm and another at the midpole measuring 1.2 x 1.4 x 0.9 cm and a 3rd at the lower pole measuring 1.0 x 0.9 x 0.7 cm.. No right upper quadrant ascites. US/ABD Limited w/ Elastography IMPRESSION: 1. Diffuse hepatocellular disease. Cirrhotic morphology. Metavir: F3-F4. 2. Gallbladder wall thickening likely on the basis of 3rd spacing. Gallbladde r sludge, gallstone. No biliary ductal dilation. Negative sonographic Mendoza's. Correlate with history and physical exam. 3. Simple right renal cysts. Bosniak 1. No follow-up required. Reference Values: SRU <1.37 m/s (5.7kPa): No to mild fibrosis 1.37 m/s - 2.2 m/s: Moderate to severe fibrosis >2.2 m/s (15kPa): Significant fibrosis / cirrhosis METAVIR Score F2 or higher: 1.34 m/s (5.7kPa) F3 or higher: 1.55 m/s (7.3kPa) F4: 1.80 m/s (10kPa) * If the IQR/Med is >30%, the variance in the measurements is a large and the a ccuracy of the measurement may be in question. Reading Location: [id number]
--- OUTSIDE RECORDS SUMMARY | 2025-11-20 09:23 | XMS RPT_ITS | CCD ---
Author Organization [facility] Care Team Providers Care Non Destructive Testing Specialist Name Role Phone Alicja Mckinney Unavailable Unavailable None, No PCP Unavailable Unavailable None, No PCP Unavailable Unavailable Kinsey Raines Unavailable Unavailable Kinsey Raines Unavailable Unavailable Liss Ragsdale CMA K Unavailable Unavailable Katherine Flaherty Unavailable Unavailable MD Jessica, Edy Martinez Unavailable Adelfo Manrique DO Unavailable Dr. Zayda Ovalle Primary Care Provider 1([facility])[phone] Dr. Zayda Ovalle Referring Provider 1([facility])[phone] Lakhwinder Castro Attending Provider 1([facility] )[phone] Dr. Nelson Andrews Attending Provider 1([facility])[phone] Dr. Zayda Ovalle Other Provider Dr. Senia Tavarez Attending Provider 1([facility])[phone] Zayda Ovalle Primary Care Provider 1([facility])[phone] Dr. Zayda Ovalle Referring Provider 1([facility])[phone] Senia Tavarez Attending Provider 1([facility])[phone] Nelson Andrews Other Provider 1([facility])[phone] Zayda Ovalle MD Primary Care Provider ZAYDA OVALLE MD A Primary Care Physician ZAYDA OVALLE MD Primary Care Unavailable REFERRING, PARK RUVALCABA Attending Unavailable Zayda Ovalle Primary Care Provider SASTRY, ELADIO Attending Unavailable SASTRY, ELADIO Referring Unavailable ZAYDA OVALLE Primary Care Unavailable SASTRY, ELADIO Attending Unavailable ZAYDA OVALLE Primary Care Unavailable SASTRY, ELADIO Attending Unavailable ZAYDA OVALLE Primary Care Unavailable SASTRY, ELADIO Attending Unavailable SASTRY, ELADIO Referring Unavailable OVALLE, ZAYDA A Primary Care Unavailable Zayda Ovalle MD Primary Care Provider [phone] Zayda Ovalle Primary Care Unavailable ALETHA DUMAS Referring Unavailable ALETHA DUMAS Attending Unavailable Ovalle, Zayda Consulting Unavailable Ovalle, Zayda Primary Care Unavailable Ovalle, Zayda Referring Unavailable Zayda Ovalle Attending Unavailable ALICJA MCKINNEY Referring Unavailable OVALLE, ZAYDA A Primary Care Unavailable ALICJA MCKINNEY Referring Unavailable GARY, ZAYDA A Primary Care Unavailable ALICJA MCKINNEY Attending Unavailable GARY, ZAYDA A Primary Care Unavailable ALICJA MCKINNEY Referring Unavailable GARY, ZAYDA A Primary Care Unavailable SANDRA, MOHAMMED NAJEEB Admitting Unavailab le SANDRA, SHANTAED NAGORDONEB Attending Unavailab le GARY, ZAYDA A Primary Care Unavailable OVALLE, ZAYDA A Referring Unavailable SANDRA, MOHAMMED NAJEEB Admitting Unavailab le SANDRA, FARIBA NAGORDONEB Attending Unavailab le GARY, ZAYDA A Primary Care Unavailable SANDRA, MOHAMMED NAJEEB Admitting Unavailab le SANDRA, MOHSABRINAED NAJEEB Attending Unavailab le GARY, ZAYDA A Primary Care Unavailable ALICJA MCKINNEY Referring Unavailable OVALLE, ZAYDA A Primary Care Unavailable TAYLOR DE SOUZA Attending Unavailable Medications Current Medications Medication Drug Class(es) Dates Sig (Normalized) Sig (Original) acetylcysteine 600 mg oral capsule (3 sources) Antidote, Mucolytic, Antidote for Acetaminophen Overdose Start: 02-12-2024 take 1 capsule by mouth twice daily NAC 600 MG capsule capsule TAKE 1 CAPSULE BY MOUTH TWICE A DAY TO SUPPORT LIVER AND REDUCE ITCHING 02/12/2024 Active ambrisentan 10 mg oral tablet (20 sources) Endothelin Receptor Antagonist Start: 11-10-2024 End: 11-10-2025 take 1 tablet by mouth once daily ambrisentan (Letairis) 10 mg tablet Indications: Pulmonary hypertension (Multi) , SOB (shortness of breath) Take 1 tablet (10 mg) by mouth once daily. Do not crush, chew, or split. 30 tablet 11 11/10/2024 11/10/2025 Active Start: 01-21-2024 take 1 tablet by ama once daily ambrisentan (Letairis) 10 mg tablet Indications: Pulmonary hypertension (Multi) TAKE 1 TABLET BY MOUTH 1 TIME A DAY. DO NOT HANDLE IF 30 tablet 01/21/2024 Active Start: 08-11-2019 End: 04-05-2020 take 10 mg by mouth once daily Ambrisentan Discontinue d 10 MG PO DAILY March 22, 2020 12:09pm April 05, 2020 10:44am Start: 06-23-2014 End: 04-29-2018 take 10 mg by mouth once daily Ambrisentan Discontinue d 10 MG PO DAILY March 07, 2016 12:00am February 26, 2018 12:55pm Continuous Glucose Sensor (Dexcom G6 Sensor) misc (3 sources) Start: 02-11-2024 Continuous Glu cose Sensor (Dexcom G6 Sensor) misc 1 (ONE) EACH DIRECTED EVERY 10 DAYS NEEDED 02/11/2024 Active Start: 02-11-2024 Continuous Glu cose Sensor (Dexcom G6 Sensor) misc 1 (ONE) EACH DIRECTED EVERY 10 DAYS NEEDED 0 02/11/2024 Active dapagliflozin 10 mg oral tablet (3 sources) Sodium-Glucose Cotransporter 2 Inhibitor Start: 04-22-2024 take 1 tablet by mouth once daily Farxiga 10 MG tablet Take 10 mg by mouth daily. 04/22/2024 Active DULoxetine 60 mg delayed release oral capsule (3 sources) Serotonin and Norepinephrine Reuptake Inhibitor Start: 03-17-2024 take 1 capsule by mouth once daily DULoxetine (Cymbalta) [address] capsule Take 60 mg by mouth daily. 03/17/2024 Active furosemide 20 mg oral tablet (20 sources) Loop Diuretic Start: 12-08-2024 take 1 tablet by mouth once daily furosemide (Lasix) 20 mg tablet Indications: Pulmonary hypertension (Multi) , Edema, unspecified type Take 1 tablet (20 mg) by mouth once daily. 30 tablet 3 12/08/2024 Active Start: 04-11-2018 End: 09-29-2019 take 1 dose by mouth three times daily furosemide Dose : 40 mg =, Oral, TID, 0 Refill(s) Start Date: 08/11/19 Status: Ordered Start: 02-22-2018 End: 04-11-2018 take 40 mg by mouth three times daily Furosemide Discontinued 40 MG PO THREE TIMES A DAY February 22, 2018 2:31pm April 11, 2018 7:49am Start: 09-30-2016 FUROSEMIDE 40 MG TABS One tablet three times daily FUROSEMIDE [id number] Adelfo Manrique DO Start: 03-06-2014 take 1 tablet by ama th once daily FUROSEMIDE 40 MG TABS One tablet by mouth daily FUROSEMIDE [id number] Edy Lopez MD Start: 01-28-2014 End: 02-22-2018 take 20 mg by mouth once daily Furosemide Discontinued 20 MG PO DAILY February 19, 2014 12:00am February 22, 2018 2:44pm Start: 01-27-2014 take 1 tablet by ama th three times daily FUROSEMIDE 20 MG TABS One tablet by mouth three times daily FUROSEMIDE [id number] Iesha Henning RN 0.1 ml glucagon 5 mg/ml auto-injector (10 sources) Antihypoglycemic Agent Start: 10-09-2023 Gvoke H ypoPen 2-Pack 0.5 MG/0.1ML injection 1 (ONE) SOLUTION AUTO-INJECTOR DIRECTED FOR LOW BLOOD SUGAR 10/09/2023 Active Start: 01-05-2016 GLUCAGON EMERG ENCY 1 MG KIT Use as directed for severe low sugar GLUCAGON (RDNA) [id number] Una Amato 3 ml insulin aspart, human 100 unt/ml pen injector (3 sources) Insulin Analog Start: 03-27-2024 NovoLOG FLEXPE N 100 UNIT/ML pen INJECT 18 UNITS BEFORE EACH MEAL UP TO 3X DAILY 03/27/2024 Active 1.5 ml insulin glargine 300 unt/ml pen injector (20 sources) Insulin Analog Start: 03-18-2024 Touanz AndujaroSta r 300 UNIT/ML injection DIRECTED INJECTION 64 UNTS TWICE DAILIY 03/18/2024 Active Start: 08-11-2019 inject 1 dose by sub cutaneous injection twice daily insulin glargine Dose : 30 unit(s) =, Subcutaneous, BID, 0 Refill(s) Start Date: 08/11/19 Status: Ordered Start: 03-17-2019 Basaglar KwikP en 100 UNIT/ML Subcutaneous Solution Pen-injector Quantity: 0 Refills: 0 Ordered: 17-Mar-2019 DO Start : 17-Mar-2019 Active Start: 03-17-2019 Basaglar KwikP en 100 UNIT/ML Subcutaneous Solution Pen-injector Quantity: 0 Refills: 0 Ordered: 17-Mar-2019 DO Start : 17-Mar-2019 Active Start: 03-07-2016 Insulin Glargi ne Active 38 UNITS SC TWICE A DAY March 07, 2016 12:00am Start: 01-27-2014 inject 20 [IU] by kwon bcutaneous injection twice daily LANTUS 100 UNIT/ML SOLN 20 units sq twice daily INSULIN GLARGINE [id number] Edy Lopez MD Start: 01-27-2014 LANTUS 100 UNI T/ML SOLN as directed INSULIN GLARGINE [id number] Iesha Henning RN Magnesium complex 400 mg (1 source) Start: 08-11-2019 take 1 tablet by mouth three times daily Magnesium complex 400 mg 1 tab, Oral, TID, 0 Refill(s) Start Date: 08/11/19 Status: Ordered magnesium oxide 400 mg oral tablet (20 sources) Start: 04-22-2024 take 1 tablet by mouth three times daily magnesium oxide (Mag-Ox) 400 MG tablet Take 1 tablet by mouth 3 times daily. 04/22/2024 Active Start: 03-11-2019 Magnesium Oxid e 400 MG Oral Tablet Quantity: 90 Refills: 0 Ordered: 11-Mar-2019 DO Start : 11-Mar-2019 Active Start: 01-27-2014 End: 03-07-2016 take 400 mg by mouth once daily Magnesium Oxide Discon tinued 400 MG PO DAILY 60 May 16, 2014 8:33am March 07, 2016 10:33am Start: 01-27-2014 take 400 mg by mouth three times daily Magnesium Oxide Active 400 MG PO THREE TIMES A DAY March 07, 2016 10:33am Start: 01-27-2014 take 1 tablet by ama twice daily MAGNESIUM OXIDE 400 MG TABS One tablet by mouth twice daily MAGNESIUM OXIDE [id number] Olya Foster PA-C naloxone hydrochloride 40 mg/ml nasal spray (3 sources) Opioid Antagonist Start: 02-24-2024 naloxone (Na rcan) 4 mg/0.1 mL nasal spray SPRAY ONCE IBNTO EACH NOSTIL NEEDED FOR RESPRITORY DEPRESSION/OVERDOSE 02/24/2024 Active omeprazole 20 mg delayed release oral tablet (19 sources) Proton Pump Inhibitor Start: 08-11-2019 PriLOSEC OTC 20 mg o ral delayed release tablet Dose : 20 mg = 1 tab(s), Oral, qDayAC, 0 Refill(s) Start Date: 08/11/19 Status: Ordered Start: 04-07-2019 Omeprazole 20 MG Oral Capsule Delayed Release Quantity: 30 Refills: 0 Ordered: 07-Apr-2019 DO Start : 07-Apr-2019 Active Start: 01-27-2014 Omeprazole 20 MG Oral Capsule Delayed Release Quantity: 30 Refills: 0 Start : 07-Apr-2019 Active ondansetron 4 mg oral tablet (12 sources) Serotonin-3 Receptor Antagonist Start: 04-23-2024 take 1 tablet by mouth every eight hours as needed for nausea ondansetron (Zofran) 4 MG tablet Take 4 mg by mouth every 8 hours as needed for nausea. 04/23/2024 Active Start: 09-30-2020 take 4 mg by mouth e very eight hours as needed Ondansetron Active 4 MG PO EVERY 8 HOURS NEEDED September 30, 2020 1:00am oxazepam 10 mg oral capsule (20 sources) Benzodiazepine Start: 04-24-2024 oxazepam (Sera x) 10 MG capsule 1 TO 2 CAPS 2X/DAY NEEDED TRAVEL/VISITS HEALTH CARE PROVIDERS SEVERE PANIC TRY TO AVOID DAILY USE 04/24/2024 Active Start: 02-22-2018 oxazepam 10 mg oral capsule Dose : 10 mg = 1 cap(s), Oral, qDay, PRN as needed for anxiety, 0 Refill(s) Start Date: 08/11/19 Status: Ordered Start: 08-22-2016 OXAZEPAM 10 MG CAPS One cap twice daily. Can take two caps once daily for longer travel OXAZEPAM [id number] Una Amato Start: 01-27-2014 End: 02-22-2018 take 10 mg by mouth four times daily Oxazepam Discontinued 10 MG PO 4 TIMES DAILY February 19, 2014 12:00am February 22, 2018 2:44pm oxyCODONE hydrochloride 5 mg oral tablet (20 sources) Opioid Agonist Start: 04-24-2024 take 1 tablet by mouth every six hours as needed oxyCODONE (Roxicodone) 5 MG immediate release tablet Take 5 mg by mouth every 6 hours as needed. 04/24/2024 Active Start: 04-12-2018 oxyCODONE 5 mg oral tablet ( IMMEDIATE release ) Dose : 5 mg = 1 tab(s), Oral, q6hr, PRN as needed for pain, 0 Refill(s) Start Date: 08/11/19 Status: Ordered Start: 12-18-2016 OXYCODONE HCL 5 MG TABS One tablet every 8 hrs OXYCODONE HCL [id number] Una Amato Start: 11-06-2014 take 1 tablet by ama twice daily OXYCODONE HCL 5 MG TABS One tablet by mouth twice daily OXYCODONE HCL [id number] Edy Lopez MD take 1 capsule by mo [facility] every six hours as needed oxyCODONE (Oxy-IR) 5 mg immediate release capsule Take 1 capsule (5 mg) by mouth every 6 hours if needed for severe pain (7 - 10). Active pantoprazole 40 mg delayed release oral tablet (12 sources) Proton Pump Inhibitor Start: 03-07-2024 take 1 tablet by mouth once daily in the morning pantoprazole (ProtoNix) 40 MG EC tablet Take 40 mg by mouth every morning. 03/07/2024 Active Start: 09-30-2020 take 40 mg by mouth once daily Pantoprazole Active 40 MG PO DAILY September 30, 2020 1:00am PARoxetine hydrochloride 20 mg oral tablet (13 sources) Serotonin Reuptake Inhibitor Start: 08-11-2019 Paxil 20 mg oral tablet Dose : 20 mg = 1 tab(s), Oral, qDay, 0 Refill(s) Start Date: 08/11/19 Status: Ordered Zosyn (1 source) Penicillin-clas s Antibacterial, beta Lactamase Inhibitor Start: 08-15-2019 take 1 dose intravenously every eight hours Zosyn Dose : 4.5 gram(s) = 100 mL, IV Piggyback, q8h, 0 Refill(s) Start Date: 08/15/19 Status: Ordered potassium citrate 10 meq extended release oral tablet (20 sources) Start: 04-19-2024 take 1 tablet by mouth twice daily potassium citrate CR (Urocit-K-10) 10 mEq ER tablet TAKE 1 TABLET 10MEQ ER BY MOUTH TWO TIMES DAILY 04/19/2024 Active Start: 03-07-2019 potassium citr ate 10 mEq oral tablet, extended release Dose : 10 mEq = 1 tab(s), Oral, BID, 0 Refill(s) Start Date: 08/11/19 Status: Ordered Start: 09-13-2016 POTASSIUM CITR ATE ER 10 MEQ (1080 MG) CR-TABS One tab two times daily POTASSIUM CITRATE [id number] Una Amato pramipexole dihydrochloride 1 mg oral tablet (20 sources) Nonergot Dopamine Agonist Start: 03-03-2024 take 1 tablet by mouth once daily pramipexole (Mirapex) 1 MG tablet Take 1 mg by mouth Nightly. 03/03/2024 Active Start: 08-11-2019 pramipexole 0. 125 mg oral tablet Dose : 0.125 mg = 1 tab(s), Oral, qDay, 0 Refill(s) Start Date: 08/11/19 Status: Ordered Start: 02-22-2018 take 0.25 mg by mout h at bedtime Pramipexole Active 0.25 MG PO AT BEDTIME February 22, 2018 2:33pm Start: 08-22-2016 PRAMIPEXOLE DI HYDROCHLORIDE 0.25 MG TABS One tab at bedtime PRAMIPEXOLE DIHYDROCHLORIDE [id number] Una Amato Start: 01-27-2014 End: 02-22-2018 take 0.125 mg by mouth once daily Pramipexole Discontinued 0.125 MG PO DAILY April 12, 2014 12:00am February 22, 2018 2:44pm pregabalin 75 mg oral capsule (9 sources) Start: 03-31-2024 take 1 capsule by mouth twice daily pregabalin (Lyrica) 75 MG capsule TAKE 1 (ONE) CAPSULE BY MOUTH TWICE DAILY 03/31/2024 Active take 1 capsule by mouth twice da verenice pregabalin (Lyrica) 100 mg capsule Take 1 capsule (100 mg) by mouth 2 times a day. Active rifAXIMin 550 mg oral tablet (20 sources) Rifamycin Antibacterial Start: 03-07-2016 rifaxi min 550 mg oral tablet Dose : 550 mg = 1 tab(s), Oral, BID, # 60 tab(s), 0 Refill(s) Start Date: 08/11/19 Status: Ordered take 1 tablet by ama th every twelve hours Xifaxan 550 MG Oral Tablet 1 TAB(S) ORAL LY EVERY 12 HOURS Quantity: 0 Refills: 0 Ordered: 08-Sep-2019 DO Active spironolactone 25 mg oral tablet (20 sources) Aldosterone Antagonist Start: 12-08-2024 End: 12-08-2025 take 1 tablet by mouth once daily spironolactone (Aldactone) 25 mg tablet Indications: Pulmonary hypertension (Multi) , Edema, unspecified type Take 1 tablet (25 mg) by mouth once daily. 30 tablet 11 12/08/2024 12/08/2025 Active Start: 01-15-2020 take 100 mg by mouth once daily Spironolactone Active 100 MG PO DAILY January 15, 2020 1:00am Start: 08-11-2019 spironolactone 50 mg oral tablet Dose : 50 mg = 1 tab(s), Oral, qDay, 0 Refill(s) Start Date: 08/11/19 Status: Ordered Start: 12-15-2016 SPIRONOLACTONE 50 MG TABS Two tabs once daily SPIRONOLACTONE [id number] Adelfo Manrique DO Start: 01-28-2014 End: 02-22-2018 take 25 mg by mouth three times daily Spironolactone Discontinued 25 MG PO THREE TIMES A DAY February 19, 2014 12:00am February 22, 2018 2:44pm Start: 01-27-2014 take 1 tablet by ama th three times daily as needed SPIRONOLACTONE 50 MG TABS One tablet by mouth three times daily as needed SPIRONOLACTONE [id number] Iesha Henning, FRAN 12 hr treprostinil 2.5 mg extended release oral tablet (19 sources) Prostacycline Vasodilator Start: 02-08-2024 Orenitram 2.5 MG tab let controlled-release 02/08/2024 Active Start: 01-15-2020 take 3.75 mg by mout h three times daily Treprostinil Diolamine Active 3.75 MG PO THREE TIMES A DAY January 15, 2020 1:00am Start: 10-13-2019 Orenitram TBCR Take as directed Refills: 0 Start : 13-Oct-2019 Active take 1 tablet by ama th every twelve hours treprostinil diolamine (Orenitram) 5 mg tablet extended release Take 5 mg by mouth every 12 hours. Active Completed/Discontinued Medications Medication Drug Class(es) Dates Sig (Normalized) Sig (Original) acetaminophen 325 mg / HYDROcodone bitartrate 5 mg oral tablet (18 sources) Opioid Agonist Start: 03-28-2015 End: 02-22-2018 take 1 tablet by mouth every four hours as needed Hydrocodone-Acetam inophen Discontinued 1 - 2 TABLET PO EVERY 4 HOURS NEEDED April 02, 2017 12:00am February 22, 2018 2:42pm acetaminophen 325 mg / oxyCODONE hydrochloride 5 mg oral tablet (9 sources) Opioid Agonist Start: 09-21-2020 End: 09-24-2020 take 1 tablet by mouth every six hours as needed Oxycodone-Acetamin ophen Discontinued 1 TABLET PO EVERY 6 HOURS NEEDED 12 September 21, 2020 September 24, 2020 12:03am atenolol 25 mg oral tablet (14 sources) beta-Adrenergic Melody Start: 01-27-2014 End: 01-28-2014 ATENOLOL 25 MG TABS 1/2 tablet twice daily ATENOLOL [id number] Iesha Henning RN ciprofloxacin 500 mg oral tablet (17 sources) Quinolone Antimicrobial Start: 04-02-2017 End: 02-22-2018 take 500 mg by mouth twice daily Ciprofloxacin Hcl Discontinued 500 MG PO TWICE A DAY April 02, 2017 12:00am February 22, 2018 2:42pm take 1 tablet by mouth once vern y Ciprofloxacin HCl - 500 MG Oral Tablet TAKE 1 TABLET EVERY 12 HOURS DAILY. Refills: 0 DO Active FOOT CARE PRODUCTS (7 sources) Start: 01-05-2016 SPENCO ORTHOTI C ARCH SUPPORTS Wear pair daily as directed [employer] [id number] Una Amato Start: 01-05-2016 SPENCO ORTHOTI C ARCH SUPPORTS MISC Wear pair daily as directed [employer] [id number] Una Amato insulin lispro 100 unt/ml injectable solution (20 sources) Insulin Analog Start: 08-11-2019 HumaLOG 100 un its/mL subcutaneous solution Dose : 10 unit(s) =, Subcutaneous, TID, 0 Refill(s), DO NOT SELECT Use HumaLOG 100units/mL injectable solution Start Date: 08/11/19 Status: Ordered Start: 03-17-2019 HumaLOG Chris n 100 UNIT/ML Subcutaneous Solution Pen-injector Quantity: 0 Refills: 0 Ordered: 17-Mar-2019 DO Start : 17-Mar-2019 Active Start: 05-20-2018 inject 13 [IU] by kwon bcutaneous injection three times daily at mealtime Insulin Lispro Active 13 UNIT SQ 3 TIMES DAILY WITH MEALS May 20, 2018 12:00am Start: 05-17-2016 HUMALOG 100 UN IT/ML SOLN 10 units subcu three times a day before meals prn INSULIN LISPRO (HUMAN) [id number] Edy Lopez MD iopamidol (Isovue-370) 76 % injection 75 mL (2 sources) Start: 05-16-2024 End: 05-16-2024 take 75 mL intravenously once as needed 75 mL, IntraVENous, IMG once PRN, contrast, Starting on Sun05/16/24 at 1009, For 1 dose 3 ml liraglutide 6 mg/ml pen injector (14 sources) GLP-1 Receptor Agonist Start: 01-27-2014 VICTOZA 18 MG/3ML SOPN subcu once in the am LIRAGLUTIDE [id number] Edy Lopez MD Start: 01-27-2014 VICTOZA SOPN a s directed LIRAGLUTIDE SOLN [id number] Iesha Henning RN metFORMIN hydrochloride 500 mg oral tablet (1 source) Biguanide take 1 tablet by mouth once daily metFORMIN HCl - 500 MG Oral Tablet TAKE 1 TABLET DAILY. Refills: 0 DO Active metroNIDAZOLE 500 mg oral tablet (17 sources) Nitroimidazole Antimicrobial Start: 04-02-20 End: 02-23-20 take 500 mg by mouth three times daily Metronidazole Discontinued 500 MG PO THREE TIMES A DAY April 02, 2017 12:00am February 22, 2018 2:44pm Orenitram TBCR (4 sources) Start: 10-13-20 19 Orenitram TBCR Take as directed Quantity: 0 Refills: 0 Ordered: 05-Dec-2019 DO Start : 13-Oct-2019 Active potassium chloride 20 meq extended release oral tablet (20 sources) Start: 03-07-20 End: 02-23-20 take 20 mEq by mouth three times daily Potassium Chloride Discontinued 20 MEQ PO THREE TIMES A DAY March 07, 2016 10:33am February 22, 2018 2:43pm Start: 06-23-2014 End: 01-11-2017 take 1 tablet by mouth three times daily KLOR-CON 20 MEQ PACK One tablet by mouth three times daily POTASSIUM CHLORIDE [id number] Olya Foster PA-C Start: 05-16-2014 End: 03-07-2016 take 20 mEq by mouth twice daily Potassium Chloride Discontinued 20 MEQ PO TWICE A DAY May 16, 2014 12:00am March 07, 2016 10:33am propranolol hydrochloride 4 mg/ml oral solution (14 sources) beta-Adrenergic Melody Start: 06-28-2016 End: 04-11-2017 PROPRANOLOL HCL 20 MG/5ML SOLN 1/2 to 1 tsp every 6 hrs as needed for panic attacks PROPRANOLOL HCL [id number] Una Amato Problems Active Problems Problem Classification Problem Date Documented Date Episodic/Chronic Abdominal pain (19 sources) Epigastric pain; Translations: [Epigastric pain] 04-12-2020 Episodic Alcohol-related disorders (13 sources) Alcoholic cirrhosis; Translations: [Alcoholic cirrhosis of liver] Onset: 10-21-2024 10-21-2024 Chronic Biliary tract disease (20 sources) Cholecystitis; Translations: [Cholecystitis, unspecified] Onset: 04-28-2024 03-26-2020 Episodic Coagulation and hemorrhagic disorders (20 sources) Platelet count below reference range; Translations: [Thrombocytopenia, unspecified] Onset: 10-21-2024 05-21-2018 Chronic Diabetes mellitus with complications (1 source) Type 2 diabetes mellitus with diabetic autonomic (poly)neuropathy; Translations: [Type 2 diabetes mellitus with diabetic autonomic (poly)neuropathy] Onset: 02-29-2024 Chronic Diabetes mellitus without complication (20 sources) Type 2 diabetes mellitus; Translations: [Diabetes mellitus without mention of complication, type II or unspecified type, not stated as uncontrolled] Onset: 10-21-2024 03-25-2020 Chronic Essential hypertension (20 sources) Hypertensive disorder; Translations: [Unspecified essential hypertension] Onset: 10-21-2024 05-21-2018 Chronic Heart valve disorders (10 sources) Tricuspid valve disorder; 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, unspecified] Onset: 02-04-2014 02-04-2014 Chronic Other aftercare (4 sources) Drug therapy finding; Translations: [Long-term (current) use of other medications] Episodic Other aftercare (2 sources) H/O: high risk medication; Translations: [Other watcher automat long goods (current) drug therapy] 10-21-2024 Episodic Other and ill-defined heart disease (7 sources) Left ventricular hypertrophy; Translations: [Cardiomegaly] Onset: 02-04-2014 02-04-2014 Chronic Other injuries and conditions due to external causes (9 sources) Injury of finger; Translations: [Unspecified injury of unspecified wrist, hand and finger(s), initial encounter] 06-21-2020 Episodic Other liver diseases (16 sources) Cirrhosis of liver; Translations: [Unspecified cirrhosis of liver] Onset: 01-27-2014 01-27-2014 Chronic Other liver diseases (9 sources) Portal hypertension; Translations: [Portal hypertension] 05-21-2018 Chronic Other liver diseases (3 sources) Unspecified cirrhosis of liver; Translations: [Cirrhosis of liver without mention of alcohol] 03-09-2023 Chronic Other liver diseases (12 sources) Enzyme level - finding; Translations: [Elevated transaminase measurement] 05-21-2018 Episodic Other lower respiratory disease (7 sources) Dyspnea on exertion; Translations: [Shortness of breath] 11-04-2024 Episodic Other lower respiratory disease (15 sources) Dyspnea; Translations: [Shortness of breath] Onset: 10-21-2024 10-21-2024 Episodic Other nutritional; endocrine; and metabolic disorders (7 sources) Body mass index (BMI) 30.0-30.9, adult; Translations: [Body Mass Index 30.0-30.9, adult] Onset: 11-06-2014 11-06-2014 Chronic Other screening for suspected conditions (not mental disorders or infectious disease) (16 sources) Platelet count below reference range; Translations: [Electrocardiogram abnormal] Onset: 01-27-2014 01-27-2014 Episodic Pancreatic disorders (not diabetes) (13 sources) Chronic pancreatitis; Translations: [Chronic pancreatitis] Onset: 10-21-2024 10-21-2024 Chronic Pancreatic disorders (not diabetes) (12 sources) Pancreatitis; Translations: [Acute pancreatitis without necrosis or infection, unspecified] 03-25-2020 Episodic Carmela-; endo-; and myocarditis; cardiomyopathy (except that caused by tuberculosis or sexually transmitted disease) (7 sources) Cardiomyopathy in diseases classified elsewhere; Translations: [Cardiomyopathy in other diseases classified elsewhere] Onset: 01-28-2014 01-28-2014 Chronic Pulmonary heart disease (20 sources) Pulmonary hypertension; Translations: [Other chronic pulmonary heart diseases] Onset: 02-04-2014 02-04-2014 Chronic Substance-related disorders (20 sources) Tobacco dependence in remission; Translations: [Nicotine dependence, unspecified, in remission] Onset: 01-27-2014 01-19-2017 Chronic Urinary tract infections (9 sources) Urinary tract infectious disease; Translations: [Urinary tract infection, site not specified] 10-01-2020 Episodic Past or Other Problems Problem Classification Problem Date Documented Da te Episodic/Chronic Other aftercare (7 sources) Taking high risk medication; Translations: [Other jail (current) drug therapy] Onset: 10-21-2024 10-21-2024 Episodic Other aftercare (2 sources) Other jail (current) drug therapy; Translations: [Other watcher [employer] (current) drug therapy] Onset: 11-04-2024 Episodic Other connective tissue disease (7 sources) Impingement syndrome of shoulder region; Translations: [Impingement syndrome of left shoulder] Onset: 05-27-2015 06-15-2015 Episodic Other lower respiratory disease (4 sources) Orthopnea; Translations: [Orthopnea] Onset: 11-04-2024 11-04-2024 Episodic Other lower respiratory disease (4 sources) Shortness of breath; Translations: [Shortness of breath] Onset: 10-21-2024 Episodic Other lower respiratory disease (2 sources) Other forms of dyspnea; Translations: [Other forms of dyspnea] Onset: 11-04-2024 Episodic Other lower respiratory disease (1 source) Orthopnea; Translations: [Orthopnea] Onset: 11-04-2024 Episodic Other non-traumatic joint disorders (7 sources) Pain in joint, shoulder region; Translations: [Pain in joint involving shoulder region] Onset: 05-27-2015 05-27-2015 Episodic Residual codes; unclassified (7 sources) Family history of coronary arteriosclerosis; Translations: [Family history of ischemic heart disease and other diseases of the circulatory system] 06-23-2014 Episodic Spondylosis; intervertebral disc disorders; other back problems (7 sources) Cervical radiculopathy; Translations: [Radiculopathy, cervical region] Onset: 05-27-2015 05-27-2015 Episodic Unclassified (1 source) Drug therapy finding; Translations: [High risk medication use] NEGATED: Highlighted row has not occurred!Residual codes; unclassified (5 sources) Disease Episodic Results Test Name Value Interpretation Reference Range Facility Cardiac catheterization stud [facility] 05-02-2025 [facility], [facility], [address] [place] [address] Cardiovascular Catheterization Report Patient Name: RIP ETIENNE Performing Physician: [id number] Fariba Pablo MD Study Date: 05/01/2025 Verifying Physician: [id number] Fariba Pablo MD MRN/PID: [id number] Bricklayer Sewer: [id number] Alicja Mckinney DO Ordering Provider: [id number] ALICJA MCKINNEY Date of /Age: 8 1975 years Clamshell Operator: Yaquelin Waters MD Gender: M Fellow: [id number] Craol Arriaga MD Study: Right Heart Cath Indications: Pulmonary hypertension. Procedure Description: After infiltration of local anesthetic, the Right Brachial vein was cannulated with a percutaneous technique. A 5 Mauritian sheath was placed in the vein. Cardiac output was calculated via the Dio method. Post-procedure, the venous sheath was pulled and pressure was applied to the site. Right Heart Catheterization: Cardiac output was calculated via the Dio method. Elevated left sided filling pressures with low cardiac output. Elevated ventricular filling pressure. Cardiac output is mildly to moderately decreased. Reduced cardiac output at rest. RHC: RA: 11 RV: 88/4 PA: 86/34 m53 PCWP: 10 PA-SAT: 61% CO: 3.68 CI: 1.89 Severely elevated right sided filling pressures with normal left sided filling pressures and mild to moderately depressed CO/CI. Hemo Personnel: + +------- --+ Name Duty + +------- --+ Phyllis Pablo MD, MD 1 + +------- --+ Hemodynamic Pressures: +----+---------+--------- -+ + ---+---+-----+-------+--- ----+ Site Date Time Phase Name Systolic Diastolic ED Mean A-Wave V-Wave mmHg mmHg mmH mmHg mmHg mmHg g +----+---------+--------- -+ + ---+---+-----+-------+--- ----+ RA 05/01/2025 Rest 11 15 13 2:34:19 PM +----+---------+--------- -+ + ---+---+-----+-------+--- ----+ PW 05/01/2025 Rest 10 11 13 2:38:19 PM +----+---------+--------- -+ + ---+---+-----+-------+--- ----+ PA 05/01/2025 Rest 86 34 53 2:40:51 PM +----+---------+--------- -+ + ---+---+-----+-------+--- ----+ RV 05/01/2025 Rest 88 4 15 2:41:53 PM +----+---------+--------- -+ + ---+---+-----+-------+--- ----+ Oxygen Saturation %: + + +- + Sample Site O2 Sat (%) HB (g/100ml) + + +- + FA 94 14.7 + + +- + PA 61 14.7 + + +- + FA 94 14.7 + + +- + PA 61 14.7 + + +- + Cardiac Outputs: + +-------- +-------+ DIO CO (l/min) DIO CI (l/min/m2) DIO SV + +-------- +-------+ 3.7 1.9 49.1 + +-------- +-------+ Cardiac Cath Post Procedure Notes: Post Procedure Diagnosis: Elevated right sided filling pressures with moderately reduced CO. Blood Loss: Estimated blood loss during the procedure was 10 mls. Specimens Removed: Number of specimen(s) removed: none. Recommendations: Follow recommendations per Dr Mckinney. (more content not included)... Fariba Gray MD - 05/02/2025 [facility], [facility], [address] [place] [address] Cardiovascular Catheterization Report Patient Name: RIP ETIENNE Performing Physician: [id number] Fraiba Pablo MD Study Date: 05/01/2025 Verifying Physician: [id number] Fariba Pablo MD MRN/PID: [id number] Bricklayer Sewer: [id number] Alicja Mckinney DO Ordering Provider: [id number] ALICJA MCKINNEY Date of /Age: 8 1975 / 49 years Clamshell Operator: Yaquelin Waters MD Gender: M Fellow: [id number] Carol Arriaga MD Study: Right Heart Cath Indications: Pulmonary hypertension. Procedure Description: After infiltration of local anesthetic, the Right Brachial vein was cannulated with a percutaneous technique. A 5 Mauritian sheath was placed in the vein. Cardiac output was calculated via the Dio method. Post-procedure, the venous sheath was pulled and pressure was applied to the site. Right Heart Catheterization: Cardiac output was calculated via the Dio method. Elevated left sided filling pressures with low cardiac output. Elevated ventricular filling pressure. Cardiac output is mildly to moderately decreased. Reduced cardiac output at rest. RHC: RA: 11 RV: 88/4 PA: 86/34 m53 PCWP: 10 PA-SAT: 61% CO: 3.68 CI: 1.89 Severely elevated right sided filling pressures with normal left sided filling pressures and mild to moderately depressed CO/CI. Hemo Personnel: + +------- --+ Name Duty + +------- --+ Phyllis Pablo MD, MD 1 + +------- --+ Hemodynamic Pressures: +----+---------+--------- -+ + ---+---+-----+-------+--- ----+ Site Date Time Phase Name Systolic Diastolic ED Mean A-Wave V-Wave mmHg mmHg mmH mmHg mmHg mmHg g +----+---------+--------- -+ + ---+---+-----+-------+--- ----+ RA 05/01/2025 Rest 10 10 13 2:34:19 PM +----+---------+--------- -+ + ---+---+-----+-------+--- ----+ PW 05/01/2025 Rest 09 05 13 2:38:19 PM +----+---------+--------- -+ + ---+---+-----+-------+--- ----+ PA 05/01/2025 Rest 86 34 53 2:40:51 PM +----+---------+--------- -+ + ---+---+-----+-------+--- ----+ RV 05/01/2025 Rest 88 4 15 2:41:53 PM +----+---------+--------- -+ + ---+---+-----+-------+--- ----+ Oxygen Saturation %: + + +- + Sample Site O2 Sat (%) HB (g/100ml) + + +- + FA 94 14.7 + + +- + PA 61 14.7 + + +- + FA 94 14.7 + + +- + PA 61 14.7 + + +- + Cardiac Outputs: + +-------- +-------+ DIO CO (l/min) DIO CI (l/min/m2) DIO SV + +-------- +-------+ 3.7 1.9 49.1 + +-------- +-------+ Cardiac Cath Post Procedure Notes: Post Procedure Diagnosis: Elevated right sided filling pressures with moderately reduced CO. Blood Loss: Estimated blood loss during the procedure was 10 mls. Specimens Removed: Number of specimen(s) removed: none. Recommendations: Follow recommendations per Dr Mckinney. CONCLUSIONS: 1. Pulmonary Arterial Hypertension WHO Group I - For RHC. 2. Mildly elevated Rt heart filling pressures. 3. Severe Pulmonary hypertension. 4. Normal Lt heart filling pressures. 5. Depressed cardiac ouput. ICD 10 Codes: Pulmonary hypertension, unspecified-I27.20 CPT Codes: Right Heart Cath O2/Cardiac output without biopsy (RHC)-53421 [id number] Fariba Pablo MD Performing Physician Final [facility] Work Phone: Cardiac catheterization stud yOrdered By: Fariba Pablo on 05-02-2025 [facility] Work Phone: Basic metabolic 2000 panelon 05-01-2025 Anion gap [Moles/Vol] 12 mmol/L 10 - 2 0 mmol/L [facility] Calcium [Mass/Vol] 8.6 mg/dL 8.6 - 10. 6 mg/dL [facility] Chloride [Moles/Vol] 107 mmol/L 98 - 10 7 mmol/L [facility] CO2 [Moles/Vol] 21 mmol/L 21 - 32 mmol/L [facility] Creatinine [Mass/Vol] 0.76 mg/dL 0.50 - 1.30 mg/dL [facility] eGFR - PINF [facility] Comment on above: Calculations of prashant mated GFR are performed using the 2020 CKD-EPI Study Refit equation without the race variable for the IDMS-Traceable creatinine methods. https://jasn.asnjournals.org/content//ASN.890176 7811 Glucose [Mass/Vol] 212 mg/dL High 74 - 99 mg/dL [facility] Interpretation and review of laboratory results Abnormal [facility] Potassium [Moles/Vol] 4.2 mmol/L 3.5 - 5.3 mmol/L [facility] Sodium [Moles/Vol] 136 mmol/L 136 - 145 mmol/L [facility] Urea nitrogen [Mass/Vol] 18 mg/dL 6 - 23 mg/dL [facility] Anion gap [Moles/Vol] 12 mmol/L Normal 10-20 [facility] Comment on above: Performed By: #### 2 4321-2 #### YADIRA Leos ([id number]) [facility] ([facility]) [id number] [place] [address] 51938 Calcium [Mass/Vol] 8.6 mg/dL Normal 8.6-10.6 [facility] Comment on above: Performed By: #### 2 4321-2 #### YADIRA BARRAZA L ([id number]) [facility] ([facility]) [id number] [place] [address] 87923 Chloride [Moles/Vol] 107 mmol/L Normal 98-107 [facility] Comment on above: Performed By: #### 2 4321-2 #### YADIRA Leos ([id number]) [facility] ([facility]) [address] [place] [address] 73091 CO2 [Moles/Vol] 21 mmol/L Normal 21-32 [facility] Comment on above: Performed By: #### 2 4321-2 #### YADIRA Leos ([id number]) [facility] ([facility]) [address] [place] [address] Creatinine [Mass/Vol] 0.76 mg/dL Normal 0.50-1.30 [facility] Comment on above: Performed By: #### 2 4321-2 #### YADIRA Leos ([id number]) [facility] ([facility]) [address] [place] [address] GFR/1.73 sq M.predicted MDRD (S/P/Bld) [Vol rate/Area] mL/min/{1.73_m2} Normal >60 [facility] Comment on above: Result Comment: Calc ulations of estimated GFR are performed using the 2020 CKD-EPI Study Refit equation without the race variable for the IDMS-Traceable creatinine methods. https://jasn.asnjournals.org/content/early//ASN.046842 2806 Performed By: #### 2 4321-2 #### YADIRA Leos ([id number]) [facility] ([facility]) [address] [place] [address] Glucose [Mass/Vol] 212 mg/dL High 74-99 [facility] Comment on above: Performed By: #### 2 4321-2 #### YADIRA Leos ([id number]) [facility] ([facility]) [address] [place] [address] Potassium [Moles/Vol] 4.2 mmol/L Normal 3.5-5.3 [facility] Comment on above: Performed By: #### 2 4321-2 #### YADIRA Leos ([id number]) [facility] ([facility]) [address] [place] [address] Sodium [Moles/Vol] 136 mmol/L Normal 136-145 [facility] Comment on above: Performed By: #### 2 4321-2 #### YADIRA HERNANDEZSYD Leos ([id number]) [facility] ([facility]) [address] [place] [address]9422 Urea nitrogen [Mass/Vol] 18 mg/dL Normal 6-23 [facility] Comment on above: Performed By: #### 2 4321-2 #### YADIRA SWANSONRAFA L ([id number]) [facility] ([facility]) [address] [place] [address]28 CARDIAC CATHETERIZATION PROC EDUREon 05-01-2025 CARDIAC CATHETERIZATION PROCEDURE [facility], [facility], [address] [place], [place] [id number] Cardiovascular Catheterization Report Patient Name: RIP ETIENNE Performing Physician: [id number] Fariba Pablo MD Study Date: 05/01/2025 Verifying Physician: [id number] Pablo MD MRN/PID: [id number] Bricklayer Sewer: [id number] Alicja Mckinney DO Ordering Provider: [id number] ALICJA MCKINNEY Date of /Age: 8 1975 years Clamshell Operator: Yaquelin Waters MD Gender: M Fellow: [id number] Carol Arriaga MD Study: Right Heart Cath Indications: Pulmonary hypertension. Procedure Description: After infiltration of local anesthetic, the Right Brachial vein was cannulated with a percutaneous technique. A 5 Mauritian sheath was placed in the vein. Cardiac output was calculated via the Dio method. Post-procedure, the venous sheath was pulled and pressure was applied to the site. Right Heart Catheterization: Cardiac output was calculated via the Dio method. Elevated left sided filling pressures with low cardiac output. Elevated ventricular filling pressure. Cardiac output is mildly to moderately decreased. Reduced cardiac output at rest. RHC: RA: 11 RV: 88/4 PA: 86/34 m53 PCWP: 10 PA-SAT: 61% CO: 3.68 CI: 1.89 Severely elevated right sided filling pressures with normal left sided filling pressures and mild to moderately depressed CO/CI. Hemo Personnel: + +------- --+ Name Duty + +------- --+ Phylils Pablo MD, MD 1 + +------- --+ Hemodynamic Pressures: +----+---------+--------- -+ + ---+---+-----+-------+--- ----+ Site Date Time Phase Name Systolic Diastolic ED Mean A-Wave V-Wave mmHg mmHg mmH mmHg mmHg mmHg g +----+---------+--------- -+ + ---+---+-----+-------+--- ----+ RA 05/01/2025 Rest 11 15 13 2:34:19 PM +----+---------+--------- -+ + ---+---+-----+-------+--- ----+ PW 05/01/2025 Rest 10 11 13 2:38:19 PM +----+---------+--------- -+ + ---+---+-----+-------+--- ----+ PA 05/01/2025 Rest 86 34 53 2:40:51 PM +----+---------+--------- -+ + ---+---+-----+-------+--- ----+ RV 05/01/2025 Rest 88 4 15 2:41:53 PM +----+---------+--------- -+ + ---+---+-----+-------+--- ----+ Oxygen Saturation %: + + +- + Sample Site O2 Sat (%) HB (g/100ml) + + +- + FA 94 14.7 + + +- + PA 61 14.7 + + +- + FA 94 14.7 + + +- + PA 61 14.7 + + +- + Cardiac Outputs: + +-------- +-------+ IDO CO (l/min) DIO CI (l/min/m2) DIO SV + +-------- +-------+ 3.7 1.9 49.1 + +-------- +-------+ Cardiac Cath Post Procedure Notes: Post Procedure Diagnosis: Elevated right sided filling pressures with moderately reduced CO. Blood Loss: Estimated blood loss during the procedure was 10 mls. Specimens Removed: Number of specimen(s) removed: none. Recommendations: Follow recommendations per Dr Mckinney. CONCLUSIONS: 1. Pulmonary Arterial Hypertension WHO Group I - For RHC. 2. Mildly elevated Rt heart filling pressures. 3. Severe Pulmonary hypertension. 4. Normal Lt heart filling pressures. 5. Depressed cardiac ouput. ICD 10 Codes: Pulmonary hypertension, unspecified-I27.20 CPT Codes: Right Heart Cath O2/Cardiac output without biopsy (RHC)-19853 49195 Fariba Pablo MD Performing Physician Final Normal [facility] CBC panel Auto (Bld)on 05-01 Erythrocyte distribution width (RBC) [Ratio] 14.9 % High 11.5 - 14.5 % [facility] Hematocrit (Bld) [Volume fraction] 41.2 % 41.0 - 52.0 % [facility] Hemoglobin (Bld) [Mass/Vol] 14.2 g/dL 13.5 - 17.5 g/dL [facility] Interpretation and review of laboratory results Abnormal [facility] MCH (RBC) [Entitic mass] 29.9 pg 26.0 - 34.0 pg [facility] MCHC (RBC) [Mass/Vol] 34.5 g/dL 32.0 - 36.0 g/dL [facility] MCV (RBC) [Entitic vol] 87 fL 80 - 100 fL [facility] Nucleated RBC/100 WBC (Bld) [Ratio] 0 % [facility] Platelets (Bld) [#/Vol] 123 10*3/uL Low [facility] RBC (Bld) [#/Vol] 4.75 10*6/uL [facility] WBC (Bld) [#/Vol] 5.6 10*3/uL [facility] Erythrocyte distribution width (RBC) [Ratio] 14.9 % High 11.5-14.5 [facility] Comment on above: Performed By: #### 5 8410-2 #### YADIRA Leos ([id number]) [facility] ([facility]) [address] [place] [address] 57821 Hematocrit (Bld) [Volume fraction] 41.2 % Normal 41.0-52.0 [facility] Comment on above: Performed By: #### 5 8410-2 #### YADIRA Leos ([id number]) [facility] ([facility]) [address] [place] [address] 57798 Hemoglobin (Bld) [Mass/Vol] 14.2 g/dL Normal 13.5-17.5 [facility] Comment on above: Performed By: #### 5 8410-2 #### YADIRA Leos ([id number]) [facility] ([facility]) [address] [place] [address] 65270 MCH (RBC) [Entitic mass] 29.9 pg Normal 26.0-34.0 [facility] Comment on above: Performed By: #### 5 8410-2 #### YADIRA Leos ([id number]) [facility] ([facility]) [address] [place] [address] 61154 MCHC (RBC) [Mass/Vol] 34.5 g/dL Normal 32.0-36.0 [facility] Comment on above: Performed By: #### 5 8410-2 #### YADIRA Leos ([id number]) [facility] ([facility]) [id number] [place] [address] 66303 MCV (RBC) [Entitic vol] 87 fL Normal 80-100 [facility] Comment on above: Performed By: #### 5 8410-2 #### YADIRA Leos ([id number]) [facility] ([facility]) [address] [place] [address] 79992 Nucleated RBC/100 WBC (Bld) [Ratio] 0.0 /100 WBCs Normal 0.0-0.0 [facility] Comment on above: Performed By: #### 5 8410-2 #### YADIRA Leos ([id number]) [facility] ([facility]) [address] [place] [address] 41225 Platelets (Bld) [#/Vol] 123 x10*3/uL Low 150-450 [facility] Comment on above: Performed By: #### 5 8410-2 #### YADIRA Leos ([id number]) [facility] ([facility]) [address] [place] [address] 92689 RBC (Bld) [#/Vol] 4.75 x10*6/uL Normal 4.50-5.90 [facility] Comment on above: Performed By: #### 5 8410-2 #### YADIRA Leos ([id number]) [facility] ([facility]) [address] [place] [address] 97344 WBC (Bld) [#/Vol] 5.6 x10*3/uL Normal 4.4-11.3 [facility] Comment on above: Performed By: #### 5 8410-2 #### YADIRA Leos ([id number]) [facility] ([facility]) [address] [place] [address] 93305 Glucose Test strip manual (B ld) [Mass/Vol]on 05-01-2025 Glucose [Mass/Vol] 185 mg/dL High 74 - 99 mg/dL [facility] Interpretation and review of laboratory results Abnormal [facility] Glucose [Mass/Vol] 185 mg/dL High 74-99 [facility] Comment on above: Performed By: #### 2 341-6 #### YADIRA Leos ([id number]) [facility] ([facility]) [address] [place] [id number] Comprehensive Metabolic Prof kei 01-16-2025 Albumin [Mass/Vol] 3.5 g/dL Normal 3.2-5.0 [facility] Comment on above: Order Comment: Order Date: 01/16/25 Order Info: 785- - CMP Order Info: 3 - LIPASE Order Info: 3 - TSH DR GARY LOPEZ,CMP,TSH,VITD,LIPASE,A1C DR ДМИТРИЙ MCDUFFIE RENAL Performed By: #### L 500.4050, L506.1000, L501.9520, L501.9985, L501.2450 #### [facility] [address] [place], [address] Albumin/Globulin [Mass ratio] 0.8 {ratio} Low 0.9-2.4 [facility] Comment on above: Order Comment: Order Date: 01/16/25 Order Info: 785-11 - CMP Order Info: 3 - LIPASE Order Info: 3016-01 - TSH DR GARY LOPEZ,CMP,TSH,VITD,LIPASE,A1C DR ДМИТРИЙ MCDUFF[facility] Performed By: #### L 500.4050, L506.1000, L501.9520, L501.9985, L501.2450 #### [facility] [address] [place], [address] ALK P 69 U/L Normal 45-117 [facility] Comment on above: Order Comment: Order Date: 01/16/25 Order Info: 785-11 - CMP Order Info: 3 - LIPASE Order Info: 3 - TSH DR GARY LOPEZ,CMP,TSH,VITD,LIPASE,A1C DR ДМИТРИЙ MCDUFF[facility] Performed By: #### L 500.4050, L506.1000, L501.9520, L501.9985, L501.2450 #### [facility] [address] [place], [address] ALT [Catalytic activity/Vol] 38 U/L Normal 16-61 [facility] Comment on above: Order Comment: Order Date: 01/16/25 Order Info: 86-1 - CMP Order Info: 0-3 - LIPASE Order Info: 6-3 - TSH DR GARY LOPEZ,CMP,TSH,VITD,LIPASE,A1C DR ДМИТРИЙ MCDUFF[facility] Performed By: #### L 500.4050, L506.1000, L501.9520, L501.9985, L501.2450 #### [facility] [address] [place], [address] AST [Catalytic activity/Vol] 29 U/L Normal 15-37 [facility] Comment on above: Order Comment: Order Date: 01/16/25 Order Info: 785-11 - CMP Order Info: 3 - LIPASE Order Info: 3 - TSH DR GARY LOPEZ,CMP,TSH,VITD,LIPASE,A1C DR ДМИТРИЙ MCDUFF[facility] Performed By: #### L 500.4050, L506.1000, L501.9520, L501.9985, L501.2450 #### [facility] [address] [place], [address] Bilirubin [Mass/Vol] 1.00 mg/dL Normal 0.20-1.00 [facility] Comment on above: Order Comment: Order Date: 01/16/25 Order Info: 785- - CMP Order Info: 0-3 - LIPASE Order Info: 3015-3 - TSH DR GARY LOPEZ,CMP,TSH,VITD,LIPASE,A1C DR ДМИТРИЙ MCDUFF[facility] Result Comment: For patients on eltrombopag therapy, use of Dimension [place] TBIL is not recommended. Performed By: #### L 500.4050, L506.1000, L501.9520, L501.9985, L501.2450 #### [facility] [address] [place], [address] BUN/CRE 18.6 RATIO Normal 10-20 [facility] Comment on above: Order Comment: Order Date: 01/16/25 Order Info: 785-1 - CMP Order Info: 3039-3 - LIPASE Order Info: 3015-3 - TSH DR GARY LOPEZ,CMP,TSH,VITD,LIPASE,A1C DR ДМИТРИЙ MCDU[facility] Performed By: #### L 500.4050, L506.1000, L501.9520, L501.9985, L501.2450 #### [facility] [address] [place], [address] CA,Total 8.9 mg/dL Normal 8.5-10.1 [facility] Comment on above: Order Comment: Order Date: 01/16/25 Order Info: 785-1 - CMP Order Info: 3039-3 - LIPASE Order Info: 3015-3 - TSH DR GARY LOPEZ,CMP,TSH,VITD,LIPASE,A1C DR ДМИТРИЙ MCDUFFIE RE[facility] Performed By: #### L 500.4050, L506.1000, L501.9520, L501.9985, L501.2450 #### [facility] [address] [place], [address] Chloride [Moles/Vol] 108 mmol/L High 98-107 [facility] Comment on above: Order Comment: Order Date: 01/16/25 Order Info: 785-1 - CMP Order Info: 3039-3 - LIPASE Order Info: 3 - TSH DR GARY LOPEZ,CMP,TSH,VITD,LIPASE,A1C DR ДМИТРИЙ MCDUFF[facility] Performed By: #### L 500.4050, L506.1000, L501.9520, L501.9985, L501.2450 #### [facility] [address] [place], [address] CO2 [Moles/Vol] 26.0 mmol/L Normal 21.0-32.0 [facility] Comment on above: Order Comment: Order Date: 01/16/25 Order Info: 785-1 - CMP Order Info: 3040-3 - LIPASE Order Info: 3 - TSH DR GARY LOPEZ,CMP,TSH,VITD,LIPASE,A1C DR ДМИТРИЙ MCDUFF[facility] Performed By: #### L 500.4050, L506.1000, L501.9520, L501.9985, L501.2450 #### [facility] [address] [place], [address] Creatinine [Mass/Vol] 0.97 mg/dL Normal 0.70-1.30 [facility] Comment on above: Order Comment: Order Date: 01/16/25 Order Info: 86-1 - CMP Order Info: 3040-01 - LIPASE Order Info: 3 - TSH DR GARY LOPEZ,CMP,TSH,VITD,LIPASE,A1C DR ДМИТРИЙ MCDUFF[facility] Result Comment: The validity of the calculated GFR GFRAA in patients over 70 years has not been determined. Clinical correlation is essential. Performed By: #### L 500.4050, L506.1000, L501.9520, L501.9985, L501.2450 #### [facility] [address] [place], [address] EST GFR - AA 105 mL/min Normal >60 [facility] Comment on above: Order Comment: Order Date: 01/16/25 Order Info: 785-11 - CMP Order Info: 3 - LIPASE Order Info: 3 - TSH DR GARY LOPEZ,CMP,TSH,VITD,LIPASE,A1C DR ДМИТРИЙ [facility] Result Comment: Afri can [place] GFR Calc Performed By: #### L 500.4050, L506.1000, L501.9520, L501.9985, L501.2450 #### [facility] [address] [place], [address] GAP 5 Normal 5-15 [facility] Comment on above: Order Comment: Order Date: 01/16/25 Order Info: 0786-1 - CMP Order Info: 3 - LIPASE Order Info: 3 - TSH DR GARY LOPEZ,CMP,TSH,VITD,LIPASE,A1C DR ДМИТРИЙ [facility]CD[facility] Performed By: #### L 500.4050, L506.1000, L501.9520, L501.9985, L501.2450 #### [facility] [address] [place], [address] GFR/1.73 sq M.predicted among non-blacks MDRD (S/P/Bld) [Vol rate/Area] 87 mL/min/{1.73_m2} Normal >60 [facility] Comment on above: Order Comment: Order Date: 01/16/25 Order Info: 1 - CMP Order Info: 3039-3 - LIPASE Order Info: 3015-3 - TSH DR GARY LOPEZ,CMP,TSH,VITD,LIPASE,A1C DR ДМИТРИЙ [facility] Result Comment: Non- GFR Calc Performed By: #### L 500.4050, L506.1000, L501.9520, L501.9985, L501.2450 #### [facility] [address] [place], [address] Globulin (S) [Mass/Vol] 4.2 g/dL Normal 2.2-4.2 [facility] Comment on above: Order Comment: Order Date: 01/16/25 Order Info: 785-11 - CMP Order Info: 3039-3 - LIPASE Order Info: 3015-3 - TSH DR GARY LOPEZ,CMP,TSH,VITD,LIPASE,A1C DR ДМИТРИЙ [facility] Performed By: #### L 500.4050, L506.1000, L501.9520, L501.9985, L501.2450 #### [facility] [address] [place], [address] Glucose [Mass/Vol] 138 mg/dL High 74-106 [facility] Comment on above: Order Comment: Order Date: 01/16/25 Order Info: 785-1 - CMP Order Info: 304-3 - LIPASE Order Info: 3015-3 - TSH DR GARY LOPEZ,CMP,TSH,VITD,LIPASE,A1C DR ДМИТРИЙ [facility] Result Comment: Fast ing Glucose result greater than or equal to 126 mg/dL suggests DIABETES MELLITUS per A.D.A. criteria. Performed By: #### L 500.4050, L506.1000, L501.9520, L501.9985, L501.2450 #### [facility] [address] [place], [address] Potassium [Moles/Vol] 4.1 mmol/L Normal 3.5-5.1 [facility] Comment on above: Order Comment: Order Date: 01/16/25 Order Info: 785-1 - CMP Order Info: 3040-3 - LIPASE Order Info: 3015-3 - TSH DR GARY LOPEZ,CMP,TSH,VITD,LIPASE,A1C DR ДМИТРИЙ [facility] Performed By: #### L 500.4050, L506.1000, L501.9520, L501.9985, L501.2450 #### [facility] [address] [place], [address] Sodium [Moles/Vol] 139 mmol/L Normal 136-145 [facility] Comment on above: Order Comment: Order Date: 01/16/25 Order Info: 785-11 - CMP Order Info: 3040-3 - LIPASE Order Info: 6-3 - TSH DR GARY LOPEZ,CMP,TSH,VITD,LIPASE,A1C DR ДМИТРИЙ [facility] Performed By: #### L 500.4050, L506.1000, L501.9520, L501.9985, L501.2450 #### [facility] [address] [place], [address] T PROT 7.7 g/dL Normal 6.4-8.2 [facility] Comment on above: Order Comment: Order Date: 01/16/25 Order Info: 785-1 - CMP Order Info: 3040-3 - LIPASE Order Info: 3016-3 - TSH DR GARY LOPEZ,CMP,TSH,VITD,LIPASE,A1C DR ДМИТРИЙ [facility] Performed By: #### L 500.4050, L506.1000, L501.9520, L501.9985, L501.2450 #### [facility] [address] [place], [address] Urea nitrogen [Mass/Vol] 18 mg/dL Normal 7-18 [facility] Comment on above: Order Comment: Order Date: 01/16/25 Order Info: 0786-1 - CMP Order Info: 3039-3 - LIPASE Order Info: 3015-3 - TSH DR GARY LOPEZ,CMP,TSH,VITD,LIPASE,A1C DR ДМИТРИЙ [facility] Performed By: #### L 500.4050, L506.1000, L501.9520, L501.9985, L501.2450 #### [facility] [address] [place], [address] Hemoglobin A1con 01-16-2025 HbA1c (Bld) [Mass fraction] 8.6 % High 3.8-5.6 [facility] Comment on above: Order Comment: Order Date: 01/16/25 Order Info: 4548-4 - A1C Result Comment: Norm al < 5.7 % Prediabetic 5.7 - 6.4 % Diabetic >or= 6.5 % Please note range changes. Performed By: #### L 500.4050, L506.1000, L501.9520, L501.9985, L501.2450 #### [facility] [address] [place], [address] Lipaseon 01-16-2025 Lipase [Catalytic activity/Vol] 124 U/L Normal 73-393 [facility] Comment on above: Order Comment: Order Date: 01/16/25 Order Info: 0786-1 - CMP Order Info: 3040-3 - LIPASE Order Info: 3015-3 - TSH DR GARY LOPEZ,CMP,TSH,VITD,LIPASE,A1C DR ДМИТРИЙ [facility] Performed By: #### L 500.4050, L506.1000, L501.9520, L501.9985, L501.2450 #### [facility] [address] [place], [place], [address] Thyroid Stim Hormone (TSH)on 01-16-2025 TSH 1.260 uIU/mL Normal 0.358-3.740 [facility] Comment on above: Order Comment: Order Date: 01/16/25 Order Info: 0786-1 - CMP Order Info: 3040-3 - LIPASE Order Info: 3016-3 - TSH DR GARY LOPEZ,CMP,TSH,VITD,LIPASE,A1C DR ДМИТРИЙ [facility] Performed By: #### L 500.4050, L506.1000, L501.9520, L501.9985, L501.2450 #### [facility] [address] [place], [place], [address] Vitamin D,25 Hydroxyon 01-16 Vitamin D 25-OH 14.6 ng/mL Normal [facility] Comment on above: Order Comment: Order Date: 01/16/25 Order Info: 81513-8 - VITD25 Result Comment: Charmaine min D 25(OH) Status Range Deficiency <20 ng/mL (50nmol/L) Insufficiency 20 - 30 ng/mL (50 - 75 nmol/L) Sufficiency 30 - 100 ng/mL (75 - 250 nmol/L) Toxicity >100 ng/mL (>250 nmol/L) Performed By: #### L 500.4050, L506.1000, L501.9520, L501.9985, L501.2450 #### [facility] [address] [place], [place], [address] XR CHEST 2 VIEWSon XR CHEST 2 VIEWS Interpreted By: Patti Moyer and Awan Komal STUDY: XR CHEST 2 VIEWS; 11/04/2024 12:21 pm INDICATION: Signs/Symptoms:orthopnea/ abnormal clinic assessment. ,R06.01 Orthopnea,R06.09 Other forms of dyspnea COMPARISON: None. ACCESSION NUMBER(S): [id number] ORDERING CLINICIAN: ALICJA MCKINNEY FINDINGS: PA and lateral radiographs of the chest were provided. CARDIOMEDIASTINAL SILHOUETTE: Cardiomediastinal silhouette is stable in size and configuration. LUNGS: No definite evidence of pneumothorax, pleural effusion or focal consolidation. ABDOMEN: No remarkable upper abdominal findings. BONES: No acute osseous changes. IMPRESSION: 1. No evidence of acute cardiopulmonary process. I personally reviewed the images/study and I agree with the findings as stated by Resident Cheryl Chilel. This study was interpreted at [employer], [place]. MACRO: None Signed by: Patit Bonilla 11/04/2024 1:35 PM Dictation workstation: [id number] Normal [facility] XR Chest 2 Viewson 4 1. No evidence of ac [place] cardiopulmonary process. I personally reviewed the images/study and I agree with the findings as stated by Resident Cheryl Chilel. This study was interpreted at [employer], [place]. MACRO: None Signed by: Patti Bonilla 11/04/2024 1:35 PM Dictation workstation: [id number] Interpreted By: Patti Moyer and Awan Komal STUDY: XR CHEST 2 VIEWS; 11/04/2024 12:21 pm INDICATION: Signs/Symptoms:orthopnea/ abnormal clinic assessment. ,R06.01 Orthopnea,R06.09 Other forms of dyspnea COMPARISON: None. ACCESSION NUMBER(S): [id number] ORDERING CLINICIAN: ALICJA MCKINNEY FINDINGS: PA and lateral radiographs of the chest were provided. CARDIOMEDIASTINAL SILHOUETTE: Cardiomediastinal silhouette is stable in size and configuration. LUNGS: No definite evidence of pneumothorax, pleural effusion or focal consolidation. ABDOMEN: No remarkable upper abdominal findings. BONES: No acute osseous changes. [facility] MMODAL Patti Bonilla M D - 11/04/2024 Interpreted By: Patti Bonilla and Awan Komal STUDY: XR CHEST 2 VIEWS; 11/04/2024 12:21 pm INDICATION: Signs/Symptoms:orthopnea/ abnormal clinic assessment. ,R06.01 Orthopnea,R06.09 Other forms of dyspnea COMPARISON: None. ACCESSION NUMBER(S): [id number] ORDERING CLINICIAN: ALICJA MCKINNEY FINDINGS: PA and lateral radiographs of the chest were provided. CARDIOMEDIASTINAL SILHOUETTE: Cardiomediastinal silhouette is stable in size and configuration. LUNGS: No definite evidence of pneumothorax, pleural effusion or focal consolidation. ABDOMEN: No remarkable upper abdominal findings. BONES: No acute osseous changes. IMPRESSION: 1. No evidence of acute cardiopulmonary process. I personally reviewed the images/study and I agree with the findings as stated by Resident Cheryl Chilel. This study was interpreted at [facility], [place], [place]. MACRO: None Signed by: Patti Bonilla 11/04/2024 1:35 PM Dictation workstation: [id number] [facility] Work Phone: Radiology Study observation (narrative) [facility] Work Phone: XR Chest 2 ViewsOrdered By: Patti Bonilla on 11-04-2024 [facility] Work Phone: CT ABDOMEN PELVIS W CONTRAST on 05-16-2024 CT ABDOMEN PELVIS W CONTRAST [facility] 1975 [id number] Exam Date/Time: 05/16/2024 10:23 Procedure: CT ABDOMEN PELVIS W CONTRAST Ordering Provider: FLORES AMIT Reason For Exam: Abdominal pain, acute, nonlocalized CT abdomen and pelvis with contrast HISTORY: Pain Protocol: 3 mm axial images with intravenous contrast Dose reduction was employed with automated exposure control. Cirrhotic liver. Splenomegaly. Recanalized umbilical vein is indicative of portal hypertension. The vein prolapses into an anterior abdominal wall hernia. Small esophageal varices. Sigmoid diverticulosis. No bowel inflammation or obstruction. Small amount of free fluid in the pelvis. Within the fluid is a possible 1.3 cm nodular density which could have a neoplastic etiology. The bladder is unremarkable. IMPRESSION: Cirrhotic liver. Splenomegaly. Recanalized umbilical vein is indicative of portal hypertension. The vein prolapses into an anterior abdominal wall hernia. Small esophageal varices. Sigmoid diverticulosis. Small amount of free fluid in the pelvis. Within the fluid is a possible 1.3 cm nodular density which could have a neoplastic etiology. Report Dictated on Electronically Signed By: Raj Gutierrez MD Electronically Signed Date/Time: 05/16/2024 11:19 AM EDT HX: GALLSTONES NO OTHER COMPLAINTS Normal [facility] CT Abdomen and Pelvis W cont rast Demetri 05-16-2024 Cirrhotic liver. Splenomegaly. Recanalized umbilical vein is indicative of portal hypertension. The vein prolapses into an anterior abdominal wall hernia. Small esophageal varices. Sigmoid diverticulosis. Small amount of free fluid in the pelvis. Within the fluid is a possible 1.3 cm nodular density which could have a neoplastic etiology. Report Dictated on Electronically Signed By: Raj Gutierrez MD Electronically Signed Date/Time: 05/16/2024 11:19 AM EDT [facility] Patient Name: RIP CHANEY : 1975 Exam Date/Time: 05/16/2024 10:23 Procedure: CT ABDOMEN PELVIS W CONTRAST Ordering Provider: FLORES AMIT Reason For Exam: Abdominal pain, acute, nonlocalized CT abdomen and pelvis with contrast HISTORY: Pain Protocol: 3 mm axial images with intravenous contrast Dose reduction was employed with automated exposure control. Cirrhotic liver. Splenomegaly. Recanalized umbilical vein is indicative of portal hypertension. The vein prolapses into an anterior abdominal wall hernia. Small esophageal varices. Sigmoid diverticulosis. No bowel inflammation or obstruction. Small amount of free fluid in the pelvis. Within the fluid is a possible 1.3 cm nodular density which could have a neoplastic etiology. The bladder is unremarkable. [facility] Raj Gutierrez MD - 05/16/2024 Patient Name: RIP ETIENNE : 1975 Exam Date/Time: 05/16/2024 10:23 Procedure: CT ABDOMEN PELVIS W CONTRAST Ordering Provider: FLORES AMIT Reason For Exam: Abdominal pain, acute, nonlocalized CT abdomen and pelvis with contrast HISTORY: Pain Protocol: 3 mm axial images with intravenous contrast Dose reduction was employed with automated exposure control. Cirrhotic liver. Splenomegaly. Recanalized umbilical vein is indicative of portal hypertension. The vein prolapses into an anterior abdominal wall hernia. Small esophageal varices. Sigmoid diverticulosis. No bowel inflammation or obstruction. Small amount of free fluid in the pelvis. Within the fluid is a possible 1.3 cm nodular density which could have a neoplastic etiology. The bladder is unremarkable. IMPRESSION: Cirrhotic liver. Splenomegaly. Recanalized umbilical vein is indicative of portal hypertension. The vein prolapses into an anterior abdominal wall hernia. Small esophageal varices. Sigmoid diverticulosis. Small amount of free fluid in the pelvis. Within the fluid is a possible 1.3 cm nodular density which could have a neoplastic etiology. Report Dictated on Electronically Signed By: Raj Gutierrez MD Electronically Signed Date/Time: 05/16/2024 11:19 AM EDT [facility] Radiology Study observation (narrative) [facility] CT Abdomen and Pelvis W cont rast IVOrdered By: Raj Gutierrez on 05-16-2024 [facility] Work Phone: CBC (HEMOGRAM)on 04-28-2024 Erythrocyte distribution width (RBC) [Ratio] 15.4 % High 11.5-15.0 [facility] Comment on above: Performed By: #### L [id number] #### Social And Political Studies Professor: DORI CARCAMO ([phone]) [address] Hematocrit (Bld) [Volume fraction] 46.2 % Normal 40.0-52.0 [facility] Comment on above: Performed By: #### L AB294 #### Social And Political Studies Professor: DORI CARCAMO ([id number]) [facility]) [address] [place] [address] Hemoglobin (Bld) [Mass/Vol] 15.5 g/dL Normal 13.0-18.0 [facility] Comment on above: Performed By: #### L AB294 #### Social And Political Studies Professor: DORI [id number]) [address] IPF 5 Normal [facility] Comment on above: Performed By: #### L AB294 #### Social And Political Studies Professor: DORI [id number]) [facility]) [address] [place] [address] MCH (RBC) [Entitic mass] 28.4 pg Normal 26.0-34.0 [facility] Comment on above: Performed By: #### L AB294 #### Social And Political Studies Professor: DORI CARCAMO ([id number]) [facility] ([facility]) [address] [place] [address] MCHC 33.5 % Normal 30.5-36.0 [facility] Comment on above: Performed By: #### L AB294 #### Social And Political Studies Professor: DORI CARCAMO ([id number]) [facility] ([facility]) [address] [place] [address] MCV (RBC) [Entitic vol] 84.8 fL Normal 77.0-99.0 [facility] Comment on above: Performed By: #### L AB294 #### Social And Political Studies Professor: DOIR CARCAMO ([id number]) [facility] ([facility]) [address] [place] [address] Platelet mean volume (Bld) [Entitic vol] 10.3 fL Normal 9.0-12.7 [facility] Comment on above: Performed By: #### L AB294 #### Social And Political Studies Professor: DORI CARCAMO ([id number]) [facility] ([facility]) [address] [place] [address] Platelets (Bld) [#/Vol] 131 10*3/uL Low 140-440 [facility] Comment on above: Performed By: #### L AB294 #### Social And Political Studies Professor: DORI CARCAMO ([id number]) [facility] ([facility]) [address] [place] [address] RBC (Bld) [#/Vol] 5.45 10*6/uL Normal 4.40-5.90 [facility] Comment on above: Performed By: #### L AB294 #### Social And Political Studies Professor: DORI CARCAMO ([id number]) [facility] ([facility]) [address] [place] [address] WBC (Bld) [#/Vol] 5.5 10*3/uL Normal 3.6-10.7 [facility] Comment on above: Performed By: #### L AB294 #### Social And Political Studies Professor: DORI CARCAMO ([id number]) [facility] ([facility]) [address] [place] [address] CBC panel Auto (Bld)on 04-28 Erythrocyte distribution width (RBC) [Ratio] 15.4 % High 11.5 - 15.0 % [facility] Hematocrit (Bld) [Volume fraction] 46.2 % 40.0 - 52.0 % [facility] Hemoglobin (Bld) [Mass/Vol] 15.5 g/dL 13.0 - 18.0 g/dL [facility] Interpretation and review of laboratory results Abnormal [facility] IPF [address] [facility] MCH (RBC) [Entitic mass] 28.4 pg 26.0 - 34.[address] [facility] MCHC (RBC) [Mass/Vol] 33.5 % 30.5 - 36.0 % [facility] MCV (RBC) [Entitic vol] 84.8 fL 77.0 - 99.[address] [facility] Platelet mean volume (Bld) [Entitic vol] 10.3 fL 9.0 - 12.[address] [facility] Platelets (Bld) [#/Vol] 131 10*3/uL Low 140 - 440 10*3/uL [facility] RBC (Bld) [#/Vol] 5.45 10*6/uL 4.40 - 5.9 0 10*6/uL [facility] WBC (Bld) [#/Vol] 5.5 10*3/uL 3.6 - 10.7 10*3/uL [facility] COMPREHENSIVE METABOLIC PANE Pineda 04-28-2024 Albumin [Mass/Vol] 4.2 g/dL Normal 3.5-5.0 [facility] Comment on above: Performed By: #### L AB17 #### Social And Political Studies Professor: DORI CARCAMO ([id number]) [facility] [address] [place] [address] ALP [Catalytic activity/Vol] 51 U/L Normal 38-126 [facility] Comment on above: Performed By: #### L AB17 #### Social And Political Studies Professor: DORI CARCAMO ([id number]) [facility] ([facility]) [address] [place] [address] [place] ALT [Catalytic activity/Vol] 22 U/L Normal 0-49 [facility] Comment on above: Performed By: #### L AB17 #### Social And Political Studies Professor: DORI CARCAMO ([id number]) [facility] [address] [place] [address] Anion gap [Moles/Vol] 6 mmol/L Normal 3-13 [facility] Comment on above: Performed By: #### L AB17 #### Social And Political Studies Professor: DORI CARCAMO ([id number]) [facility] [address] [place] [address] AST [Catalytic activity/Vol] 24 U/L Normal 15-46 [facility] Comment on above: Performed By: #### L AB17 #### Social And Political Studies Professor: DORI CARCAMO ([id number]) [facility] [address] [place] [address] Bilirubin [Mass/Vol] 1.3 mg/dL Normal 0.2-1.3 [facility] Comment on above: Performed By: #### L AB17 #### Social And Political Studies Professor: DORI CARCAMO ([id number]) [facility] [address] [place] [address] Calcium [Mass/Vol] 9.8 mg/dL Normal 8.4-10.4 [facility] Comment on above: Performed By: #### L AB17 #### Social And Political Studies Professor: DORI CARCAMO ([id number]) [facility] [address] [place] [address] [place] Chloride [Moles/Vol] 106 mmol/L Normal 98-107 [facility] Comment on above: Performed By: #### L AB17 #### Social And Political Studies Professor: DORI CARCAMO ([id number]) [facility] [address] [place] [address] [place] CO2 [Moles/Vol] 25 mmol/L Normal 22-30 [facility] Comment on above: Performed By: #### L AB17 #### Social And Political Studies Professor: DORI CARCAMO ([id number]) [facility]) [address] [place] [address] Creatinine [Mass/Vol] 0.83 mg/dL Normal 0.66-1.25 [facility] Comment on above: Performed By: #### L AB17 #### Social And Political Studies Professor: DORI CARCAMO ([id number]) [facility]) [address] [place] [address] GLOMERULAR FILTRATION RATE ML/MIN/1.73 SQ M.PREDICTED >90.0 Normal >60.0 [facility] Comment on above: Result Comment: Calc ulation based on the Chronic Kidney Disease Epidemiology Collaboration (CKD-EPI) equation refit without adjustment for race Performed By: #### L AB17 #### Social And Political Studies Professor: DORI CARCAMO ([id number]) [facility] ([facility]) [address] [place] [address] Glucose [Mass/Vol] 131 mg/dL High 70-100 [facility] Comment on above: Performed By: #### L AB17 #### Social And Political Studies Professor: DORI CARCAMO ([id number]) [facility]) [address] [place] [address] Potassium [Moles/Vol] 4.4 mmol/L Normal 3.5-5.1 [facility] Comment on above: Performed By: #### L AB17 #### Social And Political Studies Professor: DORI CARCAMO ([id number]) [facility]) [address] [place] [address] Protein [Mass/Vol] 7.5 g/dL Normal 6.3-8.2 [facility] Comment on above: Performed By: #### L AB17 #### Social And Political Studies Professor: DORI CARCAMO ([id number]) [facility]) [address] [place] [address] Sodium [Moles/Vol] 137 mmol/L Normal 135-145 [facility] Comment on above: Performed By: #### L AB17 #### Social And Political Studies Professor: DORI CARCAMO ([id number]) [facility] ([facility]) [address] [place] [address] Urea nitrogen [Mass/Vol] 11 mg/dL Normal 9-[address] [facility] Comment on above: Performed By: #### L AB17 #### Social And Political Studies Professor: DORI CARCAMO ([id number]) [facility] ([facility]) [address] [place] [address] Comprehensive metabolic 1998 panelon 04-28-2024 Albumin [Mass/Vol] 4.2 g/dL 3.5 - 5.0 g/dL [facility] ALP [Catalytic activity/Vol] 51 U/L 38 - 126 U/L [facility] ALT [Catalytic activity/Vol] 22 U/L 0 - 49 U/L [facility] Anion gap [Moles/Vol] 6 mmol/L 3 - 13 mmol/L [facility] AST [Catalytic activity/Vol] 24 U/L 15 - 46 U/L [facility] Bilirubin [Mass/Vol] 1.3 mg/dL 0.2 - 1 .3 mg/dL [facility] Calcium [Mass/Vol] 9.8 mg/dL 8.4 - 10. 4 mg/dL [facility] Chloride [Moles/Vol] 106 mmol/L 98 - 10 7 mmol/L [facility] CO2 [Moles/Vol] 25 mmol/L 22 - 30 mmol/L [facility] Creatinine [Mass/Vol] 0.83 mg/dL 0.66 - 1.25 mg/dL [facility] GFR/1.73 sq M.predicted MDRD (S/P/Bld) [Vol rate/Area] - PINF [facility] Comment on above: Calculation based on the Chronic Kidney Disease Epidemiology Collaboration (CKD-EPI) equation refit without adjustment for race Glucose [Mass/Vol] 131 mg/dL High 70 - 100 mg/dL [facility] Interpretation and review of laboratory results Abnormal [facility] Potassium [Moles/Vol] 4.4 mmol/L 3.5 - 5.1 mmol/L [facility] Protein [Mass/Vol] 7.5 g/dL 6.3 - 8.2 g/dL [facility] Sodium [Moles/Vol] 137 mmol/L 135 - 145 mmol/L [facility] Urea nitrogen [Mass/Vol] 11 mg/dL 9 - 20 mg/dL [facility] 04-28-2024 Follow-up visit [id number] Indra Etienne on 1975 M Date Provider Department Center 04/28/2024 [id number], [facility] HEP None Family History Family Status - Relation Status Age at Mother Father Level of Service:74760 ID OFFICE/OUTPATIENT NEW MODERATE MDM 45 MINUTES Reason for Visit and Comments: New Patient [542] - Gallbladder/Cirrhosis of liver/pancreatitis/ventra l hernia/several issues/Referred by Dr. Zayda Ovalle/no recent testing Normal [facility] PROTIME AND APTTon aPTT Coag (Bld) [Time] 29.8 s Normal 20.0-30.5 [facility] Comment on above: Performed By: #### L [id number] #### Social And Political Studies Professor: DORI CARCAMO ([id number]) [facility] [address] [place] [address] INR Coag (PPP) [Relative time] 1.1 {INR} Normal 0.9-1.1 [facility] Comment on above: Result Comment: Craig mmended Anticoagulant Therapy: SEE BELOW ----- INR of 2.0 - 3.0 : - Prophylaxis of Venous Thrombosis (high-risk surgery) - Treatment of Venous Thrombosis - Treatment of Pulmonary Embolism (Includes tissue heart valves, Acute Myocardial Infarction to prevent systemic embolism, Valvular Heart Disease, and Atrial Fibrillation) ----- INR of 2.5 - 3.5 : - Mechanical Prosthetic Valves (high risk) - If oral anticoagulant therapy is used to prevent Myocardial Infarction Performed By: #### L [id number] #### Social And Political Studies Professor: DORI CARCAMO ([id number]) [facility]) [address] [place] [address] PT Coag (PPP) [Time] 12.0 s Normal 9.0-12.0 [facility] Comment on above: Performed By: #### L [id number] #### Social And Political Studies Professor: DORI CARCAMO ([id number]) [facility]) [address] [place] [address] PROTIME/INR & PTTon 04-28-20 aPTT Coag (PPP) [Time] 29.8 s 20.0 - 30.[address] [facility] INR Coag (PPP) [Relative time] 1.1 {INR} 0.9 - 1.[address] [facility] Comment on above: Recommended Anticoag ulant Therapy: SEE BELOW ----- INR of 2.0 - 3.0 : - Prophylaxis of Venous Thrombosis (high-risk surgery) - Treatment of Venous Thrombosis - Treatment of Pulmonary Embolism (Includes tissue heart valves, Acute Myocardial Infarction to prevent systemic embolism, Valvular Heart Disease, and Atrial Fibrillation) ----- INR of 2.5 - 3.5 : - Mechanical Prosthetic Valves (high risk) - If oral anticoagulant therapy is used to prevent Myocardial Infarction Interpretation and review of laboratory results Normal [facility] PT Coag (Bld) [Time] 12.0 s 9.0 - 1 2.0 s [facility] XR SPINE CERVICAL W/ OBLIQUE S 5 VIEWSon 04-06-2024 XR SPINE CERVICAL W/ OBLIQUES 5 VIEWS ORIGINAL EXAMINATION: FIVE XRAY VIEWS OF THE CERVICAL SPINE 04/05/2024 1:24 pm COMPARISON: None. HISTORY: ORDERING SYSTEM PROVIDED HISTORY: Reason for Exam: degenerative disc disease Neck pain. FINDINGS: The cervical spine alignment is normal. The vertebral bodies are normal in height with no fracture. The odontoid process is intact. There is moderate narrowing and endplate degenerative spur formation at multiple levels throughout the cervical spine. The facet joints show mild narrowing. Posterior elements are intact. There is no prevertebral soft tissue swelling. IMPRESSION: 1. Moderate multilevel cervical spondylosis. 2. No subluxation or fracture. Interpreted by: Scott Vu MD Preliminary Report By: Scott Vu MD Electronically signed By Scott Vu MD Dictated Date: 04/06/2024 3:47:56 AM Prelim Date: 04/06/2024 3:49:12 AM Sign Date: 04/06/2024 3:49:12 AM Ordering Provider: PARK REFERRING Normal [facility] ([place]) Absolute lymphocyte countOrd ered By: Zayda Ovalle on 02-25-2024 Lymphocytes Auto (Unsp spec) [#/Vol] 1.25 10*3/uL 0.83-4.51 [facility] Automated lymphocyte count a s percentage of total leukocytesOrdered By: Zayda Ovalle on 02-25-2024 Lymphocytes/100 WBC Auto (Unsp spec) 18.7 % 19-41 [facility] Basophil percentageOrdered B y: Zayda Ovalle on 02-25-2024 Basophils/100 WBC (Bld) 0.7 % 0-1 [facility] Bilirubin [Mass/Vol] 1.50 mg/dL 0.20-1.00 [facility] Comment on above: For patients on eltr ombopag therapy, use of Dimension [place] TBIL is not recommended. Chloride [Moles/Vol] 104 mmol/L 98-107 [facility] Eosinophils/100 WBC (Bld) 4.3 % 0-5 [facility] Glucose [Mass/Vol] 281 mg/dL 74-106 [facility] Comment on above: Glucose result great er than or equal to 200 mg/dLsuggests DIABETES MELLITUS per A.D.A. criteria. Hemoglobin (Bld) [Mass/Vol] 15.7 g/dL 13.0-16.5 [facility] Monocytes/100 WBC (Bld) 5.7 % 0-10 [facility] Neutrophils (Bld) [#/Vol] 4.7 10*3/uL 2.0-7.7 [facility] Neutrophils/100 WBC (Bld) 70.2 % 47-70 [facility] Potassium [Moles/Vol] 4.3 mmol/L 3.5-5.1 [facility] Protein [Mass/Vol] 7.8 g/dL 6.4-8.2 [facility] Sodium [Moles/Vol] 137 mmol/L 136-145 [facility] WBC (Bld) [#/Vol] 6.7 10*3/uL 4.4-11.0 [facility] CBC W/Diff, Automatedon Absolute Lymph 1.25 X10 3/uL Normal 0.83-4.51 [facility] Comment on above: Order Comment: Order Date: 02/25/24 Order Info: 0184-1 - CBCD Performed By: #### L 501.0102, L501.9941, L100.0100, L500.4050 #### [facility] [address] [place], [address] Absolute Neut 4.7 X10 3/uL Normal 2.0-7.7 [facility] Comment on above: Order Comment: Order Date: 02/25/24 Order Info: 0184-1 - CBCD Performed By: #### L [id number], [id number], L100.0100, L500.4050 #### [facility] [address] [place], [address] Basophils/100 WBC (Bld) 0.7 % Normal 0-1 [facility] Comment on above: Order Comment: Order Date: 02/25/24 Order Info: 0184-1 - CBCD Performed By: #### L [id number], [id number], L100.0100, L500.4050 #### [facility] [address] [place], [address] Eosinophils/100 WBC (Bld) 4.3 % Normal 0-5 [facility] Comment on above: Order Comment: Order Date: 02/25/24 Order Info: 0184-1 - CBCD Performed By: #### L [id number], [id number], L100.0100, L500.4050 #### [facility] [address] [place], [address] Erythrocyte distribution width (RBC) [Ratio] 14.7 % High 11.6-14.6 [facility] Comment on above: Order Comment: Order Date: 02/25/24 Order Info: 0184-1 - CBCD Performed By: #### L [id number], [id number], L100.0100, L500.4050 #### [facility] [address] [place], [address] Hematocrit (Bld) [Volume fraction] 47.2 % Normal 40-54 [facility] Comment on above: Order Comment: Order Date: 02/25/24 Order Info: 0184-1 - CBCD Performed By: #### L [id number], [id number], L100.0100, L500.4050 #### [facility] [address] [place], [address] Hemoglobin (Bld) [Mass/Vol] 15.7 g/dL Normal 13.0-16.5 [facility] Comment on above: Order Comment: Order Date: 02/25/24 Order Info: 018- - CBCD Performed By: #### L [id number], [id number], L100.0100, L500.4050 #### [facility] [address] [place], [address] IG% 0.400 Normal 0.0-0.9 [facility] Comment on above: Order Comment: Order Date: 02/25/24 Order Info: 018- - CBCD Result Comment: IG% - Immature Granulocytes (promyelocytes, myelocytes and metamyelocytes) > 1% indicates that a LEFT SHIFT is Present. Performed By: #### L [id number], L501.9985, L100.0100, L500.4050 #### [facility] [address] [place], [address] Lymphocytes/100 WBC (Bld) 18.7 % Low 19-41 [facility] Comment on above: Order Comment: Order Date: 02/25/24 Order Info: 0184- - CBCD Performed By: #### L [id number], [id number], L100.0100, L500.4050 #### [facility] [address] [place], [address] MCH (RBC) [Entitic mass] 28.8 pg Normal 27.0-32.0 [facility] Comment on above: Order Comment: Order Date: 02/25/24 Order Info: 0184- - CBCD Performed By: #### L [id number], [id number], L100.0100, L500.4050 #### [facility] [address] [place], [address] MCHC (RBC) [Mass/Vol] 33.3 g/dL Normal 32-36 [facility] Comment on above: Order Comment: Order Date: 02/25/24 Order Info: 0184-1 - CBCD Performed By: #### L [id number], [id number], L100.0100, L500.4050 #### [facility] [address] [place], [address] MCV (RBC) [Entitic vol] 86.4 fL Normal 80-94 [facility] Comment on above: Order Comment: Order Date: 02/25/24 Order Info: 0184-1 - CBCD Performed By: #### L [id number], [id number], L100.0100, L500.4050 #### [facility] [address] [place], [address] Monocytes/100 WBC (Bld) 5.7 % Normal 0-10 [facility] Comment on above: Order Comment: Order Date: 02/25/24 Order Info: 0184-1 - CBCD Performed By: #### L [id number], [id number], L100.0100, L500.4050 #### [facility] [address] [place], [address] Neutrophils/100 WBC (Bld) 70.2 % High 47-70 [facility] Comment on above: Order Comment: Order Date: 02/25/24 Order Info: 0184-1 - CBCD Performed By: #### L [id number], [id number], L100.0100, L500.4050 #### [facility] [address] [place], [address] Nucleated RBC (Bld) [#/Vol] 0 10*3/uL Normal 0-5 [facility] Comment on above: Order Comment: Order Date: 02/25/24 Order Info: 0184-1 - CBCD Performed By: #### L [id number], [id number], L100.0100, L500.4050 #### [facility] [address] [place], [address] Platelet mean volume (Bld) [Entitic vol] 11.3 fL Normal 6.2-12.0 [facility] Comment on above: Order Comment: Order Date: 02/25/24 Order Info: 0184-1 - CBCD Performed By: #### L [id number], L501.9985, L100.0100, L500.4050 #### [facility] [address] [place], [address] Platelets (Bld) [#/Vol] 141 10*3/uL Low 150-450 [facility] Comment on above: Order Comment: Order Date: 02/25/24 Order Info: 0184-1 - CBCD Performed By: #### L [id number], L501.9985, L100.0100, L500.4050 #### [facility] [address] [place], [address] RBC (Bld) [#/Vol] 5.46 10*6/uL Normal 4.6-6.2 [facility] Comment on above: Order Comment: Order Date: 02/25/24 Order Info: 0184-1 - CBCD Performed By: #### L [id number], L501.9985, L100.0100, L500.4050 #### [facility] [address] [place], [address] RDW SD 46.8 fl High 35.1-43.9 [facility] Comment on above: Order Comment: Order Date: 02/25/24 Order Info: 0184-1 - CBCD Performed By: #### L [id number], L501.9985, L100.0100, L500.4050 #### [facility] [address] [place], [address] WBC (Bld) [#/Vol] 6.7 10*3/uL Normal 4.4-11.0 [facility] Comment on above: Order Comment: Order Date: 02/25/24 Order Info: 0184-1 - CBCD Performed By: #### L 501.9520, L501.9985, L100.0100, L500.4050 #### [facility] [address] [place], [address] Comprehensive Metabolic Prof ilon 02-25-2024 Albumin [Mass/Vol] 4.2 g/dL Normal 3.2-5.0 [facility] Comment on above: Order Comment: Order Date: 02/25/24 Order Info: 0786-1 - CMP Order Info: 3040-3 - LIPASE Order Info: 3013 - TSH Performed By: #### L 501.9520, L501.9985, L100.0100, L500.4050 #### [facility] [address] [place], [place], [id number] Albumin/Globulin [Mass ratio] 1.2 {ratio} Normal 0.9-2.4 [facility] Comment on above: Order Comment: Order Date: 02/25/24 Order Info: 0786-1 - CMP Order Info: 3040-3 - LIPASE Order Info: 301-3 - TSH Performed By: #### L 501.9520, L501.9985, L100.0100, L500.4050 #### [facility] [address] [place], [address] ALK P 57 U/L Normal 45-117 [facility] Comment on above: Order Comment: Order Date: 02/25/24 Order Info: 0786-1 - CMP Order Info: 3040-3 - LIPASE Order Info: 3016-3 - TSH Performed By: #### L 501.9520, L501.9985, L100.0100, L500.4050 #### [facility] [address] [place], [place], [id number] ALT [Catalytic activity/Vol] 27 U/L Normal 16-61 [facility] Comment on above: Order Comment: Order Date: 02/25/24 Order Info: 0786-1 - CMP Order Info: 3040-3 - LIPASE Order Info: 3 - TSH Performed By: #### L 501.9520, L501.9985, L100.0100, L500.4050 #### [facility] [address] [place], [address] AST [Catalytic activity/Vol] 16 U/L Normal 15-37 [facility] Comment on above: Order Comment: Order Date: 02/25/24 Order Info: 071 - CMP Order Info: 3039-3 - LIPASE Order Info: 3016-01 - TSH Performed By: #### L 501.9520, L501.9985, L100.0100, L500.4050 #### [facility] [address] [place], [place], [id number] Bilirubin [Mass/Vol] 1.50 mg/dL High 0.20-1.00 [facility] Comment on above: Order Comment: Order Date: 02/25/24 Order Info: 07861 - CMP Order Info: 3040-3 - LIPASE Order Info: 3 - TSH Result Comment: For patients on eltrombopag therapy, use of Dimension [place] TBIL is not recommended. Performed By: #### L [id number], L501.9985, L100.0100, L500.4050 #### [facility] [address] [place], [address] BUN/CRE 14.7 RATIO Normal 10-20 [facility] Comment on above: Order Comment: Order Date: 02/25/24 Order Info: 0786-1 - CMP Order Info: 3040-3 - LIPASE Order Info: 3 - TSH Performed By: #### L 501.9520, L501.9985, L100.0100, L500.4050 #### [facility] [address] [place], [address] CA,Total 9.1 mg/dL Normal 8.5-10.1 [facility] Comment on above: Order Comment: Order Date: 02/25/24 Order Info: 0786-1 - CMP Order Info: 3040-3 - LIPASE Order Info: 3 - TSH Performed By: #### L 501.9520, L501.9985, L100.0100, L500.4050 #### [facility] [address] [place], [address] Chloride [Moles/Vol] 104 mmol/L Normal 98-107 [facility] Comment on above: Order Comment: Order Date: 02/25/24 Order Info: 785-1 - CMP Order Info: 3 - LIPASE Order Info: 3016-01 - TSH Performed By: #### L [id number], L501.9985, L100.0100, L500.4050 #### [facility] [address] [place], [address] CO2 [Moles/Vol] 25.0 mmol/L Normal 21.0-32.0 [facility] Comment on above: Order Comment: Order Date: 02/25/24 Order Info: 071 - CMP Order Info: 3 - LIPASE Order Info: 3 - TSH Performed By: #### L 501.9520, L501.9985, L100.0100, L500.4050 #### [facility] [address] [place], [address] Creatinine [Mass/Vol] 1.02 mg/dL Normal 0.70-1.30 [facility] Comment on above: Order Comment: Order Date: 02/25/24 Order Info: 0786-1 - CMP Order Info: 3040-3 - LIPASE Order Info: 3 - TSH Result Comment: The validity of the calculated GFR GFRAA in patients over 70 years has not been determined. Clinical correlation is essential. Performed By: #### L 501.9520, L501.9985, L100.0100, L500.4050 #### [facility] [address] [place], [address] EST GFR - AA 99 mL/min Normal >60 [facility] Comment on above: Order Comment: Order Date: 02/25/24 Order Info: 0786-1 - CMP Order Info: 3040-3 - LIPASE Order Info: 3015-3 - TSH Result Comment: Afri can [place] GFR Calc Performed By: #### L 501.9520, L501.9985, L100.0100, L500.4050 #### [facility] [address] [place], [address] GAP 8 Normal 5-15 [facility] Comment on above: Order Comment: Order Date: 02/25/24 Order Info: 0786-1 - CMP Order Info: 3 - LIPASE Order Info: 3 - TSH Performed By: #### L 501.9520, L501.9985, L100.0100, L500.4050 #### [facility] [address] [place], [address] GFR/1.73 sq M.predicted among non-blacks MDRD (S/P/Bld) [Vol rate/Area] 82 mL/min/{1.73_m2} Normal >60 [facility] Comment on above: Order Comment: Order Date: 02/25/24 Order Info: 0786-1 - CMP Order Info: 3040-3 - LIPASE Order Info: 3016-3 - TSH Result Comment: Non- GFR Calc Performed By: #### L 501.9520, L501.9985, L100.0100, L500.4050 #### [facility] [address] [place], [address] Globulin (S) [Mass/Vol] 3.6 g/dL Normal 2.2-4.2 [facility] Comment on above: Order Comment: Order Date: 02/25/24 Order Info: 785-1 - CMP Order Info: 3039-3 - LIPASE Order Info: 3 - TSH Performed By: #### L 501.9520, L501.9985, L100.0100, L500.4050 #### [facility] [address] [place], [address] Glucose [Mass/Vol] 281 mg/dL High 74-106 [facility] Comment on above: Order Comment: Order Date: 02/25/24 Order Info: 785-1 - CMP Order Info: 3039-3 - LIPASE Order Info: 3016-01 - TSH Result Comment: Gluc ose result greater than or equal to 200 mg/dL suggests DIABETES MELLITUS per A.D.A. criteria. Performed By: #### L 501.9520, L501.9985, L100.0100, L500.4050 #### [facility] [address] [place], [address] Potassium [Moles/Vol] 4.3 mmol/L Normal 3.5-5.1 [facility] Comment on above: Order Comment: Order Date: 02/25/24 Order Info: 785- - CMP Order Info: 3040-3 - LIPASE Order Info: 3016-01 - TSH Performed By: #### L 501.9520, L501.9985, L100.0100, L500.4050 #### [facility] [address] [place], [address] Sodium [Moles/Vol] 137 mmol/L Normal 136-145 [facility] Comment on above: Order Comment: Order Date: 02/25/24 Order Info: 785-1 - CMP Order Info: 304-3 - LIPASE Order Info: 3 - TSH Performed By: #### L 501.9520, L501.9985, L100.0100, L500.4050 #### [facility] [address] [place], [place], [address] T PROT 7.8 g/dL Normal 6.4-8.2 [facility] Comment on above: Order Comment: Order Date: 02/25/24 Order Info: 0786-1 - CMP Order Info: 3043 - LIPASE Order Info: 30163 - TSH Performed By: #### L 501.9520, L501.9985, L100.0100, L500.4050 #### [facility] [address] [facility] [place], [place], [address] Urea nitrogen [Mass/Vol] 15 mg/dL Normal 7-18 [facility] Comment on above: Order Comment: Order Date: 02/25/24 Order Info: 0786-1 - CMP Order Info: 30403 - LIPASE Order Info: 30163 - TSH Performed By: #### L 501.9520, L501.9985, L100.0100, L500.4050 #### [facility] [address] [facility] [place], [place], [id number] Determination of erythrocyte mean corpuscular volume (MCV)Ordered By: Zayda Ovalle on 02-25-2024 MCV (RBC) [Entitic vol] 86.4 fL 80-94 [facility] Erythrocyte distribution wid th ratioOrdered By: Zayda Ovalle on 02-25-2024 Erythrocyte distribution width (RBC) [Ratio] 14.7 % 11.6-14.6 [facility] Erythrocyte distribution wid th standard deviationOrdered By: Zayda Ovalle on 02-25-2024 Erythrocyte distribution width (RBC) [Entitic vol] 46.8 fL 35.1-43.9 [facility] Hematocrit Auto (Bld) [Volum e fraction]Ordered By: Zayda Ovalle on 02-25-2024 Hematocrit (Bld) [Volume fraction] 47.2 % 40-54 [facility] Hemoglobin A1con 02-25-2024 HbA1c (Bld) [Mass fraction] 7.9 % High 3.8-5.6 [facility] Comment on above: Order Comment: Order Date: 02/25/24 Order Info: 4548-4 - A1C Result Comment: Norm al < 5.7 % Prediabetic 5.7 - 6.4 % Diabetic >or= 6.5 % Please note range changes. Performed By: #### L 501.9558, L501.9985, L100.0100, L500.4050 #### [facility] [address] [place], [address] Immature granulocytes/100 WB C Auto (Bld)Ordered By: Zayda Ovalle on 02-25-2024 Immature granulocytes/100 WBC (Bld) 0.400 % 0.0-0.9 [facility] Comment on above: IG% - Immature Granu locytes (promyelocytes, myelocytes and metamyelocytes) > 1% indicates that a LEFT SHIFT is Present. Laboratory - Chemistry and C hemistry - challengeOrdered By: Zayda Ovalle on 02-25-2024 Albumin/Globulin [Mass ratio] 1.2 {ratio} 0.9-2.4 [facility] ALP [Catalytic activity/Vol] 57 U/L 45-117 [facility] ALT [Catalytic activity/Vol] 27 U/L 16-61 [facility] CO2 [Moles/Vol] 25.0 mmol/L 21.0-32.0 [facility] Globulin (S) [Mass/Vol] 3.6 g/dL 2.2-4.2 [facility] Lipase [Catalytic activity/Vol] 77 U/L 13-75 [facility] Comment on above: Please note:LIPASE r evised reference range effective 23. New Lipase methodology. Expected to produce lower values than the previous assay method. NEW Reference Range: 13 - 75 U/L Urea nitrogen/Creatinine [Mass ratio] 14.7 mg/mg 10-20 [facility] - Hematology and Cell countsOrdered By: Zayda Ovalle on 02-25-2024 MCH (RBC) [Entitic mass] 28.8 pg 27.0-32.0 [facility] MCHC (RBC) [Mass/Vol] 33.3 g/dL 32-36 [facility] Nucleated RBC/100 WBC (Bld) [Ratio] 0 % 0-5 [facility] Platelet mean volume (Bld) [Entitic vol] 11.3 fL 6.2-12.0 [facility] Platelets (Bld) [#/Vol] 141 10*3/uL 150-450 [facility] Lipaseon 02-25-2024 Lipase [Catalytic activity/Vol] 77 U/L High 13-75 [facility] Comment on above: Order Comment: Order Date: 02/25/24 Order Info: 0786-1 - CMP Order Info: 3040-3 - LIPASE Order Info: 3016-3 - TSH Result Comment: Hermelinda vasquez note: LIPASE revised reference range effective 23. New Lipase methodology. Expected to produce lower values than the previous assay method. NEW Reference Range: 13 - 75 U/L Performed By: #### L 501.2450 #### [facility] [address] [place], [address] No Panel InformationOrdered By: Zayda Ovalle on 02-25-2024 Estimated GFR (MDRD) Amer 99 mL/min >60 [facility] Comment on above: GFR Calc Estimated GFR (MDRD) Non-Af Amer 82 mL/min >60 [facility] Comment on above: Non- GFR Calc RBC Auto (Bld) [#/Vol]Ordere d By: Zayda Ovalle on 02-25-2024 RBC (Bld) [#/Vol] 5.46 10*6/uL 4.6-6.2 [facility] Serum or plasma calcium juan carlos urement (mass/volume)Ordered By: Zayda Ovalle on 02-25-2024 Calcium [Mass/Vol] 9.1 mg/dL 8.5-10.1 [facility] Serum or plasma creatinine m easurement (mass/volume)Ordered By: Zayda Ovalle on 02-25-2024 Creatinine [Mass/Vol] 1.02 mg/dL 0.70-1.30 [facility] Comment on above: The validity of the calculated GFR & GFRAA in patients over 70 years has not been determined. Clinical correlation is essential. Serum or plasma thyroid stim ulating hormone (TSH) measurement (units/volume)Ordered By: Zadya Ovalle on 02-25-2024 TSH Qn 1.06 uIU/mL 0.358-3.74 [facility] Serum or plasma urea nitroge n measurement (mass/volume)Ordered By: Zayda Ovalle on 02-25-2024 Urea nitrogen [Mass/Vol] 15 mg/dL 7-18 [facility] Thin prep Papanicolaou smear with manual screeningOrdered By: Zayda Ovalle on 02-25-2024 Thin prep Papanicolaou smear with manual screening 4.2 g/dL 3.2-5.0 [facility] Thin prep Papanicolaou smear with manual screening 16 U/L 15-37 [facility] Thin prep Papanicolaou smear with manual screening 8 5-15 [facility] Thyroid Stim Hormone (TSH)on 02-25-2024 TSH 1.06 uIU/mL Normal 0.358-3.74 [facility] Comment on above: Order Comment: Order Date: 02/25/24 Order Info: 0786-1 - CMP Order Info: 3040-3 - LIPASE Order Info: 3016-3 - TSH Performed By: #### L 501.9520, L501.9985, L100.0100, L500.4050 #### [facility] [place], [address] Whole blood hemoglobin A1c/t otal hemoglobin ratio (mass fraction)Ordered By: Zayda Ovalle on 02-25-2024 HbA1c (Bld) [Mass fraction] 7.9 % 3.8-5.6 [facility] Comment on above: Normal < 5.7 % Predi abetic 5.7 - 6.4 % Diabetic >or= 6.5 % Please note range changes. Established Visit (Pulmonary Medicine)on 06-06-2023 Established Visit (Pulmonary Medicine) No report was sent Normal [facility] Glucose Glucometer (BldC) [M ass/Vol]Ordered By: Nelson Andrews on 05-21-2023 Glucose [Mass/Vol] 77 mg/dL 74-106 [facility] Comment on above: MANAGEMENT OF PATIEN T CARE PER NURSING PROTOCOL Absolute lymphocyte countOrd ered By: Dr. Ovalle on 03-16-2023 Lymphocytes Auto (Unsp spec) [#/Vol] 1.80 10*3/uL 0.83-4.51 [facility] Basophil percentageOrdered B y: Dr. Ovalle on 03-16-2023 Basophils/100 WBC (Bld) 0.6 % 0-1 [facility] Bilirubin [Mass/Vol] 0.90 mg/dL 0.20-1.00 [facility] Comment on above: For patients on eltr ombopag therapy, use of Dimension [place] TBIL is not recommended. Chloride [Moles/Vol] 108 mmol/L 98-107 [facility] Eosinophils/100 WBC (Bld) 7.5 % 0-5 [facility] Glucose [Mass/Vol] 260 mg/dL 74-106 [facility] Comment on above: Glucose result great er than or equal to 200 mg/dLsuggests DIABETES MELLITUS per A.D.A. criteria. Neutrophils (Bld) [#/Vol] 5.1 10*3/uL 2.0-7.7 [facility] Neutrophils/100 WBC (Bld) 63.1 % 47-70 [facility] Potassium [Moles/Vol] 4.1 mmol/L 3.5-5.1 [facility] Protein [Mass/Vol] 7.8 g/dL 6.4-8.2 [facility] Sodium [Moles/Vol] 135 mmol/L 136-145 [facility] WBC (Bld) [#/Vol] 8.1 10*3/uL 4.4-11.0 [facility] Blood erythrocytes count (nu mber/volume)Ordered By: Dr. Ovalle on 03-16-2023 RBC (Bld) [#/Vol] 5.42 10*6/uL 4.6-6.2 [facility] Blood hemoglobin measurement (mass/volume)Ordered By: Dr. Ovalle on 03-16-2023 Hemoglobin (Bld) [Mass/Vol] 16.7 g/dL 13.0-16.5 [facility] Blood lymphocytes/100 leukoc ytesOrdered By: Dr. Ovalle on 03-16-2023 Lymphocytes/100 WBC (Bld) 22.2 % 19-41 [facility] Blood monocytes/100 leukocyt esOrdered By: Dr. Ovalle on 03-16-2023 Monocytes/100 WBC (Bld) 6.4 % 0-10 [facility] Blood platelet mean volumeOr dered By: Dr. Ovalle on 03-16-2023 Platelet mean volume (Bld) [Entitic vol] 11.7 fL 6.2-12.0 [facility] Determination of erythrocyte mean corpuscular volume (MCV)Ordered By: Dr. Ovalle on 03-16-2023 MCV (RBC) [Entitic vol] 86.9 fL 80-94 [facility] Hematocrit Auto (Bld) [Volum e fraction]Ordered By: Dr. Ovalle on 03-16-2023 Hematocrit (Bld) [Volume fraction] 47.1 % 40-54 [facility] INR in Blood by Coagulation assayOrdered By: Dr. Ovalle on 03-16-2023 INR Coag (Bld) [Relative time] 1.1 {INR} [facility] Laboratory - Chemistry and C hemistry - challengeOrdered By: Dr. Ovalle on 03-16-2023 ALP [Catalytic activity/Vol] 58 U/L 45-117 [facility] ALT [Catalytic activity/Vol] 56 U/L 16-61 [facility] CO2 [Moles/Vol] 25.0 mmol/L 21.0-32.0 [facility] Globulin (S) [Mass/Vol] 3.8 g/dL 2.2-4.2 [facility] Urea nitrogen/Creatinine [Mass ratio] 20.9 mg/mg 10-20 [facility] Laboratory - CoagulationOrde red By: Dr. Ovalle on 03-16-2023 PT Coag (PPP) [Time] 13.8 s 11.7-14.9 [facility] Laboratory - Hematology and Cell countsOrdered By: Dr. Ovalle on 03-16-2023 Erythrocyte distribution width (RBC) [Entitic vol] 48.3 fL 35.1-43.9 [facility] Erythrocyte distribution width (RBC) [Ratio] 15.3 % 11.6-14.6 [facility] Immature granulocytes/100 WBC (Bld) 0.200 % 0.0-0.9 [facility] Comment on above: IG% - Immature Granu locytes (promyelocytes, myelocytes and metamyelocytes) > 1% indicates that a LEFT SHIFT is Present. MCH (RBC) [Entitic mass] 30.8 pg 27.0-32.0 [facility] Nucleated RBC/100 WBC (Bld) [Ratio] 0 % 0-5 [facility] MCHC Auto (RBC) [Mass/Vol]Or dered By: Dr. Ovalle on 03-16-2023 MCHC (RBC) [Mass/Vol] 35.5 g/dL 32-36 [facility] No Panel InformationOrdered By: Dr. Ovalle on 03-16-2023 Estimated GFR (MDRD) Amer 113 mL/min >60 [facility] Comment on above: GFR Calc Estimated GFR (MDRD) Non-Af Amer 94 mL/min >60 [facility] Comment on above: Non- GFR Calc Lead < 1.0 ug/dL 0.0-3.4 [facility] Comment on above: Testing performed by Inductively coupled plasma/MassSpectrometry.Analysis by inductively coupled plasma/massspectrometry (ICP/MS) Environmental Exposure: WHO Recommendation <20.0 Occupational Exposure: OSHA Lead Std 40.0 KRISTINA 30.0 Detection Limit = 1.0Performed at: [facility] [place] [id number] Director: Lavell Olmedo PhD, Phone: [phone] Miscellaneous Test See comment [facility] Comment on above: TEST RESULTS LIMITSC admium, Blood A, <0.5 None ug/L 0.0-1.2 Environmental Exposure: Nonsmokers 0.3 - 1.2 Smokers 0.6 - 3.9 Occupational Exposure: OSHA Cadmium Std 5.0 KRISTINA 5.0 Detection Limit = 0.5 [facility] ORIGINAL REPORT ON FILE IN LAB CONTAINS ADDITIONAL TEST SITE INFORMATION. Platelets bldOrdered By: Dr. Ovalle on 03-16-2023 Platelets (Bld) [#/Vol] 140 10*3/uL 150-450 [facility] Serum or plasma albumin juan carlos urement (mass/volume)Ordered By: Dr. Ovalle on 03-16-2023 Albumin [Mass/Vol] 4.0 g/dL 3.2-5.0 [facility] Serum or plasma albumin/glob ulin mass ratioOrdered By: Dr. Ovalle on 03-16-2023 Albumin/Globulin [Mass ratio] 1.1 {ratio} 0.9-2.4 [facility] Serum or plasma calcium juan carlos urement (mass/volume)Ordered By: Dr. Ovalle on 03-16-2023 Calcium [Mass/Vol] 9.6 mg/dL 8.5-10.1 [facility] Serum or plasma creatinine m easurement (mass/volume)Ordered By: Dr. Ovalle on 03-16-2023 Creatinine [Mass/Vol] 0.91 mg/dL 0.70-1.30 [facility] Comment on above: The validity of the calculated GFR & GFRAA in patients over 70 years has not been determined. Clinical correlation is essential. Serum or plasma ferritin lm surement (mass/volume)Ordered By: Dr. Ovalle on 03-16-2023 Ferritin [Mass/Vol] 182 ng/mL 26-388 [facility] Serum or plasma urea nitroge n measurement (mass/volume)Ordered By: Dr. Ovalle on 03-16-2023 Urea nitrogen [Mass/Vol] 19 mg/dL 7-18 [facility] Thin prep Papanicolaou smear with manual screeningOrdered By: Dr. Ovalle on 03-16-2023 Thin prep Papanicolaou smear with manual screening 28 U/L 15-37 [facility] Thin prep Papanicolaou smear with manual screening 2 5-15 [facility] Established Visit (Pulmonary Medicine)on 02-08-2023 Established Visit (Pulmonary Medicine) No report was sent Normal [facility] Absolute lymphocyte countOrd ered By: Dr. Ovalle on 12-18-2022 Lymphocytes Auto (Unsp spec) [#/Vol] 1.88 10*3/uL 0.83-4.51 [facility] Basophil percentageOrdered B y: Dr. Ovalle on 12-18-2022 Basophils/100 WBC (Bld) 0.5 % 0-1 [facility] Bilirubin [Mass/Vol] 1.30 mg/dL 0.20-1.00 [facility] Comment on above: For patients on eltr ombopag therapy, use of Dimension [place] TBIL is not recommended. Chloride [Moles/Vol] 104 mmol/L 98-107 [facility] Eosinophils/100 WBC (Bld) 6.4 % 0-5 [facility] Glucose [Mass/Vol] 215 mg/dL 74-106 [facility] Comment on above: Glucose result great er than or equal to 200 mg/dLsuggests DIABETES MELLITUS per A.D.A. criteria. Neutrophils (Bld) [#/Vol] 4.7 10*3/uL 2.0-7.7 [facility] Neutrophils/100 WBC (Bld) 61.1 % 47-70 [facility] Potassium [Moles/Vol] 3.9 mmol/L 3.5-5.1 [facility] Protein [Mass/Vol] 7.9 g/dL 6.4-8.2 [facility] Sodium [Moles/Vol] 137 mmol/L 136-145 [facility] WBC (Bld) [#/Vol] 7.7 10*3/uL 4.4-11.0 [facility] Blood erythrocytes count (nu mber/volume)Ordered By: Dr. Ovalle on 12-18-2022 RBC (Bld) [#/Vol] 5.73 10*6/uL 4.6-6.2 [facility] Blood hemoglobin measurement (mass/volume)Ordered By: Dr. Ovalle on 12-18-2022 Hemoglobin (Bld) [Mass/Vol] 17.2 g/dL 13.0-16.5 [facility] Blood lymphocytes/100 leukoc ytesOrdered By: Dr. Ovalle on 12-18-2022 Lymphocytes/100 WBC (Bld) 24.4 % 19-41 [facility] Blood monocytes/100 leukocyt esOrdered By: Dr. Ovalle on 12-18-2022 Monocytes/100 WBC (Bld) 7.3 % 0-10 [facility] Blood platelet mean volumeOr dered By: Dr. Ovalle on 12-18-2022 Platelet mean volume (Bld) [Entitic vol] 11.5 fL 6.2-12.0 [facility] Determination of erythrocyte mean corpuscular volume (MCV)Ordered By: Dr. Ovalle on 12-18-2022 MCV (RBC) [Entitic vol] 85.9 fL 80-94 [facility] Hematocrit Auto (Bld) [Volum e fraction]Ordered By: Dr. Ovalle on 12-18-2022 Hematocrit (Bld) [Volume fraction] 49.2 % 40-54 [facility] Laboratory - Chemistry and C hemistry - challengeOrdered By: Dr. Ovalle on 12-18-2022 ALP [Catalytic activity/Vol] 60 U/L 45-117 [facility] ALT [Catalytic activity/Vol] 53 U/L 16-61 [facility] CO2 [Moles/Vol] 27.0 mmol/L 21.0-32.0 [facility] Cobalamin (Vitamin B12) [Mass/Vol] 822 pg/mL 211-911 [facility] Globulin (S) [Mass/Vol] 4.0 g/dL 2.2-4.2 [facility] Urea nitrogen/Creatinine [Mass ratio] 18.9 mg/mg 10-20 [facility] Laboratory - Drug toxicology Ordered By: Dr. Ovalle on 12-18-2022 Amphetamines Ql (U) Negative <1000 ng/mL [facility] Benzodiazepines Ql (U) Negative < 200 ng/mL [facility] Cannabinoids Screen Ql (U) Positive < 50 ng/mL [facility] Cocaine Ql (U) Negative < 300 ng/mL [facility] Opiates Ql (U) Negative < 300 ng/mL [facility] Laboratory - Hematology and Cell countsOrdered By: Dr. Ovalle on 12-18-2022 Erythrocyte distribution width (RBC) [Entitic vol] 45.8 fL 35.1-43.9 [facility] Erythrocyte distribution width (RBC) [Ratio] 14.7 % 11.6-14.6 [facility] Immature granulocytes/100 WBC (Bld) 0.300 % 0.0-0.9 [facility] Comment on above: IG% - Immature Granu locytes (promyelocytes, myelocytes and metamyelocytes) > 1% indicates that a LEFT SHIFT is Present. MCH (RBC) [Entitic mass] 30.0 pg 27.0-32.0 [facility] Nucleated RBC/100 WBC (Bld) [Ratio] 0 % 0-5 [facility] Auto (RBC) [Mass/Vol]Or dered By: Dr. Ovalle on 12-18-2022 MCHC (RBC) [Mass/Vol] 35.0 g/dL 32-36 [facility] No Panel InformationOrdered By: Dr. Ovalle on 12-18-2022 Estimated GFR (MDRD) Amer 124 mL/min >60 [facility] Comment on above: GFR Calc Estimated GFR (MDRD) Non-Af Amer 102 mL/min >60 [facility] Comment on above: Non- GFR Calc MDMA (Ecstasy) Screen Negative < 500 ng/mL [facility] Miscellaneous Test See comment [facility] Comment on above: TEST RESULT LIMITSOx ycodone/Oxymorphone, Urine Oxycodone/Oxymorph Positive Utjriz=162 Test includes Oxycodone and Oxymorphone Oxycodone Positive Oxycodone Conf, MS, UR 242 ng/mL Ayxtld=520 Oxycodone detected; this finding is consistent with use of medications that include Oxycontin, Percodan, Percocet, Tylox, or generic formulations. Drugs listed are parts representative of common sources of the compound detected and are not intended to include all possible sources. Oxymorphone Positive Oxymorphone Conf, MS, UR 235 ng/mL Fbumzp=537 Oxymorphone detected; this finding is consistent with use of medications that include Numorphan, Opana, or drugs containing Oxycodone, or generic formulations. Drugs listed are parts representative of common sources of the compound detected and are not intended to include all possible sources. Please Note: Drug-test results should be interpreted in the context of clinical information. Patient metabolic variables, specific drug chemistry, and specimen characteristics can affect test outcome. Technical consultation is available if a test result is inconsistent with an expected outcome. (email- [email or web address] or call toll-free [phone]) TESTING PERFORMED AT [facility]. ORIGINAL REPORT ON FILE IN LAB CONTAINS ADDITIONAL TEST SITE INFORMATION. TEST RESULT LIMITSOp iate/Opioid Confirmation, UR Creatinine 173 mg/dL REFERENCE RANGE: Ref Range>=20 OPIATE CLASS Negative Codeine Not Detected ng/mg creat Morphine Not Detected ng/mg creat Normorphine Not Detected ng/mg creat Norcodeine Not Detected ng/mg creat Hydrocodone Not Detected ng/mg creat Hydromorphone Not Detected ng/mg creat Dihydrocodeine Not Detected ng/mg creat Norhydrocodone Not Detected ng/mg creat Expected metabolism of opiate class drugs: Parent Drug Detected Metabolites Codeine: Major: Morphine, Norcodeine Minor: Hydrocodone, Hydromorphone, Dihydrocodeine, Norhydrocodone, Normorphine Morphine: Major: Normorphine Minor: Hydromorphone Hydrocodone: Hydromorphone, Dihydrocodeine, Norhydrocodone Hydromorphone: None Dihydrocodeine: None Heroin: 6-Acetylmorphine (if included), Morphine, Normorphine Codeine, in small amounts in comparison to morphine, is often detected when heroin is the source drug.OXYCODONE CLASS +POSITIVE+ Oxycodone 105 ng/mg creat Oxymorphone 175 ng/mg creat Noroxycodone 584 ng/mg creat Noroxymorphone 56 ng/mg creat Expected metabolism of oxycodone class drugs: Parent Drug Detected Metabolites Oxycodone: Oxymorphone, Noroxycodone, Noroxymorphone Oxymorphone: Noroxymorphone METHADONE Negative Methadone Not Detected ng/mg creat EDDP (Methadone Mtb) Not Detected ng/mg creat FENTANYL / ANALOGUES Negative Fentanyl Not Detected ng/mg creat Norfentanyl Not Detected ng/mg creat Sufentanil Not Detected ng/mg creat Alfentanil Not Detected ng/mg creat BUPRENORPHINE Negative Buprenorphine Not Detected ng/mg creat Norbuprenorphine Not Detected ng/mg creat TAPENTADOL Negative Tapentadol Not Detected ng/mg creat OTHER OPIOIDS Negative Tramadol Not Detected ng/mg creat O-Desmethyltramadol Not Detected ng/mg creat N-Desmethyltramadol Not Detected ng/mg creat Analysis performed by chromatography/mass spectrometry. Testing thresholds (prior to creatinine normalization) are as follows: BUPRENORPHINE: buprenorphine-1.0 ng/mL, norbuprenorphine-5 ng/mL; FENTANYL / ANALOGUES: fentanyl-1.0 ng/mL, others-5.0 ng/mL; METHADONE: 50 ng/mL; OPIATE CLASS: 50 ng/mL; OXYCODONE CLASS: 50 ng/mL; TAPENTADOL: 50 ng/mL; TRAMADOL: 50 ng/mL This test was developed and its performance characteristics determined by [facility]. It has not been cleared or approved by the Food and Drug Administration. TESTING PERFORMED AT [facility]. ORIGINAL REPORT ON FILE IN LAB CONTAINS ADDITIONAL TEST SITE INFORMATION. Parathyroid Hormone (Intact) 26.5 pg/mL 18.4-80.1 [facility] Urine Barbiturates Screen Negative < 200 ng/mL [facility] Urine Drug Screen Comment [facility] Comment on above: CONFIRMATORY TESTING FOR ALL POSITIVE URINE DRUG SCREENRESULTS WILL ONLY BE SENT OUT UPON PHYSICIAN ORDER. VISTA Urine Drug Screen methods provide only preliminaryanalytical test results. A more specific alternate chemicalmethod must be used in order to obtain a confirmedanalytical result. Gas chromatography/mass spectrometery(GC/MS) is the preferred confirmatory method. Clinicalconsideration and professional judgement should be appliedto any drug of abuse test result, particularly whenpreliminary positive results are used. URINE TCA TESTING MUST BE ORDERED SEPARATELY. USE TESTMNEMONIC: [facility] Urine Methadone Screen Negative < 300 ng/mL [facility] Urine Microalbumin/Creatini ne Ratio 157.0 mg/g CRE <30 [facility] Vitamin D 25-Hydroxy 14.7 ng/mL [facility] Comment on above: Vitamin D 25(OH) Sta tus Range Deficiency <20 ng/mL (50nmol/L) Insufficiency 20 - 30 ng/mL (50 - 75 nmol/L) Sufficiency 30 - 100 ng/mL (75 - 250 nmol/L) Toxicity >100 ng/mL (>250 nmol/L) Platelets bldOrdered By: Dr. Ovalle on 12-18-2022 Platelets (Bld) [#/Vol] 129 10*3/uL 150-450 [facility] Serum or plasma albumin juan carlos urement (mass/volume)Ordered By: Dr. Ovalle on 12-18-2022 Albumin [Mass/Vol] 3.9 g/dL 3.2-5.0 [facility] Serum or plasma albumin/glob ulin mass ratioOrdered By: Dr. Ovalle on 12-18-2022 Albumin/Globulin [Mass ratio] 1.0 {ratio} 0.9-2.4 [facility] Serum or plasma calcium juan carlos urement (mass/volume)Ordered By: Dr. Ovalle on 12-18-2022 Calcium [Mass/Vol] 9.1 mg/dL 8.5-10.1 [facility] Serum or plasma creatinine m easurement (mass/volume)Ordered By: Dr. Ovalle on 12-18-2022 Creatinine [Mass/Vol] 0.84 mg/dL 0.70-1.30 [facility] Comment on above: The validity of the calculated GFR & GFRAA in patients over 70 years has not been determined. Clinical correlation is essential. Serum or plasma ferritin lm surement (mass/volume)Ordered By: Dr. Ovalle on 12-18-2022 Ferritin [Mass/Vol] 257 ng/mL 26-388 [facility] Serum or plasma folate measu rement (mass/volume)Ordered By: Dr. Ovalle on 12-18-2022 Folate [Mass/Vol] 16.40 ng/mL 3.1-55.4 [facility] Serum or plasma urea nitroge n measurement (mass/volume)Ordered By: Dr. Ovalle on 12-18-2022 Urea nitrogen [Mass/Vol] 16 mg/dL 7-18 [facility] Thin prep Papanicolaou smear with manual screeningOrdered By: Dr. Ovalle on 12-18-2022 Thin prep Papanicolaou smear with manual screening 29 U/L 15-37 [facility] Thin prep Papanicolaou smear with manual screening 6 5-15 [facility] Thin prep Papanicolaou smear with manual screening 292.0 mg/L NO RANGE EST. [facility] Urine creatinine measurement (mass/volume)Ordered By: Dr. Ovalle on 12-18-2022 Creatinine (U) [Mass/Vol] 186.00 mg/dL NO RANGE EST. [facility] Urine phencyclidine (PCP) de tectionOrdered By: Dr. Ovalle on 12-18-2022 Phencyclidine Ql (U) Negative < 25 ng/mL [facility] Whole blood hemoglobin A1c/t otal hemoglobin ratio (mass fraction)Ordered By: Dr. Ovalle on 12-18-2022 HbA1c (Bld) [Mass fraction] 8.8 % 3.8-5.6 [facility] Comment on above: Normal < 5.7 % Predi abetic 5.7 - 6.4 % Diabetic >or= 6.5 % Please note range changes. No Panel InformationOrdered By: Dr. Ovalle on 09-19-2022 Urine Oxycodone Screen Positive <100 ng/mL [facility] Absolute lymphocyte counton 05-15-2022 Lymphocytes Auto (Unsp spec) [#/Vol] 1.24 10*3/uL 0.83-4.51 [facility] Work Phone: Basophil percentageon 2021 Basophils/100 WBC (Bld) 0.7 % 0-1 [facility] Work Phone: Bilirubin [Mass/Vol] 1.00 mg/dL 0.20-1.00 [facility] Work Phone: Comment on above: For patients on eltr ombopag therapy, use of Dimension [place] TBIL is not recommended. Chloride [Moles/Vol] 109 mmol/L 98-107 [facility] Work Phone: Eosinophils/100 WBC (Bld) 5.2 % 0-5 [facility] Work Phone: Glucose [Mass/Vol] 204 mg/dL 74-106 [facility] Work Phone: Comment on above: Glucose result great er than or equal to 200 mg/dLsuggests DIABETES MELLITUS per A.D.A. criteria. Neutrophils (Bld) [#/Vol] 3.7 10*3/uL 2.0-7.7 [facility] Work Phone: Neutrophils/100 WBC (Bld) 66.5 % 47-70 [facility] Work Phone: Potassium [Moles/Vol] 4.2 mmol/L 3.5-5.1 [facility]: Protein [Mass/Vol] 6.7 g/dL 6.4-8.2 [facility] Work Phone: Sodium [Moles/Vol] 139 mmol/L 136-145 [facility] Work Phone: WBC (Bld) [#/Vol] 5.6 10*3/uL 4.4-11.0 [facility] Work Phone: Blood erythrocytes count (nu mber/volume)on 05-15-2022 RBC (Bld) [#/Vol] 5.26 10*6/uL 4.6-6.2 [facility] Work Phone: Blood hemoglobin measurement (mass/volume)on 05-15-2022 Hemoglobin (Bld) [Mass/Vol] 15.5 g/dL 13.0-16.5 [facility] Work Phone: Blood lymphocytes/100 leukoc yteson 05-15-2022 Lymphocytes/100 WBC (Bld) 22.1 % 19-41 [facility] Work Phone: Blood monocytes/100 leukocyt eson 05-15-2022 Monocytes/100 WBC (Bld) 5.3 % 0-10 [facility] Work Phone: [phone] Blood platelet mean volumeon 05-15-2022 Platelet mean volume (Bld) [Entitic vol] 11.6 fL 6.2-12.0 [facility] Work Phone: [phone] Determination of erythrocyte mean corpuscular volume (MCV)on 05-15-2022 MCV (RBC) [Entitic vol] 88.0 fL 80-94 [facility] Work Phone: [phone] Hematocrit Auto (Bld) [Volum e fraction]on 05-15-2022 Hematocrit (Bld) [Volume fraction] 46.3 % 40-54 [facility] Work Phone: [phone] Laboratory - Chemistry and C hemistry - challengeon 05-15-2022 ALP [Catalytic activity/Vol] 53 U/L 45-117 [facility] Work Phone: [phone] ALT [Catalytic activity/Vol] 37 U/L 16-61 [facility] Work Phone: [phone] CO2 [Moles/Vol] 26.0 mmol/L 21.0-32.0 [facility] Work Phone: [phone] Globulin (S) [Mass/Vol] 3.1 g/dL 2.2-4.2 [facility] Work Phone: [phone] Lipase [Catalytic activity/Vol] 1573 U/L 73-393 [facility] Work Phone: [phone] Urea nitrogen/Creatinine [Mass ratio] 20.0 mg/mg 10- [facility] Work Phone: [phone] Laboratory - Hematology and Cell countson 05-15-2022 Erythrocyte distribution width (RBC) [Entitic vol] 47.0 fL 35.1-43.9 [facility] Work Phone: [phone] Erythrocyte distribution width (RBC) [Ratio] 14.5 % 11.6-14.6 [facility] Work Phone: [phone] Immature granulocytes/100 WBC (Bld) 0.200 % 0.0-0.9 [facility] Work Phone: Comment on above: IG% - Immature Granu locytes (promyelocytes, myelocytes and metamyelocytes) > 1% indicates that a LEFT SHIFT is Present. MCH (RBC) [Entitic mass] 29.5 pg 27.0-32.0 [facility] Work Phone: Nucleated RBC/100 WBC (Bld) [Ratio] 0 % 0-5 [facility] Work Phone: [phone] MCHC Auto (RBC) [Mass/Vol]on 05-15-2022 MCHC (RBC) [Mass/Vol] 33.5 g/dL 32-36 [facility] Work Phone: No Panel Informationon 05-15 Estimated GFR (MDRD) Amer 123 mL/min >60 [facility] Work Phone: Comment on above: GFR Calc Estimated GFR (MDRD) Non-Af Amer 102 mL/min >60 [facility] Work Phone: Comment on above: Non- GFR Calc Platelets bldon 05-15-2022 Platelets (Bld) [#/Vol] 154 10*3/uL 150-450 [facility] Work Phone: Serum or plasma C reactive p rotein measurement (mass/volume)on 05-15-2022 CRP [Mass/Vol] mg/L 0.0-3.0 [facility] Work Phone: Comment on above: C-Reactive Protein ( CRP) provides useful information for thediagnosis, therapy and monitoring of inflammatory processesand associated diseases. For the evaluation of Relative Riskfor Cardiovascular Disease, a High Sensitivity CRP (HSCRP)should be ordered. Serum or plasma albumin juan carlos urement (mass/volume)on 05-15-2022 Albumin [Mass/Vol] 3.6 g/dL 3.2-5.0 [facility] Work Phone: Serum or plasma albumin/glob ulin mass ratioon 05-15-2022 Albumin/Globulin [Mass ratio] 1.2 {ratio} 0.9-2.4 [facility] Work Phone: Serum or plasma calcium juan carlos urement (mass/volume)on 05-15-2022 Calcium [Mass/Vol] 8.7 mg/dL 8.5-10.1 [facility] Work Phone: Serum or plasma creatinine m easurement (mass/volume)on 05-15-2022 Creatinine [Mass/Vol] 0.85 mg/dL 0.70-1.30 [facility] Work Phone: Comment on above: The validity of the calculated GFR & GFRAA in patients over 70 years has not been determined. Clinical correlation is essential. Serum or plasma urea nitroge n measurement (mass/volume)on 05-15-2022 Urea nitrogen [Mass/Vol] 17 mg/dL 7-18 [facility] Work Phone: Thin prep Papanicolaou smear with manual screeningon 05-15-2022 Thin prep Papanicolaou smear with manual screening 22 U/L 15-37 [facility] Work Phone: Thin prep Papanicolaou smear with manual screening 4 5-15 [facility] Work Phone: CORONAVIRUS 2019, SCREEN ASY MPTOMATICon 05-11-2021 SARS-CoV-2 (COVID-19) RNA JOSIE+probe Ql (Unsp spec) Not detected Normal Not Detected [facility] Comment on above: Result Comment: . This assay is designed to detect the N, ORF1ab and/or S genes of SARS-CoV-2 via nucleic acid amplification. A Negative (NOT DETECTED) result does not preclude 2019-nCoV infection since the adequacy of sample collection and/or low viral burden may result in presence of viral nucleic acids below the clinical sensitivity of this test method. Negative (NOT DETECTED) result should not be used as the sole basis for treatment or other patient management decisions. Rather negative results should be combined with clinical observations, patient history, and epidemiological information to make patient management decisions. Fact sheet for providers: https://www.fda.gov/media/077811/download Fact sheet for patients: https://www.fda.gov/media/102264/download This test has received FDA Emergency Use Authorization (EUA) and has been verified by [facility] ([facility]). This test is only authorized for the duration of time that circumstances exist to justify the authorization of the emergency use of in vitro diagnostic tests for the detection of SARS-CoV-2 virus and/or diagnosis of COVID-19 infection under section 564(b)(1) of the Act, 21 U.S.C. 360bbb-3(b)(1), unless the authorization is terminated or revoked sooner. [facility] is certified under CLIA-88 as qualified to perform high complexity testing. Testing is performed in the [facility] laboratories located at [address] [place] [address]. Performed By: #### [facility] #### [address] [place] [address] Covid 19 Resultson 1 SARS-CoV-2 (COVID-19) RNA JOSIE+probe Ql (Unsp spec) NEGATIVE COVID-19 Test Coronaviruses are common world-wide and are the cause of many common colds. SARS-COV2 is a new coronavirus that began circulating worldwide in 2019 so we are calling it COVID-19. It has been estimated that four out of five patients with COVID-19 will recover at home without the need for medical attention. Symptoms of COVID-19 may include cough, fever, shortness of breath, loss of taste or smell and other flu-like symptoms including chills, sore muscles, sore throat, and headache. Severe illness is more common in older people and people with other health problems such as high blood pressure, obesity, and immune system problems. If the test is positive, you have COVID-19. You will be contacted by the ordering physicians office and instructed to remain on home isolation, in accordance with CDC guidelines. You may also be contacted by the [facility] to see if any of your close contacts may have been exposed to the virus and need to quarantine. If the test is negative, you likely do not have COVID-19 at this time, but you still may have a different illness that can spread to other people (like Influenza, or the Flu) and could still be at risk for getting COVID-19. We recommend that you stay away from other people to limit the spread of illness until your symptoms are improving and you are fever-free for 24 hours without the use of fever lowering medications such as acetaminophen or ibuprofen. No test is 100% accurate so if you are still concerned you may have COVID-19, talk to your doctor about the need to continue to stay away from others. Medicines Unless your provider told you not to use the following: Acetaminophen (Tylenol and others) is generally safe. Anti-inflammatory medications, such as Ibuprofen (Advil or Motrin) or Naproxen (Aleve) can also be used. Utcg-fay-yplokix cough and cold medicines can be used according to the instructions on the package. Some xqvj-bwr-zaxllqo medicines also contain acetaminophen. Make sure you are not taking more than your recommended dose. For those not hospitalized, there is no specific treatment available for this illness. Antibiotics do not treat Coronaviruses. Follow-Up Follow up with your doctor by scheduling a virtual visit or consider follow-up at one of our urgent care fever clinics. If you are having difficulty breathing, or are very weak and having difficulty standing, this is a medical emergency. Call 911 or have someone take you to the nearest emergency room immediately. If possible, wear a facemask. Additional guidance from the CDC for patients who tested POSITIVE for COVID-19 How to isolate: Isolate yourself in a specific room at home and limit your contact with others. Use a separate bathroom from other members of the household, when possible. Leave home only to get essential medical care. Do not go to work, school or public areas. Avoid using public transportation, ride-sharing, or taxis. Restrict contact with pets and other animals. If you must care for your pet or be around animals while you are sick, wash your hands before and after your interaction and wear a facemask. Make sure that shared spaces in the home have good airflow, such as by an air conditioner or an opened window, weather permitting. Personal Hygiene Procedures: Wear a face mask when in the same room as other people or pets. If a face mask interferes with your breathing, others should wear a mask when sharing space with you. Frequent hand-washing: wash your hands with soap and water for at least 20 seconds. If soap and water are not available, use alcohol-based hand stone banker. Avoid touching your eyes, nose, and mouth with unwashed hands. Household Hygiene Procedures: Avoid sharing personal household items such as dishes, glassware, cups, eating utensils, towels or bedding with other people or pets in your home. After use, these items should be washed with soap and hot water. Disinfect all high-touch surfaces every day with antibacterial cleaning solutions such as Lysol wipes, bleach, cleansers, etc. High-touch surfaces include tabletops, doorknobs, bathroom fixtures, toilets, phones, keyboards, tablets and bedside tables. Immediately clean any surfaces that may have blood, poop or body fluids on them, using antibacterial cleaning solutions such as Lysol wipes, bleach, cleansers, etc. If clothing or bedding come into contact with blood, poop or body fluids, they should be washed immediately. Follow the directions on the laundry detergent and clothing labels but hot water is recommended when possible. Stopping home isolation precautions: If possible, consult your doctor before stopping home isolation precautions. According to the CDC, you can discontinue home isolation precautions when you have met both of these criteria: Your fever and respiratory symptoms have been gone for 24 jesus (more content not included)... Normal [facility] CORONAVIRUS 2019, SCREEN ASY MPTOMATICon 05-10-2021 Lab Specimen Source Nasal, Nasopharyngeal Normal [facility] Comment on above: Performed By: #### C OVSC #### [facility] [id number] [place] [address] Coronavirus 2019 RNA by PCR, Screening Asymptomticon 05-10-2021 Coronavirus 2019 RNA by PCR, Screening Asymptomtic Not detected Normal See Below [facility] [place] [facility] Work Phone: Comment on above: SOURCE: Nasal, Nasop haryngealReference Range: Not Detected.This assay is designed to detect the N, ORF1ab and/or S genes of SARS-CoV-2 via nucleic acid amplification. A Negative (NOT DETECTED) result does not preclude 2019-nCoV infection since the adequacy of sample collection and/or low viral burden may result in presence of viral nucleic acids below the clinical sensitivity of this test method. Negative (NOT DETECTED) result should not be used as the sole basis for treatment or other patient management decisions. Rather negative results should be combined with clinical observations, patient history, and epidemiological information to make patient management decisions.Fact sheet for providers: https://www.fda.gov/media/862220/downloadFact sheet for patients: https://www.fda.gov/media/013298/downloadThis test has received FDA Emergency Use Authorization (EUA) and has been verified by [facility] ([facility]). This test is only authorized for the duration of time that circumstances exist to justify the authorization of the emergency use of in vitro diagnostic tests for the detection of SARS-CoV-2 virus and/or diagnosis of COVID-19 infection under section 564(b)(1) of the Act, 21 U.S.C. 360bbb-3(b)(1), unless the authorization is terminated or revoked sooner. [facility] is certified under CLIA-88 as qualified to perform high complexity testing. Testing is performed in the [facility] laboratories located at [address] [place] [address]. CNCOon 05-18-2020 CNCO Letter Text Normal [facility] CNPNon 05-18-2020 CNPN Telephone (AGGENS5) ----- RIP ETIENNE ([id number]) 1975 M Date Time Provider Department 05/18/20 GARRISON MODI AGGENS5 During your visit today, we recorded the following information about you: Lee Pérez LPN 05/18/2020 9:55 AM Signed I received an email from [facility] that they can not reach pt for an appt. I left a message for the pt to call me and sent him a letter to call them to schedule. Lee Pérez LPN Allergies As of Date: 05/18/2020 (No Known Allergies) Date Reviewed: 04/28/2020 Reviewed by: Lee Pérez - Fully Assessed Reason for Visit: Future Appointment [256] Prescriptions as of 05/18/2020 Sig: GLUCAGON (HUMAN RECOMBINANT) * glucagon GLUCAGON EMERGENCY 1* PREGABALIN 50 MG CAPSULE POTASSIUM, SODIUM PHOSPHATES * Take 1 Packet by mouth twice * SODIUM CHLORIDE 0.9 % (FLUSH)* 10 mL every 12 hours. AMBRISENTAN 10 MG TABLET Take 10 mg by mouth once vern* TREPROSTINIL DIOLAMINE ER 0.2* Take 3.75 mg by mouth every 8* PAROXETINE 10 MG TABLET Take 10 mg by mouth once vern* RIFAXIMIN 550 MG TABLET Take by mouth twice daily. INSULIN GLARGINE (U-100) 100 * Inject 30 Units subcutaneousl* MEDICATION, NON-DATABASE Letaris as part of study OXYCODONE 5 MG CAPSULE Take 5 mg by mouth every 4 ho* LIRAGLUTIDE 0.6 MG/0.1 ML (18* Inject subcutaneously once d* POTASSIUM CHLORIDE ER 10 MEQ * Take 10 mEq by mouth twice da* MAGNESIUM 400 MG ( MAGNESIU* Take 400 mg by mouth three ti* PRAMIPEXOLE 0.25 MG TABLET Take 0.25 mg by mouth once da* * OXAZEPAM 10 MG CAPSULE Take 10 mg by mouth at bedtim* OMEPRAZOLE 20 MG CAPSULE,MARCELINO* 1 Cap ORAL DAILY AT 6 AM SPIRONOLACTONE 50 MG TABLET Take one(1) tablet daily. FUROSEMIDE 20 MG TABLET Take one(1) tablet daily. Patient taking differently: taking 3 times per day Problem List As Of Date 05/18/2020 Noted Resolved Depression [F32.9] Tobacco use [Z72.0] 02/17/2016 Anxiety [F41.9] 02/17/2016 RLS (restless legs syndrome) [G25.81] 02/17/2016 Pulmonary HTN (HCC) [I27.20] 02/17/2016 More... Type 2 diabetes mellitus with complication (HCC*02/17/2016 Gastroesophageal reflux disease without esophag*02/17/2016 Thrombocytopenia (HCC) [D69.6] 02/17/2016 RVH (right ventricular hypertrophy) [I51.7] 02/17/2016 More... Severe tricuspid regurgitation [I07.1] 02/17/2016 More... Acute gallstone pancreatitis [K85.10] 04/05/2018 04/09/2018 Bacteremia [R78.81] 04/09/2018 Acute cholecystitis [K81.0] 03/25/2020 03/28/2020 Encounter Status:Closed by LEE PÉREZ on 05/18/20 Normal [facility] CNOVon 04-28-2020 CNOV Office Visit (AGGENS 5) ----- RIP ETIENNE ([id number]) 1975 M Date Time Provider Department 04/28/20 2:00 PM GARRISON MODI5 During your visit today, we recorded the following information about you: Pulse Respiration Blood pressure Weight 72/minute 18/minute 118/68 80.7 kg Height 1.753 m Garrison Modi MD 04/28/2020 2:38 PM Signed We reviewed your cholangiogram. We discussed the risks for surgery. We removed your drain. After optimization by the Clamshell Operator/Pulmonary Hypertension specialist, we will plan your gallbladder removal and will address your umbilical hernia at the same time. Garrison Modi MD 09/29/2020 8:33 AM Signed Patient referred by: SELF HPI: Rip is a 44 year old male with cholecystitis, symptomatic cholelithiasis and choledocholithiasis with an IR rebecca tube. Since that time, he had a follow-up cholangiogram which demonstrated ongoing cholelithiasis and choledocholithiasis. He does have patency of his cystic and common bile duct. He does not have clinical appearance of jaundice and feels better than discharge. He is not acutely sick. . PAST MEDICAL HISTORY Diagnosis Date - Alcoholic cirrhosis (HCC) - Ascites - Depression - Fracture - Jaundice, hepatocellular - Panic attacks - Type 2 diabetes mellitus with complication (HCC) 02/17/2016 PAST SURGICAL HISTORY Procedure Laterality Date - EGD W/O OR W/BRUSH/WASH 03/14/2016 EGD - LEFT HEART CATH - LIVER BIOPSY - [facility]ENTESIS [facility] FAMILY HISTORY Problem Relation Age of Onset - Cancer Mother lung - Cancer Father lung - Cancer Sister breast Social History Tobacco Use - Smoking status: Former Smoker Packs/day: 0.25 Years: 15.00 Pack years: 3.75 Types: Cigarettes Quit date: 04/28/2014 Years since quittin.4 - Smokeless tobacco: Never Used Substance Use Topics - Alcohol use: Not Currently Comment: drank for 15 years, quit 3 yrs ago - Drug use: Yes Comment: marijuana use Current Outpatient Medications Medication Sig - glucagon (GLUCAGON EMERGENCY KIT, HUMAN,) 1 mg solr glucagon GLUCAGON EMERGENCY 1 MG KIT Use as directed for severe low sugar GLUCAGON (RDNA) [id number] Una Amato 01-05-2016 Pulmonary Medicine [facility] ([id number]) - NaCl 0.9% 10 mL every 12 hours. - ambrisentan (LETAIRIS) 10 mg tablet Take 10 mg by mouth once daily. - treprostinil ER (ORENITRAM) 0.25 mg tablet Take 3.75 mg by mouth every 8 hours. Increase by 0.25mg every Sunday - rifaximin (XIFAXAN) 550 mg tab Take by mouth twice daily. - insulin glargine (LANTUS) 100 unit/mL injection Inject 30 Units subcutaneously twice daily. - oxyCODONE ir (OXYIR) 5 mg capsule Take 5 mg by mouth every 4 hours as needed. - potassium chloride (K-TAB) 10 mEq tablet Take 10 mEq by mouth twice daily. - magnesium oxide 400 mg cap Take 400 mg by mouth three times daily. - pramipexole (MIRAPEX) 0.25 mg tablet Take 0.25 mg by mouth once daily. - oxazepam 10 mg ORAL capsule Take 10 mg by mouth at bedtime as needed. - omeprazole 20 mg ORAL capsule 1 Cap ORAL DAILY AT 6 AM - spironolactone (ALDACTONE) 50 mg ORAL tablet Take one(1) tablet daily. - furosemide (LASIX) 20 mg ORAL tablet Take one(1) tablet daily. (Patient taking differently: taking 3 times per day) - pregabalin (LYRICA) 50 mg capsule - potassium-sodium phosphates (NEUTRA-PHOS,PHOS-NAK) 280-160-250 mg pwpk Take 1 Packet by mouth twice daily for 7 days. - PARoxetine (PAXIL) 10 mg tablet Take 10 mg by mouth once daily. - MEDICATION, NON-DATABASE Letaris as part of study - liraglutide (VICTOZA) 0.6 mg/0.1 mL (18 mg/3 mL) pnij Inject subcutaneously once daily. No current facility-administered medications for this visit. ALLERGIES No Known Allergies REVIEW OF SYSTEMS: Per HPI. PHYSICAL EXAM: BP 118/68 Pulse 72 Resp 18 Ht 5' 9 (1.75m) Wt 178 lb (80.7kg) BMI 26.27 kg/(m2). GENERAL APPEARANCE: Well appearing, alert, in no acute distress, well-hydrated, well nourished.. ABDOMEN: Normal abdominal exam, Abdomen soft, non-tender. Bowel sounds normal. No masses, organomegaly, drain removed, reducible umbilical hernia. NEURO: Alert, oriented x3, no asterixis, speech clear and articulate and CHUA HEART: regular rate and rhythm, without murmur LUNGS: clear to auscultation, good air exchange, no grunting/flaring/retracti ng DATA: Diagnostic tests reviewed for today's visit: Most recent labs Most recent imaging A total of 30 minutes was spent in direct patient contact. Greater than 50% of the direct patient contact time was spent in counseling or coordination of care. ASSESSMENT / PLAN: 1. Pulmonary HTN (HCC) 2. Calculus of gallbladder and bile duct with chronic cholecystitis without obstruction We reviewed your cholangiogram. We discussed the risks for surgery. We removed your drain. After optimization by the Clamshell Operator/Pulmonary Hypertension specialist, we will plan your gallbladder removal and will address your umbilical hernia at the same time. Garrison Modi MD Referring Provider: SELF [[id number]] Allergies As of Date: 04/28/2020 (No Known Allergies) Date Reviewed: 04/28/2020 Reviewed by: Lee Pérez - Fully Assessed Reason for Visit: Established Patient [175] Cmt: fu cholangiogram Primary Visit Diagnosis:Pulmonary HTN (HCC) [I27.20] Other Visit Diagnosis:Calculus of gallbladder and bile duct with chronic cholecystitis without obstruction [K80.64] Prescriptions as of 04/28/2020 Sig: GLUCAGON (HUMAN RECOMBINANT) * glucagon GLUCAGON EMERGENCY 1* SODIUM CHLORIDE 0.9 % (FLUSH)* 10 mL every 12 hours. AMBRISENTAN 10 MG TABLET Take 10 mg by mouth once vern* TREPROSTINIL DIOLAMINE ER 0.2* Take 3.75 mg by mouth every 8* RIFAXIMIN 550 MG TABLET Take by mouth twice daily. INSULIN GLARGINE (U-100) 100 * Inject 30 Units subcutaneousl* OXYCODONE 5 MG CAPSULE Take 5 mg by mouth every 4 ho* POTASSIUM CHLORIDE ER 10 MEQ * Take 10 mEq by mouth twice da* MAGNESIUM 400 MG ( MAGNESIU* Take 400 mg by mouth three ti* PRAMIPEXOLE 0.25 MG TABLET Take 0.25 mg by mouth once da* * OXAZEPAM 10 MG CAPSULE Take 10 mg by mouth at bedtim* OMEPRAZOLE 20 MG CAPSULE,MARCELINO* 1 Cap ORAL DAILY AT 6 AM SPIRONOLACTONE 50 MG TABLET Take one(1) tablet daily. FUROSEMIDE 20 MG TABLET Take one(1) tablet daily. Patient taking differently: taking 3 times per day PREGABALIN 50 MG CAPSULE POTASSIUM, SODIUM PHOSPHATES * Take 1 Packet by mouth twice * PAROXETINE 10 MG TABLET Take 10 mg by mouth once vern* MEDICATION, NON-DATABASE Letaris as part of study LIRAGLUTIDE 0.6 MG/0.1 ML (18* Inject subcutaneously once d* Problem List As Of Date 04/28/2020 Noted Resolved Depression [F32.9] Tobacco use [Z72.0] 02/17/2016 Anxiety [F41.9] 02/17/2016 RLS (restless legs syndrome) [G25.81] 02/17/2016 Pulmonary HTN (HCC) [I27.20] 02/17/2016 More... Type 2 diabetes mellitus with complication (HCC*02/17/2016 Gastroesophageal reflux disease without esophag*02/17/2016 Thrombocytopenia (HCC) [D69.6] 02/17/2016 RVH (right ventricular hypertrophy) [I51.7] 02/17/2016 More... Severe tricuspid regurgitation [I07.1] 02/17/2016 More... Acute gallstone pancreatitis [K85.10] 04/05/2018 04/09/2018 Bacteremia [R78.81] 04/09/2018 Acute cholecystitis [K81.0] 03/25/2020 03/28/2020 Other instructions from your clinician: We reviewed your cholangiogram. We discussed the risks for surgery. We removed your drain. After optimization by the Clamshell Operator/Pulmonary Hypertension specialist, we will plan your gallbladder removal and will address your umbilical hernia at the same time. Encounter Status:Closed by GARRISON MODI MD on 09/29/20 [facility] PROGRESSon 04-28-2020 PROGRESS HNO ID: [id number] Author: Garrison Modi Service: ? Author Type: Physician Type: Progress Notes Filed: 09/29/2020 8:33 AM Note Text: Patient referred by: SELF HPI: Rip is a 44 year old male with cholecystitis, symptomatic cholelithiasis and choledocholithiasis with an IR rebecca tube. Since that time, he had a follow-up cholangiogram which demonstrated ongoing cholelithiasis and choledocholithiasis. He does have patency of his cystic and common bile duct. He does not have clinical appearance of jaundice and feels better than discharge. He is not acutely sick. . PAST MEDICAL HISTORY Diagnosis Date - Alcoholic cirrhosis (HCC) - Ascites - Depression - Fracture - Jaundice, hepatocellular - Panic attacks - Type 2 diabetes mellitus with complication (HCC) 02/17/2016 PAST SURGICAL HISTORY Procedure Laterality Date - EGD W/O OR W/BRUSH/WASH 03/14/2016 EGD - LEFT HEART CATH - LIVER BIOPSY - PARACENTESIS [facility] FAMILY HISTORY Problem Relation Age of Onset - Cancer Mother lung - Cancer Father lung - Cancer Sister breast Social History Tobacco Use - Smoking status: Former Smoker Packs/day: 0.25 Years: 15.00 Pack years: 3.75 Types: Cigarettes Quit date: 04/28/2014 Years since quittin.4 - Smokeless tobacco: Never Used Substance Use Topics - Alcohol use: Not Currently Comment: drank for 15 years, quit 3 yrs ago - Drug use: Yes Comment: marijuana use Current Outpatient Medications Medication Sig - glucagon (GLUCAGON EMERGENCY KIT, HUMAN,) 1 mg solr glucagon GLUCAGON EMERGENCY 1 MG KIT Use as directed for severe low sugar GLUCAGON (RDNA) [id number] Una Amato 01-05-2016 Pulmonary Medicine [facility] ([id number]) - NaCl 0.9% 10 mL every 12 hours. - ambrisentan (LETAIRIS) 10 mg tablet Take 10 mg by mouth once daily. - treprostinil ER (ORENITRAM) 0.25 mg tablet Take 3.75 mg by mouth every 8 hours. Increase by 0.25mg every Sunday - rifaximin (XIFAXAN) 550 mg tab Take by mouth twice daily. - insulin glargine (LANTUS) 100 unit/mL injection Inject 30 Units subcutaneously twice daily. - oxyCODONE ir (OXYIR) 5 mg capsule Take 5 mg by mouth every 4 hours as needed. - potassium chloride (K-TAB) 10 mEq tablet Take 10 mEq by mouth twice daily. - magnesium oxide 400 mg cap Take 400 mg by mouth three times daily. - pramipexole (MIRAPEX) 0.25 mg tablet Take 0.25 mg by mouth once daily. - oxazepam 10 mg ORAL capsule Take 10 mg by mouth at bedtime as needed. - omeprazole 20 mg ORAL capsule 1 Cap ORAL DAILY AT 6 AM - spironolactone (ALDACTONE) 50 mg ORAL tablet Take one(1) tablet daily. - furosemide (LASIX) 20 mg ORAL tablet Take one(1) tablet daily. (Patient taking differently: taking 3 times per day) - pregabalin (LYRICA) 50 mg capsule - potassium-sodium phosphates (NEUTRA-PHOS,PHOS-NAK) 280-160-250 mg pwpk Take 1 Packet by mouth twice daily for 7 days. - PARoxetine (PAXIL) 10 mg tablet Take 10 mg by mouth once daily. - MEDICATION, NON-DATABASE Letaris as part of study - liraglutide (VICTOZA) 0.6 mg/0.1 mL (18 mg/3 mL) pnij Inject subcutaneously once daily. No current facility-administered medications for this visit. ALLERGIES No Known Allergies REVIEW OF SYSTEMS: Per HPI. PHYSICAL EXAM: BP 118/68 Pulse 72 Resp 18 Ht 5' 9 (1.75m) Wt 178 lb (80.7kg) BMI 26.27 kg/(m2). GENERAL APPEARANCE: Well appearing, alert, in no acute distress, well-hydrated, well nourished.. ABDOMEN: Normal abdominal exam, Abdomen soft, non-tender. Bowel sounds normal. No masses, organomegaly, drain removed, reducible umbilical hernia. NEURO: Alert, oriented x3, no asterixis, speech clear and articulate and CHUA HEART: regular rate and rhythm, without murmur LUNGS: clear to auscultation, good air exchange, no grunting/flaring/retracti ng DATA: Diagnostic tests reviewed for today's visit: Most recent labs Most recent imaging A total of 30 minutes was spent in direct patient contact. Greater than 50% of the direct patient contact time was spent in counseling or coordination of care. ASSESSMENT / PLAN: 1. Pulmonary HTN (HCC) 2. Calculus of gallbladder and bile duct with chronic cholecystitis without obstruction We reviewed your cholangiogram. We discussed the risks for surgery. We removed your drain. After optimization by the Clamshell Operator/Pulmonary Hypertension specialist, we will plan your gallbladder removal and will address your umbilical hernia at the same time. Garrison Modi MD [facility] IR INJ FOR CHOLANGIOGRAMon 0 04-21-2020 Cholesterol [Mass/Vol] * * *Final Report* * * DATE OF EXAM: Apr 21 2020 10:[facility] - IR INJ FOR CHOLANGIOGRAM / PROCEDURE REASON: cholecystitis * * * * Physician Interpretation * * * * EXAM TITLE: CHOLANGIOGRAM VIA CHOLECYSTOTOMY DATE: 04/21/2020 COMPARISON: Cholecystotomy tube placement dated 03/26/2020. CLINICAL INDICATION/HISTORY: The patient is a 44-year-old male with recent history of acute cholecystitis. The patient previously underwent placement of a cholecystotomy tube. The patient is referred for cholangiogram via the cholecystotomy tube.. CHOLECYSTITIS TO- S- E- SEDT- ABX1- ABXS1- FINDINGS: The patient was placed in supine position. A timeout was performed. The patient prepped and draped in a sterile manner. Contrast was instilled through the indwelling cholecystotomy tube under fluoroscopic observation. This demonstrated that the cholecystotomy tube was patent and in adequate position. There is again noted to be a large number small filling defects within the gallbladder consistent with cholelithiasis. The cystic duct and common bile duct are patent. There appears to be a very small filling defect in the distal common bile duct consistent with a small nonobstructing calculus. There is no evidence of biliary duct dilatation. Contrast does flow into the duodenum. Note is made of a small diverticulum arising from the left lateral aspect of the second segment of the duodenum. The catheter was flushed with normal saline. The catheter was capped as requested. If the patient does not tolerate capping the catheter the catheter can be returned to closed leg bag drainage. The patient tolerated the procedure well. No immediate complications were noted. No sedation or local anesthesia was utilized during this procedure. The patient was monitored throughout the procedure by the radiology nurse. The patient was discharged from the department in stable condition.. IMPRESSION: 1. The cholecystotomy tube catheter is patent and in adequate position. 2. Numerous small filling defects within the gallbladder consistent with cholelithiasis. 3. Small nonobstructing filling defect in the distal common bile duct suspicious for choledocholithiasis. 4. Otherwise negative cholangiogram via cholecystotomy tube. Stop numbering Fluoroscopic Time: 0 minutes 48 seconds Radiation Exposure: 34 mGy Volume of Contrast: 12 cc of Omnipaque 300 Number of Images: 9 Antibiotics:none Production Department Supervisor: PSCDaniel Transcribe Date/Time: Apr 21 2020 10:13A Dictated by : HEMA BLACKWELL MD This examination was interpreted and the report reviewed and electronically signed by: HEMA BLACKWELL MD on Apr 22 2020 5:07PM [facility] 03-30-2020 CNPN Telephone (AGGENS5) ----- RIP ETIENNE ([id number]) 1975 M Date Time Provider Department 03/30/20 GARRISON MODI [id number] During your visit today, we recorded the following information about you: Lee Pérez LPN 03/30/2020 2:46 PM Signed Pt notified his drain study is eddy for 04/21/20 at 8 am [facility] (no prep per Angelita in IR) and his follow up is on 04/28/[address] Modi. Pt verbalized understanding. Blane RUFFIN Allergies As of Date: 03/30/2020 (No Known Allergies) Date Reviewed: 03/27/2020 Reviewed by: Mireya (Rn) FRAN Hill - Fully Assessed Reason for Visit: Future Appointment [256] Prescriptions as of 03/30/2020 Sig: AMOXICILLIN 500 MG-POTASSIUM * Take 1 tablet by mouth twice * POTASSIUM, SODIUM PHOSPHATES * Take 1 Packet by mouth twice * SODIUM CHLORIDE 0.9 % (FLUSH)* 10 mL every 12 hours. AMBRISENTAN 10 MG TABLET Take 10 mg by mouth once vern* TREPROSTINIL DIOLAMINE ER 0.2* Take 3.75 mg by mouth every 8* PAROXETINE 10 MG TABLET Take 10 mg by mouth once vern* RIFAXIMIN 550 MG TABLET Take by mouth twice daily. INSULIN GLARGINE (U-100) 100 * Inject 30 Units subcutaneousl* MEDICATION, NON-DATABASE Letaris as part of study OXYCODONE 5 MG CAPSULE Take 5 mg by mouth every 4 ho* LIRAGLUTIDE 0.6 MG/0.1 ML (18* Inject subcutaneously once d* POTASSIUM CHLORIDE ER 10 MEQ * Take 10 mEq by mouth twice da* MAGNESIUM 400 MG ( MAGNESIU* Take 400 mg by mouth three ti* PRAMIPEXOLE 0.25 MG TABLET Take 0.25 mg by mouth once da* * OXAZEPAM 10 MG CAPSULE Take 10 mg by mouth at bedtim* OMEPRAZOLE 20 MG CAPSULE,MARCELINO* 1 Cap ORAL DAILY AT 6 AM SPIRONOLACTONE 50 MG TABLET Take one(1) tablet daily. FUROSEMIDE 20 MG TABLET Take one(1) tablet daily. Patient taking differently: taking 3 times per day Problem List As Of Date 03/30/2020 Noted Resolved Depression [F32.9] Tobacco use [Z72.0] 02/17/2016 Anxiety [F41.9] 02/17/2016 RLS (restless legs syndrome) [G25.81] 02/17/2016 Pulmonary HTN (HCC) [I27.20] 02/17/2016 More... Type 2 diabetes mellitus with complication (HCC*02/17/2016 Gastroesophageal reflux disease without esophag*02/17/2016 Thrombocytopenia (HCC) [D69.6] 02/17/2016 RVH (right ventricular hypertrophy) [I51.7] 02/17/2016 More... Severe tricuspid regurgitation [I07.1] 02/17/2016 More... Acute gallstone pancreatitis [K85.10] 04/05/2018 04/09/2018 Bacteremia [R78.81] 04/09/2018 Acute cholecystitis [K81.0] 03/25/2020 03/28/2020 Encounter Status:Closed by LEE PÉREZ on 03/30/20 Normal [facility] HOSPon 03-29-2020 HOSP Patient:Calos Etienne MRN: Height:5' 9(1.753 m) Weight:178 lb (80.74 kg) Outpatient Medications as of 04/21/20: potassium-sodium phosphates (NEUTRA-PHOS,PHOS-NAK) 280-160-250 mg pwpk NaCl 0.9% ambrisentan (LETAIRIS) 10 mg tablet treprostinil ER (ORENITRAM) 0.25 mg tablet PARoxetine (PAXIL) 10 mg tablet rifaximin (XIFAXAN) 550 mg tab insulin glargine (LANTUS) 100 unit/mL injection MEDICATION, NON-DATABASE oxyCODONE ir (OXYIR) 5 mg capsule liraglutide (VICTOZA) 0.6 mg/0.1 mL (18 mg/3 mL) pnij potassium chloride (K-TAB) 10 mEq tablet magnesium oxide 400 mg cap pramipexole (MIRAPEX) 0.25 mg tablet oxazepam 10 mg ORAL capsule omeprazole 20 mg ORAL capsule spironolactone (ALDACTONE) 50 mg ORAL tablet furosemide (LASIX) 20 mg ORAL tablet Admission/Clinic Administered Medications as of 04/21/20: Patient has no admission medications. Problem List: Depression [F32.9] Tobacco use [Z72.0] Anxiety [F41.9] RLS (restless legs syndrome) [G25.81] Pulmonary HTN (HCC) [I27.20] Type 2 diabetes mellitus with complication (HCC) [E11.8] Gastroesophageal reflux disease without esophagitis [K21.9] Thrombocytopenia (HCC) [D69.6] RVH (right ventricular hypertrophy) [I51.7] Severe tricuspid regurgitation [I07.1] Bacteremia [R78.81] Allergies: No Known Allergies Date Verified:04/21/20 Lab Values Lab Value Units Date High Low POTA* 4.0 mmol/L 03/28/2020 5.1 3.7 ANDI* 43.7 % 03/28/2020 51.0 40.1 Progress Notes ([facility] ACC 359): Lee Pérez LPN 03/30/2020 2:46 PM Signed Pt notified his drain study is eddy for 04/21/20 at 8 am [facility] (no prep per Angelita in IR) and his follow up is on 04/28/[address] Modi. Pt verbalized understanding. Blane RUFFIN Progress Notes (): Devante Jim DO, DO 03/26/2020 7:03 AM Attested ----- Attestation signed by Lakhwinder Landry at 03/26/2020 11:39 AM I discussed patient, including all pertinent findings, with resident. The patient was not examined by the attending. I reviewed the resident's note and I agreed with the resident's assessment and plan unless otherwise noted. ----- H maliha P: EMERGENCY SURGERY SERVICE SERVICE DATE: 03/25/2020 SERVICE TIME: 7:47 PM REASON FOR CONSULT: cholecystitis REQUESTING PHYSICIAN: [facility] ED PRIMARY CARE PHYSICIAN: Zayda Ovalle MD Subjective Mr. Etienne is a 44 year old male with past medical history significant for depression, nicotine abuse, anxiety, restless leg syndrome, type 2 diabetes, GERD, pulmonary hypertension, tricuspid regurgitation, right ventricular hypertrophy, as well as history of cirrhosis secondary to alcohol abuse. [facility]. This pain seemed radiate bilaterally to the flanks. He denies any nausea vomiting or chest pain. He denies any shortness of breath. He states this pain is similar to pancreatitis attacks in the past is why he came in. He says he has been pretty sick on these episodes. He denies any changes in bowel or bladder habits. He states he quit smoking 5 years ago. He quit drinking 10 years ago. He is complaining of pain in his epigastric region. This patient is direct admit due to findings on her right upper quadrant sound that showed cholelithiasis, gallbladder wall thickening. PAST MEDICAL HISTORY Diagnosis Date - Alcoholic cirrhosis (HCC) - Ascites - Depression - Fracture - Jaundice, hepatocellular - Panic attacks - Type 2 diabetes mellitus with complication (HCC) 02/17/2016 PAST SURGICAL HISTORY Procedure Laterality Date - EGD W/O OR W/BRUSH/WASH 03/14/2016 EGD - LEFT HEART CATH - LIVER BIOPSY - [facility] FAMILY HISTORY Problem Relation Age of Onset - Cancer Mother lung - Cancer Father lung - Cancer Sister breast Social History Tobacco Use - Smoking status: Current Every Day Smoker Packs/day: 0.25 Years: 15.00 Pack years: 3.75 Types: Cigarettes - Smokeless tobacco: Never Used Substance Use Topics - Alcohol use: Yes Comment: drank for 15 years, quit 3 yrs ago - Drug use: Yes Comment: marijuana use No medications prior to admission. No current facility-administered medications for this encounter. Allergies As of Date: 03/25/2020 (No Known Allergies) Fully Assessed 04/07/2018 COMPLETE REVIEW OF SYSTEMS: See HPI for pertinent ROS Objective PHYSICAL EXAM: Physical Exam Performed: Physical Exam Constitutional: He is oriented to person, place, and time and well-developed, well-nourished, and in no distress. No distress. HENT: Head: Normocephalic and atraumatic. Right Ear: External ear normal. Left Ear: External ear normal. Nose: Nose normal. Mouth/Throat: No oropharyngeal exudate. Eyes: Pupils are equal, round, and reactive to light. Right eye exhibits no discharge. Left eye exhibits no discharge. No scleral icterus. Neck: Normal range of motion. No tracheal deviation present. No thyromegaly present. Cardiovascular: Normal rate and intact distal pulses. Pulmonary/Chest: Effort normal. No respiratory distress. He has no wheezes. Abdominal: Soft. He exhibits distension (mild). There is abdominal tenderness (epigastric radiating to flanks). There is no rebound and no guarding. Umbilical and ventral hernia present Musculoskeletal: Normal range of motion. General: No tenderness, deformity or edema. Neurological: He is alert and oriented to person, place, and time. No cranial nerve deficit. Gait normal. Coordination normal. GCS score is 15. Skin: Skin is warm and dry. No rash noted. He is not diaphoretic. No erythema. No pallor. Psychiatric: Mood, memory, affect and judgment normal. There were no vitals taken for this visit. DATA: Diagnostic tests reviewed for today's visit: CBC, Coags, BMP, Mg, Phos CSF AND Dilantin Liver Function, Amylase, AND Lipase Cardiac Enzymes ABGs No orders to display Impression/Recommendation s 44 year old male with abdominal pain and RUQ US suggestive of acute cholecystitis - NPO/IVF - HIDA - will assess need for OR after results - INR - Rapid Covid - pain control Discussed above plan with attending, Dr Landry marine operations coordinator for Dr. Gomez SIGNATURE: Devante Jim DO PATIENT NAME: Rip Etienne DATE: March 25, 2020 TIME: 7:47 PM PAGER: see below Previous Version Chantel Giraldo RN, RN 03/26/2020 5:20 AM Signed Nursing Progress Note Patient Name: Rip Etienne Patient Location: [id number] Sepsis alert received in [facility]. No new orders yet. Will continue to monitor. This note was completed by: FRAN Bravo MD 03/26/2020 7:02 AM Incomplete Savita Haskins MD 03/26/2020 3:26 PM Signed EG Surgery Progress Note SERVICE DATE: 03/26/2020 SUBJECTIVE: NO acute events. Feels okay this AM. Better than yesterday. Still with some RUQ pain. Wound want a diet if able. Tolerating diet DIET NPO OBJECTIVE: Vitals: Temp (24hrs), Av.7 ?C (98.1 ?F), Min:36.4 ?C (97.5 ?F), Max:37 ?C (98.6 ?F) BP 132/69 Pulse 110 Temp 37 ?C (98.6 ?F) (Oral) Resp 16 Ht 175.3 cm (5' 9) Wt 80.5 kg (177 lb 8 oz) SpO2 92% BMI 26.21 kg/m? O2 Therapy: Room Air IANDO: Date 03/25/20 07 - 03/26/20 0659 03/26/20 07 - 03/27/20 0659 Shift 8285-7657 9675-4354 8095-2897 24 Hour Total 7196-4858 5678-5151 2500-7189 24 Hour Total INTAKE IV 311 311 Volume (mL) (lactated ringers infusion) 311 311 Shift Total 311 311 OUTPUT Urine 275 275 Void (ml) 275 275 Shift Total 275 275 Weight (kg) 80.5 80.5 80.5 80.5 80.5 80.5 80.5 MEDICATIONS Current Facility-Administered Medications Medication Dose Route Frequency - HYDROmorphone 0.5 mg injection (DILAUDID) 0.5 mg INTRAVENOUS q 3 H PRN - pramipexole 0.25 mg tab(s) (MIRAPEX) 0.25 mg ORAL DAILY - furosemide 20 mg tab(s) (LASIX) 20 mg ORAL TID - magnesium oxide 400 mg tab(s) (MAG-OX) 400 mg ORAL DAILY - potassium chloride ER 10 mEq tab(s) (K-DUR, KLOR-CON) 10 mEq ORAL BID w MEALS - spironolactone 50 mg tab(s) (ALDACTONE) 50 mg ORAL DAILY - pantoprazole DR 40 mg tab(s) (PROTONIX) 40 mg ORAL DAILY (6 AM) - enoxaparin 40 mg injection (LOVENOX) 40 mg SUBCUTANEOUS DAILY - lactated ringers infusion 75 mL/hr INTRAVENOUS CONTINUOUS - ondansetron (PF) 4 mg injection (ZOFRAN) 4 mg INTRAVENOUS q 6 H PRN - oxyCODONE IR 5-10 mg tab(s) (ROXICODONE) 5-10 mg ORAL q 6 H PRN - dextrose 40 % 15 g 15 g ORAL PRN Or - glucagon 1 mg injection (GLUCAGEN) 1 mg INTRAMUSCULAR PRN Or - dextrose 50% in water 25 mL syringe 12.5 g INTRAVENOUS PRN - insulin lispro pen (rapid acting) (HumaLOG KWIKPEN) SUBCUTANEOUS q 6 H - treprostinil ER (ORENITRAM) tab(s) 3.75 mg 3.75 mg ORAL q 8 H - LORazepam 0.5 mg tab(s) (ATIVAN) 0.5 mg ORAL HS PRN Labs: Recent Labs 03/26/20 0422 NA 138 K 3.8 CHLOR 106* CO2 19* BUN 14 CREAT 0.83 GLUC 143* ANION 13 CA 8.9 MG 1.4* P 2.3* ALB 4.1 AST 30 ALT 27 ALKPHOS 49 TBILI 1.4* WBC 12.50* HB 15.9 HCT 45.2 PLT 108* INR 1.12 Exam: Gen - laying in bed, NAD, AANDOx3 HEENT - EOMI, mucus membranes moist, PEERL Neuro - motor/sensory/impression printer grossly intact CV - HR and BP WNL on monitors. Resp - respirations unlabored. Abd - soft, non distended, Minimally TTP in RUQ. Negative Mendoza's this AM. Back - Non tender. EXT - CHUA, no edema. ASSESSMENT AND PLAN: Active Hospital Problems Diagnosis Date Noted - Acute cholecystitis 03/25/2020 44 year old male with RUQ pain and symptomatic cholelithiasis. - NPO/IVF. - US from OSH reviewed. Stones with some wall thickening. - HIDA today. Will follow results. - Home meds with SSI. - DVT ppx with lovenox. - patient would be increased risk for surgery given his co-morbidities. HIDA pending. If negative, he would benefit from elective surgery. SIGNATURE: Pravin Capone MD PATIENT NAME: Rip Etienne DATE: March 26, 2020 TIME: 7:03 AM Pager: below Emergency General Surgery Service Pager: For questions or concerns Mon-Fri 6a-5p please page [phone]. After 5pm and on Weekends and Holidays, please page [phone] if in ICU or [phone] if on RNF. Attending Note I personally saw and examined the patient. I reviewed the resident's note. I agree with the resident's assessment and plan unless otherwise noted. HIDA positive for cholecystitis. 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 Last discharge within 30 days: No Advance Directive: Current Advance Directive: None Bag Bleacher Attempted to Assist with AD Completion: Yes Action: Patient Unwilling Health LiteracyHow often do you need to have someone help you when you read instructions, pamphlets, or other written material from your doctor or pharmacy? : 1 - Never How confident are you filling out medical forms by yourself?: 1 - Extremely If Patient scores > 3 on either question, the following interventions were put into place:: Patient did not score > 3 on either question. Baseline Mental Status Prior to this Illness what was the patient's Baseline Mental Status?: Alert AND Oriented Prior to this illness, has anyone described the patient having any of the following behaviors?: Not Applicable Relationship of the informant to the patient:: Self Functional Status: Independent Does Patient Currently Receive Any Community Services or Home Care?: None Equipment Prior to Admission: Glucometer SOCIAL: Living Arrangements: Home Lives With: Other: See Comment(Significant other ) Financial Resources: DisabledPrimary Contact: Extended Emergency Contact Information Primary Emergency Contact: Caitlin Bryan Relation: Sister Supportive Patient Contact:: Yes Contact Resources: Family Social Needs Food insecurity Worry: Never true Inability: Never true Resources Needed: No Social Needs Financial resource strain: Not hard at all Social Needs Transportation needs Medical: No Non-medical: No Caregiver AssessmentCaregiver is ready, willing and able to meet the patient's needs as recommended by the inter-professional team:: Yes Does the patient have an acute stroke diagnosis, or has the patient had a stroke during this admission?: No Patient's transition needs and plan for meeting these needs: Follow up care Patient's perception of need for this admission: Abdominal pain Medication Adherance I am convinced of the importance of my prescription medication: 0 - Agree Completely I worry that my prescription medication will do more harm than good to me : 0 - Disagree Completely I feel financially burdened by my hwo-et-rxoayy expenses for my prescription medication:: 0 - Disagree Completely Risk Score: 0 Patient is categorized as: Low risk < 2 Are you interested in bedside delivery of your medications? Yes Is Patient Psychosocially Complex?: No ASSESSMENT AND PLAN: Medical Needs: Medical Needs: Two or more chronic diseases Psychosocial Needs: Psychosocial Needs: Mental Health Diagnosis Mental Health Information: History of ETOH abuse, depression, anxiety, panic attacks FREEDOM OF CHOICE EXPLAINED: [place] of Choice Given: No Reason Not Given: No placements necessary POTENTIAL TRANSITION PLANS Home Spoke with patient via phone. Patient independent at home with his significant other prior to admission. Patient hopeful to return home at discharge. Will follow clinical course for DC planning needs. SIGNATURE: Anh Saldana RN PATIENT NAME: Rip Etienne DATE: March 26, 2020 TIME: 9:49 AM PAGER/CONTACT #: [phone] Chantel Patel (netFactor) 03/26/2020 10:55 AM Signed HOME CARE COORDINATOR BEDSIDE DELIVERY SURVEY 1. Patient to use [facility] Bedside Delivery - YES Insurance Information as follows: 2. Insurance card on file - YES 3. Credit card for payment - N/A No prescriptions written for pt yet, please call Pharmacy Bedside Delivery at [phone] or [phone] once scripts written and discharge orders placed. Chantel Patel (Supervisor Glycerin) RT Jac, Tech 03/26/2020 11:46 AM Signed RADIOLOGY SERVICE PROGRESS NOTE SERVICE DATE: 03/26/2020 SERVICE TIME: 11:44 AM PATIENT IDENTITY VERIFICATION COMPLETED USING TWO (2) STANDARD IDENTIFIERS: Name and Date of confirmed by patient verbally FALL SCREENING: Has the patient had 2 falls in the last year or 1 fall with injury or currently using an Ambulatory Assistive Device (Walker, Cane, Wheelchair, Crutches, etc.)? No PATIENT GENDER DATA: .male ALLERGIES: Reviewed and unchanged MEDICATIONS REVIEWED: Yes PATIENT RELEVANT IMPLANT DATA REVIEWED: Not Applicable CREATININE: Creatinine Date Value Ref Range Status 03/26/2020 0.83 0.73 - 1.22 mg/dL Final 04/09/2018 1.26 (H) 0.67 - 1.17 mg/dL Final 04/08/2018 1.43 (H) 0.67 - 1.17 mg/dL Final eGFR-All Other Races Date Value Ref Range Status 02/17/2016 >60 . Final Comment: eGFR (Estimated GFR) Units of measure: mL/min/1.73 meters squared eGFR is derived from the reexpressed MDRD Study equation using the following parameters: serum creatinine, age, gender and race. The creatinine assay has been calibrated to be traceable to IDMS. An eGFR <60 mL/min/1.73m2 for >3 months is consistent with chronic kidney disease. Refer to KDOQI guidelines for clinical interpretation. In patients with unstable renal function, e.g. those with acute kidney injury, the eGFR may not accurately reflect actual GFR. eGFR- Date Value Ref Range Status 02/17/2016 >60 Final P.O.C.T. RESULTS: N/A March 26, [address] PERFORMED: No IV SITE: Inpatient - refer to LDA documentation POST EXAM PIV STATUS: Inpatient see LDA documentation PROCEDURE TYPE: NM INJECT: HIDA Scan. 5.1 mCi Tc99m CHOLETEC. No other medications given..No GB @ 4Hrs. ADMINISTRATION TIME: 07:35 PATIENT DISCHARGED TO: Patient taken to IP transport area for return to RNF/ICU/ED. A Diagnostic radioactive procedure has taken place, with no further precautions necessary other than routine body substance precautions. More information regarding radiation safety can be found using this link: [email or web address] [email or web address] SIGNATURE: RT Jac PATIENT NAME: Rip Etienne DATE: March 26, 2020 TIME: 11:44 AM PAGER/CONTACT #: Hema Blackwell MD 03/26/2020 4:15 PM Signed UPDATED HISTORY AND PHYSICAL EXAMINATION SERVICE DATE: 03/26/2020 SERVICE TIME: 4:15 PM PHYSICAL EXAM MUST BE COMPLETED ON ADMISSION The History and Physical (completed in the past 30 days) has been reviewed and the patient has been examined. The contents accurately reflect the patient's condition with the following additions or revisions since the HANDP was completed. Examination indicates no changes. This HANDP can be found in the Electronic Medical Record dated 03/26/20. SIGNATURE: Hema Blackwell MD PATIENT NAME: Rip Etienne DATE: March 26, 2020 TIME: 4:15 PM PAGER: Hema Blackwell MD 03/26/2020 4:59 PM Signed BRIEF OPERATIVE / PROCEDURE NOTE LOG ID: [id number] Surgery/Procedure Date: 03/26/2020 Incision/Procedure Start Time: Incision Close/Procedure End Time: Surgeon(s)/Proceduralist( s) and Special Event Assistant(s): Surgeon(s) and Role: * Hema Blackwell - Primary No Additional Staff Procedure(s): Other (specify) - Fluoroscopically guided cholecystotomy tube insertion Anesthesia: Procedural Sedation Findings: Utilizing realtime ultrasound and fluorscopic guidance a 8 F drainage catheter was placed into the gallbladder. 30 cc of highly viscous scot fluid fluid was obtained. The fluid was sent for culture. The catheter was placed to closed leg bag drainage. The patient tolerated the procedure well. No immediate complications were noted. Recomend flushing the catheter with 10 cc of sterile normal saline twice daily. The full report is located under Imaging in the Radiology report for the procedure. Estimated Blood Loss: 0 ml Specimens: gallbladder fluid for culture Complications: None Pre-Op/Pre-Procedure Diagnosis: cholelithiasis, cholecystitis Post-Op/Post-Procedure Diagnosis: same The full report is located under Imaging in the Radiology report for the procedure. SIGNATURE: Hema Blackwell MD PATIENT NAME: Rip Etienne DATE: March 26, 2020 TIME: 4:57 PM PAGER/CONTACT #: [phone] Cindy Cook RN, RN 03/26/2020 6:10 PM Signed Patient back up from drain placement. Vitals taken every 15min x4. With last set patient tachycardic, shivering, hypertensive, and respirations [address] Ji notified and will be up to see patient. Chantel Giraldo, RN, RN 03/26/2020 11:46 PM Addendum Nursing Progress Note Patient Name: Rip Etienne Patient Location: [id number] Ji notified that EKG is complete and is aware iof result. He states he will cone up at take a look at results. No new orders, will continue to monitor. 2140 12.5mg metoprolol given per order. 2339 Upon recheck of full vital signs, pt is febrile at 38.3 and is now requiring supplemental oxygen. Heart rate is down to [address] Ji notified, states to monitor for now, will order tylenol if issue persists This note was completed by: Chantel Giraldo RN Previous Version Hemalatha Gamble, LAURIE.WATER SAFETY TEACHER 03/27/2020 10:55 AM Addendum EG Surgery Progress Note SERVICE DATE: 03/27/2020 SUBJECTIVE: Per Nursing note, after return from insertion of rebecca tube in IR, pt had episode of HTN, tachycardia (148), fever/chills (38.3) - given metoprolol, EKG done (reviewed by Resident). CXR with ? Atelectasis, pulmonary HTN noted. Pt now sts feeling well, up at side of bed. Denies any further S/S. T= 37.6, HR 110. Denies CP/SOB. Using O2 2l nc. Lungs clear bilat. Sts minimal pain RUQ - much better and pain at drain site. Serosanguinous drainage in bag. Passing flatus, no BM. Tolerating diet DIET GASTRO INTESTINAL OBJECTIVE: Vitals: Temp (24hrs), Av.1 ?C (98.8 ?F), Min:36.6 ?C (97.9 ?F), Max:38.3 ?C (100.9 ?F) BP 128/68 Pulse 107 Temp 37 ?C (98.6 ?F) (Oral) Resp 17 Ht 175.3 cm (5' 9) Wt 80.6 kg (177 lb 11.2 oz) SpO2 92% BMI 26.24 kg/m? O2 Therapy: Non-Rebreather Mask IANDO: Date 03/26/20 07 - 03/27/20 0659 03/27/20 07 - 03/28/20 0659 Shift 8628-5121 9662-3671 3564-9720 24 Hour Total 4022-0615 2347-1804 4123-0590 24 Hour Total INTAKE IV 668 668 Volume (mL) (lactated ringers infusion) 568 568 Volume (mL) (piperacillin-tazobactam iv piggyback 3.375 g in dextrose (iso-osmotic) 50 mL (ZOSYN)) 100 100 Irrigants 10 10 10 10 Irrigant/Flush Amount In (Drain/Tube 03/26/20 1636 Biliary Right Lateral Abdomen) 10 10 10 10 Shift Total 10 668 678 10 10 OUTPUT Urine Urine Not Saved. 2 x 1 x 2 x 5 x Tubes 45 45 Drain/Tube Output (Drain/Tube 03/26/20 1636 Biliary Right Lateral Abdomen) 45 45 Shift Total 45 45 Weight (kg) 80.5 80.5 80.6 80.6 80.6 80.6 80.6 80.6 MEDICATIONS Current Facility-Administered Medications Medication Dose Route Frequency - potassium phosphate 45 mmol in NaCl 0.9% 250 mL 45 mmol INTRAVENOUS ONCE - HYDROmorphone 0.5 mg injection (DILAUDID) 0.5 mg INTRAVENOUS q 3 H PRN - NaCl 0.9% 10 mL 10 mL OTHER q 12 H - insulin lispro pen (rapid acting) (HumaLOG KWIKPEN) SUBCUTANEOUS w MEALS AND HS - pill splitter (patient-specific) 1 Each Miscell. (Med.Supl.;Non-Drugs) PRN - piperacillin-tazobactam iv piggyback 3.375 g in dextrose (iso-osmotic) 50 mL (ZOSYN) 3.375 g INTRAVENOUS q 6 H - pramipexole 0.25 mg tab(s) (MIRAPEX) 0.25 mg ORAL DAILY - furosemide 20 mg tab(s) (LASIX) 20 mg ORAL TID - magnesium oxide 400 mg tab(s) (MAG-OX) 400 mg ORAL DAILY - potassium chloride ER 10 mEq tab(s) (K-DUR, KLOR-CON) 10 mEq ORAL BID w MEALS - spironolactone 50 mg tab(s) (ALDACTONE) 50 mg ORAL DAILY - pantoprazole DR 40 mg tab(s) (PROTONIX) 40 mg ORAL DAILY (6 AM) - enoxaparin 40 mg injection (LOVENOX) 40 mg SUBCUTANEOUS DAILY - lactated ringers infusion 125 mL/hr INTRAVENOUS CONTINUOUS - ondansetron (PF) 4 mg injection (ZOFRAN) 4 mg INTRAVENOUS q 6 H PRN - oxyCODONE IR 5-10 mg tab(s) (ROXICODONE) 5-10 mg ORAL q 6 H PRN - dextrose 40 % 15 g 15 g ORAL PRN Or - glucagon 1 mg injection (GLUCAGEN) 1 mg INTRAMUSCULAR PRN Or - dextrose 50% in water 25 mL syringe 12.5 g INTRAVENOUS PRN - treprostinil ER (ORENITRAM) tab(s) 3.75 mg 3.75 mg ORAL q 8 H - LORazepam 0.5 mg tab(s) (ATIVAN) 0.5 mg ORAL HS PRN Labs: Recent Labs 03/27/20 0058 03/26/20 0422 NA 136 138 K 3.8 3.8 CHLOR 103 106* CO2 19* 19* BUN 12 14 CREAT 0.88 0.83 GLUC 152* 143* ANION 14 13 CA 8.3* 8.9 MG 1.2* 1.4* P 1.5* 2.3* ALB 3.7* 4.1 AST see below 30 ALT 30 27 ALKPHOS 47 49 TBILI 2.1* 1.4* WBC 11.23* 12.50* HB 15.2 15.9 HCT 44.2 45.2 PLT 81* 108* LACT 1.2 -- INR -- 1.12 US from OSH 03/25 Stones with some wall thickening. HIDA 03/26: FINDINGS: There is prompt uptake by the liver, which is normal in configuration. ? Clearance is normal. Major intra-and extrahepatic biliary ducts are visualized. Gallbladder activity is not visualized by 60 minutes and in 4 hours post injection. Proximal small bowel activity is noted by 4 minutes post injection, indicating biliary patency. IMPRESSION: THIS EXAMINATION IS CONSISTENT WITH ACUTE CHOLECYSTITIS IN APPROPRIATE CLINICAL SETTING. CXR: 03/26 IMPRESSION: Bibasilar densities consistent with confluent vessels and may be areas of atelectasis. Prominence of the pulmonary truncus silhouette suggesting pulmonary arterial hypertension. No acute radiographic abnormality. Exam: Gen - laying in bed, NAD, AANDOx3 HEENT - EOMI, mucus membranes moist, PEERL Neuro - motor/sensory/impression printer grossly intact CV - HR 110, BP 128/68 Resp - respirations unlabored on O2 2l with sat @ 95%, lungs clear bilat Abd - soft, non distended, Minimally TTP in RUQ. Rebecca tube with serosanguinous drainage (mostly sanguinous) EXT - CHUA, no edema. ASSESSMENT AND PLAN: Active Hospital Problems Diagnosis Date Noted - Acute cholecystitis 03/25/2020 44 year old male with RUQ pain and symptomatic cholelithiasis 03/26 IR perc rebecca tube - CLD - ADAT to GI soft - Pain/nausea control - Monitor drain output; drain flushes/educ before DC - Wean O2; IS; Pulmonary consult (p) for home med for pulm HTN - Hypophosphatemia, hypomagnesemia - replaced IV; Hgb stable - Home meds with SSI - DVT ppx: lovenox, SCD's, ambulation - Possible DC if tolerating diet DW patient and Dr Haskins on Rounds - diet advanced, needs to wean from O2; will plan for DC tomorrow. 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 SIGNATURE: JERICA Santana APRN PATIENT NAME: Rip Etienne DATE: March 27, 2020 TIME: 9:03 AM Pager: below Emergency General Surgery Service Pager: For questions or concerns Mon-Fri 6a-5p please page [phone]. After 5pm and on Weekends and Holidays, please page [phone] if in ICU or [phone] if on RNF. Previous Version Robbin Huggins Jr, MD 03/30/2020 12:07 PM Addendum Called by JERICA Santana from the general surgery team about patient's pulmonary hypertension and therapy. In summary, patient is a 44 year old male with history of portal pulmonary hypertension who follows with at [facility]. He is compliant with orenitram and letairis. He was admitted to [facility] 03/25/2020 for acute cholecystitis and underwent rebecca drain placement on 03/26/2020. He is close to hospital discharge. Resume letairis 10 mg PO daily Continue with orenitram as ordered. CXR reviewed - appears to have bilateral lower lobe atelectasis, but otherwise no acute abnormality. Wean O2 to off, keep >90% and check ambulatory pulse ox. Please recall with any issues. Florinda Joaquin SEWING TEACHER.JOB SETTER 03/27/2020 9:45 AM As Outlined. Robbin Huggins Jr, MD 03/27/2020 10AM Previous Version Falguni Pérez RN, RN 03/27/2020 11:45 PM Signed Nursing Progress Note Patient Name: Rip Etienne Patient Location: [address]/[id number] 1 Daily Note: Notified Dr. Washburn about patient's HR 122 and temp. 38.0. New orders received, will continue to monitor. This note was completed by: FRAN Dove APRN.WATER SAFETY TEACHER 03/28/2020 9:25 AM Signed EG Surgery Progress Note SERVICE DATE: 03/28/2020 SUBJECTIVE: Pt feels well. Sts only abdominal pain is around rebecca tube site. Serosanguinous (predominantly sanguinous) drainage in bag. Tachycardia (max 122) + fever overnight. 03/27 CXR with ? Atelectasis, pulmonary HTN noted. Denies CP/SOB. Lungs clear bilat. Passing flatus, + BM. Sts voiding without difficulty. T bili elevated (h/o same) Tolerating diet DIET GASTRO INTESTINAL OBJECTIVE: Vitals: Temp (24hrs), Av.4 ?C (99.3 ?F), Min:36.8 ?C (98.2 ?F), Max:38 ?C (100.4 ?F) BP 97/66 Pulse 116 Temp 37.2 ?C (99 ?F) (Temporal Artery) Resp 18 Ht 175.3 cm (5' 9) Wt 80.6 kg (177 lb 11.2 oz) SpO2 96% BMI 26.24 kg/m? O2 Therapy: Room Air IANDO: Date 03/27/20 07 - 03/28/20 0659 03/28/20 07 - 03/29/20 0659 Shift 6636-8865 6794-2942 3088-2919 24 Hour Total 9751-7888 9288-1942 3643-3538 24 Hour Total INTAKE PO 199 156 0031 PO 895 420 5223 IV 50 50 100 Volume (mL) (piperacillin-tazobactam iv piggyback 3.375 g in dextrose (iso-osmotic) 50 mL (ZOSYN)) 50 50 100 Irrigants 10 10 20 Irrigant/Flush Amount In (Drain/Tube 03/26/20 1636 Biliary Right Lateral Abdomen) 10 10 20 Shift Total 10 239 185 2875 OUTPUT Urine 700 036 808 1690 Void (ml) 700 862 859 1018 Tubes 60 30 90 Drain/Tube Output (Drain/Tube 03/26/20 1636 Biliary Right Lateral Abdomen) 60 30 90 Shift Total 700 602 369 9835 Weight (kg) 80.6 80.6 80.6 80.6 80.6 80.6 80.6 80.6 MEDICATIONS Current Facility-Administered Medications Medication Dose Route Frequency - potassium phosphate 30 mmol in NaCl 0.9% 250 mL 30 mmol INTRAVENOUS ONCE - amoxicillin-clavulanic acid 500 mg tab(s) (AUGMENTIN) 500 mg ORAL BID - magnesium sulfate in sterile water 4 g iv piggyback 4 g INTRAVENOUS ONCE - potassium-sodium phosphates 1 Packet (NEUTRA-PHOS,PHOS-NAK) 1 Packet ORAL PC and HS - acetaminophen 975 mg tab(s) (TYLENOL) 975 mg ORAL q 6 H PRN - HYDROmorphone 0.5 mg injection (DILAUDID) 0.5 mg INTRAVENOUS q 3 H PRN - NaCl 0.9% 10 mL 10 mL OTHER q 12 H - insulin lispro pen (rapid acting) (HumaLOG KWIKPEN) SUBCUTANEOUS w MEALS AND HS - pill splitter (patient-specific) 1 Each Miscell. (Med.Supl.;Non-Drugs) PRN - pramipexole 0.25 mg tab(s) (MIRAPEX) 0.25 mg ORAL DAILY - furosemide 20 mg tab(s) (LASIX) 20 mg ORAL TID - magnesium oxide 400 mg tab(s) (MAG-OX) 400 mg ORAL DAILY - spironolactone 50 mg tab(s) (ALDACTONE) 50 mg ORAL DAILY - pantoprazole DR 40 mg tab(s) (PROTONIX) 40 mg ORAL DAILY (6 AM) - enoxaparin 40 mg injection (LOVENOX) 40 mg SUBCUTANEOUS DAILY - ondansetron (PF) 4 mg injection (ZOFRAN) 4 mg INTRAVENOUS q 6 H PRN - oxyCODONE IR 5-10 mg tab(s) (ROXICODONE) 5-10 mg ORAL q 6 H PRN - dextrose 40 % 15 g 15 g ORAL PRN Or - glucagon 1 mg injection (GLUCAGEN) 1 mg INTRAMUSCULAR PRN Or - dextrose 50% in water 25 mL syringe 12.5 g INTRAVENOUS PRN - treprostinil ER (ORENITRAM) tab(s) 3.75 mg 3.75 mg ORAL q 8 H - LORazepam 0.5 mg tab(s) (ATIVAN) 0.5 mg ORAL HS PRN Labs: Recent Labs 03/28/20 0231 03/27/20 0058 03/26/20 0422 NA 132* 136 138 K 4.0 3.8 3.8 CHLOR 98 103 106* CO2 16* 19* 19* BUN 11 12 14 CREAT 1.00 0.88 0.83 GLUC 176* 152* 143* ANION 18 14 13 CA 8.0* 8.3* 8.9 MG 1.6* 1.2* 1.4* P 2.0* 1.5* 2.3* ALB 3.7* 3.7* 4.1 AST 40 see below 30 ALT 28 30 27 ALKPHOS 49 47 49 TBILI 2.3* 2.1* 1.4* WBC 9.10* 11.23* 12.50* HB 15.3 15.2 15.9 HCT 43.7 44.2 45.2 PLT 78* 81* 108* LACT -- 1.2 -- INR -- -- 1.12 US from OSH 03/25 Stones with some wall thickening. HIDA 03/26: FINDINGS: There is prompt uptake by the liver, which is normal in configuration. ? Clearance is normal. Major intra-and extrahepatic biliary ducts are visualized. Gallbladder activity is not visualized by 60 minutes and in 4 hours post injection. Proximal small bowel activity is noted by 4 minutes post injection, indicating biliary patency. IMPRESSION: THIS EXAMINATION IS CONSISTENT WITH ACUTE CHOLECYSTITIS IN APPROPRIATE CLINICAL SETTING. CXR: 03/26 IMPRESSION: Bibasilar densities consistent with confluent vessels and may be areas of atelectasis. Prominence of the pulmonary truncus silhouette suggesting pulmonary arterial hypertension. No acute radiographic abnormality. Exam: Gen - NAD, AANDOx3 HEENT - EOMI, mucus membranes moist, PEERL Neuro - motor/sensory/impression printer grossly intact CV - HR 116, BP WNL Resp - respirations unlabored on RA, lungs clear bilat Abd - soft, non distended, Minimally TTP in RUQ. Rebecca tube with serosanguinous drainage (mostly sanguinous) EXT - CHUA, no edema. ASSESSMENT AND PLAN: Active Hospital Problems Diagnosis Date Noted - Acute cholecystitis 03/25/2020 44 year old male with RUQ pain and symptomatic cholelithiasis s/p 03/26 IR perc rebecca tube - GI soft - Pain/nausea control - Monitor drain output; drain flushes/educ before DC - IS; Pulmonary consult restarted home med for pulm HTN - Hypophosphatemia, hypomagnesemia - replaced IV; Hgb stable - Home meds with SSI - DVT ppx: lovenox, SCD's, ambulation - Possible DC? DW patient and Dr Haskins on Rounds - we had wanted to keep the patient to monitor LFT's (rise in T bili); pt insisting that he wants to go home. Sts he is in close contact with his MD's and can get labs drawn on 03/30 as discussed. Will give Rx for Phos replacement as he has been chronically low and refused IV replacement today. We will get a drain study in 21 days and he should follow in [facility] after that. SIGNATURE: Hemalatha Gamble APRN,WATER SAFETY TEACHER PATIENT NAME: Rip Etienne DATE: March 28, 2020 TIME: 9:03 AM Pager: below Emergency General Surgery Service Pager: For questions or concerns Mon-Fri 6a-5p please page [phone]. After 5pm and on Weekends and Holidays, please page [phone] if in ICU or [phone] if on RNF. Mireya Hill, RN, RN 03/28/2020 7:43 AM Signed Nursing Progress Note Patient Name: Rip Etienne Patient Location: [facility]52A-[id number] 1 Event(s) / Intervention Note: Patient is refusing Potassium Phosphate bolus this AM. RN notified Hemalatha Gamble APRN. This note was completed by: FRAN Hughes RN, RN 03/28/2020 10:11 AM Signed Nursing Progress Note Patient Name: Rip Etienne Patient Location: [address]/[id number] 1 Event(s) / Intervention Note: This RN performed the following drain education with this patient: flushes, dressing changes (if needed), emptying, and recording output. RN also provided the patient with flushes until prescription can be filled since [facility] pharmacy is closed on weekend. Patient stated he felt comfortable with this drain education and is ready for discharge. This note was completed by: FRAN Hughes APRN.WATER SAFETY TEACHER 03/28/2020 10:00 AM Attested ----- Attestation signed by Savita Haskins at 03/28/2020 11:03 AM Attending Note I personally saw and examined the patient. I reviewed the resident's note. I agree with the resident's assessment and plan unless otherwise noted. Signature: Savita Haskins MD Date: 03/28/2020 Time: 11:03 AM ----- DISCHARGE SUMMARY PATIENT NAME: Rip Etienne Code Status: Not on file Highest Readmission Risk Score: 17 The 30 day readmissions risk score is derived from an internally validated risk model which evaluates patient level characteristics, utilization history, medication orders and lab results up until the day of discharge. Patients with a score of 40 or above are considered highest risk for readmission. Specific patient level drivers will be listed at the bottom of the summary. Admission Information Admission Information ADMIT DATE: 03/25/2020 DISCHARGE DATE: 03/28/2020 MY DOCTORS AND MEDICAL TEAM: My Main Hospital Doctor: Lakhwinder Landry Primary Care Provider: Zayda Ovalle MD My Medical Team Members: Treatment Team: Attending Provider: Lakhwinder Landry MY CONDITION AT DISCHARGE: Stable REASON I WAS IN THE HOSPITAL: acute cholecystitis SUMMARY OF WHAT HAPPENED WHILE I WAS IN THE HOSPITAL: 44 year old male with PMH of cirrhosis, pulmonary hypertension, DM II admitted with RUQ pain and ultrasound showing cholelithiasis with + HIDA scan. Due to risks from co-morbid conditions, the decision was made to insert a rebecca tube with elective surgery in the future. Cultures from the rebecca tube were positive for E coli. The pt was treated with IV antibiotics and transitioned to oral antibiotics at discharge. The pt developed intermittent fevers and the T bili was noted to be rising after the insertion of the rebecca tube. The pt requested to be discharged home with plan to have labs drawn on 03/30. Instructed to call to schedule a drain study in 21 days and he was given flushes to flush the rebecca tube twice daily (also paper RX). Advised to call to set up an appointment for 1 week after the drain study in [facility] clinic. OTHER PROBLEMS/DIAGNOSIS: Active Problems: * No active hospital problems. * Resolved Problems: Acute cholecystitis OPERATIONS PERFORMED WHILE IN THE HOSPITAL: None IMPORTANT TEST/PROCEDURES: No procedures performed and Rebecca tube TEST RESULTS NOT AVAILABLE AT THIS TIME: The plan for following up on pending results below is at office visit Culture results Drain study Activity When You Leave the Hospital May use stairs No walking restrictions Other: May shower. Do not bathe, swim, or use hot tub while drain in place Resume pre-hospital activity Diet Instructions Resume your pre-hospital diet For Pain When You Leave the Hospital Some muscle ache can be expected for a day or two Use acetaminophen (Tylenol) as recommended on the bottle You should use an [id number] stool softener (Docusate sodium) and/or a fiber supplement (Metamucil, Fiber Con) every day while taking prescribed pain medication Wound/Surgical Site Care Drain care as instructed by nurse Leave open to air Record output of your drain Remove old dressing, shower, pat dry, and apply clean dressing Some bleeding from the wound/surgical site can be expected. If excessive, see a doctor at once Wash your hands frequently, especially before touching your incision, after using restroom and before eating Call Your Doctor If There is an unusual odor from the wound area There is severe pain at the operative site You have lightheadedness, fainting, or confusion You have persistent nausea/vomiting over 24 hours You have persistent or heavy bleeding You have redness, swelling, pus or drainage from the wound Your temperature is greater than 101F Follow Up Appointments Follow-Up Appointment Call to schedule appt for 1 week after drain study When: In 4 weeks Patient/Parents to call for appointment?: Yes Savita Haskins [phone] 1 [facility] [address] [facility] [id number] PCP Requested Referral Additional Provider to Provider Information: Active Problems: * No active hospital problems. * Resolved Problems: Acute cholecystitis POA: Yes Transitions of Care Critical Issues: SPECIALIST FOLLOW-UP: [facility] LABS AND PROCEDURES PENDING AT DISCHARGE: Culture Results (drain culture) Test Results Not Yet Available from This Hospitalization: Please Review at Your Follow Up Appointment Order Current Status CULTURE BODY FLUID (AK,AV,EU,FV,HL,CANDY,MM,SP) Preliminary result CULTURE BODY FLUID (AK,AV,EU,FV,HL,CANDY,MM,SP) Preliminary result Drain study results FOLLOW-UP APPOINTMENTS ALREADY SCHEDULED WITH A [facility] PROVIDER: No future appointments. ALLERGIES No Known Allergies DISCHARGE MEDICATION: Current Discharge Medication List START taking these medications amoxicillin-clavulanic acid (AUGMENTIN) 500 mg Take 500 mg by mouth twice daily. Qty: 14 tablet Refills: 0 potassium-sodium phosphates (NEUTRA-PHOS,PHOS-NAK) 1 Packet Take 1 Packet by mouth twice daily. Qty: 14 Each Refills: 0 NaCl 0.9% 10 mL 10 mL every 12 hours. Qty: 30 Syringe Refills: 2 CONTINUE these medications which have NOT CHANGED ambrisentan (LETAIRIS) 10 mg Take 10 mg by mouth once daily. treprostinil ER (ORENITRAM) 3.75 mg Take 3.75 mg by mouth every 8 hours. Increase by 0.25mg every Sunday rifaximin (XIFAXAN) 550 mg tab Take by mouth twice daily. insulin glargine (LANTUS) 30 Units Inject 30 Units subcutaneously twice daily. oxyCODONE ir (OXYIR) 5 mg Take 5 mg by mouth every 4 hours as needed. potassium chloride (K-TAB) 10 mEq Take 10 mEq by mouth twice daily. magnesium oxide 400 mg Take 400 mg by mouth three times daily. pramipexole (MIRAPEX) 0.25 mg Take 0.25 mg by mouth once daily. oxazepam (SERAX) 10 mg Take 10 mg by mouth at bedtime as needed. omeprazole 20 mg ORAL capsule 1 Cap ORAL DAILY AT 6 AM Qty: 30 Cap Refills: 3 spironolactone (ALDACTONE) 50 mg ORAL tablet Take one(1) tablet daily. Qty: 30 Tab Refills: 3 furosemide (LASIX) 20 mg ORAL tablet Take one(1) tablet daily. Qty: 30 Tab Refills: 3 PARoxetine (PAXIL) 10 mg Take 10 mg by mouth once daily. MEDICATION, NON-DATABASE Letaris as part of study liraglutide (VICTOZA) 0.6 mg/0.1 mL (18 mg/3 mL) pnij Inject subcutaneously once daily. The patient's risk for 30-day readmission is determined using the following contributing factors: Pt variables contributing to increased readmission risk: 21 Active Medication Orders 11 Most Recent BUN Result 8.9 First Resulted Calcium During Admission 1 Insurance - Medicaid 1 Discharge Disposition - Home 1 Active Anticoagulant TIME OF CARE: Discharge Management: I personally spent greater than 30 minutes involved in the discharge management of this patient. SIGNATURE: Hemalatha Gamble APRN.CNS PAGER/CONTACT #: [phone] DATE: March 28, 2020 TIME: 9:59 AM Normal [facility] Comprehensive Metabolic Pane pineda 03-28-2020 Albumin [Mass/Vol] 3.7 g/dL Low 3.9-4.[address] [facility] Comment on above: Performed By: #### G LMET #### [facility] [address] [place], [place] [address] ALP [Catalytic activity/Vol] 49 U/L Normal 38-[address] [facility] Comment on above: Performed By: #### G LMET #### [facility] [address] [place], [place] [address] ALT [Catalytic activity/Vol] 28 U/L Normal 10-[address] [facility] Comment on above: Performed By: #### G LMET #### [facility] [address] [place] [address] Anion gap [Moles/Vol] 18 mmol/L Normal 9-18 [facility] Comment on above: Performed By: #### G LMET #### [facility] [address] [place] [address] AST [Catalytic activity/Vol] 40 U/L Normal 14-[address] [facility] Comment on above: Performed By: #### G LMET #### [facility] [address] [place] [address] Bilirubin [Mass/Vol] 2.3 mg/dL High 0.2-1.3 [facility] Comment on above: Performed By: #### G LMET #### [facility] [address] [place] [address] Calcium [Mass/Vol] 8.0 mg/dL Low 8.5-10.[address] [facility] Comment on above: Performed By: #### G LMET #### [facility] [address] [place], [place] [address] Chloride [Moles/Vol] 98 mmol/L Normal 97-105 [facility] Comment on above: Performed By: #### G LMET #### [facility] [address] [place] [address] CO2 Blood 16 mmol/L Low 22-[address] [facility] Comment on above: Performed By: #### G LMET #### [facility] [address] [place], [place] [address] Creatinine [Mass/Vol] 1.00 mg/dL Normal 0.73-1.22 [facility] Comment on above: Performed By: #### G LMET #### [facility] [address] [place], [place] [address] Glucose [Mass/Vol] 176 mg/dL High 74-[address] [facility] Comment on above: Result Comment: The [place] Diabetes Association (ADA) provides guidance for cutoff values for fasting glucose and random glucose. The ADA defines fasting as no caloric intake for at least 8 hours.Fasting plasma glucose results between 100 to 125 mg/dL indicate increased risk for diabetes (prediabetes). Fasting plasma glucose results greater than or equal to 126 mg/dL meet the criteria for diagnosis of diabetes. In the absence of unequivocal hyperglycemia, results should be confirmed by repeat testing. In a patient with classic symptoms of hyperglycemia or hyperglycemic crisis, random plasma glucose results greater than or equal to 200 mg/dL meet the criteria for diagnosis of diabetes. Reference: Standards of Medical Care in Diabetes 2016; [place] Diabetes Association. Diabetes Care. 2016;39(Suppl 1). Performed By: #### G LMET #### [facility] [address] [place], [place] [address] Potassium [Moles/Vol] 4.0 mmol/L Normal 3.7-5.1 [facility] Comment on above: Performed By: #### G LMET #### [facility] [address] [place], [place] [address] Protein [Mass/Vol] 6.7 g/dL Normal 6.3-8.[address] [facility] Comment on above: Performed By: #### G LMET #### [facility] [address] [place], [place] [address] Sodium [Moles/Vol] 132 mmol/L Low 136-[address] [facility] Comment on above: Performed By: #### G LMET #### [facility] [address] [place], [place] [address] Urea nitrogen [Mass/Vol] 11 mg/dL Normal 9-[address] [facility] Comment on above: Performed By: #### G LMET #### [facility] [address] [place], [place] [address] Glucose [place] 03-28-2020 Glucose [Mass/Vol] 206 mg/dL High 70-[address] [facility] Comment on above: Result Comment: FRAN SHAHID Performed By: #### G LMET #### [place] [address] Hemogram/Diffon 03-28-2020 Abs Immature Grans 0.04 thou/cmm Normal 0.00-0.05 [facility] Comment on above: Performed By: #### P T #### [facility] [address] [place] [address] Abs Neut (ANC) 7.53 thou/cmm High 1.78-5.[address] [facility] Comment on above: Performed By: #### P T #### [place] [address] Abs. Baso 0.03 thou/cmm Normal 0.01-0.[address] [facility] Comment on above: Performed By: #### P T #### [place] [address] Abs. [place] 0.62 thou/cmm Normal 0.30-0.[address] [facility] Comment on above: Performed By: #### P T #### [place] [address] Basophils/100 WBC (Bld) 0.3 % Normal [facility] Comment on above: Performed By: #### P T #### [place] [address] Eosinophils (Bld) [#/Vol] 0.05 thou/cmm Normal 0.04-0.[address] [facility] Comment on above: Performed By: #### P T #### [place] [address] Eosinophils/100 WBC (Bld) 0.5 % Normal [facility] Comment on above: Performed By: #### P T #### [place] [address] Erythrocyte distribution width (RBC) [Ratio] 14.0 % Normal 11.6-14.[address] [facility] Comment on above: Performed By: #### P T #### [facility] [address] [place], [place] [address] Hematocrit (Bld) [Volume fraction] 43.7 % Normal 40.1-51.[address] [facility] Comment on above: Performed By: #### P T #### [facility] [address] [place], [place] [address] Hemoglobin (Bld) [Mass/Vol] 15.3 g/dL Normal 13.7-17.[address] [facility] Comment on above: Performed By: #### P T #### [facility] [address] [place] [address] Immature Grans 0.40 % Normal [facility] Comment on above: Performed By: #### P T #### [facility] [address] [place] [address] Lymphocytes (Bld) [#/Vol] 0.84 thou/cmm Normal 0.84-2.[address] [facility] Comment on above: Performed By: #### P T #### [facility] [address] [place], [place] [address] Lymphocytes/100 WBC (Bld) 9.2 % Normal [facility] Comment on above: Performed By: #### P T #### [facility] [address] [place], [place] [address] MCH (RBC) [Entitic mass] 29.9 pg Normal 25.7-32.[address] [facility] Comment on above: Performed By: #### P T #### [facility] [address] [place], [place] [address] MCHC (RBC) [Mass/Vol] 35.0 % Normal 32.3-36.5 [facility] Comment on above: Performed By: #### P T #### [facility] [address] [place] [address] MCV (RBC) [Entitic vol] 85.4 fL Normal 83.2-95.[address] [facility] Comment on above: Performed By: #### P T #### [facility] [address] [place], [place] [address] Monocytes/100 WBC (Bld) 6.8 % Normal [facility] Comment on above: Performed By: #### P T #### [address] [address] Platelet mean volume (Bld) [Entitic vol] 12.1 fL High 8.7-12.[address] [facility] Comment on above: Performed By: #### P T #### [address] [address] Platelets (Bld) [#/Vol] 78 thou/cmm Low 141-[address] [facility] Comment on above: Performed By: #### P T #### [place] [address] RBC (Bld) [#/Vol] 5.12 mil/cmm Normal 4.63-6.[address] [facility] Comment on above: Performed By: #### P T #### [place] [address] RDW SD 43.7 fl Normal 36.1-45.[address] [facility] Comment on above: Performed By: #### P T #### [address] [address] Seg Neutrophil 82.8 % Normal [facility] Comment on above: Performed By: #### P T #### [address] [address] WBC (Bld) [#/Vol] 9.10 thou/cmm High 4.23-9.07 [facility] Comment on above: Performed By: #### P T #### [address] [address] MDRD GFRon 03-28-2020 GFR/1.73 sq M predicted among non-blacks MDRD (S/P/Bld) [Vol rate/Area] mL/min/{1.73_m2} Normal >60mL/min/1 [address] [facility] Comment on above: Result Comment: If t he patient is , multiply the result by 1.210. Performed By: #### G FR #### [address] [place] [address] Magnesium Bloodon 03-28-2020 Magnesium [Mass/Vol] 1.6 mg/dL Low 1.7-2.3 [facility] Comment on above: Performed By: #### G LMET #### [place] [id number] NURSING PROGon 03-28-2020 NURSING PROG HNO ID: [id number] Author: Mireya Villanueva) FRAN Hill Service: General Surgery Author Type: Registered Nurse Type: Nursing Progress Note Filed: 03/28/2020 10:11 AM Note Text: Nursing Progress Note Patient Name: Rip Etienne Patient Location: [address]/[id number] Event(s) / Intervention Note: This RN performed the following drain education with this patient: flushes, dressing changes (if needed), emptying, and recording output. RN also provided the patient with flushes until prescription can be filled since [facility] pharmacy is closed on weekend. Patient stated he felt comfortable with this drain education and is ready for discharge. This note was completed by: Mireya Hill RN [facility] NURSING PROG HNO ID: [id number] Author: Mireya Hill RN Service: General Surgery Author Type: Registered Nurse Type: Nursing Progress Note Filed: 03/28/2020 7:43 AM Note Text: Nursing Progress Note Patient Name: Rip Etienne Patient Location: [address]/[id number] 1 Event(s) / Intervention Note: Patient is refusing Potassium Phosphate bolus this AM. RN notified Hemalatha Gamble APRN. This note was completed by: Mireya Hill RN [facility] NURSING PROG HNO ID: [id number] Author: Falguni GomezRn) FRAN Pérez Service: Nursing Author Type: Registered Nurse Type: Nursing Progress Note Filed: 03/27/2020 11:45 PM Note Text: Nursing Progress Note Patient Name: Rip Etienne Patient Location: [place] [id number] 1 Daily Note: Notified Dr. Washburn about patient's HR 122 and temp. 38.0. New orders received, will continue to monitor. This note was completed by: Falguni Pérez RN [facility] PROGRESSon 03-28-2020 PROGRESS HNO ID: [id number] Author: Hemalatha Brambila) Mavis Service: General Surgery Author Type: Nurse Specialist Type: Progress Notes Filed: 03/28/2020 9:25 AM Note Text: EG Surgery Progress Note SERVICE DATE: 03/28/2020 SUBJECTIVE: Pt feels well. Sts only abdominal pain is around rebecca tube site. Serosanguinous (predominantly sanguinous) drainage in bag. Tachycardia (max 122) + fever overnight. 03/27 CXR with ? Atelectasis, pulmonary HTN noted. Denies CP/SOB. Lungs clear bilat. Passing flatus, + BM. Sts voiding without difficulty. T bili elevated (h/o same) Tolerating diet DIET GASTRO INTESTINAL OBJECTIVE: Vitals: Temp (24hrs), Av.4 ?C (99.3 ?F), Min:36.8 ?C (98.2 ?F), Max:38 ?C (100.4 ?F) BP 97/66 Pulse 116 Temp 37.2 ?C (99 ?F) (Temporal Artery) Resp 18 Ht 175.3 cm (5' 9) Wt 80.6 kg (177 lb 11.2 oz) SpO2 96% BMI 26.24 kg/m? O2 Therapy: Room Air IANDO: Date 03/27/20 07 - 03/28/20 0659 03/28/20 07 - 03/29/20 0659 Shift 0929-7942 3857-5015 3927-7908 24 Hour Total 3690-3254 2221-9178 7393-8261 24 Hour Total INTAKE PO 681 840 9394 PO 046 715 4922 IV 50 50 100 Volume (mL) (piperacillin-tazobactam iv piggyback 3.375 g in dextrose (iso-osmotic) 50 mL (ZOSYN)) 50 50 100 Irrigants 10 10 20 Irrigant/Flush Amount In (Drain/Tube 03/26/20 1636 Biliary Right Lateral Abdomen) 10 10 20 Shift Total 10 987 515 3693 OUTPUT Urine 700 918 894 4442 Void (ml) 700 397 839 3216 Tubes 60 30 90 Drain/Tube Output (Drain/Tube 03/26/20 1636 Biliary Right Lateral Abdomen) 60 30 90 Shift Total 700 777 903 7386 Weight (kg) 80.6 80.6 80.6 80.6 80.6 80.6 80.6 80.6 MEDICATIONS Current Facility-Administered Medications Medication Dose Route Frequency - potassium phosphate 30 mmol in NaCl 0.9% 250 mL 30 mmol INTRAVENOUS ONCE - amoxicillin-clavulanic acid 500 mg tab(s) (AUGMENTIN) 500 mg ORAL BID - magnesium sulfate in sterile water 4 g iv piggyback 4 g INTRAVENOUS ONCE - potassium-sodium phosphates 1 Packet (NEUTRA-PHOS,PHOS-NAK) 1 Packet ORAL PC and HS - acetaminophen 975 mg tab(s) (TYLENOL) 975 mg ORAL q 6 H PRN - HYDROmorphone 0.5 mg injection (DILAUDID) 0.5 mg INTRAVENOUS q 3 H PRN - NaCl 0.9% 10 mL 10 mL OTHER q 12 H - insulin lispro pen (rapid acting) (HumaLOG KWIKPEN) SUBCUTANEOUS w MEALS AND HS - pill splitter (patient-specific) 1 Each Miscell. (Med.Supl.;Non-Drugs) PRN - pramipexole 0.25 mg tab(s) (MIRAPEX) 0.25 mg ORAL DAILY - furosemide 20 mg tab(s) (LASIX) 20 mg ORAL TID - magnesium oxide 400 mg tab(s) (MAG-OX) 400 mg ORAL DAILY - spironolactone 50 mg tab(s) (ALDACTONE) 50 mg ORAL DAILY - pantoprazole DR 40 mg tab(s) (PROTONIX) 40 mg ORAL DAILY (6 AM) - enoxaparin 40 mg injection (LOVENOX) 40 mg SUBCUTANEOUS DAILY - ondansetron (PF) 4 mg injection (ZOFRAN) 4 mg INTRAVENOUS q 6 H PRN - oxyCODONE IR 5-10 mg tab(s) (ROXICODONE) 5-10 mg ORAL q 6 H PRN - dextrose 40 % 15 g 15 g ORAL PRN Or - glucagon 1 mg injection (GLUCAGEN) 1 mg INTRAMUSCULAR PRN Or - dextrose 50% in water 25 mL syringe 12.5 g INTRAVENOUS PRN - treprostinil ER (ORENITRAM) tab(s) 3.75 mg 3.75 mg ORAL q 8 H - LORazepam 0.5 mg tab(s) (ATIVAN) 0.5 mg ORAL HS PRN Labs: Recent Labs 03/28/20 0231 03/27/20 0058 03/26/20 0422 NA 132* 136 138 K 4.0 3.8 3.8 CHLOR 98 103 106* CO2 16* 19* 19* BUN 11 12 14 CREAT 1.00 0.88 0.83 GLUC 176* 152* 143* ANION 18 14 13 CA 8.0* 8.3* 8.9 MG 1.6* 1.2* 1.4* P 2.0* 1.5* 2.3* ALB 3.7* 3.7* 4.1 AST 40 see below 30 ALT 28 30 27 ALKPHOS 49 47 49 TBILI 2.3* 2.1* 1.4* WBC 9.10* 11.23* 12.50* HB 15.3 15.2 15.9 HCT 43.7 44.2 45.2 PLT 78* 81* 108* LACT -- 1.2 -- INR -- -- 1.12 US from OSH 03/25 Stones with some wall thickening. HIDA 03/26: FINDINGS: There is prompt uptake by the liver, which is normal in configuration. ? Clearance is normal. Major intra-and extrahepatic biliary ducts are visualized. Gallbladder activity is not visualized by 60 minutes and in 4 hours post injection. Proximal small bowel activity is noted by 4 minutes post injection, indicating biliary patency. IMPRESSION: THIS EXAMINATION IS CONSISTENT WITH ACUTE CHOLECYSTITIS IN APPROPRIATE CLINICAL SETTING. CXR: 03/26 IMPRESSION: Bibasilar densities consistent with confluent vessels and may be areas of atelectasis. Prominence of the pulmonary truncus silhouette suggesting pulmonary arterial hypertension. No acute radiographic abnormality. Exam: Gen - NAD, AANDOx3 HEENT - EOMI, mucus membranes moist, PEERL Neuro - motor/sensory/impression printer grossly intact CV - HR 116, BP WNL Resp - respirations unlabored on RA, lungs clear bilat Abd - soft, non distended, Minimally TTP in RUQ. Rebecca tube with serosanguinous drainage (mostly sanguinous) EXT - CHUA, no edema. ASSESSMENT AND PLAN: Active Hospital Problems Diagnosis Date Noted - Acute cholecystitis 03/25/2020 44 year old male with RUQ pain and symptomatic cholelithiasis s/p 03/26 IR perc rebecca tube - GI soft - Pain/nausea control - Monitor drain output; drain flushes/educ before DC - IS; Pulmonary consult restarted home med for pulm HTN - Hypophosphatemia, hypomagnesemia - replaced IV; Hgb stable - Home meds with SSI - DVT ppx: lovenox, SCD's, ambulation - Possible DC? DW patient and Dr Haskins on Rounds - we had wanted to keep the patient to monitor LFT's (rise in T bili); pt insisting that he wants to go home. Sts he is in close contact with his MD's and can get labs drawn on 03/30 as discussed. Will give Rx for Phos replacement as he has been chronically low and refused IV replacement today. We will get a drain study in 21 days and he should follow [facility] after that. SIGNATURE: Hemalatha Gamble APRN,WATER SAFETY TEACHER PATIENT NAME: Rip Etienne DATE: March 28, 2020 TIME: 9:03 AM Pager: below Emergency General Surgery Service Pager: For questions or concerns Mon-Fri 6a-5p please page [phone]. After 5pm and on Weekends and Holidays, please page [phone] if in ICU or [phone] if on RNF. Normal [facility] Phosphorous Bloodon 03-28-20 20 Phosphate [Mass/Vol] 2.0 mg/dL Low 2.7-4.8 [facility] Comment on above: Performed By: #### G LMET #### [facility] [address] [place], [place] [address] CONSULTon 03-27-2020 CONSULT HNO ID: [id number] Author: Robbin Huggins Jr. Service: Pulmonary Disease Author Type: Physician Type: Consults Filed: 03/30/2020 12:07 PM Note Text: Called by JERICA Santana from the general surgery team about patient's pulmonary hypertension and therapy. In summary, patient is a 44 year old male with history of portal pulmonary hypertension who follows with at [facility]. He is compliant with orenitram and letairis. He was admitted to [facility] 03/25/2020 for acute cholecystitis and underwent rebecca drain placement on 03/26/2020. He is close to hospital discharge. Resume letairis 10 mg PO daily Continue with orenitram as ordered. CXR reviewed - appears to have bilateral lower lobe atelectasis, but otherwise no acute abnormality. Wean O2 to off, keep >90% and check ambulatory pulse ox. Please recall with any issues. Florinda Joaquin APRN.JOB SETTER 03/27/2020 9:45 AM As Outlined. Robbin Huggins Jr, MD 03/27/2020 10AM Normal [facility] Comprehensive Metabolic Pane pineda 03-27-2020 Albumin [Mass/Vol] 3.7 g/dL Low 3.9-4.[address] [facility] Comment on above: Performed By: #### G LMET #### [facility] [address] [place], [place] [address] ALP [Catalytic activity/Vol] 47 U/L Normal 38-[address] [facility] Comment on above: Performed By: #### G LMET #### [facility] [address] [place], [place] [address] ALT [Catalytic activity/Vol] 30 U/L Normal 10-[address] [facility] Comment on above: Performed By: #### G LMET #### [facility] [address] [place], [place] [address] Anion gap [Moles/Vol] 14 mmol/L Normal 9-18 [facility] Comment on above: Performed By: #### G LMET #### [facility] [address] [place], [place] [address] AST [Catalytic activity/Vol] see below Normal 14-[address] [facility] Comment on above: Result Comment: Unab le to assay. Specimen Hemolyzed Performed By: #### G LMET #### [facility] [address] [place], [place] [address] Bilirubin [Mass/Vol] 2.1 mg/dL High 0.2-1.3 [facility] Comment on above: Performed By: #### G LMET #### [facility] [address] [place] [address] Calcium [Mass/Vol] 8.3 mg/dL Low 8.5-10.[address] [facility] Comment on above: Performed By: #### G LMET #### [facility] [address] [place] [address] Chloride [Moles/Vol] 103 mmol/L Normal 97-105 [facility] Comment on above: Performed By: #### G LMET #### [facility] [address] [place] [address] CO2 Blood 19 mmol/L Low 22-[address] [facility] Comment on above: Performed By: #### G LMET #### [facility] [address] [place] [address] Creatinine [Mass/Vol] 0.88 mg/dL Normal 0.73-1.22 [facility] Comment on above: Performed By: #### G LMET #### [facility] [address] [place] [address] Glucose [Mass/Vol] 152 mg/dL High 74-[address] [facility] Comment on above: Result Comment: The [place] Diabetes Association (ADA) provides guidance for cutoff values for fasting glucose and random glucose. The ADA defines fasting as no caloric intake for at least 8 hours.Fasting plasma glucose results between 100 to 125 mg/dL indicate increased risk for diabetes (prediabetes). Fasting plasma glucose results greater than or equal to 126 mg/dL meet the criteria for diagnosis of diabetes. In the absence of unequivocal hyperglycemia, results should be confirmed by repeat testing. In a patient with classic symptoms of hyperglycemia or hyperglycemic crisis, random plasma glucose results greater than or equal to 200 mg/dL meet the criteria for diagnosis of diabetes. Reference: Standards of Medical Care in Diabetes 2016; [place] [employer] Association. Diabetes Care. 2016;39(Suppl 1). Performed By: #### G LMET #### [facility] [address] [place], [place] [address] Potassium [Moles/Vol] 3.8 mmol/L Normal 3.7-5.1 [facility] Comment on above: Performed By: #### G LMET #### [facility] [address] [place], [place] [address] Protein [Mass/Vol] 6.4 g/dL Normal 6.3-8.[address] [facility] Comment on above: Performed By: #### G LMET #### [facility] [address] [place], [place] [address] Sodium [Moles/Vol] 136 mmol/L Normal 136-[address] [facility] Comment on above: Performed By: #### G LMET #### [facility] [address] [place] [id number] Urea nitrogen [Mass/Vol] 12 mg/dL Normal 9-[address] [facility] Comment on above: Performed By: #### G LMET #### [facility] [address] [place], [place] [address] Cult and Smr Body Fluidon Cult and Smr Body Fluid Test performed at [facility] No anaerobic organisms cultured No organisms seen Many Polymorphonuclear leukocytes Many RBCs ORGANISM: *Escherichia coli (ID: 1) Rare ORGANISM: *Enterococcus faecium (ID: 2) Rare For sensitivity report see Date/ [address] [facility] Comment on above: Performed By: #### G LMET #### [facility] [address] [place], [place] [address] Hemogram/Diffon 03-27-2020 Abs Immature Grans 0.03 thou/cmm Normal 0.00-0.05 [facility] Comment on above: Performed By: #### G LMET #### [facility] [address] [place] [address] Abs Neut (ANC) 9.64 thou/cmm High 1.78-5.[address] [facility] Comment on above: Performed By: #### G LMET #### [facility] [address] [place] [address] Abs. Baso 0.03 thou/cmm Normal 0.01-0.[address] [facility] Comment on above: Result Comment: Smea r scanned; tech agrees with automated differential Performed By: #### G LMET #### [facility] [address] [place] [address] Abs. [place] 0.69 thou/cmm Normal 0.30-0.[address] [facility] Comment on above: Performed By: #### G LMET #### [place] [address] Basophils/100 WBC (Bld) 0.3 % Normal [facility] Comment on above: Performed By: #### G LMET #### [place] [address] Eosinophils (Bld) [#/Vol] 0.04 thou/cmm Normal 0.04-0.[address] [facility] Comment on above: Performed By: #### G LMET #### [place] [address] Eosinophils/100 WBC (Bld) 0.4 % Normal [facility] Comment on above: Performed By: #### G LMET #### [facility] [address] [place] [address] Erythrocyte distribution width (RBC) [Ratio] 13.8 % Normal 11.6-14.[address] [facility] Comment on above: Performed By: #### G LMET #### [place] [address] Hematocrit (Bld) [Volume fraction] 44.2 % Normal 40.1-51.[address] [facility] Comment on above: Performed By: #### G LMET #### [facility] [address] [place] [address] Hemoglobin (Bld) [Mass/Vol] 15.2 g/dL Normal 13.7-17.[address] [facility] Comment on above: Performed By: #### G LMET #### [facility] [address] [place] [address] Immature Grans 0.30 % Normal [facility] Comment on above: Performed By: #### G LMET #### [facility] [address] [place] [address] Lymphocytes (Bld) [#/Vol] 0.80 thou/cmm Low 0.84-2.[address] [facility] Comment on above: Performed By: #### G LMET #### [place] [address] Lymphocytes/100 WBC (Bld) 7.1 % Normal [facility] Comment on above: Performed By: #### G LMET #### [facility] [address] [place] [address] MCH (RBC) [Entitic mass] 29.6 pg Normal 25.7-32.[address] [facility] Comment on above: Performed By: #### G LMET #### [place] [address] MCHC (RBC) [Mass/Vol] 34.4 % Normal 32.3-36.5 [facility] Comment on above: Performed By: #### G LMET #### [facility] [address] [place] [address] MCV (RBC) [Entitic vol] 86.2 fL Normal 83.2-95.[address] [facility] Comment on above: Performed By: #### G LMET #### [place] [address] Monocytes/100 WBC (Bld) 6.1 % Normal [facility] Comment on above: Performed By: #### G LMET #### [place] [address] Platelet mean volume (Bld) [Entitic vol] 12.0 fL Normal 8.7-12.[address] [facility] Comment on above: Performed By: #### G LMET #### [facility] [address] [place] [address] Platelets (Bld) [#/Vol] 81 thou/cmm Low 141-[address] [facility] Comment on above: Result Comment: Smea r scanned tech agrees with platelet count Performed By: #### G LMET #### [facility] [address] [place] [address] RBC (Bld) [#/Vol] 5.13 mil/cmm Normal 4.63-6.[address] [facility] Comment on above: Performed By: #### G LMET #### [facility] [address] [place] [address] RDW SD 44.1 fl Normal 36.1-45.[address] [facility] Comment on above: Performed By: #### G LMET #### [place] [address] Seg Neutrophil 85.8 % Normal [facility] Comment on above: Performed By: #### G LMET #### [facility] [address] [place] [address] WBC (Bld) [#/Vol] 11.23 thou/cmm High 4.23-9.07 [facility] Comment on above: Performed By: #### G LMET #### [place] [address] Lactic Acidon 03-27-2020 Lactate [Moles/Vol] 1.2 mmol/L Normal 0.5-2.[address] [facility] Comment on above: Performed By: #### G LMET #### [facility] [address] [place] [address] Magnesium Bloodon 03-27-2020 Magnesium [Mass/Vol] 1.2 mg/dL Low 1.7-2.3 [facility] Comment on above: Performed By: #### G LMET #### [place] [address] PROGRESSon 03-27-2020 PROGRESS HNO ID: [id number] Author: Hemalatha ([facility]) Mavis Service: General Surgery Author Type: Nurse Specialist Type: Progress Notes Filed: 03/27/2020 10:55 AM Note Text: EG Surgery Progress Note SERVICE DATE: 03/27/2020 SUBJECTIVE: Per Nursing note, after return from insertion of rebecca tube in IR, pt had episode of HTN, tachycardia (148), fever/chills (38.3) - given metoprolol, EKG done (reviewed by Resident). CXR with ? Atelectasis, pulmonary HTN noted. Pt now sts feeling well, up at side of bed. Denies any further S/S. T= 37.6, HR 110. Denies CP/SOB. Using O2 2l nc. Lungs clear bilat. Sts minimal pain RUQ - much better and pain at drain site. Serosanguinous drainage in bag. Passing flatus, no BM. Tolerating diet DIET GASTRO INTESTINAL OBJECTIVE: Vitals: Temp (24hrs), Av.1 ?C (98.8 ?F), Min:36.6 ?C (97.9 ?F), Max:38.3 ?C (100.9 ?F) BP 128/68 Pulse 107 Temp 37 ?C (98.6 ?F) (Oral) Resp 17 Ht 175.3 cm (5' 9) Wt 80.6 kg (177 lb 11.2 oz) SpO2 92% BMI 26.24 kg/m? O2 Therapy: Non-Rebreather Mask IANDO: Date 03/26/20699 - 03/27/20 0659 03/27/20 07 - 03/28/20 0659 Shift 6251-3203 5426-1712 7966-6620 24 Hour Total 8682-8173 1446-3089 7861-3183 24 Hour Total INTAKE IV 668 668 Volume (mL) (lactated ringers infusion) 568 568 Volume (mL) (piperacillin-tazobactam iv piggyback 3.375 g in dextrose (iso-osmotic) 50 mL (ZOSYN)) 100 100 Irrigants 10 10 10 10 Irrigant/Flush Amount In (Drain/Tube 03/26/20 1636 Biliary Right Lateral Abdomen) 10 10 10 10 Shift Total 10 668 678 10 10 OUTPUT Urine Urine Not Saved. 2 x 1 x 2 x 5 x Tubes 45 45 Drain/Tube Output (Drain/Tube 03/26/20 1636 Biliary Right Lateral Abdomen) 45 45 Shift Total 45 45 Weight (kg) 80.5 80.5 80.6 80.6 80.6 80.6 80.6 80.6 MEDICATIONS Current Facility-Administered Medications Medication Dose Route Frequency - potassium phosphate 45 mmol in NaCl 0.9% 250 mL 45 mmol INTRAVENOUS ONCE - HYDROmorphone 0.5 mg injection (DILAUDID) 0.5 mg INTRAVENOUS q 3 H PRN - NaCl 0.9% 10 mL 10 mL OTHER q 12 H - insulin lispro pen (rapid acting) (HumaLOG KWIKPEN) SUBCUTANEOUS w MEALS AND HS - pill splitter (patient-specific) 1 Each Miscell. (Med.Supl.;Non-Drugs) PRN - piperacillin-tazobactam iv piggyback 3.375 g in dextrose (iso-osmotic) 50 mL (ZOSYN) 3.375 g INTRAVENOUS q 6 H - pramipexole 0.25 mg tab(s) (MIRAPEX) 0.25 mg ORAL DAILY - furosemide 20 mg tab(s) (LASIX) 20 mg ORAL TID - magnesium oxide 400 mg tab(s) (MAG-OX) 400 mg ORAL DAILY - potassium chloride ER 10 mEq tab(s) (K-DUR, KLOR-CON) 10 mEq ORAL BID w MEALS - spironolactone 50 mg tab(s) (ALDACTONE) 50 mg ORAL DAILY - pantoprazole DR 40 mg tab(s) (PROTONIX) 40 mg ORAL DAILY (6 AM) - enoxaparin 40 mg injection (LOVENOX) 40 mg SUBCUTANEOUS DAILY - lactated ringers infusion 125 mL/hr INTRAVENOUS CONTINUOUS - ondansetron (PF) 4 mg injection (ZOFRAN) 4 mg INTRAVENOUS q 6 H PRN - oxyCODONE IR 5-10 mg tab(s) (ROXICODONE) 5-10 mg ORAL q 6 H PRN - dextrose 40 % 15 g 15 g ORAL PRN Or - glucagon 1 mg injection (GLUCAGEN) 1 mg INTRAMUSCULAR PRN Or - dextrose 50% in water 25 mL syringe 12.5 g INTRAVENOUS PRN - treprostinil ER (ORENITRAM) tab(s) 3.75 mg 3.75 mg ORAL q 8 H - LORazepam 0.5 mg tab(s) (ATIVAN) 0.5 mg ORAL HS PRN Labs: Recent Labs 03/27/20 0058 03/26/20 0422 NA 136 138 K 3.8 3.8 CHLOR 103 106* CO2 19* 19* BUN 12 14 CREAT 0.88 0.83 GLUC 152* 143* ANION 14 13 CA 8.3* 8.9 MG 1.2* 1.4* P 1.5* 2.3* ALB 3.7* 4.1 AST see below 30 ALT 30 27 ALKPHOS 47 49 TBILI 2.1* 1.4* WBC 11.23* 12.50* HB 15.2 15.9 HCT 44.2 45.2 PLT 81* 108* LACT 1.2 -- INR -- 1.12 US from OSH 03/25 Stones with some wall thickening. HIDA 03/26: FINDINGS: There is prompt uptake by the liver, which is normal in configuration. ? Clearance is normal. Major intra-and extrahepatic biliary ducts are visualized. Gallbladder activity is not visualized by 60 minutes and in 4 hours post injection. Proximal small bowel activity is noted by 4 minutes post injection, indicating biliary patency. IMPRESSION: THIS EXAMINATION IS CONSISTENT WITH ACUTE CHOLECYSTITIS IN APPROPRIATE CLINICAL SETTING. CXR: 03/26 IMPRESSION: Bibasilar densities consistent with confluent vessels and may be areas of atelectasis. Prominence of the pulmonary truncus silhouette suggesting pulmonary arterial hypertension. No acute radiographic abnormality. Exam: Gen - laying in bed, NAD, AANDOx3 HEENT - EOMI, mucus membranes moist, PEERL Neuro - motor/sensory/impression printer grossly intact CV - HR 110, BP 128/68 Resp - respirations unlabored on O2 2l with sat @ 95%, lungs clear bilat Abd - soft, non distended, Minimally TTP in RUQ. Rebecca tube with serosanguinous drainage (mostly sanguinous) EXT - CHUA, no edema. ASSESSMENT AND PLAN: Active Hospital Problems Diagnosis Date Noted - Acute cholecystitis 03/25/2020 44 year old male with RUQ pain and symptomatic cholelithiasis 03/26 IR perc rebecca tube - CLD - ADAT to GI soft - Pain/nausea control - Monitor drain output; drain flushes/educ before DC - Wean O2; IS; Pulmonary consult (p) for home med for pulm HTN - Hypophosphatemia, hypomagnesemia - replaced IV; Hgb stable - Home meds with SSI - DVT ppx: lovenox, SCD's, ambulation - Possible DC if tolerating diet DW patient and Dr Haskins on Rounds - diet advanced, needs to wean from O2; will plan for DC tomorrow. 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 SIGNATURE: Hemalatha Gamble APRN,WATER SAFETY TEACHER PATIENT NAME: Rip Etienne DATE: March 27, 2020 TIME: 9:03 AM Pager: below Emergency General Surgery Service Pager: For questions or concerns Mon-Fri 6a-5p please page [phone]. After 5pm and on Weekends and Holidays, please page [phone] if in ICU or [phone] if on RNF. Normal [facility] Phosphorous Bloodon 03-27-20 20 Phosphate [Mass/Vol] 1.5 mg/dL Critically low 2.7-4.[address] [facility] Comment on above: Performed By: #### G LMET #### [place] [address] XR CHEST 1V FRONTALon 2019 XR CHEST 1V FRONTAL * * *Final Report* * * DATE OF EXAM: Mar 27 2020 12:34AM AKX [id number] - XR CHEST 1V FRONTAL / PROCEDURE REASON: Acute respiratory illness * * * * Physician Interpretation * * * * EXAMINATION: CHEST RADIOGRAPH (SINGLE VIEW AP OR PA) CLINICAL HISTORY: Adult inpatient presented with Acute respiratory illness MQ: XC1_5 Comparison: 11/26/2010 chest x-ray. RESULT: Lines, tubes, and devices: None. Lungs and pleura: Subtle linear densities at the bases apparently caused by confluent vessels or may be areas of atelectasis. No focal consolidation, pneumothorax or pleural effusion. Cardiomediastinal silhouette: No gross enlargement of the cardiopericardial shadow with prominent pulmonary truncus silhouette suggesting pulmonary arterial hypertension. Other: No displaced acute fractures are detected. Partially included right upper quadrant tube noted. IMPRESSION: Bibasilar densities consistent with confluent vessels and may be areas of atelectasis. Prominence of the pulmonary truncus silhouette suggesting pulmonary arterial hypertension. No acute radiographic abnormality. Production Department Supervisor: LAN Transcribe Date/Time: Mar 27 2020 12:36A Dictated by : HERMAN PARTIDA MD This examination was interpreted and the report reviewed and electronically signed by: HERMAN PARTIDA MD on Mar 27 2020 12:39AM EST Normal 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 Last discharge within 30 days: No Advance Directive: Current Advance Directive: None Bag Bleacher Attempted to Assist with AD Completion: Yes Action: Patient Unwilling Health LiteracyHow often do you need to have someone help you when you read instructions, pamphlets, or other written material from your doctor or pharmacy? : 1 - Never How confident are you filling out medical forms by yourself?: 1 - Extremely If Patient scores > 3 on either question, the following interventions were put into place:: Patient did not score > 3 on either question. Baseline Mental Status Prior to this Illness what was the patient's Baseline Mental Status?: Alert AND Oriented Prior to this illness, has anyone described the patient having any of the following behaviors?: Not Applicable Relationship of the informant to the patient:: Self Functional Status: Independent Does Patient Currently Receive Any Community Services or Home Care?: None Equipment Prior to Admission: Glucometer SOCIAL: Living Arrangements: Home Lives With: Other: See Comment(Significant other ) Financial Resources: DisabledPrimary Contact: Extended Emergency Contact Information Primary Emergency Contact: IrvniCaitlin Aldie Relation: Sister Supportive Patient Contact:: Yes Contact Resources: Family Social Needs Food insecurity Worry: Never true Inability: Never true Resources Needed: No Social Needs Financial resource strain: Not hard at all Social Needs Transportation needs Medical: No Non-medical: No Caregiver AssessmentCaregiver is ready, willing and able to meet the patient's needs as recommended by the inter-professional team:: Yes Does the patient have an acute stroke diagnosis, or has the patient had a stroke during this admission?: No Patient's transition needs and plan for meeting these needs: Follow up care Patient's perception of need for this admission: Abdominal pain Medication Adherance I am convinced of the importance of my prescription medication: 0 - Agree Completely I worry that my prescription medication will do more harm than good to me : 0 - Disagree Completely I feel financially burdened by my bhp-rx-[id number] expenses for my prescription medication:: 0 - Disagree Completely Risk Score: 0 Patient is categorized as: Low risk < 2 Are you interested in bedside delivery of your medications? Yes Is Patient Psychosocially Complex?: No ASSESSMENT AND PLAN: Medical Needs: Medical Needs: Two or more chronic diseases Psychosocial Needs: Psychosocial Needs: Mental Health Diagnosis Mental Health Information: History of ETOH abuse, depression, anxiety, panic attacks FREEDOM OF CHOICE EXPLAINED: [place] of Choice Given: No Reason Not Given: No placements necessary POTENTIAL TRANSITION PLANS Home Spoke with patient via phone. Patient independent at home with his significant other prior to admission. Patient hopeful to return home at discharge. Will follow clinical course for DC planning needs. SIGNATURE: Anh Saldana RN PATIENT NAME: Rip Etienne DATE: March 26, 2020 TIME: 9:49 AM PAGER/CONTACT #: [id number] Normal [facility] Comprehensive Metabolic Pane pineda 03-26-2020 Albumin [Mass/Vol] 4.1 g/dL Normal 3.9-4.[address] [facility] Comment on above: Performed By: #### C MP #### [address] [address] ALP [Catalytic activity/Vol] 49 U/L Normal 38-[address] [facility] Comment on above: Performed By: #### C MP #### [address] [address] ALT [Catalytic activity/Vol] 27 U/L Normal 10-[address] [facility] Comment on above: Performed By: #### C MP #### [facility] [address] [place], [place] [address] Anion gap [Moles/Vol] 13 mmol/L Normal 9-18 [facility] Comment on above: Performed By: #### C MP #### [facility] [address] [place], [place] [address] AST [Catalytic activity/Vol] 30 U/L Normal 14-[address] [facility] Comment on above: Performed By: #### C MP #### [facility] [address] [place], [place] [address] Bilirubin [Mass/Vol] 1.4 mg/dL High 0.2-1.3 [facility] Comment on above: Performed By: #### C MP #### [facility] [address] [place], [place] [address] Calcium [Mass/Vol] 8.9 mg/dL Normal 8.5-10.[address] [facility] Comment on above: Performed By: #### C MP #### [facility] [address] [place], [place] [address] Chloride [Moles/Vol] 106 mmol/L High 97-105 [facility] Comment on above: Performed By: #### C MP #### [facility] [address] [place], [place] [address] CO2 Blood 19 mmol/L Low 22-[address] [facility] Comment on above: Performed By: #### C MP #### [facility] [address] [place], [place] [address] Creatinine [Mass/Vol] 0.83 mg/dL Normal 0.73-1.22 [facility] Comment on above: Performed By: #### C MP #### [facility] [address] [place], [place] [address] Glucose [Mass/Vol] 143 mg/dL High 74-[address] [facility] Comment on above: Result Comment: The [place] Diabetes Association (ADA) provides guidance for cutoff values for fasting glucose and random glucose. The ADA defines fasting as no caloric intake for at least 8 hours.Fasting plasma glucose results between 100 to 125 mg/dL indicate increased risk for diabetes (prediabetes). Fasting plasma glucose results greater than or equal to 126 mg/dL meet the criteria for diagnosis of diabetes. In the absence of unequivocal hyperglycemia, results should be confirmed by repeat testing. In a patient with classic symptoms of hyperglycemia or hyperglycemic crisis, random plasma glucose results greater than or equal to 200 mg/dL meet the criteria for diagnosis of diabetes. Reference: Standards of Medical Care in Diabetes 2016; [place] Diabetes Association. Diabetes Care. 2016;39(Suppl 1). Performed By: #### C MP #### [facility] [address] [place], [place] [address] Potassium [Moles/Vol] 3.8 mmol/L Normal 3.7-5.1 [facility] Comment on above: Performed By: #### C MP #### [address] [address] Protein [Mass/Vol] 6.7 g/dL Normal 6.3-8.[address] [facility] Comment on above: Performed By: #### C MP #### [address] [address] Sodium [Moles/Vol] 138 mmol/L Normal 136-[address] [facility] Comment on above: Performed By: #### C MP #### [address] [address] Urea nitrogen [Mass/Vol] 14 mg/dL Normal 9-[address] [facility] Comment on above: Performed By: #### C MP #### [address] [address] Cult and Smr Body Fluidon Cult and Smr Body Fluid Test performed at [facility] No anaerobic organisms cultured Few Gram positive cocci Many Polymorphonuclear leukocytes Few Mononuclear cells ORGANISM: *Escherichia coli (ID: 1) Moderate ORGANISM: *Enterococcus faecium (ID: 2) Moderate The results of ampicillin predict susceptibility to amoxicillin, amoxicillin-clavulanate, ampicillin-sulbactam and piperacillin-tazobactam. Cephalosporins, aminoglycosides (except for high-level resistance screening), clindamycin, and SXT may appear active in vitro, but are not effective clinically. Normal [facility] Comment on above: Performed By: #### G LMET #### [address] [place], [place] [address] ECG COMPLETEon 03-26-2020 ECG COMPLETE NAME : RIP ETIENNE PID : [id number] : 1975 Gender : Male Race : ORD : [id number] Procedure Date : Mar 26 2020 19:15:25 Edit Date : Mar 27 2020 11:47:33 Diagnosis:SINUS TACHYCARDIA POSSIBLE LEFT ATRIAL ENLARGEMENT LEFT POSTERIOR FASCICULAR BLOCK ANTEROSEPTAL INFARCT , AGE UNDETERMINED T WAVE ABNORMALITY, CONSIDER INFEROLATERAL ISCHEMIA ABNORMAL ECG NO PREVIOUS ECGS AVAILABLE Confirmed by DO MILLER JEFF ([id number]) on 03/27/2020 11:47:32 AM Ventricular Rate : 122 BPM Atrial Rate : 122 BPM P-R Interval : 158 ms QRS Duration : 88 ms Q-T Interval : 308 ms QTC Calculation(Bazett) : 438 ms P [place] : 44 degrees R [place] : 128 degrees T [place] : 9 degrees Test Reason : Arrhythmia Location : 52 : [id number] Overread By : DO MILLER JEFF Edited By : DO MILLER JEFF Referred By : ALISSA VO Acquired by : GIGI SHERIDAN Normal [facility] HISTORY PHYSICALon 0 HISTORY PHYSICAL HNO ID: [id number] Author: Hema Blackwell Service: Interventional Radiology Author Type: Physician Type: HANDP Filed: 03/26/2020 4:15 PM Note Text: UPDATED HISTORY AND PHYSICAL EXAMINATION SERVICE DATE: 03/26/2020 SERVICE TIME: 4:15 PM PHYSICAL EXAM MUST BE COMPLETED ON ADMISSION The History and Physical (completed in the past 30 days) has been reviewed and the patient has been examined. The contents accurately reflect the patient's condition with the following additions or revisions since the HANDP was completed. Examination indicates no changes. This HANDP can be found in the Electronic Medical Record dated 03/26/20. SIGNATURE: Hema Blackwell MD PATIENT NAME: Rip Etienne DATE: March 26, 2020 TIME: 4:15 PM PAGER: Normal [facility] Hemogram/Diffon 03-26-2020 Abs Immature Grans 0.08 thou/cmm High 0.00-0.05 [facility] Comment on above: Performed By: #### C BCD1 #### [facility] [address] [place] [address] Abs Neut (ANC) 10.78 thou/cmm High 1.78-5.[address] [facility] Comment on above: Performed By: #### C BCD1 #### [facility] [address] [place] [address] Abs. Baso 0.03 thou/cmm Normal 0.01-0.[address] [facility] Comment on above: Result Comment: Smea r scanned; tech agrees with automated differential Performed By: #### C BCD1 #### [facility] [address] [place] [address] Abs. [place] 0.76 thou/cmm Normal 0.30-0.[address] [facility] Comment on above: Performed By: #### C BCD1 #### [facility] [address] [place] [address] Basophils/100 WBC (Bld) 0.2 % Normal [facility] Comment on above: Performed By: #### C BCD1 #### [facility] [address] [place] [address] Eosinophils (Bld) [#/Vol] 0.09 thou/cmm Normal 0.04-0.[address] [facility] Comment on above: Performed By: #### C BCD1 #### [facility] [address] [place], [place] [address] Eosinophils/100 WBC (Bld) 0.7 % Normal [facility] Comment on above: Performed By: #### C BCD1 #### [facility] [address] [place] [address] Erythrocyte distribution width (RBC) [Ratio] 14.2 % Normal 11.6-14.[address] [facility] Comment on above: Performed By: #### C BCD1 #### [facility] [address] [place] [address] Hematocrit (Bld) [Volume fraction] 45.2 % Normal 40.1-51.[address] [facility] Comment on above: Performed By: #### C BCD1 #### [place] [address] Hemoglobin (Bld) [Mass/Vol] 15.9 g/dL Normal 13.7-17.[address] [facility] Comment on above: Performed By: #### C BCD1 #### [facility] [address] [place], [place] [address] Immature Grans 0.60 % Normal [facility] Comment on above: Performed By: #### C BCD1 #### [facility] [address] [place] [address] Lymphocytes (Bld) [#/Vol] 0.78 thou/cmm Low 0.84-2.[address] [facility] Comment on above: Performed By: #### C BCD1 #### [facility] [address] [place], [place] [address] Lymphocytes/100 WBC (Bld) 6.2 % Normal [facility] Comment on above: Performed By: #### C BCD1 #### [place] [address] MCH (RBC) [Entitic mass] 30.2 pg Normal 25.7-32.[address] [facility] Comment on above: Performed By: #### C BCD1 #### [facility] [address] [place] [address] MCHC (RBC) [Mass/Vol] 35.2 % Normal 32.3-36.5 [facility] Comment on above: Performed By: #### C BCD1 #### [facility] [address] [place] [address] MCV (RBC) [Entitic vol] 85.9 fL Normal 83.2-95.[address] [facility] Comment on above: Performed By: #### C BCD1 #### [facility] [address] [place], [place] [address] Monocytes/100 WBC (Bld) 6.1 % Normal [facility] Comment on above: Performed By: #### C BCD1 #### [facility] [address] [place] [address] Platelet mean volume (Bld) [Entitic vol] 10.8 fL Normal 8.7-12.[address] [facility] Comment on above: Performed By: #### C BCD1 #### [facility] [address] [place], [place] [address] Platelets (Bld) [#/Vol] 108 thou/cmm Low 141-[address] [facility] Comment on above: Result Comment: Lupe farias agrees with platelet count Performed By: #### C BCD1 #### [facility] [address] [place], [place] [address] RBC (Bld) [#/Vol] 5.26 mil/cmm Normal 4.63-6.[address] [facility] Comment on above: Performed By: #### C BCD1 #### [facility] [address] [place] [address] RDW SD 44.6 fl Normal 36.1-45.[address] [facility] Comment on above: Performed By: #### C BCD1 #### [facility] [address] [place] [address] Seg Neutrophil 86.2 % Normal [facility] Comment on above: Performed By: #### C BCD1 #### [facility] [address] [place] [address] WBC (Bld) [#/Vol] 12.50 thou/cmm High 4.23-9.07 [facility] Comment on above: Performed By: #### C BCD1 #### [facility] [address] [place] [address] IR CHOLECYSTOSTOMY PERCon Cholesterol [Mass/Vol] * * *Final Report* * * DATE OF EXAM: Mar 26 2020 4:59PM [facility] - IR CHOLECYSTOSTOMY PERC / PROCEDURE REASON: Acute cholecystitis due to biliary calculus * * * * Physician Interpretation * * * * EXAM TITLE: ULTRASOUND AND FLUOROSCOPICALLY GUIDED PLACEMENT OF CHOLECYSTOTOMY TUBE DATE: 03/26/2020 COMPARISON: None. CLINICAL INDICATION/HISTORY: The patient is a 44-year-old male with the diagnosis of acute cholecystitis. The patient is referred for cholecystotomy tube catheter placement. 8Fr x 35cm Skater Gallbladder Drain; Hx: acute cholecystitis, biliary calculi TO-[id number] S- E- SEDT- ABX1- ABXS1- FINDINGS: Informed consent was obtained from the patient.. The patient was placed in the supine position. . The gallbladder was localized with ultrasound. The skin was marked. A timeout was performed. All elements of maximum barrier technique including surgical cap and mask, sterile gown, sterile gloves, a large sterile drape, hand hygiene and appropriate prep agent for cutaneous antisepsis were utilized and maintained for this procedure. Local anesthesia was affected with 2% Xylocaine. Utilizing real-time ultrasound guidance a 21-gauge AccuStick needle was introduced into the gallbladder. Position of the tip of the needle within the gallbladder was confirmed with ultrasound and an image saved in the PACS. A small amount of viscous scot fluid was aspirated. A specimen was submitted for culture. Position within the gallbladder was confirmed with contrast injection. A.018 guidewire was then introduced and coiled within the gallbladder. The AccuStick needle was withdrawn. A 6-Mauritian dilator was then inserted over the guidewire. The introducer and guidewire were withdrawn. Position within the gallbladder was confirmed with contrast injection. Subsequently a short Amplatz guidewire was inserted and coiled within the gallbladder. The 6-Mauritian dilator was withdrawn. The tract was dilated with an 8-F dilator. An 8 Mauritian APD catheter was then inserted over the guidewire. The guidewire was slightly withdrawn and the loop of the catheter was formed. The introducer and guidewire were removed. Position within the gallbladder was confirmed with contrast injection. There are numerous filling defects within the gallbladder consistent with calculi. The loop of the catheter was locked. 30 cc of viscous scot fluid was aspirated from the gallbladder. The catheter was flushed with normal saline. The catheter was secured with a 2-0 Prolene suture. The catheter was dressed in a sterile manner. The catheter was placed to closed leg bag drainage. The patient tolerated the procedure well. No immediate complications were noted. The patient received conscious sedation with intravenous Versed and Fentanyl. . The patient was monitored throughout the procedure by the Radiology nurse. Intra-service time (monitoring for moderate sedation) (starts with administration of agent, ends when continuous ltaz-cb-veme time ends): 17 minutes Patient monitoring: I personally supervised and directed an independent trained observer who assisted in monitoring the patient?s level of consciousness and physiological status throughout the procedure. The patient was returned to their room in stable condition . IMPRESSION: 1. Technically successful ultrasound and fluoroscopically guided placement of a cholecystotomy tube. Fluoroscopic Time: 1 minutes 30 seconds Radiation Exposure: 15 mGy Volume of Contrast: 20 cc of Omnipaque 300 Number of Images: 6 Antibiotics:Cipro (ciprofloxacin) 400 mg IV for prophylaxis. Production Department Supervisor: LAN Transcribe Date/Time: Mar 29 2020 3:41P Dictated by : HEMA BLACKWELL MD This examination was interpreted and the report reviewed and electronically signed by: HEMA BLACKWELL MD on Mar 29 2020 3:49PM EST Normal [facility] Magnesium Bloodon 03-26-2020 Magnesium [Mass/Vol] 1.4 mg/dL Low 1.7-2.3 [facility] Comment on above: Performed By: #### M AG #### [place] [address] NM HEPATOBILIARY WO RXon NM HEPATOBILIARY WO RX * * *Final Report* * * DATE OF EXAM: Mar 26 2020 11:47AM [facility] 0022 - NM HEPATOBILIARY WO RX / PROCEDURE REASON: RUQ pain, no fever, no elev WBC * * * * Physician Interpretation * * * * HEPATOBILIARY SCAN: HISTORY: Right upper quadrant pain. Assessment of acute cholecystitis. TECHNIQUE: 5.1 mCi Tc-99m Choletec IV. This was followed by one hour of dynamic imaging and then delayed planar images in 4 hours. FINDINGS: There is prompt uptake by the liver, which is normal in configuration. Clearance is normal. Major intra-and extrahepatic biliary ducts are visualized. Gallbladder activity is not visualized by 60 minutes and in 4 hours post injection. Proximal small bowel activity is noted by 4 minutes post injection, indicating biliary patency. IMPRESSION: THIS EXAMINATION IS CONSISTENT WITH ACUTE CHOLECYSTITIS IN APPROPRIATE CLINICAL SETTING. Production Department Supervisor: LAN Transcribe Date/Time: Mar 26 2020 12:06P Dictated by : HERNÁN CARVALHO MD This examination was interpreted and the report reviewed and electronically signed by: HERNÁN CARVALHO MD on Mar 26 2020 12:31PM EST Normal [facility] NURSING PROGon 03-26-2020 NURSING PROG HNO ID: [id number] Author: Chantel Giraldo RN Service: Nursing Author Type: Registered Nurse Type: Nursing Progress Note Filed: 03/26/2020 11:46 PM Note Text: Nursing Progress Note Patient Name: Rip Etienne Patient Location: [id number] Ji notified that EKG is complete and is aware iof result. He states he will cone up at take a look at results. No new orders, will continue to monitor. 2140 12.5mg metoprolol given per order. 2339 Upon recheck of full vital signs, pt is febrile at 38.3 and is now requiring supplemental oxygen. Heart rate is down to [address] Ji notified, states to monitor for now, will order tylenol if issue persists This note was completed by: Chantel Giraldo RN Normal [facility] NURSING PROG HNO ID: [id number] Author: Cindy GomezRn) FRAN Cook Service: Nursing Author Type: Registered Nurse Type: Nursing Progress Note Filed: 03/26/2020 6:10 PM Note Text: Patient back up from drain placement. Vitals taken every 15min x4. With last set patient tachycardic, shivering, hypertensive, and respirations [address] Ji notified and will be up to see patient. Normal [facility] NURSING PROG HNO ID: [id number] Author: Chantel Villanueva) FRAN Giraldo Service: Nursing Author Type: Registered Nurse Type: Nursing Progress Note Filed: 03/26/2020 5:20 AM Note Text: Nursing Progress Note Patient Name: Rip Etienne Patient Location: [id number] 1 Sepsis alert received in Epic. No new orders yet. Will continue to monitor. This note was completed by: Chantel Giraldo RN [facility] PLAN OF CAREon 03-26-2020 PLAN OF CARE HNO ID: [id number] Author: Chantel Patel (netFactor) Service: Pharmacy Author Type: ? Type: Plan of Care Filed: 03/26/2020 10:55 AM Note Text: HOME CARE COORDINATOR BEDSIDE DELIVERY SURVEY 1. Patient to use [facility] Bedside Delivery - YES Insurance Information as follows: 2. Insurance card on file - YES 3. Credit card for payment - N/A No prescriptions written for pt yet, please call Pharmacy Bedside Delivery at [phone] or [phone] once scripts written and discharge orders placed. Chantel Patel (netFactor) Normal [facility] PROGRESSon 03-26-2020 PROGRESS HNO ID: [id number] Author: Brien (Rt) Joey Campuzano Service: Nuclear Radiology Author Type: Set Up Inspector Type: Progress Notes Filed: 03/26/2020 11:46 AM Note Text: RADIOLOGY SERVICE PROGRESS NOTE SERVICE DATE: 03/26/2020 SERVICE TIME: 11:44 AM PATIENT IDENTITY VERIFICATION COMPLETED USING TWO (2) STANDARD IDENTIFIERS: Name and Date of confirmed by patient verbally FALL SCREENING: Has the patient had 2 falls in the last year or 1 fall with injury or currently using an Ambulatory Assistive Device (Walker, Cane, Wheelchair, Crutches, etc.)? No PATIENT GENDER DATA: .male ALLERGIES: Reviewed and unchanged MEDICATIONS REVIEWED: Yes PATIENT RELEVANT IMPLANT DATA REVIEWED: Not Applicable CREATININE: Creatinine Date Value Ref Range Status 03/26/2020 0.83 0.73 - 1.22 mg/dL Final 04/09/2018 1.26 (H) 0.67 - 1.17 mg/dL Final 04/08/2018 1.43 (H) 0.67 - 1.17 mg/dL Final eGFR-All Other Races Date Value Ref Range Status 02/17/2016 >60 . Final Comment: eGFR (Estimated GFR) Units of measure: mL/min/1.73 meters squared eGFR is derived from the reexpressed MDRD Study equation using the following parameters: serum creatinine, age, gender and race. The creatinine assay has been calibrated to be traceable to IDMS. An eGFR <60 mL/min/1.73m2 for >3 months is consistent with chronic kidney disease. Refer to KDOQI guidelines for clinical interpretation. In patients with unstable renal function, e.g. those with acute kidney injury, the eGFR may not accurately reflect actual GFR. eGFR- Date Value Ref Range Status 02/17/2016 >60 Final P.O.C.T. RESULTS: N/A March 26, [address] PERFORMED: No IV SITE: Inpatient - refer to LDA documentation POST EXAM PIV STATUS: Inpatient see LDA documentation PROCEDURE TYPE: NM INJECT: HIDA Scan. 5.1 mCi Tc99m CHOLETEC. No other medications given..No GB @ 4Hrs. ADMINISTRATION TIME: 07:35 PATIENT DISCHARGED TO: Patient taken to IP transport area for return to RNF/ICU/ED. A Diagnostic radioactive procedure has taken place, with no further precautions necessary other than routine body substance precautions. More information regarding radiation safety can be found using this link: [email or web address] SIGNATURE: RT Jac PATIENT NAME: Rip Etienne DATE: March 26, 2020 TIME: 11:44 AM PAGER/CONTACT #: [facility] PROGRESS HNO ID: [id number] Author: Savita Haskins Service: General Surgery Author Type: Physician Type: Progress Notes Filed: 03/26/2020 3:26 PM Note Text: EG Surgery Progress Note SERVICE DATE: 03/26/2020 SUBJECTIVE: NO acute events. Feels okay this AM. Better than yesterday. Still with some RUQ pain. Wound want a diet if able. Tolerating diet DIET NPO OBJECTIVE: Vitals: Temp (24hrs), Av.7 ?C (98.1 ?F), Min:36.4 ?C (97.5 ?F), Max:37 ?C (98.6 ?F) BP 132/69 Pulse 110 Temp 37 ?C (98.6 ?F) (Oral) Resp 16 Ht 175.3 cm (5' 9) Wt 80.5 kg (177 lb 8 oz) SpO2 92% BMI 26.21 kg/m? O2 Therapy: Room Air IANDO: Date 03/25/20 07 - 03/26/20 0659 03/26/20 07 - 03/27/20 0659 Shift 3459-7707 4059-1032 1629-0875 24 Hour Total 6690-1930 9997-0698 9677-3358 24 Hour Total INTAKE IV 311 311 Volume (mL) (lactated ringers infusion) 311 311 Shift Total 311 311 OUTPUT Urine 275 275 Void (ml) 275 275 Shift Total 275 275 Weight (kg) 80.5 80.5 80.5 80.5 80.5 80.5 80.5 MEDICATIONS Current Facility-Administered Medications Medication Dose Route Frequency - HYDROmorphone 0.5 mg injection (DILAUDID) 0.5 mg INTRAVENOUS q 3 H PRN - pramipexole 0.25 mg tab(s) (MIRAPEX) 0.25 mg ORAL DAILY - furosemide 20 mg tab(s) (LASIX) 20 mg ORAL TID - magnesium oxide 400 mg tab(s) (MAG-OX) 400 mg ORAL DAILY - potassium chloride ER 10 mEq tab(s) (K-DUR, KLOR-CON) 10 mEq ORAL BID w MEALS - spironolactone 50 mg tab(s) (ALDACTONE) 50 mg ORAL DAILY - pantoprazole DR 40 mg tab(s) (PROTONIX) 40 mg ORAL DAILY (6 AM) - enoxaparin 40 mg injection (LOVENOX) 40 mg SUBCUTANEOUS DAILY - lactated ringers infusion 75 mL/hr INTRAVENOUS CONTINUOUS - ondansetron (PF) 4 mg injection (ZOFRAN) 4 mg INTRAVENOUS q 6 H PRN - oxyCODONE IR 5-10 mg tab(s) (ROXICODONE) 5-10 mg ORAL q 6 H PRN - dextrose 40 % 15 g 15 g ORAL PRN Or - glucagon 1 mg injection (GLUCAGEN) 1 mg INTRAMUSCULAR PRN Or - dextrose 50% in water 25 mL syringe 12.5 g INTRAVENOUS PRN - insulin lispro pen (rapid acting) (HumaLOG KWIKPEN) SUBCUTANEOUS q 6 H - treprostinil ER (ORENITRAM) tab(s) 3.75 mg 3.75 mg ORAL q 8 H - LORazepam 0.5 mg tab(s) (ATIVAN) 0.5 mg ORAL HS PRN Labs: Recent Labs 03/26/20 0422 NA 138 K 3.8 CHLOR 106* CO2 19* BUN 14 CREAT 0.83 GLUC 143* ANION 13 CA 8.9 MG 1.4* P 2.3* ALB 4.1 AST 30 ALT 27 ALKPHOS 49 TBILI 1.4* WBC 12.50* HB 15.9 HCT 45.2 PLT 108* INR 1.12 Exam: Gen - laying in bed, NAD, AANDOx3 HEENT - EOMI, mucus membranes moist, PEERL Neuro - motor/sensory/impression printer grossly intact CV - HR and BP WNL on monitors. Resp - respirations unlabored. Abd - soft, non distended, Minimally TTP in RUQ. Negative Mendoza's this AM. Back - Non tender. EXT - CHUA, no edema. ASSESSMENT AND PLAN: Active Hospital Problems Diagnosis Date Noted - Acute cholecystitis 03/25/2020 44 year old male with RUQ pain and symptomatic cholelithiasis. - NPO/IVF. - US from OSH reviewed. Stones with some wall thickening. - HIDA today. Will follow results. - Home meds with SSI. - DVT ppx with lovenox. - patient would be increased risk for surgery given his co-morbidities. HIDA pending. If negative, he would benefit from elective surgery. SIGNATURE: Pravin Capone MD PATIENT NAME: Rip Etienne DATE: March 26, 2020 TIME: 7:03 AM Pager: below Emergency General Surgery Service Pager: For questions or concerns Mon-Fri 6a-5p please page [phone]. After 5pm and on Weekends and Holidays, please page [phone] if in ICU or [phone] if on RNF. Attending Note I personally saw and examined the patient. I reviewed the resident's note. I agree with the resident's assessment and plan unless otherwise noted. HIDA positive for cholecystitis. Plan for IR drain due to morbidities with MELD 9 Signature: Savita Haskins MD Date: 03/26/2020 Time: 3:25 PM Normal [facility] Phosphorous Bloodon 03-26-20 20 Phosphate [Mass/Vol] 2.3 mg/dL Low 2.7-4.8 [facility] Comment on above: Performed By: #### P HOS #### [place] [id number] Protimeon 03-26-2020 INR Coag (PPP) [Relative time] 1.12 {INR} Normal 0.90-1.[address] [facility] Comment on above: Result Comment: Charmaine min K Antagonist (VKA) Therapeutic Range: INR 2 to 3 (Target INR of 2.5) Note: For patients treated with VKA drugs, such as warfarin, the [place] [employer] 2012 Guideline recommends a therapeutic INR range of 2 to 3 (target INR of 2.5). This recommendation includes high-risk patients with antiphospholipid syndrome with previous arterial or venous thromboembolism, current-generation mechanical or bioprosthetic aortic heart valve replacement. Note: Patients with mechanical aortic valve replacement and additional risk factors for thromboembolic events (atrial fibrillation, previous thromboembolism, LV dysfunction, hypercoagulable conditions) or an older generation mechanical AVR (i.e., ball in-Cage) or any mechanical MVR should have a INR therapeutic range of 2.5 to 3.5 target INR of 3). Eugenia GH, et al. Chest 2012; 141:7S-47S Hill RA, et al. [facility] 2017; 70: 252-289 Performed By: #### P T #### [place] [id number] PT Coag (PPP) [Time] 12.1 s Normal 9.7-13.0 [facility] Comment on above: Performed By: #### P T #### [place] [address] Rapid, COVID 19on 03-26-2020 Rapid, COVID 19 Negative Normal Negative [facility] Comment on above: Result Comment: This test has been authorized by the FDA under an Emergency Use Authorization (EUA). Performed By: #### R COVD #### [place] [address] HISTORY PHYSICALon 0 HISTORY PHYSICAL HNO ID: [id number] Author: Devante (Chong Jim DO Service: General Surgery Author Type: Resident Type: HANDP Filed: 03/26/2020 7:03 AM Note Text: ----- Attestation signed by Lakhwinder Landry at 03/26/2020 11:39 AM I discussed patient, including all pertinent findings, with resident. The patient was not examined by the attending. I reviewed the resident's note and I agreed with the resident's assessment and plan unless otherwise noted. ----- H an P: EMERGENCY SURGERY SERVICE SERVICE DATE: 03/25/2020 SERVICE TIME: 7:47 PM REASON FOR CONSULT: cholecystitis REQUESTING PHYSICIAN: [facility] ED PRIMARY CARE PHYSICIAN: Zayda Ovalle MD Subjective Mr. Etienne is a 44 year old male with past medical history significant for depression, nicotine abuse, anxiety, restless leg syndrome, type 2 diabetes, GERD, pulmonary hypertension, tricuspid regurgitation, right ventricular hypertrophy, as well as history of cirrhosis secondary to alcohol abuse. He presented to an [facility] facility for epigastric pain. This pain seemed radiate bilaterally to the flanks. He denies any nausea vomiting or chest pain. He denies any shortness of breath. He states this pain is similar to pancreatitis attacks in the past is why he came in. He says he has been pretty sick on these episodes. He denies any changes in bowel or bladder habits. He states he quit smoking 5 years ago. He quit drinking 10 years ago. He is complaining of pain in his epigastric region. This patient is direct admit due to findings on her right upper quadrant sound that showed cholelithiasis, gallbladder wall thickening. PAST MEDICAL HISTORY Diagnosis Date - Alcoholic cirrhosis (HCC) - Ascites - Depression - Fracture - Jaundice, hepatocellular - Panic attacks - Type 2 diabetes mellitus with complication (HCC) 02/17/2016 PAST SURGICAL HISTORY Procedure Laterality Date - EGD W/O OR W/BRUSH/WASH 03/14/2016 EGD - LEFT HEART CATH - LIVER BIOPSY - [facility] FAMILY HISTORY Problem Relation Age of Onset - Cancer Mother lung - Cancer Father lung - Cancer Sister breast Social History Tobacco Use - Smoking status: Current Every Day Smoker Packs/day: 0.25 Years: 15.00 Pack years: 3.75 Types: Cigarettes - Smokeless tobacco: Never Used Substance Use Topics - Alcohol use: Yes Comment: drank for 15 years, quit 3 yrs ago - Drug use: Yes Comment: marijuana use No medications prior to admission. No current facility-administered medications for this encounter. Allergies As of Date: 03/25/2020 (No Known Allergies) Fully Assessed 04/07/2018 COMPLETE REVIEW OF SYSTEMS: See HPI for pertinent ROS Objective PHYSICAL EXAM: Physical Exam Performed: Physical Exam Constitutional: He is oriented to person, place, and time and well-developed, well-nourished, and in no distress. No distress. HENT: Head: Normocephalic and atraumatic. Right Ear: External ear normal. Left Ear: External ear normal. Nose: Nose normal. Mouth/Throat: No oropharyngeal exudate. Eyes: Pupils are equal, round, and reactive to light. Right eye exhibits no discharge. Left eye exhibits no discharge. No scleral icterus. Neck: Normal range of motion. No tracheal deviation present. No thyromegaly present. Cardiovascular: Normal rate and intact distal pulses. Pulmonary/Chest: Effort normal. No respiratory distress. He has no wheezes. Abdominal: Soft. He exhibits distension (mild). There is abdominal tenderness (epigastric radiating to flanks). There is no rebound and no guarding. Umbilical and ventral hernia present Musculoskeletal: Normal range of motion. General: No tenderness, deformity or edema. Neurological: He is alert and oriented to person, place, and time. No cranial nerve deficit. Gait normal. Coordination normal. GCS score is 15. Skin: Skin is warm and dry. No rash noted. He is not diaphoretic. No erythema. No pallor. Psychiatric: Mood, memory, affect and judgment normal. There were no vitals taken for this visit. DATA: Diagnostic tests reviewed for today's visit: CBC, Coags, BMP, Mg, Phos CSF AND Dilantin Liver Function, Amylase, AND Lipase Cardiac Enzymes ABGs No orders to display Impression/Recommendation s 44 year old male with abdominal pain and RUQ US suggestive of acute cholecystitis - NPO/IVF - HIDA - will assess need for OR after results - INR - Rapid Covid - pain control Discussed above plan with attending, Dr Landry marine operations coordinator for Dr. Gomez SIGNATURE: Devante Jim DO PATIENT NAME: Rip Etienne DATE: March 25, 2020 TIME: 7:47 PM PAGER: see below Normal [facility] HOSPon 03-25-2020 HOSP Patient:Calos Etienne MRN: Height:5' 9(1.753 m) Weight:177 lb 8 oz (80.513 kg) Outpatient Medications as of 03/26/20: ambrisentan (LETAIRIS) 10 mg tablet treprostinil ER (ORENITRAM) 0.25 mg tablet PARoxetine (PAXIL) 10 mg tablet rifaximin (XIFAXAN) 550 mg tab insulin glargine (LANTUS) 100 unit/mL injection MEDICATION, NON-DATABASE oxyCODONE ir (OXYIR) 5 mg capsule liraglutide (VICTOZA) 0.6 mg/0.1 mL (18 mg/3 mL) pnij potassium chloride (K-TAB) 10 mEq tablet magnesium oxide 400 mg cap pramipexole (MIRAPEX) 0.25 mg tablet oxazepam 10 mg ORAL capsule omeprazole 20 mg ORAL capsule spironolactone (ALDACTONE) 50 mg ORAL tablet furosemide (LASIX) 20 mg ORAL tablet Admission/Clinic Administered Medications as of 03/26/20: HYDROmorphone 0.5 mg injection (DILAUDID) pramipexole 0.25 mg tab(s) (MIRAPEX) furosemide 20 mg tab(s) (LASIX) magnesium oxide 400 mg tab(s) (MAG-OX) potassium chloride ER 10 mEq tab(s) (K-DUR, KLOR-CON) spironolactone 50 mg tab(s) (ALDACTONE) pantoprazole DR 40 mg tab(s) (PROTONIX) enoxaparin 40 mg injection (LOVENOX) lactated ringers infusion ondansetron (PF) 4 mg injection (ZOFRAN) oxyCODONE IR 5-10 mg tab(s) (ROXICODONE) dextrose 40 % 15 g glucagon 1 mg injection (GLUCAGEN) dextrose 50% in water 25 mL syringe insulin lispro pen (rapid acting) (HumaLOG KWIKPEN) treprostinil ER (ORENITRAM) tab(s) 3.75 mg LORazepam 0.5 mg tab(s) (ATIVAN) Problem List: Depression [F32.9] Tobacco use [Z72.0] Anxiety [F41.9] RLS (restless legs syndrome) [G25.81] Pulmonary HTN (HCC) [I27.20] Type 2 diabetes mellitus with complication (HCC) [E11.8] Gastroesophageal reflux disease without esophagitis [K21.9] Thrombocytopenia (HCC) [D69.6] RVH (right ventricular hypertrophy) [I51.7] Severe tricuspid regurgitation [I07.1] Bacteremia [R78.81] Acute cholecystitis [K81.0] Allergies: No Known Allergies Date Verified:03/25/20 Lab Values Lab Value Units Date High Low POTA* 3.8 mmol/L 03/26/2020 5.1 3.7 ANDI* 45.2 % 03/26/2020 51.0 40.1 Progress Notes (): Devante Jim DO, DO 03/26/2020 7:03 AM Attested ----- Attestation signed by Lakhwinder Landry at 03/26/2020 11:39 AM I discussed patient, including all pertinent findings, with resident. The patient was not examined by the attending. I reviewed the resident's note and I agreed with the resident's assessment and plan unless otherwise noted. ----- H an P: EMERGENCY SURGERY SERVICE SERVICE DATE: 03/25/2020 SERVICE TIME: 7:47 PM REASON FOR CONSULT: cholecystitis REQUESTING PHYSICIAN: [facility] ED PRIMARY CARE PHYSICIAN: Zayda Ovalle MD Subjective Mr. Etienne is a 44 year old male with past medical history significant for depression, nicotine abuse, anxiety, restless leg syndrome, type 2 diabetes, GERD, pulmonary hypertension, tricuspid regurgitation, right ventricular hypertrophy, as well as history of cirrhosis secondary to alcohol abuse. [facility]. This pain seemed radiate bilaterally to the flanks. He denies any nausea vomiting or chest pain. He denies any shortness of breath. He states this pain is similar to pancreatitis attacks in the past is why he came in. He says he has been pretty sick on these episodes. He denies any changes in bowel or bladder habits. He states he quit smoking 5 years ago. He quit drinking 10 years ago. He is complaining of pain in his epigastric region. This patient is direct admit due to findings on her right upper quadrant sound that showed cholelithiasis, gallbladder wall thickening. PAST MEDICAL HISTORY Diagnosis Date - Alcoholic cirrhosis (HCC) - Ascites - Depression - Fracture - Jaundice, hepatocellular - Panic attacks - Type 2 diabetes mellitus with complication (HCC) 02/17/2016 PAST SURGICAL HISTORY Procedure Laterality Date - EGD W/O OR W/BRUSH/WASH 03/14/2016 EGD - LEFT HEART CATH - LIVER BIOPSY - [facility]ENTESIS [facility] FAMILY HISTORY Problem Relation Age of Onset - Cancer Mother lung - Cancer Father lung - Cancer Sister breast Social History Tobacco Use - Smoking status: Current Every Day Smoker Packs/day: 0.25 Years: 15.00 Pack years: 3.75 Types: Cigarettes - Smokeless tobacco: Never Used Substance Use Topics - Alcohol use: Yes Comment: drank for 15 years, quit 3 yrs ago - Drug use: Yes Comment: marijuana use No medications prior to admission. No current facility-administered medications for this encounter. Allergies As of Date: 03/25/2020 (No Known Allergies) Fully Assessed 04/07/2018 COMPLETE REVIEW OF SYSTEMS: See HPI for pertinent ROS Objective PHYSICAL EXAM: Physical Exam Performed: Physical Exam Constitutional: He is oriented to person, place, and time and well-developed, well-nourished, and in no distress. No distress. HENT: Head: Normocephalic and atraumatic. Right Ear: External ear normal. Left Ear: External ear normal. Nose: Nose normal. Mouth/Throat: No oropharyngeal exudate. Eyes: Pupils are equal, round, and reactive to light. Right eye exhibits no discharge. Left eye exhibits no discharge. No scleral icterus. Neck: Normal range of motion. No tracheal deviation present. No thyromegaly present. Cardiovascular: Normal rate and intact distal pulses. Pulmonary/Chest: Effort normal. No respiratory distress. He has no wheezes. Abdominal: Soft. He exhibits distension (mild). There is abdominal tenderness (epigastric radiating to flanks). There is no rebound and no guarding. Umbilical and ventral hernia present Musculoskeletal: Normal range of motion. General: No tenderness, deformity or edema. Neurological: He is alert and oriented to person, place, and time. No cranial nerve deficit. Gait normal. Coordination normal. GCS score is 15. Skin: Skin is warm and dry. No rash noted. He is not diaphoretic. No erythema. No pallor. Psychiatric: Mood, memory, affect and judgment normal. There were no vitals taken for this visit. DATA: Diagnostic tests reviewed for today's visit: CBC, Coags, BMP, Mg, Phos CSF AND Dilantin Liver Function, Amylase, AND Lipase Cardiac Enzymes ABGs No orders to display Impression/Recommendation s 44 year old male with abdominal pain and RUQ US suggestive of acute cholecystitis - NPO/IVF - HIDA - will assess need for OR after results - INR - Rapid Covid - pain control Discussed above plan with attending, Dr Landry marine operations coordinator for Dr. Gomez SIGNATURE: Devante Jim DO PATIENT NAME: Rip Etienne DATE: March 25, 2020 TIME: 7:47 PM PAGER: see below Previous Version Chantel Giraldo, RN, RN 03/26/2020 5:20 AM Signed Nursing Progress Note Patient Name: Rip Etienne Patient Location: [id number] Sepsis alert received in [facility]. No new orders yet. Will continue to monitor. This note was completed by: FRAN Bravo MD 03/26/2020 7:02 AM Incomplete Savita Haskins MD 03/26/2020 3:26 PM Signed EG Surgery Progress Note SERVICE DATE: 03/26/2020 SUBJECTIVE: NO acute events. Feels okay this AM. Better than yesterday. Still with some RUQ pain. Wound want a diet if able. Tolerating diet DIET NPO OBJECTIVE: Vitals: Temp (24hrs), Av.7 ?C (98.1 ?F), Min:36.4 ?C (97.5 ?F), Max:37 ?C (98.6 ?F) BP 132/69 Pulse 110 Temp 37 ?C (98.6 ?F) (Oral) Resp 16 Ht 175.3 cm (5' 9) Wt 80.5 kg (177 lb 8 oz) SpO2 92% BMI 26.21 kg/m? O2 Therapy: Room Air IANDO: Date 03/25/20 07 - 03/26/20 0659 03/26/20 07 - 03/27/20 0659 Shift 0663-1224 7620-6210 3813-4960 24 Hour Total 3381-7644 1076-5366 9049-4987 24 Hour Total INTAKE IV 311 311 Volume (mL) (lactated ringers infusion) 311 311 Shift Total 311 311 OUTPUT Urine 275 275 Void (ml) 275 275 Shift Total 275 275 Weight (kg) 80.5 80.5 80.5 80.5 80.5 80.5 80.5 MEDICATIONS Current Facility-Administered Medications Medication Dose Route Frequency - HYDROmorphone 0.5 mg injection (DILAUDID) 0.5 mg INTRAVENOUS q 3 H PRN - pramipexole 0.25 mg tab(s) (MIRAPEX) 0.25 mg ORAL DAILY - furosemide 20 mg tab(s) (LASIX) 20 mg ORAL TID - magnesium oxide 400 mg tab(s) (MAG-OX) 400 mg ORAL DAILY - potassium chloride ER 10 mEq tab(s) (K-DUR, KLOR-CON) 10 mEq ORAL BID w MEALS - spironolactone 50 mg tab(s) (ALDACTONE) 50 mg ORAL DAILY - pantoprazole DR 40 mg tab(s) (PROTONIX) 40 mg ORAL DAILY (6 AM) - enoxaparin 40 mg injection (LOVENOX) 40 mg SUBCUTANEOUS DAILY - lactated ringers infusion 75 mL/hr INTRAVENOUS CONTINUOUS - ondansetron (PF) 4 mg injection (ZOFRAN) 4 mg INTRAVENOUS q 6 H PRN - oxyCODONE IR 5-10 mg tab(s) (ROXICODONE) 5-10 mg ORAL q 6 H PRN - dextrose 40 % 15 g 15 g ORAL PRN Or - glucagon 1 mg injection (GLUCAGEN) 1 mg INTRAMUSCULAR PRN Or - dextrose 50% in water 25 mL syringe 12.5 g INTRAVENOUS PRN - insulin lispro pen (rapid acting) (HumaLOG KWIKPEN) SUBCUTANEOUS q 6 H - treprostinil ER (ORENITRAM) tab(s) 3.75 mg 3.75 mg ORAL q 8 H - LORazepam 0.5 mg tab(s) (ATIVAN) 0.5 mg ORAL HS PRN Labs: Recent Labs 03/26/20 0422 NA 138 K 3.8 CHLOR 106* CO2 19* BUN 14 CREAT 0.83 GLUC 143* ANION 13 CA 8.9 MG 1.4* P 2.3* ALB 4.1 AST 30 ALT 27 ALKPHOS 49 TBILI 1.4* WBC 12.50* HB 15.9 HCT 45.2 PLT 108* INR 1.12 Exam: Gen - laying in bed, NAD, AANDOx3 HEENT - EOMI, mucus membranes moist, PEERL Neuro - motor/sensory/impression printer grossly intact CV - HR and BP WNL on monitors. Resp - respirations unlabored. Abd - soft, non distended, Minimally TTP in RUQ. Negative Mendoza's this AM. Back - Non tender. EXT - CHUA, no edema. ASSESSMENT AND PLAN: Active Hospital Problems Diagnosis Date Noted - Acute cholecystitis 03/25/2020 44 year old male with RUQ pain and symptomatic cholelithiasis. - NPO/IVF. - US from OSH reviewed. Stones with some wall thickening. - HIDA today. Will follow results. - Home meds with SSI. - DVT ppx with lovenox. - patient would be increased risk for surgery given his co-morbidities. HIDA pending. If negative, he would benefit from elective surgery. SIGNATURE: Pravin Capone MD PATIENT NAME: Rip Etienne DATE: March 26, 2020 TIME: 7:03 AM Pager: below Emergency General Surgery Service Pager: For questions or concerns Mon-Fri 6a-5p please page [phone]. After 5pm and on Weekends and Holidays, please page [phone] if in ICU or [phone] if on RNF. Attending Note I personally saw and examined the patient. I reviewed the resident's note. I agree with the resident's assessment and plan unless otherwise noted. HIDA positive for cholecystitis. Plan for IR drain due to morbidities with MELD 9 Signature: Savita Haskins MD Date: 03/26/2020 Time: 3:25 PM Previous Version Anh Saldana, RN, RN 03/26/2020 9:55 AM Signed CARE MANAGEMENT: ASSESSMENT AND DISCHARGE PLAN SERVICE DATE: March 26, 2020 SERVICE TIME: 9:49 AM PRIMARY CARE PHYSICIAN: Zayda Ovalle MD (Confirmed with patient) ADMISSION STATUS: Inpatient Needs Prior to Discharge: Pharmacy Bedside Delivery MEDICAL: [facility] MEDICAID Patient/[employer] Detailer Stated Goals: To return home to life as it was;To be cured/healed Health Insurance: [facility] [employer] Issues Impacting Discharge Plan: Newly diagnosed Newly Diagnosed: RUQ pain and symptomatic cholelithiasis Last Discharge Date: 04/09/18 Is this Within the Past 30 days? Last discharge within 30 days: No Advance Directive: Current Advance Directive: None Bag Bleacher Attempted to Assist with AD Completion: Yes Action: Patient Unwilling Health LiteracyHow often do you need to have someone help you when you read instructions, pamphlets, or other written material from your doctor or pharmacy? : 1 - Never How confident are you filling out medical forms by yourself?: 1 - Extremely If Patient scores > 3 on either question, the following interventions were put into place:: Patient did not score > 3 on either question. Baseline Mental Status Prior to this Illness what was the patient's Baseline Mental Status?: Alert AND Oriented Prior to this illness, has anyone described the patient having any of the following behaviors?: Not Applicable Relationship of the informant to the patient:: Self Functional Status: Independent Does Patient Currently Receive Any Community Services or Home Care?: None Equipment Prior to Admission: Glucometer SOCIAL: Living Arrangements: Home Lives With: Other: See Comment(Significant other ) Financial Resources: DisabledPrimary Contact: Extended Emergency Contact Information Primary Emergency Contact: Caitlin Bryan Relation: Sister Supportive Patient Contact:: Yes Contact Resources: Family Social Needs Food insecurity Worry: Never true Inability: Never true Resources Needed: No Social Needs Financial resource strain: Not hard at all Social Needs Transportation needs Medical: No Non-medical: No Caregiver AssessmentCaregiver is ready, willing and able to meet the patient's needs as recommended by the inter-professional team:: Yes Does the patient have an acute stroke diagnosis, or has the patient had a stroke during this admission?: No Patient's transition needs and plan for meeting these needs: Follow up care Patient's perception of need for this admission: Abdominal pain Medication Adherance I am convinced of the importance of my prescription medication: 0 - Agree Completely I worry that my prescription medication will do more harm than good to me : 0 - Disagree Completely I feel financially burdened by my qai-fs-bdijes expenses for my prescription medication:: 0 - Disagree Completely Risk Score: 0 Patient is categorized as: Low risk < 2 Are you interested in bedside delivery of your medications? Yes Is Patient Psychosocially Complex?: No ASSESSMENT AND PLAN: Medical Needs: Medical Needs: Two or more chronic diseases Psychosocial Needs: Psychosocial Needs: Mental Health Diagnosis Mental Health Information: History of ETOH abuse, depression, anxiety, panic attacks FREEDOM OF CHOICE EXPLAINED: [place] of Choice Given: No Reason Not Given: No placements necessary POTENTIAL TRANSITION PLANS Home Spoke with patient via phone. Patient independent at home with his significant other prior to admission. Patient hopeful to return home at discharge. Will follow clinical course for DC planning needs. SIGNATURE: Anh Saldana RN PATIENT NAME: Rip Etienne DATE: March 26, 2020 TIME: 9:49 AM PAGER/CONTACT #: [phone] Chantel Patel (Supervisor [employer]) 03/26/2020 10:55 AM Signed HOME CARE COORDINATOR BEDSIDE DELIVERY SURVEY 1. Patient to use [facility] Bedside Delivery - YES Insurance Information as follows: 2. Insurance card on file - YES 3. Credit card for payment - N/A No prescriptions written for pt yet, please call Pharmacy Bedside Delivery at [phone] or [phone] once scripts written and discharge orders placed. Chantel Patel (Supervisor [employer]) RT Jac, Joey 03/26/2020 11:46 AM Signed RADIOLOGY SERVICE PROGRESS NOTE SERVICE DATE: 03/26/2020 SERVICE TIME: 11:44 AM PATIENT IDENTITY VERIFICATION COMPLETED USING TWO (2) STANDARD IDENTIFIERS: Name and Date of confirmed by patient verbally FALL SCREENING: Has the patient had 2 falls in the last year or 1 fall with injury or currently using an Ambulatory Assistive Device (Walker, Cane, Wheelchair, Crutches, etc.)? No PATIENT GENDER DATA: .male ALLERGIES: Reviewed and unchanged MEDICATIONS REVIEWED: Yes PATIENT RELEVANT IMPLANT DATA REVIEWED: Not Applicable CREATININE: Creatinine Date Value Ref Range Status 03/26/2020 0.83 0.73 - 1.22 mg/dL Final 04/09/2018 1.26 (H) 0.67 - 1.17 mg/dL Final 04/08/2018 1.43 (H) 0.67 - 1.17 mg/dL Final eGFR-All Other Races Date Value Ref Range Status 02/17/2016 >60 . Final Comment: eGFR (Estimated GFR) Units of measure: mL/min/1.73 meters squared eGFR is derived from the reexpressed MDRD Study equation using the following parameters: serum creatinine, age, gender and race. The creatinine assay has been calibrated to be traceable to IDMS. An eGFR <60 mL/min/1.73m2 for >3 months is consistent with chronic kidney disease. Refer to KDOQI guidelines for clinical interpretation. In patients with unstable renal function, e.g. those with acute kidney injury, the eGFR may not accurately reflect actual GFR. eGFR- Date Value Ref Range Status 02/17/2016 >60 Final P.O.C.T. RESULTS: N/A March 26, [address] PERFORMED: No IV SITE: Inpatient - refer to LDA documentation POST EXAM PIV STATUS: Inpatient see LDA documentation PROCEDURE TYPE: NM INJECT: HIDA Scan. 5.1 mCi Tc99m CHOLETEC. No other medications given..No GB @ 4Hrs. ADMINISTRATION TIME: 07:35 PATIENT DISCHARGED TO: Patient taken to IP transport area for return to RNF/ICU/ED. A Diagnostic radioactive procedure has taken place, with no further precautions necessary other than routine body substance precautions. More information regarding radiation safety can be found using this link: [email or web address] 20Diagnostic%20Nuclear%20 Medicine%[email or web address] SIGNATURE: RT Jac PATIENT NAME: Rip Etienne DATE: March 26, 2020 TIME: 11:44 AM PAGER/CONTACT #: [facility] Kamryn Bloodon 08-26-2019 Bacteria identified Cx Nom (Bld) MICRSLT [facility] Work Phone: Comment on above: PATIENT: SABIHA ETIENNE SON LOCATION: L055 [id number]#: [id number] : 71 AGE: SEX: M ORDERED BY: PHILLIP SILVERMAN: Blood COLLECTED: 08/26/19 11:20ANTIBIOTICS AT DARREL.: RECEIVED : 08/26/19 13:05SITE: left PERIPHERAL R E S U L T S BLOOD CULTURE, BACTERIAL FINAL 08/31/19 13:42 No Growth at 1 days No Growth at 2 days No Growth at 3 days No Growth at 4 days NO GROWTH - FINAL REPORT Bacteria identified Cx Nom (Bld) MICRSLT [facility] Work Phone: Comment on above: PATIENT: SABIHA ETIENNE LOCATION: L055 [id number]#: [id number] : 71 AGE: SEX: M ORDERED BY: PHILLIP SILVERMAN: Blood COLLECTED: 08/26/19 11:19ANTIBIOTICS AT DARREL.: RECEIVED : 08/26/19 13:01SITE: right PERIPHERAL R E S U L T S BLOOD CULTURE, BACTERIAL FINAL 08/31/19 13:42 No Growth at 1 days No Growth at 2 days No Growth at 3 days No Growth at 4 days NO GROWTH - FINAL REPORT Hematologyon 08-26-2019 aPTT Coag (PPP) [Time] 32 {sec} 28 - 38 [facility] Work Phone: Comment on above: THE APTT IS NO LONGE R USED FOR MONITORING UNFRACTIONATED HEPARIN THERAPY. FOR MONITORING HEPARIN THERAPY, USE THE HEPARIN ASSAY. Hematocrit (Bld) [Volume fraction] 45.2 % See Below [facility] Work Phone: Comment on above: Reference Range: 41. 0 - 52.0 Hemoglobin (Bld) [Mass/Vol] 14.4 g/dL See Below [facility] Work Phone: Comment on above: Reference Range: 13. 5 - 17.5 INR Coag (PPP) [Relative time] 1.3 {INR} above high threshold 0.9 - 1.1 [facility] Work Phone: MCV (RBC) [Entitic vol] 92 fL 80 - 100 [facility] Work Phone: Platelets (Bld) [#/Vol] 204 {x10E9/L} 150 - 450 [facility] Work Phone: PT Coag (PPP) [Time] 14.9 {sec} above high threshold 9.7 - 12.7 [facility] Work Phone: RBC (Bld) [#/Vol] 4.91 {x10E12/L} See Below [facility] Work Phone: Comment on above: Reference Range: 4.5 0 - 5.90 WBC (Bld) [#/Vol] 0.0 {/100_WBC} 0.0-0.0 [facility] Work Phone: WBC (Bld) [#/Vol] 5.4 {x10E9/L} 4.4 - 11.3 [facility] Work Phone: Hepatic Function Panelon Albumin BCP dye [Mass/Vol] 3.6 g/dL 3.4 - 5.0 [facility] Work Phone: ALP [Catalytic activity/Vol] 64 U/L 33 - 120 [facility] Work Phone: ALT With P-5'-P [Catalytic activity/Vol] 80 U/L above high threshold 10 - 52 [facility] Work Phone: Comment on above: Patients treated wit h Sulfasalazine may generate falsely decreased results for ALT. AST With P-5'-P [Catalytic activity/Vol] 24 U/L 9 - 39 [facility] Work Phone: Bilirubin [Mass/Vol] 1.6 mg/dL above high threshold 0.0 - 1.2 [facility] Work Phone: Bilirubin.direct [Mass/Vol] 0.7 mg/dL above high threshold 0.0 - 0.3 [facility] Work Phone: Protein [Mass/Vol] 6.7 g/dL 6.4 - 8.2 [facility] Work Phone: Magnesium, Serumon 9 Magnesium [Mass/Vol] 1.78 mg/dL See Below [facility] Work Phone: Comment on above: Reference Range: 1.6 0 - 2.40 Metabolic Panelon 08-26-2019 Glucose [Mass/Vol] 152 mg/dL above high threshold 74 - 99 [facility] Work Phone: Otheron 08-26-2019 Interpreted by: VIRGILIO YUAN AZAR1 21:01MRN: [id number] Name: RIP ETIENNE STUDY:ABD LIMITED F/U by ultrasound; U/S, targeted dynamic microbubblesonographice contrast characterization (non-cardiac); initial les;08/26/2019 9:59 am INDICATION:cholecystitis. COMPARISON:HIDA dated 08/20/2019, ultrasound liver dated 08/17/2019. [id number] ORDERING CLINICIAN:RORO VELÁSQUEZ TECHNIQUE:Focused ultrasound of the gallbladder was performed using contrast. Contrast type : LumasonContrast volume injected: 2.2 mLDiscarded volume: 2.8 mLSaline flush 5 mL after each injection. FINDINGS:Limited ultrasound of the gallbladder demonstrated contractedgallbladder. There is again gallbladder wall thickening and multiplegallstones within the gallbladder. There is no pericholecystic fluidor fluid collection. Following contrast administration, there is no evidence of hyperemiaor significant enhancement along the gallbladder wall. Note is madeof recanalized umbilical vein. Therefore, it was determined to abort cholecystostomy tube placementas findings were not consistent with acute cholecystitis. IMPRESSION:1. Cholelithiasis in the contracted gallbladder, which is notconsistent with acute cholecystitis. Gallbladder wall thickening maybe secondary to underlying liver disease/cirrhosis. I personally reviewed the images/study and I agree with the findingsas stated. This study was interpreted at [place], [place].Electronically signed by: VIRGILIO DEJESUS 08/26/19 21:01 Normal [facility] Work Phone: Erythrocyte distribution width (RBC) [Ratio] 16.7 % above high threshold See Below [facility] Work Phone: Comment on above: Reference Range: 11. 5 - 14.5 MCHC (RBC) [Mass/Vol] 31.9 g/dL below low threshold See Below [facility] Work Phone: Comment on above: Reference Range: 32. 0 - 36.0 Renal Function Panelon 08-26 Anion gap [Moles/Vol] 14 mmol/L 10 - 20 [facility] Work Phone: Calcium [Mass/Vol] 9.2 mg/dL 8.6 - 10.6 [facility] Work Phone: Chloride [Moles/Vol] 105 mmol/L 98 - 107 [facility] Work Phone: CO2 [Moles/Vol] 25 mmol/L 21 - 32 [facility] Work Phone: Creatinine [Mass/Vol] 1.40 mg/dL above high threshold See Below [facility] Work Phone: Comment on above: Reference Range: 0.5 0 - 1.30 Glucose [Mass/Vol] 169 mg/dL above high threshold 74 - 99 [facility] Work Phone: Phosphate [Mass/Vol] 4.4 mg/dL 2.5 - 4.9 MG[facility] Work Phone: Comment on above: The performance eusebia acteristics of phosphorus testing in heparinized plasma have been validated by the individual laboratory site where testing is performed. Testing on heparinized plasma is not approved by the FDA; however, such approval is not necessary. Potassium [Moles/Vol] 4.7 mmol/L 3.5 - 5.3 [facility] Work Phone: Sodium [Moles/Vol] 139 mmol/L 136 - 145 [facility] Work Phone: Urea nitrogen [Mass/Vol] 16 mg/dL 6 - 23 [facility] Work Phone: Renal Function Panel 67 {mL/min/1.73m2} >60 [facility] Work Phone: Comment on above: CALCULATIONS OF PRASHANT MATED GFR ARE PERFORMED USING THE MDRD STUDY EQUATION FOR THE IDMS-TRACEABLE CREATININE METHODS. CLIN CHEM 2007;53:766-72 Renal Function Panel 55 {mL/min/1.73m2} Abnormal >60 [facility] Work Phone: Hematologyon 08-25-2019 ABO group Nom (Bld) O [facility] Work Phone: Blood group antibody screen Ql Negative [facility] Work Phone: Hematocrit (Bld) [Volume fraction] 43.5 % See Below [facility] Work Phone: Comment on above: Reference Range: 41. 0 - 52.0 Hemoglobin (Bld) [Mass/Vol] 14.0 g/dL See Below [facility] Work Phone: Comment on above: Reference Range: 13. 5 - 17.5 MCV (RBC) [Entitic vol] 93 fL 80 - 100 [facility] Work Phone: Platelets (Bld) [#/Vol] 150 {x10E9/L} 150 - 450 [facility] Work Phone: [phone] RBC (Bld) [#/Vol] 4.68 {x10E12/L} See Below [facility] Work Phone: Comment on above: Reference Range: 4.5 0 - 5.90 Rh immune globulin screen (Bld) [Interp] Positive [facility] Work Phone: WBC (Bld) [#/Vol] 0.0 {/100_WBC} 0.0-0.0 [facility] Work Phone: WBC (Bld) [#/Vol] 5.4 {x10E9/L} 4.4 - 11.3 [facility] Work Phone: aPTT Coag (PPP) [Time] 31 {sec} 28 - 38 [facility] Work Phone: Comment on above: THE APTT IS NO LONGE R USED FOR MONITORING UNFRACTIONATED HEPARIN THERAPY. FOR MONITORING HEPARIN THERAPY, USE THE HEPARIN ASSAY. INR Coag (PPP) [Relative time] 1.3 {INR} above high threshold 0.9 - 1.1 [facility] Work Phone: PT Coag (PPP) [Time] 14.5 {sec} above high threshold 9.7 - 12.7 [facility] Work Phone: Hepatic Function Panelon Albumin BCP dye [Mass/Vol] 3.3 g/dL below low threshold 3.4 - 5.0 [facility] Work Phone: ALP [Catalytic activity/Vol] 68 U/L 33 - 120 [facility] Work Phone: ALT With P-5'-P [Catalytic activity/Vol] 95 U/L above high threshold 10 - 52 [facility] Work Phone: Comment on above: Patients treated wit h Sulfasalazine may generate falsely decreased results for ALT. AST With P-5'-P [Catalytic activity/Vol] 25 U/L 9 - 39 [facility] Work Phone: Bilirubin [Mass/Vol] 1.6 mg/dL above high threshold 0.0 - 1.2 [facility] Work Phone: Bilirubin.direct [Mass/Vol] 0.7 mg/dL above high threshold 0.0 - 0.3 [facility] Work Phone: Protein [Mass/Vol] 6.5 g/dL 6.4 - 8.2 [facility] Work Phone: Magnesium, Serumon 9 Magnesium [Mass/Vol] 1.65 mg/dL See Below [facility] Work Phone: Comment on above: Reference Range: 1.6 0 - 2.40 Metabolic Panelon 08-25-2019 Glucose [Mass/Vol] 190 mg/dL above high threshold 74 - 99 [facility] Work Phone: Glucose [Mass/Vol] 135 mg/dL above high threshold 74 - 99 [facility] Work Phone: Glucose [Mass/Vol] 148 mg/dL above high threshold 74 - 99 [facility] Work Phone: Glucose [Mass/Vol] 173 mg/dL above high threshold 74 - 99 [facility] Work Phone: Otheron 08-25-2019 [facility], [place], [employer] [employer], [address] [place], [place] [address]Cardiovascular Catheterization ReportPatient Name: RIP ETIENNE Performing [id number] Jens ElishaPhysician: MDStudy Date: 08/25/2019 Verifying Physician: [id number] Jens MaradiagaMRN/PID: [id number] Clamshell Operator:Accession/Or austin#: [id number] Fellow: Ewelina Flores MDDate of : 1975 Fellow:Gender: M Referring Physician: juany Siu Date: Referring Physician: Alicja Rehmanon: Referring Physician: Alicja Serratoudy: Right Heart CatheterizationIndication s:RIP ETIENNE is a 44 year old male who presents with pulmonary HTN.Procedure Description:After infiltration with local anesthetic, the right was cannulated with a modified Seldinger technique. After infiltration of local anesthetic, the right internal jugular vein was identified with two-dimensional ultrasound. Under direct ultrasound visualization, the right internal jugular vein was cannulated with a micropuncture technique. A 7 Mauritian sheath was placed in the vein. Cardiac output was calculated via the Dio method. Post-procedure, the venous sheath was pulled and pressure was applied to the site.Right Heart Catheterization:Cardiac output was calculated via the Dio method. Cardiac output is severely decreased. Reduced cardiac output at rest. Severely elevated pulmonary vascular resistance. Pulmonary arterial hypertension. RHC/RAMP studyRt IJ, 7Fr, Manual pressureelevated Rt sided (RA 12 mmHg, RV 109/12 mmHg) and PA pressure (98/33 mean 59 mmHg) with low PCWP (10 mmHg), cardiac output and index (2.6/1,3), PVR of 24 consistent with pulmonary arterial HTN.no reversibility on RAMP study (no significant change in absolute of mean PAP).5 PPM of inhaled NO: PAP 90/29 mean 52 mmHg20 PPM of inhaled NO: PAP 91/32 mean 55 mmHg40 PPM of inhaled NO: PAP 95/36 mean 58 mmHg.Hemo Personnel:+ --------+ +\F \Name \F\Duty \F\+ -+ +\F\Jens Deluca ra, MD\F\ PROC MD 1\F\+ --+ +\F\Yen Stewart RN \F\ PROC CIRC 1\F\+ --+ +\F\Sharmila Chen i RN \F\PROC RECORD 1\F\+ --+ +\F\Stephanie Patel RT \F\PROC RECORD 2\F\+ --+ +\F\Tulio Moran RN \F\ PROC NURSE 1\F\+ --+ +\F\Lyric Ackerman RN \F\ PROC NURSE 2\F\+ --+ +\F\Ewelina Hillman MD \F\FELLOW PHYS 1\F\+ --+ +Sedation Time:+ -----+ +\F\Sedation Start/End Times\F\Time \F\+ ---+ +\F\Start \F\08/25/2019 14:01:02 \F\+ ---+ +\F\Drugs \F\Fentanyl 50 mcg IV per Physician\F\+ + +\F\E nd \F\08/25/2019 14:51:00 \F\+ ---+ +Equipment Used:+ -+ ---------+\F\ Date/Time\F\ Description\F\+ + +\F\07/29 2:04:25 PM\F\ {4F Sheaths} - 4 Fr Transitionless Micropuncture Set -\F\\F\ \F\ Qty: 1 Each Part #: 11\F\+ -+ ---------+\F\08/25/2019 2:04:31 PM\F\ {7F Sheaths} - Ultimum introducer 7 Fr x 12cm - Qty: 1\F\\F\ \F\ Each Part #: 314\F\+ --+ +\F\08/25/2019 2:04:37 PM\F\{RHC Catheters} - Mclouth-Carisa TD 7 Fr x 110cm - Qty: 1 Each\F\\F\ \F\ Part #: 2100\F\+ ---+ +Fluoroscopy Time:+ -------+--------+\F\X-Ray Summary Fluoro Time:\F\5.60 min\F\+ --------+--------++------ ------+-------+\F\Contras t: \F\Dose: \F\+ +-------+ \F\Optiray_300:\F\0.00 ml\F\+ +------ -+Hemodynamic Pressures:+----+--------- + + + +----+---- +------+------+\F\Site\F\ Date Time\F\Phase Name\F\Systolic mmHg\F\Diastolic mmHg\F\ ED \F\Mean\F\A-Wave\F\V-Wave \F\\F\ \F\ \F\ \F\ \F\ \F\mmHg\F\mmHg\F\ mmHg \F\ mmHg \F\+----+---------+------ ----+ +------ --------+----+----+------ +------+\F\ AO\F\08/25/2019\F\ Rest\F\ 143\F\ 97\F\ \F\ 112\F\ \F\ \F\\F\ \F\ 2:08:11\F\ \F\ \F\ \F\ \F\ \F\ \F\ \F\\F\ \F\ PM\F\ \F\ \F\ \F\ \F\ \F\ \F\ \F\+----+---------+------ ----+ +------ --------+----+----+------ +------+\F\ RA\F\08/25/2019\F\ Rest\F\ \F\ \F\ \F\ 12\F\ 20\F\ 14\F\\F\ \F\ 2:10:27\F\ \F\ \F\ \F\ \F\ \F\ \F\ \F\\F\ \F\ PM\F\ \F\ \F\ \F\ \F\ \F\ \F\ \F\+----+---------+------ ----+ +------ --------+----+----+------ +------+\F\ RV\F\08/25/2019\F\ Rest\F\ 109\F\ 1\F\ 17\F\ \F\ \F\ \F\\F\ \F\ 2:11:42\F\ \F\ \F\ \F\ \F\ \F\ \F\ \F\\F\ \F\ PM\F\ \F\ \F\ \F\ \F\ \F\ \F\ \F\+----+---------+------ ----+ +------ --------+----+----+------ +------+\F\ PA\F\08/25/2019\F\ Rest\F\ 105\F\ 42\F\ \F\ 67\F\ \F\ \F\\F\ \F\ 2:12:17\F\ \F\ \F\ \F\ \F\ \F\ \F\ \F\\F\ \F\ PM\F\ \F\ \F\ \F\ \F\ \F\ \F\ \F\+----+---------+------ ----+ +------ --------+----+----+------ +------+\F\ PW\F\08/25/2019\F\ Rest\F\ \F\ \F\ \F\ 4\F\ 8\F\ 6\F\\F\ \F\ 2:23:51\F\ \F\ \F\ \F\ \F\ \F\ \F\ \F\\F\ \F\ PM\F\ \F\ \F\ \F\ \F\ \F\ \F\ \F\+----+---------+------ ----+ +------ --------+----+----+------ +------+\F\ PW\F\08/25/2019\F\ Rest\F\ \F\ \F\ \F\ 5\F\ 9\F\ 7\F\\F\ \F\ 2:23:55\F\ \F\ \F\ \F\ \F\ \F\ \F\ \F\\F\ \F\ PM\F\ \F\ \F\ \F\ \F\ \F\ \F\ \F\+----+---------+------ ----+ +------ --------+----+----+------ +------+\F\ PA\F\08/25/2019\F\ RAMP 1\F\ 98\F\ 33\F\ \F\ 59\F\ \F\ \F\\F\ \F\ 2:25:14\F\ \F\ \F\ \F\ \F\ \F\ \F\ \F\\F\ \F\ PM\F\ \F\ \F\ \F\ \F\ \F\ \F\ \F\+----+---------+------ ----+ +------ --------+----+----+------ +------+\F\ PA\F\08/25/2019\F\ RAMP 1\F\ 90\F\ 29\F\ \F\ 52\F\ \F\ \F\\F\ \F\ 2:31:34\F\ \F\ \F\ \F\ \F\ \F\ \F\ \F\\F\ \F\ PM\F\ \F\ \F\ \F\ \F\ \F\ \F\ \F\+----+---------+------ ----+ +------ --------+----+----+------ +------+\F\ PA\F\08/25/2019\F\ RAMP 2\F\ 91\F\ 31\F\ \F\ 55\F\ \F\ \F\\F\ \F\ 2:32:44\F\ \F\ \F\ \F\ \F\ \F\ \F\ \F\\F\ \F\ PM\F\ \F\ \F\ \F\ \F\ \F\ \F\ \F\+----+---------+------ ----+ +------ --------+----+----+------ +------+\F\ PA\F\08/25/2019\F\ RAMP 2\F\ 91\F\ 32\F\ \F\ 55\F\ \F\ \F\\F\ \F\ 2:37:08\F\ \F\ \F\ \F\ \F\ \F\ \F\ \F\\F\ \F\ PM\F\ \F\ \F\ \F\ \F\ \F\ \F\ \F\+----+---------+------ ----+ +------ --------+----+----+------ +------+\F\ PA\F\08/25/2019\F\ RAMP 4\F\ 93\F\ 34\F\ \F\ 57\F\ \F\ \F\\F\ \F\ 2:40:23\F\ \F\ \F\ \F\ \F\ \F\ \F\ \F\\F\ \F\ PM\F\ \F\ \F\ \F\ \F\ \F\ \F\ \F\+----+---------+------ ----+ +------ --------+----+----+------ +------+\F\ PA\F\08/25/2019\F\ RAMP 4\F\ 95\F\ 36\F\ \F\ 58\F\ \F\ \F\\F\ \F\ 2:45:37\F\ \F\ \F\ \F\ \F\ \F\ \F\ \F\\F\ \F\ PM\F\ \F\ \F\ \F\ \F\ \F\ \F\ \F\+----+---------+------ ----+ +------ --------+----+----+------ +------+Oxygen Saturation %:+ + + +\F\Sample Site\F\O2 Sat (%)\F\HB (g/100ml)\F\+ + + +\ F\ FA\F\ 96\F\ 14.6\F\+ +----- -----+ +\F\ PA\F\ 48\F\ 14.6\F\+ +----- -----+ +\F\ FA\F\ 96\F\ 14.6\F\+ +----- -----+ +\F\ PA\F\ 48\F\ 14.6\F\+ +----- -----+ +\F\ SYS ART\F\ \F\ 14.0\F\+ +----- -----+ +\F\ SYS LUCY\F\ \F\ 14.0\F\+ +----- -----+ +\F\ PUL ART\F\ \F\ 14.0\F\+ +----- -----+ +\F\ PUL LUCY\F\ \F\ 14.0\F\+ +----- -----+ +\F\ FA\F\ 96\F\ 14.0\F\+ +----- -----+ +\F\ PA\F\ 65\F\ 14.0\F\+ +----- -----+ +\F\ FA\F\ 96\F\ 14.0\F\+ +----- -----+ +\F\ PA\F\ 65\F\ 14.0\F\+ +----- -----+ +\F\ FA\F\ 96\F\ 14.0\F\+ +----- -----+ +\F\ PA\F\ 64\F\ 14.0\F\+ +----- -----+ +\F\ FA\F\ 96\F\ 14.0\F\+ +----- -----+ +\F\ PA\F\ 64\F\ 14.0\F\+ +----- -----+ +Cardia c Outputs:+ + +------ -+\F\DIO CO (l/min)\F\DIO CI (l/min/m2)\F\DIO SV\F\+ +--- +-------+\ F\ 2.6\F\ 1.3\F\ 35.0\F\+ +- +------- +\F\ 4.2\F\ 2.1\F\ 54.4\F\+ +- +------- +\F\ 4.1\F\ 2.0\F\ 50.1\F\+ +- +------- +Vascular Resistance Calculated Values (Wood Units):+-----+----+----+- ------+----+----+----+--- -+----+----+-------+\F\Ph ase\F\PVR \F\PVRI\F\PVR/SVR\F\SVR \F\SVRI\F\TPR \F\TPRI\F\TVR \F\TVRI\F\TPR/TVR\F\+---- -+----+----+-------+----+ ----+----+----+----+----+ -------+\F\0 \F\24.3\F\48.1\F\1 \F\38.6\F\76.3\F\25.9\F\5 1.1\F\43.2\F\85.5\F\1 \F\+-----+----+----+----- --+----+----+----+----+-- --+----+-------+\F\2 \F\ \F\ \F\ \F\ \F\ \F\13.1\F\26.0\F\ \F\ \F\ \F\+-----+----+----+----- --+----+----+----+----+-- --+----+-------+\F\3 \F\ \F\ \F\ \F\ \F\ \F\14.0\F\27.8\F\ \F\ \F\ \F\+-----+----+----+----- --+----+----+----+----+-- --+----+-------+Complicat ions:No in-lab complications observed.Cardiac Cath Transition of Care Summary:Post Procedure Diagnosis: RHC/RAMP studyRt IJ, 7Fr, Manual pressureelevated Rt sided (RA 12 mmHg, RV 109/12 mmHg) and PApressure (98/33 mean 59 mmHg) with low PCWP (10 mmHg),cardiac output and index (2.6/1,3), PVR of 24consistent with pulmonary arterial HTN.no reversibility on RAMP study (no significant changein absolute of mean PAP).5 PPM of inhaled NO: PAP 90/29 mean 52 mmHg20 PPM of inhaled NO: PAP 91/32 mean 55 mmHg40 PPM of inhaled NO: PAP 95/36 mean 58 mmHg.Blood Loss: Estimated blood loss during the procedure was 0 mls.Specimens Removed: Number of specimen(s) removed: none.Recommendations:Resu lts discussed with the pHTN team. CONCLUSIONS :1. RHC/RAMP studyRt IJ, 7Fr, Manual pressureelevated Rt sided (RA 12 mmHg, RV 109/12 mmHg) and PA pressure (98/33 mean 59 mmHg) with low PCWP (10 mmHg), cardiac output and index (2.6/1,3), PVR of 24 consistent with pulmonary arterial HTN.no reversibility on RAMP study (no significant change in absolute of mean PAP).5 PPM of inhaled NO: PAP 90/29 mean 52 mmHg20 PPM of inhaled NO: PAP 91/32 mean 55 mmHg40 PPM of inhaled NO: PAP 95/36 mean 58 mmHg. CPT Codes:Right Heart Cath O2/Cardiac output without biopsy (RHC)-94887; Moderate Sedation Services initial 15 minutes patient >5 years-[id number]; Moderate Sedation Services 1st additional 15 minutes patient >5 years-[id number] 10 Codes:I27.0-Primary pulmonary [id number] Jens Tello MDPerforming Physician [facility] [place] Report to: x xcc Report to: Alicja Mckinneycc Report to: Alicja Mckinney Final [facility] Work Phone: Erythrocyte distribution width (RBC) [Ratio] 16.6 % above high threshold See Below [facility] [facility] Work Phone: Comment on above: Reference Range: 11. 5 - 14.5 MCHC (RBC) [Mass/Vol] 32.2 g/dL See Below [facility] [facility] Work Phone: Comment on above: Reference Range: 32. 0 - 36.0 Renal Function Panelon 08-25 Anion gap [Moles/Vol] 12 mmol/L 10 - 20 [facility] [facility]99 Work Phone: Calcium [Mass/Vol] 8.7 mg/dL 8.6 - 10.6 [facility] [facility]99 Work Phone: Chloride [Moles/Vol] 107 mmol/L 98 - 107 [facility] Work Phone: CO2 [Moles/Vol] 23 mmol/L 21 - 32 [facility] Work Phone: Creatinine [Mass/Vol] 1.16 mg/dL See Below [facility] 1800 Work Phone: Comment on above: Reference Range: 0.5 0 - 1.30 Glucose [Mass/Vol] 201 mg/dL above high threshold 74 - 99 [facility] Work Phone: Phosphate [Mass/Vol] 3.9 mg/dL 2.5 - 4.9 MG-P ulm [facility] Work Phone: Comment on above: The performance eusebia acteristics of phosphorus testing in heparinized plasma have been validated by the individual laboratory site where testing is performed. Testing on heparinized plasma is not approved by the FDA; however, such approval is not necessary. Potassium [Moles/Vol] 4.3 mmol/L 3.5 - 5.3 [facility] Work Phone: Sodium [Moles/Vol] 138 mmol/L 136 - 145 [facility] Work Phone: Urea nitrogen [Mass/Vol] 14 mg/dL 6 - 23 [facility] Work Phone: Renal Function Panel >60 >60 MG-P ulm [employer] Work Phone: Comment on above: CALCULATIONS OF PRASHANT MATED GFR ARE PERFORMED USING THE MDRD STUDY EQUATION FOR THE IDMS-TRACEABLE CREATININE METHODS. CLIN CHEM 2007;53:766-72 Metabolic Panelon 08-24-2019 Glucose [Mass/Vol] 164 mg/dL above high threshold 74 - 99 [facility] Work Phone: Glucose [Mass/Vol] 219 mg/dL above high threshold 74 - 99 [facility] Work Phone: Glucose [Mass/Vol] 224 mg/dL above high threshold 74 - 99 [facility] Work Phone: Hematologyon 08-23-2019 aPTT Coag (PPP) [Time] 31 {sec} 28 - 38 [facility] Work Phone: Comment on above: THE APTT IS NO LONGE R USED FOR MONITORING UNFRACTIONATED HEPARIN THERAPY. FOR MONITORING HEPARIN THERAPY, USE THE HEPARIN ASSAY. INR Coag (PPP) [Relative time] 1.3 {INR} above high threshold 0.9 - 1.1 [facility] Work Phone: PT Coag (PPP) [Time] 14.2 {sec} above high threshold 9.7 - 12.7 [facility] Work Phone: Magnesium, Serumon 9 Magnesium [Mass/Vol] 1.74 mg/dL See Below [facility] Work Phone: Comment on above: Reference Range: 1.6 0 - 2.40 Metabolic Panelon 08-23-2019 Glucose [Mass/Vol] 201 mg/dL above high threshold 74 - 99 [facility] Work Phone: Glucose [Mass/Vol] 184 mg/dL above high threshold 74 - 99 [facility] Work Phone: ALP [Catalytic activity/Vol] 81 U/L 33 - 120 [facility] Work Phone: Anion gap [Moles/Vol] 13 mmol/L 10 - 20 [facility] Work Phone: Bilirubin [Mass/Vol] 2.6 mg/dL above high threshold 0.0 - 1.2 [facility] Work Phone: Calcium [Mass/Vol] 8.4 mg/dL below low threshold 8.6 - 10.6 [facility] Work Phone: Chloride [Moles/Vol] 103 mmol/L 98 - 107 [facility] Work Phone: CO2 [Moles/Vol] 24 mmol/L 21 - 32 [facility] Work Phone: Creatinine [Mass/Vol] 1.16 mg/dL See Below [facility] Work Phone: Comment on above: Reference Range: 0.5 0 - 1.30 Glucose [Mass/Vol] 149 mg/dL above high threshold 74 - 99 [facility] Work Phone: Potassium [Moles/Vol] 3.8 mmol/L 3.5 - 5.3 MG- [facility] Work Phone: Protein [Mass/Vol] 6.4 g/dL 6.4 - 8.2 [facility] Work Phone: Sodium [Moles/Vol] 136 mmol/L 136 - 145 [facility] Work Phone: Urea nitrogen [Mass/Vol] 14 mg/dL 6 - 23 [facility] Work Phone: Glucose [Mass/Vol] 151 mg/dL above high threshold 74 - 99 [facility] Work Phone: Otheron 08-23-2019 Albumin BCP dye [Mass/Vol] 3.4 g/dL 3.4 - 5.0 [facility] Work Phone: ALT With P-5'-P [Catalytic activity/Vol] 165 U/L above high threshold 10 - 52 [facility] Work Phone: Comment on above: Patients treated wit h Sulfasalazine may generate falsely decreased results for ALT. AST With P-5'-P [Catalytic activity/Vol] 30 U/L 9 - 39 MG[facility] Work Phone: >60 >60 [facility] Work Phone: Comment on above: CALCULATIONS OF PRASHANT MATED GFR ARE PERFORMED USING THE MDRD STUDY EQUATION FOR THE IDMS-TRACEABLE CREATININE METHODS. CLIN CHEM 2007;53:766-72 Hematologyon 08-22-2019 aPTT Coag (PPP) [Time] 31 {sec} 28 - 38 [facility] Work Phone: Comment on above: THE APTT IS NO LONGE R USED FOR MONITORING UNFRACTIONATED HEPARIN THERAPY. FOR MONITORING HEPARIN THERAPY, USE THE HEPARIN ASSAY. Hematocrit (Bld) [Volume fraction] 40.5 % below low threshold See Below [facility]m [employer] Work Phone: Comment on above: Reference Range: 41. 0 - 52.0 Hemoglobin (Bld) [Mass/Vol] 13.4 g/dL below low threshold See Below [facility] Work Phone: Comment on above: Reference Range: 13. 5 - 17.5 INR Coag (PPP) [Relative time] 1.4 {INR} above high threshold 0.9 - 1.1 [facility] Work Phone: MCV (RBC) [Entitic vol] 93 fL 80 - 100 [facility] Work Phone: Platelets (Bld) [#/Vol] 76 {x10E9/L} below low threshold 150 - 450 [facility] Work Phone: PT Coag (PPP) [Time] 15.6 {sec} above high threshold 9.7 - 12.7 [facility] Work Phone: RBC (Bld) [#/Vol] 4.35 {x10E12/L} below low threshold See Below [facility] Work Phone: Comment on above: Reference Range: 4.5 0 - 5.90 WBC (Bld) [#/Vol] 10.0 {x10E9/L} 4.4 - 11.3 [facility] Work Phone: WBC (Bld) [#/Vol] 0.1 {/100_WBC} 0.0-0.0 [facility] Work Phone: Metabolic Panelon 08-22-2019 Glucose [Mass/Vol] 241 mg/dL above high threshold 74 - 99 [facility] Work Phone: Glucose [Mass/Vol] 122 mg/dL above high threshold 74 - 99 [facility] Work Phone: Glucose [Mass/Vol] 149 mg/dL above high threshold 74 - 99 [facility] Work Phone: ALP [Catalytic activity/Vol] 76 U/L 33 - 120 [facility] Work Phone: Anion gap [Moles/Vol] 15 mmol/L 10 - 20 [facility] Work Phone: Bilirubin [Mass/Vol] 3.6 mg/dL above high threshold 0.0 - 1.2 [facility] Work Phone: Calcium [Mass/Vol] 8.4 mg/dL below low threshold 8.6 - 10.6 [facility] Work Phone: Chloride [Moles/Vol] 100 mmol/L 98 - 107 [facility] Work Phone: CO2 [Moles/Vol] 22 mmol/L 21 - 32 [facility] [place] Work Phone: Creatinine [Mass/Vol] 1.29 mg/dL See Below [facility]- [facility] Work Phone: Comment on above: Reference Range: 0.5 0 - 1.30 Glucose [Mass/Vol] 149 mg/dL above high threshold 74 - 99 [facility] [place] [facility] Work Phone: Potassium [Moles/Vol] 3.6 mmol/L 3.5 - 5.3 MG- [facility] Work Phone: Protein [Mass/Vol] 6.5 g/dL 6.4 - 8.2 [facility] Work Phone: Sodium [Moles/Vol] 133 mmol/L below low threshold 136 - 145 [facility] Work Phone: Urea nitrogen [Mass/Vol] 18 mg/dL 6 - 23 [facility] Work Phone: Glucose [Mass/Vol] 173 mg/dL above high threshold 74 - 99 [facility] Work Phone: Otheron 08-22-2019 Albumin BCP dye [Mass/Vol] 3.4 g/dL 3.4 - 5.0 [facility] Work Phone: ALT With P-5'-P [Catalytic activity/Vol] 230 U/L above high threshold 10 - 52 [facility] Work Phone: Comment on above: Patients treated wit h Sulfasalazine may generate falsely decreased results for ALT. AST With P-5'-P [Catalytic activity/Vol] 33 U/L 9 - 39 [facility] Work Phone: Erythrocyte distribution width (RBC) [Ratio] 17.1 % above high threshold See Below [facility] Work Phone: Comment on above: Reference Range: 11. 5 - 14.5 MCHC (RBC) [Mass/Vol] 33.1 g/dL See Below [facility] Work Phone: Comment on above: Reference Range: 32. 0 - 36.0 73 {mL/min/1.73m2} >60 [facility] Work Phone: Comment on above: CALCULATIONS OF PRASHANT MATED GFR ARE PERFORMED USING THE MDRD STUDY EQUATION FOR THE IDMS-TRACEABLE CREATININE METHODS. CLIN CHEM 2007;53:766-72 60 {mL/min/1.73m2} Abnormal >60 [facility] Work Phone: Hematologyon 08-21-2019 ABO group Nom (Bld) O [facility] Work Phone: Blood group antibody screen Ql Negative [facility] Work Phone: Hematocrit (Bld) [Volume fraction] 38.9 % below low threshold See Below [facility] Work Phone: Comment on above: Reference Range: 41. 0 - 52.0 Hemoglobin (Bld) [Mass/Vol] 13.9 g/dL See Below [facility] Work Phone: Comment on above: Reference Range: 13. 5 - 17.5 INR Coag (PPP) [Relative time] 1.8 {INR} above high threshold 0.9 - 1.1 [facility] Work Phone: MCV (RBC) [Entitic vol] 86 fL 80 - 100 [facility] Work Phone: Platelets (Bld) [#/Vol] 47 {x10E9/L} below low threshold 150 - 450 [facility] Work Phone: PT Coag (PPP) [Time] 20.0 {sec} above high threshold 9.7 - 12.7 [facility] Work Phone: RBC (Bld) [#/Vol] 4.53 {x10E12/L} See Below [facility] Work Phone: Comment on above: Reference Range: 4.5 0 - 5.90 Rh immune globulin screen (Bld) [Interp] Positive [facility] Work Phone: WBC (Bld) [#/Vol] 0.0 {/100_WBC} 0.0-0.0 MG- [facility] Work Phone: WBC (Bld) [#/Vol] 17.8 {x10E9/L} above high threshold 4.4 - 11.3 [facility] Work Phone: Platelets (Bld) [#/Vol] ORDER RECD [facility] Work Phone: Comment on above: If this patient is R h Negative and if the Plateletproduct transfused is Rh Positive, review the useof WinRho Prophylaxis for this patient. aPTT Coag (PPP) [Time] 35 {sec} 28 - 38 [facility] Work Phone: Comment on above: THE APTT IS NO LONGE R USED FOR MONITORING UNFRACTIONATED HEPARIN THERAPY. FOR MONITORING HEPARIN THERAPY, USE THE HEPARIN ASSAY. Hematocrit (Bld) [Volume fraction] 43.1 % See Below [facility] Work Phone: Comment on above: Reference Range: 41. 0 - 52.0 Hemoglobin (Bld) [Mass/Vol] 14.1 g/dL See Below [facility] Work Phone: Comment on above: Reference Range: 13. 5 - 17.5 INR Coag (PPP) [Relative time] 1.7 {INR} above high threshold 0.9 - 1.1 [facility] Work Phone: MCV (RBC) [Entitic vol] 92 fL 80 - 100 [facility] Work Phone: Platelets (Bld) [#/Vol] 51 {x10E9/L} below low threshold 150 - 450 [facility] Work Phone: PT Coag (PPP) [Time] 18.5 {sec} above high threshold 9.7 - 12.7 [facility] Work Phone: RBC (Bld) [#/Vol] 4.68 {x10E12/L} See Below [facility] Work Phone: Comment on above: Reference Range: 4.5 0 - 5.90 WBC (Bld) [#/Vol] 22.3 {x10E9/L} above high threshold 4.4 - 11.3 [facility] Work Phone: WBC (Bld) [#/Vol] 0.0 {/100_WBC} 0.0-0.0 MG- [facility] Work Phone: Lactate, Levelon 08-21-2019 Lactate [Moles/Vol] 1.7 mmol/L 0.4 - 2.0 MG-[facility] Work Phone: Comment on above: Venipuncture immedia tely after or during the administration of Metamizole may lead to falsely low results. Testing should be performed immediately prior to Metamizole dosing. Metabolic Panelon 08-21-2019 Glucose [Mass/Vol] 250 mg/dL above high threshold 74 - 99 [facility] Work Phone: Glucose [Mass/Vol] 150 mg/dL above high threshold 74 - 99 [facility] Work Phone: ALP [Catalytic activity/Vol] 85 U/L 33 - 120 [facility] Work Phone: Anion gap [Moles/Vol] 15 mmol/L 10 - 20 [facility] [place] Work Phone: Bilirubin [Mass/Vol] 4.3 mg/dL above high threshold 0.0 - 1.2 [facility] Work Phone: Calcium [Mass/Vol] 8.3 mg/dL below low threshold 8.6 - 10.6 [facility] Work Phone: Chloride [Moles/Vol] 98 mmol/L 98 - 107 MG-P ulm [employer] [facility] Work Phone: CO2 [Moles/Vol] 21 mmol/L 21 - 32 [facility] Work Phone: Creatinine [Mass/Vol] 1.26 mg/dL See Below [facility]- [facility] Work Phone: Comment on above: Reference Range: 0.5 0 - 1.30 Glucose [Mass/Vol] 225 mg/dL above high threshold 74 - 99 [facility] Work Phone: Potassium [Moles/Vol] 3.8 mmol/L 3.5 - 5.3 MG- [facility] Work Phone: Protein [Mass/Vol] 6.3 g/dL below low threshold 6.4 - 8.2 [facility] Work Phone: Sodium [Moles/Vol] 130 mmol/L below low threshold 136 - 145 [facility] Work Phone: Urea nitrogen [Mass/Vol] 22 mg/dL 6 - 23 [facility] Work Phone: Otheron 08-21-2019 Albumin BCP dye [Mass/Vol] 3.4 g/dL 3.4 - 5.0 [facility] Work Phone: ALT With P-5'-P [Catalytic activity/Vol] 310 U/L above high threshold 10 - 52 [facility] Work Phone: Comment on above: Patients treated wit h Sulfasalazine may generate falsely decreased results for ALT. AST With P-5'-P [Catalytic activity/Vol] 40 U/L above high threshold 9 - 39 [facility] Work Phone: Erythrocyte distribution width (RBC) [Ratio] 17.1 % above high threshold See Below [facility] Work Phone: Comment on above: Reference Range: 11. 5 - 14.5 MCHC (RBC) [Mass/Vol] 35.7 g/dL See Below [facility]- [facility] Work Phone: Comment on above: Reference Range: 32. 0 - 36.0 >60 >60 [facility] Work Phone: Comment on above: CALCULATIONS OF PRASHANT MATED GFR ARE PERFORMED USING THE MDRD STUDY EQUATION FOR THE IDMS-TRACEABLE CREATININE METHODS. CLIN CHEM 2007;53:766-72 Erythrocyte distribution width (RBC) [Ratio] 17.8 % above high threshold See Below [facility] Work Phone: Comment on above: Reference Range: 11. 5 - 14.5 MCHC (RBC) [Mass/Vol] 32.7 g/dL See Below MG- [facility] Work Phone: Comment on above: Reference Range: 32. 0 - 36.0 Renal Function Panelon 08-21 Albumin BCP dye [Mass/Vol] 3.4 g/dL 3.4 - 5.0 [facility] Work Phone: Anion gap [Moles/Vol] 18 mmol/L 10 - 20 [facility] Work Phone: Calcium [Mass/Vol] 8.3 mg/dL below low threshold 8.6 - 10.6 [facility] Work Phone: Chloride [Moles/Vol] 95 mmol/L below low threshold 98 - 107 [facility] Work Phone: CO2 [Moles/Vol] 21 mmol/L 21 - 32 [facility] Work Phone: Creatinine [Mass/Vol] 1.56 mg/dL above high threshold See Below [facility] Work Phone: Comment on above: Reference Range: 0.5 0 - 1.30 Glucose [Mass/Vol] 241 mg/dL above high threshold 74 - 99 [facility] Work Phone: Phosphate [Mass/Vol] 4.1 mg/dL 2.5 - 4.9 [facility] Work Phone: Comment on above: The performance eusebia acteristics of phosphorus testing in heparinized plasma have been validated by the individual laboratory site where testing is performed. Testing on heparinized plasma is not approved by the FDA; however, such approval is not necessary. Potassium [Moles/Vol] 4.5 mmol/L 3.5 - 5.3 [facility]- [facility] Work Phone: Sodium [Moles/Vol] 129 mmol/L below low threshold 136 - 145 [facility] Work Phone: Urea nitrogen [Mass/Vol] 23 mg/dL 6 - 23 [facility] Work Phone: Renal Function Panel 58 {mL/min/1.73m2} Abnormal >60 [facility] Work Phone: Comment on above: CALCULATIONS OF PRASHANT MATED GFR ARE PERFORMED USING THE MDRD STUDY EQUATION FOR THE IDMS-TRACEABLE CREATININE METHODS. CLIN CHEM 2007;53:766-72 Renal Function Panel 48 {mL/min/1.73m2} Abnormal >60 [facility] Work Phone: Cult, Bloodon 08-20-2019 Bacteria identified Cx Nom (Bld) [id number] [facility] Work Phone: Comment on above: PATIENT: SABIHA ETIENNE LOCATION: [address]#: [id number] : 71 AGE: SEX: M ORDERED BY: PHILLIP SILVERMAN: Blood COLLECTED: 08/20/19 16:17ANTIBIOTICS AT DARREL.: RECEIVED : 08/20/19 18:50SITE: right hand PERIPHERAL R E S U L T S BLOOD CULTURE, BACTERIAL FINAL 08/26/19 14:50 No Growth at 1 days No Growth at 2 days ISOLATE1 : Bacteroides thetaiotaomicron ANAEROBIC VIAL POSITIVE BETA LACTAMASE POSITIVE. Organism Raymond thetaiota Antibiotic NATHANAEL INTRP Ampicillin 128 R Ampic/Sulbactam 2 S Cefoxitin 64.0 R Clindamycin >256 R S=SUSCEPTIBLE I=INTERMEDIATE R=RESISTANT SDD=SUSCEPTIBLE DOSE DEPENDENT NS=NONSUSCEPTIBLEX=REPORTED IN ERROR Positive Blood Carter d- RB to NOEMY COLLAZO, 08/23/2019 16:23 PATIENT: SABIHA ETIENNE LOCATION: [address]#: [id number] : 71 AGE: SEX: M ORDERED BY: PHILLIP SILVERMAN: Blood COLLECTED: 08/20/19 16:17ANTIBIOTICS AT DARREL.: RECEIVED : 08/20/19 18:53SITE: left hand PERIPHERAL R E S U L T S BLOOD CULTURE, BACTERIAL FINAL 08/25/19 19:42 No Growth at 1 days No Growth at 2 days No Growth at 3 days No Growth at 4 days NO GROWTH - FINAL REPORT Differential, Automaticon Basophils (Bld) [#/Vol] 0.10 {x10E9/L} See Below [facility] Work Phone: Comment on above: Reference Range: 0.0 0 - 0.10 Basophils/100 WBC (Bld) 0.3 % 0.0 - 2.0 [facility] Work Phone: Eosinophils (Bld) [#/Vol] 0.02 {x10E9/L} See Below [facility] Work Phone: Comment on above: Reference Range: 0.0 0 - 0.70 Eosinophils/100 WBC (Bld) 0.1 % 0.0 - 6.0 [facility] Work Phone: Lymphocytes (Bld) [#/Vol] 0.36 {x10E9/L} below low threshold See Below [facility] Work Phone: Comment on above: Reference Range: 1.2 0 - 4.80 Lymphocytes/100 WBC (Bld) 1.2 % See Below [facility] Work Phone: Comment on above: Reference Range: 13. 0 - 44.0 Monocytes (Bld) [#/Vol] 0.77 {x10E9/L} See Below [facility] Work Phone: Comment on above: Reference Range: 0.1 0 - 1.00 Monocytes/100 WBC (Bld) 2.6 % 2.0 - 10.0 [facility] Work Phone: Neutrophils/100 WBC (Bld) 94.9 % See Below [facility] Work Phone: Comment on above: Reference Range: 40. 0 - 80.0 Differential, Automatic 27.69 {x10E9/L} above high threshold See Below [facility] Work Phone: Comment on above: Reference Range: 1.2 0 - 7.70 Differential, Automatic 0.9 % 0.0 - 0.9 [facility] Work Phone: Comment on above: Percent differential counts (%) should be interpreted in the context of the absolute cell counts (cells/L). Hematologyon 08-20-2019 Hematocrit (Bld) [Volume fraction] 46.0 % See Below [facility] Work Phone: Comment on above: Reference Range: 41. 0 - 52.0 Hemoglobin (Bld) [Mass/Vol] 15.9 g/dL See Below [facility] Work Phone: Comment on above: Reference Range: 13. 5 - 17.5 INR Coag (PPP) [Relative time] 1.5 {INR} above high threshold 0.9 - 1.1 [facility] Work Phone: MCV (RBC) [Entitic vol] 87 fL 80 - 100 [facility] Work Phone: Platelets (Bld) [#/Vol] 47 {x10E9/L} below low threshold 150 - 450 [facility] Work Phone: PT Coag (PPP) [Time] 16.7 {sec} above high threshold 9.7 - 12.7 [facility] Work Phone: RBC (Bld) [#/Vol] 5.28 {x10E12/L} See Below [facility] Work Phone: Comment on above: Reference Range: 4.5 0 - 5.90 WBC (Bld) [#/Vol] 0.0 {/100_WBC} 0.0-0.0 MG- [facility] Work Phone: WBC (Bld) [#/Vol] 30.2 {x10E9/L} above high threshold 4.4 - 11.3 [facility] Work Phone: Hematocrit (Bld) [Volume fraction] 46.8 % See Below [facility] Work Phone: Comment on above: Reference Range: 41. 0 - 52.0 Hemoglobin (Bld) [Mass/Vol] 15.5 g/dL See Below [facility] Work Phone: Comment on above: Reference Range: 13. 5 - 17.5 MCV (RBC) [Entitic vol] 89 fL 80 - 100 [facility] Work Phone: Platelets (Bld) [#/Vol] 57 {x10E9/L} below low threshold 150 - 450 [facility] Work Phone: RBC (Bld) [#/Vol] 5.27 {x10E12/L} See Below [facility] Work Phone: Comment on above: Reference Range: 4.5 0 - 5.90 WBC (Bld) [#/Vol] 0.0 {/100_WBC} 0.0-0.0 [facility] Work Phone: WBC (Bld) [#/Vol] 9.9 {x10E9/L} 4.4 - 11.3 [facility] Work Phone: Hepatic Function Panelon Albumin BCP dye [Mass/Vol] 4.0 g/dL 3.4 - 5.0 [facility] Work Phone: ALP [Catalytic activity/Vol] 88 U/L 33 - 120 [facility] Work Phone: ALT With P-5'-P [Catalytic activity/Vol] 516 U/L above high threshold 10 - 52 [facility] Work Phone: Comment on above: Patients treated wit h Sulfasalazine may generate falsely decreased results for ALT. AST With P-5'-P [Catalytic activity/Vol] 83 U/L above high threshold 9 - 39 [facility] Work Phone: Bilirubin [Mass/Vol] 3.4 mg/dL above high threshold 0.0 - 1.2 [facility] Work Phone: Bilirubin.direct [Mass/Vol] 1.3 mg/dL above high threshold 0.0 - 0.3 [facility] Work Phone: Protein [Mass/Vol] 7.2 g/dL 6.4 - 8.2 [facility] Work Phone: Magnesium, Serumon 9 Magnesium [Mass/Vol] 1.70 mg/dL See Below [facility] Work Phone: Comment on above: Reference Range: 1.6 0 - 2.40 Metabolic Panelon 08-20-2019 ALP [Catalytic activity/Vol] 106 U/L 33 - 120 [facility] Work Phone: Anion gap [Moles/Vol] 23 mmol/L above high threshold 10 - 20 [facility] Work Phone: Bilirubin [Mass/Vol] 6.9 mg/dL above high threshold 0.0 - 1.2 [facility] Work Phone: Calcium [Mass/Vol] 9.0 mg/dL 8.6 - 10.6 [facility] Work Phone: Chloride [Moles/Vol] 95 mmol/L below low threshold 98 - 107 [facility] Work Phone: CO2 [Moles/Vol] 18 mmol/L below low threshold 21 - 32 [facility] Work Phone: Creatinine [Mass/Vol] 1.54 mg/dL above high threshold See Below [facility] Work Phone: Comment on above: Reference Range: 0.5 0 - 1.30 Glucose [Mass/Vol] 339 mg/dL above high threshold 74 - 99 [facility] Work Phone: Potassium [Moles/Vol] 3.7 mmol/L 3.5 - 5.3 [facility] Work Phone: Protein [Mass/Vol] 6.9 g/dL 6.4 - 8.2 [facility] Work Phone: Sodium [Moles/Vol] 132 mmol/L below low threshold 136 - 145 [facility] Work Phone: Urea nitrogen [Mass/Vol] 21 mg/dL 6 - 23 [facility] Work Phone: Glucose [Mass/Vol] 253 mg/dL above high threshold 74 - 99 [facility] Work Phone: Glucose [Mass/Vol] 203 mg/dL above high threshold 74 - 99 [facility] Work Phone: Otheron 08-20-2019 Albumin BCP dye [Mass/Vol] 3.9 g/dL 3.4 - 5.0 [facility] Work Phone: ALT With P-5'-P [Catalytic activity/Vol] 433 U/L above high threshold 10 - 52 [facility] Work Phone: Comment on above: Patients treated wit h Sulfasalazine may generate falsely decreased results for ALT. AST With P-5'-P [Catalytic activity/Vol] 68 U/L above high threshold 9 - 39 [facility] Work Phone: Erythrocyte distribution width (RBC) [Ratio] 17.8 % above high threshold See Below [facility] Work Phone: Comment on above: Reference Range: 11. 5 - 14.5 MCHC (RBC) [Mass/Vol] 34.6 g/dL See Below [facility] Work Phone: Comment on above: Reference Range: 32. 0 - 36.0 49 {mL/min/1.73m2} Abnormal >60 [facility] Work Phone: 59 {mL/min/1.73m2} Abnormal >60 [facility] Work Phone: Comment on above: CALCULATIONS OF PRASHANT MATED GFR ARE PERFORMED USING THE MDRD STUDY EQUATION FOR THE IDMS-TRACEABLE CREATININE METHODS. CLIN CHEM 2007;53:766-72 355 1 [facility] Work Phone: [phone] [facility] Work Phone: Sinus tachycardia [facility] Work Phone: [phone] [facility] Work Phone: 138 1 [facility] Work Phone: 98 1 [facility] Work Phone: 296 1 [facility] Work Phone: [email or web address] ?[email or web address]?P [email or web address] [facility] Work Phone: 71 1 [facility] Work Phone: 112 1 [facility] Work Phone: 131 1 [facility] Work Phone: 60 1 [facility] Work Phone: 21 1 [facility] Work Phone: 207 1 [facility] Work Phone: 186 1 [facility] Work Phone: Erythrocyte distribution width (RBC) [Ratio] 17.5 % above high threshold See Below [facility] Work Phone: Comment on above: Reference Range: 11. 5 - 14.5 MCHC (RBC) [Mass/Vol] 33.1 g/dL See Below [facility] Work Phone: Comment on above: Reference Range: 32. 0 - 36.0 Interpreted by: [id number]/25/19 10:21MRN: [id number] Name: RIP ETIENNE STUDY:HEPATOBILIARY; 08/20/2019 10:05 am INDICATION:gallstones. COMPARISON:Ultrasound of the abdomen 08/17/2019 ORDERING CLINICIAN:GEO SILVERMAN TECHNIQUE:DIVISION OF NUCLEAR MEDICINEHEPATOBILIARY SCAN (HIDA), QUANTITATIVE The patient received an intravenous dose of 5.7 mCi of Tc-99mmebrofenin (Choletec). Sequential images of the upper abdomen werethen acquired over the next 120 minutes. FINDINGS:There is normal uptake and clearance of radiotracer by the liver.Activity is visualized rapidly accumulating within the common bileduct and subsequently emptying in the small bowel by 15 minutes postinjection. There nonvisualization of the gallbladder through 2 hours postinjection. IMPRESSION:1. Nonvisualization of the gallbladder through 2 hours post injectionhighly concerning for acute cholecystitis in the proper clinicalcontext.2. Normal liver function.3. Patent biliary tract and outlet. I personally reviewed the images/study and I agree with the findingsas stated. This study was interpreted at [place], [place].Electronically signed by: KAELA 08/20/19 10:21 Normal [facility] [employer] Work Phone: Renal Function Panelon 08-20 Anion gap [Moles/Vol] 13 mmol/L 10 - 20 [facility] Work Phone: Calcium [Mass/Vol] 9.3 mg/dL 8.6 - 10.6 [facility] Work Phone: Chloride [Moles/Vol] 102 mmol/L 98 - 107 [facility] Work Phone: CO2 [Moles/Vol] 23 mmol/L 21 - 32 [facility] Work Phone: Creatinine [Mass/Vol] 1.18 mg/dL See Below [facility] Work Phone: Comment on above: Reference Range: 0.5 0 - 1.30 Glucose [Mass/Vol] 245 mg/dL above high threshold 74 - 99 [facility] Work Phone: Phosphate [Mass/Vol] 3.4 mg/dL 2.5 - 4.9 [facility] Work Phone: Comment on above: The performance eusebia acteristics of phosphorus testing in heparinized plasma have been validated by the individual laboratory site where testing is performed. Testing on heparinized plasma is not approved by the FDA; however, such approval is not necessary. Potassium [Moles/Vol] 4.0 mmol/L 3.5 - 5.3 [facility] Work Phone: Sodium [Moles/Vol] 134 mmol/L below low threshold 136 - 145 [facility] Work Phone: Urea nitrogen [Mass/Vol] 14 mg/dL 6 - 23 [facility] Work Phone: Renal Function Panel >60 >60 [facility] Work Phone: Comment on above: CALCULATIONS OF PRASHANT MATED GFR ARE PERFORMED USING THE MDRD STUDY EQUATION FOR THE IDMS-TRACEABLE CREATININE METHODS. CLIN CHEM 2007;53:766-72 Metabolic Panelon 08-19-2019 Glucose [Mass/Vol] 274 mg/dL above high threshold 74 - 99 [facility] Work Phone: Glucose [Mass/Vol] 266 mg/dL above high threshold 74 - 99 [facility] Work Phone: Otheron 08-19-2019 Amphetamines Screen Ql (U) Negative NEGATIVE [facility] Work Phone: Comment on above: CUTOFF LEVEL: 500 NG /ML Cross-reactivity has been reported with high concentrations of the following drugs: buproprion, chloroquine, chlorpromazine, ephedrine, mephentermine, fenfluramine, phentermine, phenylpropanolamine, pseudoephedrine, and propranolol. Benzoylecgonine Screen Ql (U) Negative NEGATIVE [facility] Work Phone: Comment on above: CUTOFF LEVEL: 150 NG /ML Methadone Screen Ql (U) Negative NEGATIVE [facility] Work Phone: Comment on above: CUTOFF LEVEL: 150 NG /ML The metabolite W-wmxtu-wpmupbnwyzigob (LAAM) is not detected by this method in concentrations that would be found in the urine of patients on LAAM therapy. Opiates Screen Ql (U) Positive Abnormal NEGATIVE [facility] Work Phone: Comment on above: CUTOFF LEVEL: 300 NG /ML The opiate screen does not detect fentanyl, meperidine, or tramadol. Oxycodone is not consistently detected (refer to Oxycodone Screen, Urine result). Oxycodone+Oxymorphone Screen Ql (U) Positive Abnormal NEGATIVE [facility] Work Phone: Comment on above: CUTOFF LEVEL: 100 NG /ML This test will accurately detect both oxycodone and oxymorphone. SEE BELOW [facility] Work Phone: Comment on above: Drug screen results are presumptive and should not be used to assess compliance with prescribed medication. Contact the performing [facility] laboratory to add-on definitive confirmatory testing if clinically indicated. .Toxicology screening results are reported qualitatively. The concentration must be greater than or equal to the cutoff to be reported as positive. The concentration at which the screening test can detect an individual drug or metabolite varies. The absence of expected drug(s) and/or drug metabolite(s) may indicate non-compliance, inappropriate timing of specimen collection relative to drug administration, poor drug absorption, diluted/adulterated urine, or limitations of testing. For medical purposes only; not valid for forensic use. .Interpretive questions should be directed to the laboratory medical directors. Urinalysison 08-19-2019 Barbiturates Screen Ql (U) Negative NEGATIVE [facility] Work Phone: Comment on above: CUTOFF LEVEL: 200 NG /ML Benzodiazepines Ql (U) Negative NEGATIVE [facility] Work Phone: Comment on above: CUTOFF LEVEL: 200 NG /ML Cannabinoids Screen Ql (U) Positive Abnormal NEGATIVE [facility] Work Phone: Comment on above: CUTOFF LEVEL: 50 NG/ ML Phencyclidine Ql (U) Negative NEGATIVE [facility] Work Phone: Comment on above: CUTOFF LEVEL: 25 NG/ ML Cross-reactivity has been reported with dextromethorphan. Otheron 08-16-2019 Liver kidney microsomal 1 Ab Qn (S) <5.0 [facility] Work Phone: Comment on above: ANTI-LKM:Liver/Kidne y Microsome Type 1 Antibodies, Serum REFERENCE VALUE <=20.0 (Negative) Test Performed by:[facility] [place] [id number] Director: Garrison Spencer M.D. Ph.D.; CLIA# [id number] 1:40 [facility] Work Phone: Positive NEGATIVE [facility] Work Phone: Alpha 1 antitrypsin [Mass/Vol] 210 mg/dL above high threshold 90-200 [facility] Work Phone: Comment on above: To convert to umol/L , multiply mg/dL by 0.185 Alpha 1 antitrypsin phenotyping [Interp] See Note [facility] Work Phone: Comment on above: Unable to determine the nztfe-5-ikfvkzevrrb phenotype of this patient. The sample appears to have more than two opobp-6-fasjfiawvlv variants. Because all individuals have only two rfubc-3-ugkfsbqgmvw alleles, the presence of more than two djpbg-3-gqfvtrojkox variants is unexpected. This suggests that the patient has been recently transfused or has received therapeutic agents derived from human plasma. If repeat testing is necessary it is recommended that a sample be collected 21 days following the last transfusion or after discontinuing treatment with therapeutics derived from human plasma.Performed by [facility], [address] [place] [id number] [email or web address], Skyler Banegas MD - Lab. Director Nuclear Ab Hep2 substrate Ql (S) Negative NEGATIVE [facility] Work Phone: 1:40 [facility] Work Phone: Positive NEGATIVE [facility] Work Phone: Office Visiton 05-16-2017 Left ventricular Ejection fraction 60 % Invalid Interpretation Code [facility] Work Phone: Office Visit: pulmonary HTNo n 04-11-2017 Tobacco use status CPHS Former smoker Invalid Interpretation Code [facility] Work Phone: Chart Maintenanceon 04-02-20 17 Albumin [Mass/Vol] 4.2 g/dL Invalid Interpretation Code [facility] Work Phone: ALP (Bld) [Catalytic activity/Vol] 68 U/L Invalid Interpretation Code [facility] Work Phone: ALT [Catalytic activity/Vol] 64 U/L Invalid Interpretation Code [facility] Work Phone: Anion gap [Moles/Vol] 6 mmol/L Invalid Interpretation Code [facility] Work Phone: AST [Catalytic activity/Vol] 43 U/L High [facility] Work Phone: basophils as percent of blood leukocytes, manual count 0.2 % Invalid Interpretation Code [facility] Work Phone: Bilirubin [Mass/Vol] 1.80 mg/dL [facility] Work Phone: Calcium [Mass/Vol] 9.1 mg/dL Invalid Interpretation Code [facility] Work Phone: Chloride [Moles/Vol] 106 mmol/L Invalid Interpretation Code [facility] Work Phone: CO2 (BldV) [Partial pressure] 27 mmol/L Invalid Interpretation Code [facility] Work Phone: Creatinine [Mass/Vol] 1.02 mg/dL Invalid Interpretation Code [facility] Work Phone: eosinophils as percent of blood leukocytes, manual count 2.7 % Invalid Interpretation Code [facility] Work Phone: Erythrocyte distribution width (RBC) [Ratio] 15.2 % High [facility] Work Phone: GFR/1.73 sq M.predicted among non-blacks MDRD (S/P/Bld) [Vol rate/Area] 84 mL/min/{1.73_m2} Invalid Interpretation Code [facility] Work Phone: globulin, serum 4.0 High [facility] Work Phone: Glomerular Filtration Rate 102 mL/min/1.73m2 Invalid Interpretation Code [facility] Work Phone: Glucose [Mass/Vol] 226 mg/dL [facility] Work Phone: Hematocrit (Bld) [Volume fraction] 48.5 % Invalid Interpretation Code [facility] Work Phone: Hemoglobin (Bld) [Mass/Vol] 17.6 g/dL High [facility] Work Phone: Lymphocytes (Bld) [#/Vol] 1.38 10*3/uL Invalid Interpretation Code [facility] Work Phone: Lymphocytes/100 WBC (Bld) 17.1 % Invalid Interpretation Code [facility] Work Phone: MCH (RBC) [Entitic mass] 30.3 pg Invalid Interpretation Code [facility] Work Phone: MCHC (RBC) [Mass/Vol] 36.3 % High [facility] Work Phone: [phone] MCV (RBC) [Entitic vol] 83.5 fL Invalid Interpretation Code [facility] Work Phone: Monocytes/100 WBC (Bld) 8.7 % Invalid Interpretation Code [facility] Work Phone: [phone] Neutrophils (Bld) [#/Vol] 5.7 10*3/uL Invalid Interpretation Code [facility] Work Phone: Platelet mean volume (Bld) [Entitic vol] 12.3 fL High [facility] Work Phone: Platelets (Bld) [#/Vol] 96 10*3/uL Low [facility] Work Phone: Potassium [Moles/Vol] 3.8 mmol/L Invalid Interpretation Code [facility] Work Phone: RBC (Bld) [#/Vol] 5.81 10*6/uL Invalid Interpretation Code [facility] Work Phone: Sodium [Moles/Vol] 139 mmol/L Invalid Interpretation Code [facility] Work Phone: Urea nitrogen [Mass/Vol] 21 mg/dL High [facility] Work Phone: Urea nitrogen/Creatinine [Mass ratio] 20.6 mg/mg High [facility] Work Phone: WBC (Bld) [#/Vol] 8.1 10*3/uL Invalid Interpretation Code [facility] Work Phone: [phone] Lab Report: BNP,B-Type NATRI URETIC PEPTIDEon 01-17-2017 Natriuretic peptide B (Bld) [Mass/Vol] 14.2 pg/mL Invalid Interpretation Code 0-100 [facility] Work Phone: [phone] Lab Report: CBC W/Diff, Auto matedon 01-17-2017 Basophils/100 WBC (Bld) 0.4 % Invalid Interpretation Code 0-1 [facility] Work Phone: [phone] Eosinophils/100 WBC (Bld) 3.9 % Invalid Interpretation Code 0-5 [facility] [place] Work Phone: [phone] Erythrocyte distribution width (RBC) [Ratio] 15.8 % High 11.6-14.6 [facility] [place] [facility] Work Phone: [phone] Hematocrit (Bld) [Volume fraction] 47.8 % Invalid Interpretation Code 40-54 [facility] Search Phone: [phone] Hemoglobin (Bld) [Mass/Vol] 16.6 g/dL High 13.0-16.5 [facility] [place] [facility] Work Phone: [phone] Immature granulocytes/100 WBC (Bld) 0.100 % Invalid Interpretation Code 0.0-0.9 [facility] Search Phone: [phone] Lymphocytes (Bld) [#/Vol] 1.25 X10 3/UL Invalid Interpretation Code 0.83-4.51 [facility] Search Phone: [phone] Lymphocytes/100 WBC (Bld) 16.0 % Low 19-41 [facility] Search Phone: [phone] MCH (RBC) [Entitic mass] 30.5 pg Invalid Interpretation Code 27.0-32.0 [facility] Search Phone: [phone] MCV (RBC) [Entitic vol] 87.7 fL Invalid Interpretation Code 80-94 [facility] Search Phone: [phone] mean corpuscular hemoglobin concentration, RBC 34.7 G/GL Invalid Interpretation Code 32-36 [facility] [place] [facility] Work Phone: [phone] Monocytes/100 WBC (Bld) 8.5 % Invalid Interpretation Code 0-10 [facility] Search Phone: [phone] neutrophil count, blood 5.5 X10 3/UL Invalid Interpretation Code 2.0-7.7 [facility] Search Phone: [phone] Neutrophils/100 WBC (Bld) 71.1 % High 47-70 [facility] Search Phone: [phone] Platelet mean volume (Bld) [Entitic vol] 11.7 fL Invalid Interpretation Code 6.2-12.0 [facility] [place] Work Phone: Platelets (Bld) [#/Vol] 87 10*3/uL Low 150-450 [facility] [place] [facility] Work Phone: RBC (Bld) [#/Vol] 5.45 10*6/uL Invalid Interpretation Code 4.6-6.2 [facility] [place] [facility] Work Phone: [phone] red blood cell distribution width, size density 50.2 fL High 35.1-43.9 [facility] [place] [facility] Work Phone: WBC (Bld) [#/Vol] 7.8 10*3/uL Invalid Interpretation Code 4.4-11.0 [facility] Work Phone: Lab Report: [facility] 01-17-2017 Albumin [Mass/Vol] 4.1 g/dL Invalid Interpretation Code 3.4-5.0 [facility] Work Phone: [phone] Albumin/Globulin [Mass ratio] 1.7275528 {ratio} Invalid Interpretation Code 0.9-2.4 [facility] [facility] Work Phone: [phone] ALP (Bld) [Catalytic activity/Vol] 57 U/L Invalid Interpretation Code 45-117 [facility] Search Phone: [phone] ALT [Catalytic activity/Vol] 45 U/L Invalid Interpretation Code 12-78 [facility] Work Phone: [phone] Anion gap [Moles/Vol] 10 mmol/L Invalid Interpretation Code 5-15 [facility] [place] [facility] Work Phone: [phone] AST [Catalytic activity/Vol] 33 U/L Invalid Interpretation Code 15-37 [facility] [place] [facility] Work Phone: [phone] Bilirubin [Mass/Vol] 1.50 mg/dL High 0.20-1.00 [facility] Search Phone: [phone] Calcium [Mass/Vol] 8.3 mg/dL Low 8.5-10.1 [facility] [place] Work Phone: Chloride [Moles/Vol] 105 mmol/L Invalid Interpretation Code 98-107 [facility] [place] [facility] Work Phone: CO2 (BldV) [Partial pressure] 26.0 mmol/L Invalid Interpretation Code 21.0-32.0 [facility] [facility] Work Phone: Creatinine [Mass/Vol] 1.04 mg/dL Invalid Interpretation Code 0.70-1.30 [facility] [place] [facility] Work Phone: GFR/1.73 sq M.predicted among non-blacks MDRD (S/P/Bld) [Vol rate/Area] 83 mL/min/{1.73_m2} Invalid Interpretation Code >60 [facility] Search Phone: Globulin (S) [Mass/Vol] 3.8 g/dL High 2.3-3.5 [facility] Search Phone: Glomerular Filtration rate 100 mL/min Invalid Interpretation Code >60 [facility] [place] [facility] Work Phone: Glucose [Mass/Vol] 114 mg/dL High 70-110 [facility] Search Phone: Potassium [Moles/Vol] 3.8 mmol/L Invalid Interpretation Code 3.5-5.1 [facility] Search Phone: Protein [Mass/Vol] 7.9 g/dL Invalid Interpretation Code 6.4-8.2 [facility] [facility] Work Phone: Sodium [Moles/Vol] 141 mmol/L Invalid Interpretation Code 136-145 [facility] Work Phone: Urea nitrogen [Mass/Vol] 15 mg/dL Invalid Interpretation Code 7-18 [facility] Search Phone: [phone] Urea nitrogen/Creatinine [Mass ratio] 14.0509147 mg/mg Invalid Interpretation Code 10-20 [facility] Search Phone: Office Visiton 11-06-2014 cardiac risk group C Invalid Interpretation Code [facility] Search Phone: [phone] General cardiovascular disease 10Y risk [#] Rayne'Herlinda Not enough information Invalid Interpretation Code [facility] Search Phone: [phone] 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 GFR/1.73 sq M.predicted among non-blacks MDRD (S/P/Bld) [Vol rate/Area] 79 mL/min/{1.73_m2} Invalid Interpretation Code [facility] Search Phone: [phone] Glomerular Filtration Rate 96 mL/min/1.73m2 Invalid Interpretation Code [facility] Search Phone: [phone] Lab Report: iTYPEon 02-21-20 14 GE use only - for [employer] import when terms are not otherwise specified ART Normal [facility] Search Phone: Lab Report: PTon 02-18-2014 INR Coag (PPP) [Relative time] 1.3 {INR} Normal [facility] Search Phone: prothrombin time, actual/normal, ratio 15.1 SECONDS High 11.9-14.4 [facility] Search Phone: [phone] Replaced Document: Filiberto Morrissey CG Observationson 01-28-2014 electrocardiogram interpretation Sinus Tachycardia -Prominent R(V1) and right axis -consider right ventricular hypertrophy -consider pulmonary disease. -Old anterior infarct. - Nonspecific T-abnormality. ABNORMAL Invalid Interpretation Code [facility] Search Phone: [phone] Heart rate 109 /min Invalid Interpretation Code [facility] Search Phone: [phone] P wave axis, electrocardiogram 40 deg Invalid Interpretation Code [facility] Search Phone: [phone] ID interval, electrocardiogram 158 ms Invalid Interpretation Code [facility] Search Phone: [phone] QRS axis, electrocardiogram 164 deg Invalid Interpretation Code [facility] Search Phone: [phone] QRS duration, electrocardiogram 96 ms Invalid Interpretation Code [facility] Search Phone: [phone] QT interval, electrocardiogram new path ms Invalid Interpretation Code [facility] Work Phone: T wave axis, electrocardiogram -1 deg Invalid Interpretation Code [facility] Work Phone: 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 coli [facility] Work Phone: Vital Signs Date Time Vital Sign Value Performing Clinician Facility 07-09-2025 15:15-0400 Body height 175.3 cm Taylor De Souza MD Work Phone: [facility] 07-09-2025 15:15-0400 Body mass index (BMI) [Ratio] 25.84 kg/m2 Taylor De Souza MD Work Phone: [facility] 07-09-2025 15:15-0400 Body weight 79.38 kg Taylor De Souza MD Work Phone: [facility] 07-09-2025 15:15-0400 Diastolic blood pressure 75 mm[Hg] Taylor De Souza MD Work Phone: [facility] 07-09-2025 15:15-0400 Heart rate 79 /min Taylor De Souza MD Work Phone: [facility] 07-09-2025 15:15-0400 SaO2% (BldA) [Mass fraction] 96 % Taylor De Souza MD Work Phone: [facility] Comment on above: on 07-09-2025 15:15-0400 Systolic blood pressure 120 mm[Hg] Taylor De Souza MD Work Phone: [facility] 05-01-2025 13:03-0400 Body height 172.7 cm Fariba Pablo MD Work Phone: [facility] 05-01-2025 13:03-0400 Body mass index (BMI) [Ratio] 25.85 kg/m2 Fariba Pablo MD Work Phone: [facility] 05-01-2025 13:03-0400 Body weight 77.11 kg Fariba Pablo MD Work Phone: [facility] 05-01-2025 13:03-0400 Diastolic blood pressure 71 mm[Hg] Fariba Pablo MD Work Phone: [facility] 05-01-2025 13:03-0400 Heart rate 78 /min Fariba Pablo MD Work Phone: [facility] 05-01-2025 13:03-0400 Respiratory rate 16 /min Fariba Pablo MD Work Phone: [facility] 05-01-2025 13:03-0400 SaO2% (BldA) [Mass fraction] 94 % Fariba Pablo MD Work Phone: [facility] 05-01-2025 13:03-0400 Systolic blood pressure 103 mm[Hg] Fariba Pablo MD Work Phone: [facility] 11-04-2024 11:05-0500 Body mass index (BMI) [Ratio] 25.55 kg/m2 Alicja Mckinney DO Work Phone: [facility] 11-04-2024 11:05-0500 Body temperature 97.7 [degF] Alicja Mckinney DO Work Phone: [facility] 11-04-2024 11:05-0500 Body weight 78.47 kg Alicja Mckinney DO Work Phone: [facility] 11-04-2024 11:05-0500 Diastolic blood pressure 90 mm[Hg] Alicja Mckinney DO Work Phone: [facility] 11-04-2024 11:05-0500 Heart rate 83 /min Alicja Mckinney DO Work Phone: [facility] 11-04-2024 11:05-0500 SaO2% (BldA) [Mass fraction] 95 % Alicja Mckinney DO Work Phone: [facility] 11-04-2024 11:05-0500 Systolic blood pressure 129 mm[Hg] Alicja Mckinney DO Work Phone: [facility] 04-28-2024 10:29-0400 Body height 175.3 cm Eladio Flores MD Work Phone: [facility] 04-28-2024 10:29-0400 Body mass index (BMI) [Ratio] 25.99 kg/m2 Eladio Flores MD Work Phone: [facility] 04-28-2024 10:29-0400 Body temperature 97.5 [degF] Eladio Flores MD Work Phone: [facility] 04-28-2024 10:29-0400 Body weight 79.83 kg Eladio Flores MD Work Phone: [facility] 04-28-2024 10:29-0400 Diastolic blood pressure 75 mm[Hg] Eladio Flores MD Work Phone: [facility] 04-28-2024 10:29-0400 Heart rate 89 /min Eladio Flores MD Work Phone: [facility] 04-28-2024 10:29-0400 Systolic blood pressure 119 mm[Hg] Eladio Flores MD Work Phone: [facility] 05-21-2023 12:40-0400 Body temperature 96.7 [degF] Dr. Zayda Ovalle Work Phone: [facility] 05-21-2023 12:40-0400 Diastolic blood pressure 80 mm[Hg] Dr. Zayda Ovalle Work Phone: [facility] 05-21-2023 12:40-0400 Heart rate 70 /min Dr. Zayda Ovalle Work Phone: [facility] 05-21-2023 12:40-0400 Respiratory rate 16 /min Dr. Zayda Ovalle Work Phone: [facility] 05-21-2023 12:40-0400 SaO2% (BldA) [Mass fraction] 96 % Dr. Zayda Ovalle Work Phone: [phone])[phone] [place] [address] 05-21-2023 12:40-0400 Systolic blood pressure 107 mm[Hg] Dr. Zayda Ovalle Work Phone: 2([phone])[phone] [place] [address] 05-21-2023 11:17-0400 Body height 175.[address] Zayda Ovalle Work Phone: [phone] [place] [address] 05-21-2023 11:17-0400 Body mass index (BMI) [Ratio] 25.8 kg/m2 Dr. Zayda Ovalle Work Phone: [phone] [place] [address] 05-21-2023 11:17-0400 Body weight 79.[address] Zayda Ovalle Work Phone: [phone] [place] [address] 01-04-2023 14:18-0500 Body height 175.[address] Zayda Ovalle Work Phone: [phone] [place] [address] 01-04-2023 14:18-0500 Body mass index (BMI) [Ratio] 25.2 kg/m2 Dr. Zayda Ovalle Work Phone: [phone])[phone] [place] [address] 01-04-2023 14:18-0500 Body temperature 97.5 [degF] Dr. Zayda Ovalle Work Phone: 8([phone])[phone] [place] [address] 01-04-2023 14:18-0500 Body weight 77.[address] Zayda Ovalle Work Phone: [phone])[phone] [place] [address] 01-04-2023 14:18-0500 Diastolic blood pressure 84 mm[Hg] Dr. Zayda Ovalle Work Phone: [phone])[phone] [place] [address] 01-04-2023 14:18-0500 Heart rate 91 /min Dr. Zayda Ovalle Work Phone: [phone] [place] [address] 01-04-2023 14:18-0500 Respiratory rate 17 /min Dr. Zayda Ovalle Work Phone: [phone] [place] [address] 01-04-2023 14:18-0500 SaO2% (BldA) [Mass fraction] 95 % Dr. Zayda Ovalle Work Phone: [facility] 01-04-2023 14:18-0500 Systolic blood pressure 122 mm[Hg] Dr. Zayda Ovalle Work Phone: [facility] 05-16-2017 16:21-0400 Body height 175.26 cm Edy Lopez MD [facility] Work Phone: 05-16-2017 16:21-0400 Body mass index (BMI) [Ratio] 28.65 kg/m2 Edy Lopez MD [facility] Work Phone: 05-16-2017 16:21-0400 Body weight 88 kg Edy Lopez MD [facility] Work Phone: 05-16-2017 16:21-0400 Diastolic blood pressure 60 mm[Hg] Edy Lopez MD [facility] Work Phone: 05-16-2017 16:21-0400 Heart rate 88 /min Edy Lopez MD [facility] Work Phone: 05-16-2017 16:21-0400 Respiratory rate 20 /min Edy Lopez MD [facility] Work Phone: 05-16-2017 16:21-0400 Systolic blood pressure 100 mm[Hg] Edy Lopez MD [facility] Work Phone: 04-11-2017 08:42-0400 Body height 175.26 cm Kinsey Raines [facility] Work Phone: 04-11-2017 08:42-0400 Body mass index (BMI) [Ratio] 29.09 kg/m2 Kinsey Raines [facility] Work Phone: 04-11-2017 08:42-0400 Body temperature 98.2 [degF] Kinsey Olu [facility] Search Phone: 04-11-2017 08:42-0400 Body weight 89.36 kg Kinsey Olu [facility] [place] Search Phone: 04-11-2017 08:42-0400 Diastolic blood pressure 75 mm[Hg] Kinsey Olu [facility] [place] Work Phone: 04-11-2017 08:42-0400 Heart rate 90 /min Kinsey Olu [facility] Search Phone: 04-11-2017 08:42-0400 Respiratory rate 18 /min Kinsey Olu [facility] Search Phone: 04-11-2017 08:42-0400 SaO2% (BldA) [Mass fraction] 97 % Kinsey Olu [facility] Search Phone: 04-11-2017 08:42-0400 Systolic blood pressure 114 mm[Hg] Kinsey Olu [facility] Search Phone: 01-17-2017 09:47-0500 Body height 175.26 cm Kinsey Raines [facility] Search Phone: 01-17-2017 09:47-0500 Body surface area Derived from formula 2.05 m2 Kinsey Olu [facility] Search Phone: 01-17-2017 09:47-0500 Body temperature 98.24 [degF] Iknsey Olu [facility] Search Phone: 01-17-2017 09:47-0500 Body weight 89.55 kg Kinseyghanshyam Raines [facility] Search Phone: Encounters Encounter Date Encounter Type Care Provider Facility Start: 07-09-2025 End: 07-09-2025 Office outpatient visit 40 minutes Taylor De Souza MD Work Phone: [facility] [place] Comment on above: Pulmonary hypertensi on (Multi) (Primary Dx); Long-term use of high-risk medication; SOB (shortness of breath) Start: 07-09-2025 End: 07-09-2025 Subsequent hospital visit by physician Jannette [id number] Walk[address] Rm [facility] [place] Comment on above: Pulmonary hypertensi on (Multi); SOB (shortness of breath) Start: 07-09-2025 End: 07-09-2025 [facility] Start: 05-01-2025 End: 05-01-2025 ambulatory FARIBA RENTERIA SANDRA [facility] Start: 05-01-2025 End: 05-01-2025 Subsequent hospital visit by physician Fariba Pablo MD Work Phone: [facility] [place] Comment on above: Pulmonary hypertensi on (Multi) (Primary Dx); SOB (shortness of breath) Start: 03-12-2025 End: 03-12-2025 Subsequent hospital visit by physician Ramakrishna quinonez Pft [facility] Comment on above: Pulmonary hypertensi on (Multi); SOB (shortness of breath) Start: 03-12-2025 End: 03-12-2025 ambulatory [facility] Start: 01-16-2025 End: 01-16-2025 ambulatory Zayda Ovalle Facility:[facility] Start: 12-08-2024 ambulatory [facility] Start: 11-27-2024 ambulatory [facility] ROXANA Sanchez [facility] Start: 11-04-2024 End: 11-04-2024 Subsequent hospital visit by physician Jannette Scc X-Ray [facility] Comment on above: Orthopnea; NIETO (dyspnea on exertion) Start: 11-04-2024 End: 11-04-2024 ambulatory [facility] Start: 11-04-2024 End: 11-04-2024 Office outpatient new 60 minutes Alicja Mckinney DO Work Phone: [facility] [place] Comment on above: Pulmonary hypertensi on (Multi) (Primary Dx); Long-term use of high-risk medication; Orthopnea Start: 11-04-2024 End: 11-04-2024 Subsequent hospital visit by physician Jannette [id number] Walk[address] [facility] [place] Comment on above: SOB (shortness of br eath); Pulmonary hypertension (Multi) Start: 11-04-2024 End: 11-04-2024 ambulatory [facility] Start: 05-19-2024 End: 05-19-[address] [facility] Start: 05-16-2024 End: 05-16-2024 Subsequent hospital visit by physician Eladio Flores MD Work Phone: [facility] Comment on above: Cholecystitis Start: 05-16-2024 End: 05-16-[address] [facility] Start: 04-28-2024 End: 04-28-2024 Office outpatient new 45 minutes Eladio Flores MD Work Phone: [facility] General Surgery Comment on above: Cholecystitis (Prima ry Dx) Start: 04-28-2024 End: 04-28-[address] [facility] Start: 04-05-2024 End: 04-06-2024 ambulatory ZAYDA OVALLE MD Facility:A Start: 04-05-2024 End: 04-05-2024 Patient encounter procedure PHY WO ID REFERRING [facility] Start: 03-20-2024 End: 03-20-2024 Subsequent hospital visit by physician Med Echo/Stress [facility] Comment on above: Pulmonary hypertensi on (Multi) Start: 03-07-2024 End: 03-07-2024 Subsequent hospital visit by physician Ramakrishna quinonez Pft [facility] Comment on above: Pulmonary hypertensi on (Multi) Start: 02-25-2024 End: 02-25-2024 ambulatory [facility] Work Phone: Start: 02-25-2024 End: 02-25-2024 Patient encounter procedure [facility] [place] Work Phone: Start: 02-25-2024 End: 02-25-2024 ambulatory Zayda Ovalle Facility:[facility] Start: 11-13-2023 End: 11-13-2023 Subsequent hospital visit by physician Ramakrishna quinonez P[facility] Comment on above: Pulmonary hypertensi on (CMS/HCC) Start: 05-21-2023 Non-patient / Non-visit Dr. Syd Ovalle Work Phone: [facility] Start: 05-21-2023 End: 05-21-2023 Admission to same day surgery center Dr. Zayda Ovalle Work Phone: [facility] Start: 05-21-2023 End: 05-21-[address] Zayda Ovalle Work Phone: [facility] Work Phone: Start: 04-03-2023 Rx Renewal No PCP None [facility] [facility] Work Phone: Start: 03-16-2023 End: 03-16-[address] Zayda Ovalle Work Phone: [facility] Work Phone: Start: 03-16-2023 End: 03-16-[address] Zayda Ovalle Work Phone: [facility] Start: 03-14-2023 Non-patient / Non-visit Dr. Syd Ovalle Work Phone: [facility] Start: 03-14-2023 End: 03-14-[address] Zayda Ovalle Work Phone: [facility] Work Phone: Start: 03-14-2023 End: 03-14-[address] Zayda Ovalle Work Phone: [facility] Services/Neurology Start: 03-09-2023 End: 03-09-[address] Zayda Ovalle Work Phone: [facility] Start: 01-25-2023 AUDIT No PCP None [facility] [facility] Work Phone: Start: 01-04-2023 End: 01-04-[address] Zayda Ovalle Work Phone: [facility] Start: 12-18-2022 End: 12-18-2022 ambulatory [facility] Work Phone: Start: 12-18-2022 End: 12-18-2022 Patient encounter procedure [facility] [place] Start: 09-19-2022 End: 09-19-2022 ambulatory [facility] Work Phone: Start: 09-19-2022 End: 09-19-2022 Patient encounter procedure [facility] Start: 05-25-2022 End: 05-25-2022 Patient encounter procedure [facility] Start: 05-15-2022 End: 05-15-2022 Patient encounter procedure [facility] [place] Start: 05-12-2022 End: 05-12-2022 Patient encounter procedure [facility] Start: 05-08-2022 AUDIT No PCP None [facility] [address] Work Phone: Start: 05-12-2021 Chart Update No PCP None [facility] [facility] Work Phone: Start: 06-23-2020 Patient encounter procedure Alicja Mciknney [facility] [facility] Work Phone: Start: 02-17-2020 Patient encounter procedure Alicja Mckinney [facility] [facility] Work Phone: Start: 01-29-2020 Patient encounter procedure Alicja Mckinney [facility] [facility] Work Phone: Procedures Date Procedure Procedure Detail Performing Clinician Start: 07-09-2025 Pulmonary stress testing Alicja Mckinney DO Work Phone: Start: 05-01-2025 Cardiac catheterization study Alicja alvarado DO Work Phone: Start: 05-01-2025 End: 05-01-2025 Basic metabolic panel calcium total Tessa E Stockbridge [employer] Work Phone: Start: 11-04-2024 Radiologic exam chest 2 views Alicja alvarado DO Work Phone: Start: 11-04-2024 Pulmonary stress testing Alicja Mckinney DO Work Phone: Start: 05-16-2024 Ct abdomen & pelvis w/contrast material Eladio Flores MD Work Phone: Start: 05-21-2023 End: 05-21-[address] Zayda Ovalle Work Phone: Start: 05-25-2022 Magnetic resonance cholangiopancreatography Start: 05-31-2020 Echocardiography Alicja Mckinney Start: 09-05-2019 6 Minute Walk Test Alicja Armendarizmichel Start: 05-16-2017 End: 05-16-2017 Documentation of current medications Edy Lopez MD Start: 04-11-2017 End: 04-11-2017 Dietary management education, guidance, and counseling Kinsey Raines Start: 04-11-2017 End: 04-11-2017 Documentation of current medications Kinsey Raines Start: 01-17-2017 End: 01-17-2017 *CBC Automated and Automated Differential WBC Adelfo Velazquez [facility] [employer] Work Phone: Start: 01-17-2017 End: 01-17-2017 Comprehensive metabolic 2000 panel - Serum or Plasma Adelfo Velazquez [facility] [employer] Work Phone: Start: 01-17-2017 End: 01-17-2017 DMB Adelfo Velazquez [facility] [employer] Work Phone: Start: 01-17-2017 End: 01-17-2017 Echo tthrc r-t 2d w/wom-mode compl spec&colr d Adelfo Velazquez [facility] [employer] Work Phone: Start: 01-17-2017 End: 01-17-2017 Follow Up Appt 3 months Adelfo Manrique DO Work Phone: Start: 01-17-2017 End: 01-17-2017 Natriuretic peptide B [Mass/volume] in Blood Adelfo Manrique DO Work Phone: Start: 01-17-2017 End: 01-17-2017 Pulmonary Function Test - complete Adelfo Manrique DO Work Phone: Start: 01-17-2017 End: 01-17-2017 Pulmonary stress test/simple Adelfo will DO Work Phone: Start: 05-17-2016 End: 05-17-2016 VICTORIANO Lopez MD Start: 05-17-2016 End: 05-17-2016 Follow Up Appt 1 year Edy Lopez MD Start: 11-06-2014 End: 11-06-2014 Follow Up Appt 6 months aMrcus Zimmerman Start: 11-06-2014 End: 11-06-2014 ABHI Edy Lopez MD Start: 06-23-2014 End: 06-23-2014 VICTORIANO Foster PA-C Work Phone: Start: 06-23-2014 End: 06-23-2014 Follow Up Appt 3 months Olya Foster PA-C Work Phone: Start: 06-23-2014 End: 06-23-2014 Follow Up Appt Other Olya Foster PA-C Work Phone: Start: 03-20-2014 End: 06-23-2014 Pulmonary Referral Edy Lopez MD Start: 03-06-2014 End: 03-06-2014 VICTORIANO Lopez MD Start: 03-06-2014 End: 03-06-2014 Follow Up Appt 3 months Marcus Zimmerman Start: 02-19-2014 End: 02-19-2014 Nurse, Teaching, Wound Check (no charge) Edy Lopez MD Start: 02-16-2014 End: 02-18-2014 Basic metabolic 2000 panel - Serum or Plasma Edy Lopez MD Start: 02-16-2014 End: 02-18-2014 CBC W Auto Differential panel - Blood Edy Lopez MD Start: 02-16-2014 End: 02-18-2014 INR in Platelet poor plasma by Coagulation assay Edy Lopez MD Start: 02-16-2014 End: 02-20-2014 Left & Right Heart Cath Marcus Zimmerman Start: 02-04-2014 End: 02-17-2014 Ct thorax w/o & w/contrast material Edy Lopez MD Start: 01-28-2014 End: 01-28-2014 PLASMA SPECIALIST Edy Lopez MD Start: 01-28-2014 End: 01-28-2014 Ecg routine ecg w/least 12 lds w/i&r Edy Lopez MD Start: 01-28-2014 End: 02-17-2014 Echocardiography Edy Lopez MD Start: 01-28-2014 End: 01-28-2014 Follow Up Appt 1 month Edy Lopez MD Urine culture Plan of Treatment Date Care Activity Detail Author Start: 2033 RSV Immunization age d 60 or older (1 - 1-dose 60+ series) RSV Immunization aged 60 or older (1 - 1-dose 60+ series) [facility] Start: 2033 RSV patient s and/or patients aged 60+ years (1 - 1-dose 60+ series) RSV patients and/or patients aged 60+ years (1 - 1-dose 60+ series) [facility] Start: 05-21-2033 Screening for malign ant neoplasm of colon [facility] Start: 07-27-2025 Influenza vaccination [facility] Start: 04-28-2025 Diabetes: Estimated Glomerular Filtration Rate for Kidney [facility] Diabetes: Estimated Glomerular Filtration Rate for [facility]ney [facility] Start: 07-27-2024 COVID-19 Vaccine ( season) COVID-19 Vaccine () [facility] Start: 07-27-2024 Influenza vaccination [facility] Start: 05-19-2024 End: 05-19-2024 Telemedicine consultation with patient 05/19/2024 11:00 AM EDT Telemedicine [facility] General Surgery [address] [place] [address] Eladio Flores MD [address] [place] [address] [facility] General Surgery Start: 05-16-2024 End: 05-16-2024 Patient encounter procedure 05/16/2024 10:15 AM EDT Appointment [facility] [address] [place] [phone] Eladio Flores MD [address] [place] [address] [facility] Start: 05-07-2024 End: 05-07-2024 Patient encounter procedure 05/07/2024 2:30 PM EDT Office Visit [facility] [place] [address] [facility] [address] [place] [address] [place] [address] [place] [address] [facility] [place] Start: 04-28-2024 End: 04-28-2025 CT Abdomen and Pelvis W contrast IV CT abdomen pelvis w contrast Imaging Routine Cholecystitis Expected: 04/28/2024, Expires: 04/28/2025 [facility] Work Phone: Comment on above: Expected: 04/28/2024 , Expires: 04/28/2025 Start: 03-20-2024 End: 03-20-2024 Patient encounter procedure 03/20/2024 1:00 PM EDT Appointment [facility] [address] [address] [facility] Start: 07-27-2023 COVID-19 Vaccine ( season) COVID-19 Vaccine () [facility] Start: 07-27-2023 Influenza vaccination Influenza Vacc ine (#1) [facility] Start: 2023 Prostate specific an tigen measurement PSA Prostate Cancer Screening [facility] Start: 2023 Zoster Vaccines (1 of 2) Zoste r Vaccines (1 of 2) [facility] Start: 05-21-2023 [facility] Start: 03-16-2023 [facility] Start: 02-08-2023 FUVP, Provider: Alicja Mckinney, Status: Pen, Time: 3:00 PM FUVPAH, Provider: Alicja Mckinney, Status: Pen, Time: 3:00 PM [facility] [address] Work Phone: Start: 02-08-2023 PST, Provider: JANNETTE GARAY [address],[facility] PULM, Status: Pen, Time: 2:15 PM PST, Provider: JANNETTE LOMELI [address], Status: Pen, Time: 2:15 PM [facility] [address] Work Phone: Start: 02-08-2023 ECHO, Provider: JANNETTE LOMELI HHVI 2,MG CARD, Status: Pen, Time: 12:50 PM ECHO, Provider: JANNETTE LOMELI HHVI 2,MG CARD, Status: Pen, Time: 12:50 PM [facility] [address] Work Phone: Start: 01-04-2023 Patient referral [facility] Work Phone: Start: 12-18-2022 Procedure [facility] Start: 09-19-2022 Drug screening oxycodone DRUG SCREENING OXYCODONE [facility] Start: 05-15-2022 Lipase measurement [facility] Work Phone: Start: 05-15-2022 [facility] Work Phone: Start: 07-29-2021 COVID-19 Vaccine (3 - Pfizer series) COVID-19 Vaccine (3 - Pfizer series) [facility] Start: 02-13-2021 DTaP/Tdap/Td Vaccine s (2 - Td or Tdap) DTaP/Tdap/Td Vaccines (2 - Td or Tdap) [facility] Start: 10-01-2019 6 Minute Walk Test [facility] [address] Work Phone: Start: 04-06-2019 Pneumococcal vaccination Pneum ococcal Vaccine (2 of 2 - PCV) [facility] Start: 04-06-2019 Pneumococcal Vaccine : Pediatrics (0 to 5 Years) and At-Risk Patients (6 to 64 Years) (2 of 2 - PCV) Pneumococcal Vaccine: Pediatrics (0 to 5 Years) and At-Risk Patients (6 to 64 Years) (2 of 2 - PCV) [facility] Start: 10-09-2017 End: 10-09-2017 Patient encounter procedure Appointment [facility] Work Phone: Start: 05-16-2017 End: 05-16-2017 Patient encounter procedure Appointment [facility] Work Phone: Start: 05-16-2017 End: 05-16-2017 PLASMA SPECIALIST PLASMA SPECIALIST [facility] Work Phone: Start: 05-16-2017 End: 05-16-2017 Follow Up Appt 1 year Follow Up Appt 1 year [facility] Work Phone: Start: 04-11-2017 End: 04-11-2017 Patient encounter procedure Appointment [facility] Work Phone: Start: 04-11-2017 End: 04-11-2017 DMB DMB [facility] Search Phone: Start: 04-11-2017 End: 04-11-2017 Follow Up Appt 6 months Follow Up Appt 6 months [facility] Search Phone: Start: 01-17-2017 End: 01-17-2017 *CBC Automated and Automated Differential WBC *CBC Automated and Automated Differential WBC [facility] Search Phone: Start: 01-17-2017 End: 01-17-2017 DMB DMB [facility] Search Phone: Start: 01-17-2017 End: 01-17-2017 Echo tthrc r-t 2d w/wom-mode compl spec&colr d Echo Complete with Color Flow [facility] Search Phone: Start: 01-17-2017 End: 01-17-2017 Follow Up Appt 3 months Follow Up Appt 3 months [facility] Search Phone: Start: 01-17-2017 End: 01-17-2017 Natriuretic peptide B [Mass/volume] in Blood *Brain Natriuretic Peptide BNP [facility] Search Phone: Start: 01-17-2017 End: 01-17-2017 Pulmonary Function Test - complete Pulmonary Function Test - complete [facility] Search Phone: Start: 01-17-2017 End: 01-17-2017 Pulmonary stress test/simple Pulmonary stress testing; simple (eg, 6-minute walk) [facility] Search Phone: Start: 05-17-2016 End: 05-17-2016 PLASMA SPECIALIST PLASMA SPECIALIST [facility] Search Phone: Start: 05-17-2016 End: 05-17-2016 Echocardiography Echocardiogram (complete) [facility] Search Phone: Start: 05-17-2016 End: 05-17-2016 Follow Up Appt 1 year Follow Up Appt 1 year [facility] Search Phone: Start: 06-02-2015 End: 06-02-2015 Physical Therapy [facility] [place], [address] [facility] Search Phone: Start: 05-27-2015 End: 06-09-2015 EMG EMG [facility] Search Phone: Start: 05-27-2015 End: 06-09-2015 Nerve Conduction Nerve Conduction [facility] Search Phone: Start: 05-27-2015 End: 05-27-2015 Radex shoulder complete minimum 2 views X-Ray, Shoulder [facility] Search Phone: Start: 11-06-2014 End: 11-06-2014 Follow Up Appt 6 months Follow Up Appt 6 months [facility] Search Phone: Start: 11-06-2014 End: 11-06-2014 MMM MMM [facility] Search Phone: Start: 06-23-2014 End: 06-23-2014 PLASMA SPECIALIST PLASMA SPECIALIST [facility] Search Phone: Start: 06-23-2014 End: 06-23-2014 Follow Up Appt 3 months Follow Up Appt 3 months [facility] Search Phone: Start: 06-23-2014 End: 06-23-2014 Follow Up Appt Other Follow Up Appt Other [facility] Search Phone: Start: 03-20-2014 End: 06-23-2014 Patient encounter procedure Pulmonary Referral Alicja Fitzpatrick, [address] [facility], [place], [address] [facility] Search Phone: Start: 03-06-2014 End: 03-06-2014 PLASMA SPECIALIST PLASMA SPECIALIST [facility] Search Phone: Start: 03-06-2014 End: 03-06-2014 Follow Up Appt 3 months Follow Up Appt 3 months [facility] Search Phone: Start: 02-16-2014 End: 02-18-2014 Basic metabolic 2000 panel - Serum or Plasma *BMP [facility] Search Phone: Start: 02-16-2014 End: 02-18-2014 CBC W Auto Differential panel - Blood *CBC without Diff [facility] Search Phone: Start: 02-16-2014 End: 02-18-2014 INR in Platelet poor plasma by Coagulation assay *PT/INR [facility] Search Phone: Start: 02-16-2014 End: 02-16-2014 Left & Right Heart Cath Left & Right Heart Cath [facility] Search Phone: Start: 02-04-2014 End: 02-04-2014 Ct thorax w/o & w/contrast material CT Chest with and without Contrast [facility] Search Phone: Start: 01-28-2014 End: 01-28-2014 PLASMA SPECIALIST PLASMA SPECIALIST [facility] Search Phone: Start: 01-28-2014 End: 01-28-2014 Ecg routine ecg w/least 12 lds w/i&r EKG (In office) [facility] Search Phone: Start: 01-28-2014 End: 01-28-2014 Echocardiography Echocardiogram (complete) [facility] Search Phone: Start: 01-28-2014 End: 01-28-2014 Follow Up Appt 1 month Follow Up Appt 1 month [facility] Search Phone: Start: 1992 Urine screening for protein Diabetes: Urine Protein Screening [facility] Start: 1991 Diabetes: Urine Albumin-Creatinine Ratio for Kidney [facility] Diabetes: Urine Albumin-Creatinine Ratio for [facility] Start: 1991 Hepatitis C screening Hepatitis C Sc [facility] Start: 1985 Depression Screening Depression [facility] Start: 1983 Diabetic foot examination Diabetes: Foot Exam [facility] Start: 1983 Glaucoma screening Diabetes: R etinopathy Screening [facility] Start: 1983 Preventive dental service Diabetes: Dental Exam [facility] Start: 1974 MMR Vaccines (1 of 1 - Standard series) MMR Vaccines (1 of 1 - Standard series) [facility] Start: 1973 Hemoglobin A1c measurement Diabetes: Hemoglobin A1C [facility] Start: 1973 Lipid panel Lipid Panel [facility] Start: 1973 Screening for malign ant neoplasm of colon [facility] Start: 1973 Urine screening for protein Diabetes: Urine Protein Screening [facility] Start: 1973 Yearly Adult Physical Yearly Adult P hysical [facility] Angiotensin converti ng enzyme [Enzymatic activity/volume] in Serum or Plasma [facility] Blood ammonia measurement [facility] C reactive protein [Mass/volume] in Serum or Plasma [facility] Celiac disease screen [facility] Ceruloplasmin [Mass/volume] in Serum or Plasma [facility] Copper [Moles/volume ] in Serum or Plasma [facility] Erythrocyte sediment ation rate [facility] End: 05-01-2025 Glucose [Mass/volume] in Serum or Plasma POCT Glucose Point of Care Testing - Docked Device Routine Once (Lab) for 1 Occurrences starting 05/01/2025 until 05/01/2025 [facility] Service Area Work Phone: Comment on above: Once (Lab) for 1 Occ urrences starting 05/01/2025 until 05/01/2025 HIV 1+2 Ab+HIV1 p24 Ag [Presence] in Serum or Plasma by Immunoassay [facility] IgA [Mass/volume] in Serum or Plasma [facility] IgE [Units/volume] i n Serum or Plasma [facility] IgG [Mass/volume] in Serum or Plasma [facility] IgM [Mass/volume] in Serum or Plasma [facility] [place] dehydrogenas e measurement [facility] Mitochondria Ab [Presence] in Serum [facility] MR Abdomen WO and W contrast IV [facility] Patient referral [facility] Work Phone: End: 11-13-2023 Pulmonary function testing [facility] Work Phone: Comment on above: Once for 1 Occurrenc es starting 11/13/2023 until 11/13/2023 End: 03-07-2024 Pulmonary Stress Test (6 Min. Walk) [facility] Work Phone: Comment on above: Once for 1 Occurrenc es starting 03/07/2024 until 03/07/2024 Pulmonary Stress Kaya t (6 Min. Walk) Pulmonary Stress Test (6 Min. Walk) PFT Routine SOB (shortness of breath) Pulmonary hypertension (Multi) 11/04/2024 11:10 AM EST [facility] Work Phone: End: 03-12-2025 Pulmonary Stress Test (6 Min. Walk) [facility] Work Phone: Comment on above: Once for 1 Occurrenc es starting 03/12/2025 until 03/12/2025 Pulmonary Stress Kaya t (6 Min. Walk) Pulmonary Stress Test (6 Min. Walk) PFT Routine Pulmonary hypertension (Multi) SOB (shortness of breath) 07/09/2025 3:10 PM EDT [facility] Work Phone: Serum immunofixation [facility] Smooth muscle Ab [Presence] in Serum [facility] Thyroid stimulating hormone measurement [facility] US Abdomen limited [facility] End: 03-20-2024 US Heart Transthoracic [facility] Work Phone: Comment on above: Once for 1 Occurrenc es starting 03/20/2024 until 03/20/2024 Vitamin B12 measurement [facility] Vitamin D, 1,25-dihy droxy measurement [facility] Work Phone: [facility] NEGATED: Highlighted row has been ruled out! Planned Goals not documented [facility] Work Phone: Immunizations Immunization Date Immunization Notes Care Provider Sybil jones 06-03-2021 Pfizer-BioNTech COVI D-19 Vacc 30 MCG/0.3ML Intramuscular Suspension No PCP None [facility] Work Phone: 05-13-2021 Pfizer-BioNTMobilinga COVI D-19 Vacc 30 MCG/0.3ML Intramuscular Suspension No PCP None [facility] Work Phone: 11-16-2020 influenza, injectabl e, quadrivalent, preservative free No PCP None [facility] Work Phone: 11-16-2020 influenza virus vacc ine, unspecified formulation [facility] Work Phone: 08-05-2019 Influenza, injectabl e, [facility]in [place] Canine Kidney, preservative free, quadrivalent No PCP None [facility] Work Phone: 09-26-2018 influenza, injectabl e, quadrivalent, contains preservative No PCP None [facility] Work Phone: 04-06-2018 pneumococcal polysaccharide vaccine, 23 valent No PCP None [facility] Work Phone: 08-16-2011 hepatitis A and hepa titis B vaccine No PCP None [facility] Work Phone: 03-17-2011 hepatitis A and hepa titis B vaccine No PCP None [facility] Work Phone: 02-13-2011 hepatitis A and hepa titis B vaccine No PCP None [facility] Work Phone: 02-13-2011 meningococcal polysaccharide (groups A, C, Y and W-135) diphtheria toxoid conjugate vaccine (MCV4P) No PCP None [facility] Work Phone: 02-13-2011 tetanus toxoid, redu richard diphtheria toxoid, and acellular pertussis vaccine, adsorbed No PCP None [facility] Work Phone: Payers Date Payer Category Payer Medicaid [employer] [facility] MEDICAID ODM [id number] 2024-Present [phone] [address] [place] [address] Medicaid HMO [id number] 2024 Unknown [id number] 2024 Self-pay [id number] 2013 Medicaid (Managed Care) [id number]. [id number] 2013 Unknown 2013 Unknown [id number] 2013 Unknown [id number] 1973 Unknown [id number] [id number] 1973 Unknown [id number]. 1242 1973 Unknown [id number]. 1244 1973 Unknown [id number] [id number]. 1244 1973 Unknown [id number] [id number]. 124 1973 Unknown [id number] [id number]. 1244 1973 Unknown [id number] [id number]. 124 1973 Unknown [id number] [id number]. 124 1973 Unknown [id number]. 1245 1973 Unknown [id number]. 1245 Unknown [id number]. 462 Unknown [id number] 462 Social History Date Type Detail Facility Start: 04-28-2024 End: 07-09-2025 Quit consuming alcohol in remote past Quit consuming alcohol in remote past [facility] Work Phone: Comment on above: Quit alcohol use 8 y ears ago; Start: 03-02-2021 End: 06-07-2023 Tobacco smoking status [facility] Unknown if ever smoked [facility] Start: 09-30-2020 Sober [facility] Start: 09-21-2020 None [facility] Start: 06-20-2020 Alone [facility] Start: 01-15-2020 Non-smoker [facility] Start: 1975 Sex Assigned At Male W [facility] Start: 11-07-2023 Gender identity Identifies as male gender (finding) [facility] Work Phone: Start: 11-12-2023 Sexual orientation Heterosexual (fin ding) [facility] Work Phone: Start: 11-03-2023 End: 05-01-2025 Exposure to SARS-CoV-2 (event) Not sure [facility] Tobacco smoking status No Smoking Status Entered [facility] Start: 04-28-2024 End: 07-09-2025 Tobacco smoking status NHIS Ex-smoker [facility] Start: 11-26-1982 End: 11-26-2007 History of tobacco use Current smoker [facility] Start: 11-26-1982 End: 11-26-2007 History of tobacco use Cigarette Smoker [facility] History of tobacco use Passive smoker [facility] Start: 04-28-2024 Tobacco use and exposure Former smokeless tobacco user [facility] Start: 04-28-2024 End: 07-09-2025 Alcohol intake Ex-drinker (finding) [facility] Start: 04-28-2024 End: 07-09-2025 Tobacco use panel [facility] Start: 1975 Sex Assigned At Not on file S [facility] Start: 07-09-2025 Tobacco use and exposure Smokeless tobacco non-user [facility] Work Phone: Start: 10-20-2022 Sex Male [facility] NEGATED: Highlighted row - - [facility] Work Phone: Goals Date Patient Goal Desired Activity /State Functional Status Date Assessment Result Facility 05-01-2025 [place] - suicide severity rating scale screener - recent [C-SSRS] [facility] Work Phone: NEGATED: Highlighted row Functional performance Functional status health issues are not documented Disease [facility] Work Phone: Mental Status Date Assessment Result Facility 05-21-2023 Cognitive function Voice/Name [facility] Work Phone: NEGATED: Highlighted row Cognitive function [Interpretation] Cognitive status health issues are not documented Disease [facility] Work Phone: Clinical Notes 02-03-2021 to 07-09-2025 Taylor De Souza MD - 07/09/2025 3:00 PM EDTPost-Procedure Note - Carol Arriaga MD - 05/01/2025 3:06 PM EDTPost-Procedure Note - Carol Arriaga MD - 05/01/2025 3:06 PM EDTDischarge Instructions Note Date & Type Note Facility 07-09-2025 History of Presen t illness Narrative History Of Present Illness Rip Jiménez is a 50 y.o. male presenting with pulmonary arterial hypertension follow up. Patient is NYHA Functional Class 2-3 and WHO Group 1. Last office visit on 11/04/2024. Referred during inpatient hospital 08/26/2019. Patient presented to OSH in [place] on 08/09/19 with sudden onset RUQ pain. After worsening liver dysfunction, he was transferred to [facility] (08/16/19). An echo was obtained at [place] showing severe PAH. A RHC was also done, confirming PAH. Patient left against physicians' recommendations and prior to any PAH therapy initiation. Of note, patient was reportedly on ambrisentan since 2013, though was non-compliant. He was agreeable to starting Orenitram as an outpatient which was started on 10/13/19. Patient had been actively increasing and tolerating Orenitram, but stopped taking about 1-2 years ago. Currently taking ambrisentan monotherapy as he has had limited followup for add-on therapy. PAH Treatment: Ambrisentan 10 mg (2013-02/2024), currently taking Infusion site: N/A Treatment history: Orenitram 5 mg TID (10/13/2019) -- patient discontinued 1-2 years ago Today's testing includes 6 MWT, Labs Interval History BLE present, states he inadvertently missed 1 weeks worth of lasix about 2-3 weeks ago. States he has to pace himself with activity and feels like he has slowed down significantly. Endorses he is taking ambrisentan but has not taken Orenitram for 1-2 years. Previous visit stated he was not taking ambrisentan. Chest pain and tightness with bending over. Fatigue has worsened. Primary concern is getting Orenitram restarted. Past Medical History Patient Active Problem List Diagnosis Pulmonary hypertension (Multi) SOB (shortness of breath) Thrombocytopenia Pancreatitis, chronic (Multi) Hypertension DM2 (diabetes mellitus, type 2) (Multi) Alcoholic cirrhosis of liver with ascites (Multi) High risk medication use Surgical History He has a past surgical history that includes Cardiac catheterization (N/A, 05/01/2025). Social History He reports that he has quit smoking. His smoking use included cigarettes. He does not have any smokeless tobacco history on file. He reports that he does not currently use alcohol. He reports that he does not currently use drugs. Family History Family History Problem Relation Name Age of Onset Coronary artery disease Other Family Lung cancer Other Family Medications Current Outpatient Medications: ambrisentan (Letairis) 10 mg tablet, Take 1 tablet (10 mg) by mouth once daily. Do not crush, chew, or split., Disp: 30 tablet, Rfl: 11 furosemide (Lasix) 20 mg tablet, Take 1 tablet (20 mg) by mouth once daily., Disp: 30 tablet, Rfl: 3 magnesium oxide (Mag-Ox) 400 mg tablet, Take 1 tablet (400 mg) by mouth once daily., Disp: , Rfl: omeprazole (PriLOSEC) [address] capsule, Take 1 capsule (20 mg) by mouth. Do not crush or chew., Disp: , Rfl: oxazepam (Serax) 10 mg capsule, Take 1 capsule (10 mg) by mouth 4 times a day as needed for sleep., Disp: , Rfl: oxyCODONE (Oxy-IR) 5 mg immediate release capsule, Take 1 capsule (5 mg) by mouth every 6 hours if needed for severe pain (7 - 10)., Disp: , Rfl: PARoxetine (Paxil) 20 mg tablet, Take 1 tablet (20 mg) by mouth once daily in the morning., Disp: , Rfl: pregabalin (Lyrica) 100 mg capsule, Take 1 capsule (100 mg) by mouth 2 times a day., Disp: , Rfl: spironolactone (Aldactone) 25 mg tablet, Take 1 tablet (25 mg) by mouth once daily., Disp: 30 tablet, Rfl: 11 treprostinil diolamine (Orenitram) 5 mg tablet extended release, Take 5 mg by mouth every 12 hours., Disp: , Rfl: Allergies Patient has no known allergies. Review of Systems Constitutional: Positive for activity change and fatigue. Negative for appetite change, chills, fever and unexpected weight change. Respiratory: Positive for shortness of breath. Negative for cough, chest tightness and wheezing. Cardiovascular: Positive for leg swelling. Negative for chest pain and palpitations. Gastrointestinal: Negative for abdominal distention, abdominal pain, constipation, diarrhea, nausea and vomiting. Neurological: Negative for dizziness, syncope, light-headedness and headaches. Last Recorded Vitals BP 120/75 Pulse 79 Ht 1.753 m (5' 9) Wt 79.4 kg (175 lb) SpO2 96% Comment: on RA BMI 25.84 kg/m Physical Exam Constitutional: Appearance: Normal appearance. HENT: Head: Normocephalic. Nose: Nose normal. Eyes: Pupils: Pupils are equal, round, and reactive to light. Neck: Comments: No JVD Cardiovascular: Rate and Rhythm: Normal rate and regular rhythm. Heart sounds: Murmur (1/6 NIA LLSB) heard. Comments: Increased second heart sound. Pulmonary: Effort: Pulmonary effort is normal. Breath sounds: Normal breath sounds. Abdominal: General: Bowel sounds are normal. Palpations: Abdomen is soft. Musculoskeletal: Right lower leg: Edema (trace) present. Left lower leg: Edema (trace) present. Neurological: General: No focal deficit present. Psychiatric: Mood and Affect: Mood normal. Judgment: Judgment normal. Relevant Results 6MWT (07/09/2025) SP02-96%-97% on RA HR- 79-115 [place]- 0-2 Actual Meters- 360 m RHC (05/01/2025) PAP- 86/34 (53) PWP- 10 CO/CI- 3.7/1.9 Echo (11/04/2024) pending - refused by insurance due to not being seen. Echo 02/2024 with RV:LV about 1 by my eye. RV appears muscularized. 6MWT (11/04/2024) SP02- 97%-95% HR- 84-110 [place]LEY- 0-2 Actual Meters- 366m Echo (03/20/2024) Left Ventricle: The left ventricular systolic function is normal, with an estimated ejection fraction of 60-65%. There are no regional wall motion abnormalities. The left ventricular cavity size is normal. The left ventricular septal wall thickness is mildly increased. The interventricular septum is flattened in systole, consistent with right ventricular pressure overload. Spectral Doppler shows an impaired relaxation pattern of left ventricular diastolic filling. Left Atrium: The left atrium is normal in size. Right Ventricle: The right ventricle is moderately enlarged. There is moderately increased right ventriclar wall thickness. There is reduced right ventricular systolic function. Right Atrium: The right atrium is normal in size. Aortic Valve: The aortic valve is trileaflet. There is no evidence of aortic valve regurgitation. The peak instantaneous gradient of the aortic valve is 6.3 mmHg. Mitral Valve: The mitral valve is normal in structure. There is trace mitral valve regurgitation. Tricuspid Valve: The tricuspid valve is structurally normal. There is mild to moderate tricuspid regurgitation. Pulmonic Valve: The pulmonic valve is structurally normal. There is no indication of pulmonic valve regurgitation. Pericardium: There is a trivial pericardial effusion. Aorta: The aortic root is normal. There is no dilatation of the aortic root. Pulmonary Artery: The tricuspid regurgitant velocity is 4.57 m/s, and with an estimated right atrial pressure of 3 mmHg, the estimated pulmonary artery pressure is severely elevated with the RVSP at 86.7 mmHg. Systemic Veins: The inferior vena cava appears to be of normal size. There is IVC inspiratory collapse greater than 50%. In comparison to the previous echocardiogram(s): Compared with study from 08/16/2019, no significant change. CONCLUSIONS: 1. Left ventricular systolic function is normal with a 60-65% estimated ejection fraction. 2. Mildly increased left ventricular septal thickness. 3. Spectral Doppler shows an impaired relaxation pattern of left ventricular diastolic filling. 4. There is moderately increased right ventriclar wall thickness. 5. Moderately enlarged right ventricle. 6. There is reduced right ventricular systolic function. TAPSE 1.3 cm; RV s' 0.07 m/s. 7. Mild to moderate tricuspid regurgitation visualized. 8. Severely elevated pulmonary artery pressure. 9. Right ventricular pressure overload. 6MWT (03/07/2024) HN62-09-30% HR-97-110 [place]LEY-0-0 Actual Meters- 548.6 [place]/DLCO (11/21/2023) FVC- 4.20 (87% predicted) FEV1-3.26 (86% predicted) FEV1/FVC- 78 (98% predicted) DLCOuncor-26.29 (87% predicted) Echo (11/16/2020) [facility] Left Ventricle: Chamber size is small. Normal global wall motion. Regional wall motion is normal. Abnormal septal motion. Systolic flattening of the interventricular septum is consistent with right ventricle pressure overload. Ejection fraction is normal (65 - 70%). Diastolic function is normal. Right Ventricle: Chamber size is enlarged. Systolic function is severely reduced. There is coronary sinus dilation. Moderate TR. Pulmonary artery/right heart systolic pressure is elevated. Estimated right ventricular systolic pressure is 110 mmHg. Trivial pericardial effusion. No prior [facility] echo for comparison. 6MWT (01/29/2020) UI25-62-06% HR-83-101 SHELLEY-2-2 Actual Meters-453m; predicted 669m RHC (08/25/2019) PAP-98/33 (59) PWP-10 CO/CI-2.6/1.3 PVR-1508 dynes.sec.cm (RN calculated) Echo (08/16/2019) RV: moderately enlarged with mildly reduced function RA: moderately dilated Assessment/Plan 1) Pulmonary A. 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 Has worsened from non-follow up. RHC from April showing severe precapillary pulmonary hypertension, walk test down 2) GI a. alcoholic cirrhosis - no alcohol for 10 years according to patient. b. Chronic pancreatitis 3) Neuro-psych a. Difficult to leave house b. Previous (+) drug screen 2018 with cannaboids, opiates, oxycodone. Plan 1) Restart Orenitram per protocol, uptitrate once per week depending on symptoms (may need to increase more slowly in the setting of liver disease) 2) Follow in three months with repeat echo, 6MWT 3) Consider initiating PDE5 - tadalafil +/- additional meds based on regular followup documented in this encounter [facility] Work Phone: 05-01-2025 Surgery Postoperative evaluation and management note Physician Transition of Care Summary Invasive Cardiovascular Lab Procedure Date: 05/01/2025 Attending: * Fariba Pablo - Primary Resident/Fellow/Other Special Event Assistant: Surgeons and Role: * Carol Arriaga MD - Fellow Indications: Pre-op Diagnosis * Pulmonary hypertension (Multi) [I27.20] * SOB (shortness of breath) [R06.02] Post-procedure diagnosis: Post-op Diagnosis * Pulmonary hypertension (Multi) [I27.20] * SOB (shortness of breath) [R06.02] Procedure(s): RHC 77271 - ID RIGHT HEART CATH O2 SATURATION & CARDIAC OUTPUT Procedure Findings: Right Brachial 5 Fr -- MP RA: 11 RV: 88/4 PA: 86/34 PCWP: 10 PA-SAT: 61% CO: 3.68 CI: 1.89 Description of the Procedure: As above Complications: NA Stents/Implants: Implants No implant documentation for this case. Anticoagulation/Antiplatelet Plan: As before Estimated Blood Loss: 10 mL Anesthesia: Moderate Sedation Anesthesia Staff: No anesthesia staff entered. Any Specimen(s) Removed: Order Name Source Comment Collection Info Order Time BASIC METABOLIC PANEL Blood, Venous Collected By: Smita Moore RN 05/01/2025 12:38 PM Release result to MyChart Immediate CBC Blood, Venous Collected By: Smita Moore RN 05/01/2025 12:38 PM Release result to MyChart Immediate Disposition: Home Electronically signed by: Carol Arriaga MD, 05/01/2025 3:06 PM [facility] Work Phone: 05-01-2025 Miscellaneous Notes Physician Transition of Care Summary Invasive Cardiovascular Lab Procedure Date: 05/01/2025 Attending: * Fariba Pablo - Primary Resident/Fellow/Other Special Event Assistant: Surgeons and Role: * Carol Arriaga MD - Fellow Indications: Pre-op Diagnosis * Pulmonary hypertension (Multi) [I27.20] * SOB (shortness of breath) [R06.02] Post-procedure diagnosis: Post-op Diagnosis * Pulmonary hypertension (Multi) [I27.20] * SOB (shortness of breath) [R06.02] Procedure(s): [facility] [id number] - ID RIGHT HEART CATH O2 SATURATION & CARDIAC OUTPUT Procedure Findings: Right Brachial 5 Fr -- MP RA: 11 RV: 88/4 PA: 86/34 PCWP: 10 PA-SAT: 61% CO: 3.68 CI: 1.89 Description of the Procedure: As above Complications: NA Stents/Implants: Implants No implant documentation for this case. Anticoagulation/Antiplatelet Plan: As before Estimated Blood Loss: 10 mL Anesthesia: Moderate Sedation Anesthesia Staff: No anesthesia staff entered. Any Specimen(s) Removed: Order Name Source Comment Collection Info Order Time BASIC METABOLIC PANEL Blood, Venous Collected By: Smita Mooer RN 05/01/2025 12:38 PM Release result to MyChart Immediate CBC Blood, Venous Collected By: Smita Moore RN 05/01/2025 12:38 PM Release result to [employer] Immediate Disposition: Home Electronically signed by: Carol Arriaga MD, 05/01/2025 3:06 PM Sedation Plan ASA 3 Mallampati class: I. Risks, benefits, and alternatives discussed with patient. Associated Problem(s): SOB (shortness of breath) Rip Jiménez is a 49 y.o. male with PMH significant for PAH presenting with for planned RHC. Patient is NYHA Functional Class 2-3 and WHO Group 1. Last office visit with Dr. Mckinney was 11/04/24. Pt denies CP, SOB, syncope, palpitations. documented in this encounter [facility] Work Phone: 05-01-2025 Hospital Discharg e instructions CHENCHO Edouard - 05/01/2025 2:28 PM EDT Images from the original note were not included. CARDIAC CATHETERIZATION DISCHARGE INSTRUCTIONS (procedure done on 05/01) FOR SUDDEN AND SEVERE CHEST PAIN, SHORTNESS OF BREATH, EXCESSIVE BLEEDING, SIGNS OF STROKE, OR CHANGES IN MENTAL STATUS YOU SHOULD CALL 911 IMMEDIATELY. If your provider has prescribed aspirin and/or clopidogrel (Plavix), or prasugrel (Effient), or ticagrelor (Brilinta), DO NOT STOP THESE MEDICATIONS for any reason without talking to your spike machine operator first. If any of these were prescribed, you must take them every day without missing a single dose. If you are getting low on these medications, contact your provider immediately for a refill. FOR NEXT 24 HOURS - Upon discharge, you should return home and rest for the remainder of the day and evening. You do not have to stay on bed rest but should not be very active. It is recommended a responsible adult be with you for the first 24 hours after the procedure. - No driving for 24 hours after procedure. Please arrange for someone to drive you home from the hospital today. - Do not drive, operate machinery, or use power tools for 24 hours after your procedure. - Do not make any legal decisions for 24 hours after your procedure. - Do not drink alcoholic beverages for 24 hours after your procedure. WOUND CARE *FOR FEMORAL (LEG) ACCESS* Avoid heavy lifting (over 10 pounds) for 7 days, squatting or excessive bending for 2 days, and strenuous exercise for 7 days. No submerged bathing, swimming, or hot tubs for the next 7 days, or until fully healed. Avoid sexual activity for 3-4 days until any groin discomfort has ceased. *FOR RADIAL (WRIST) ACCESS* No lifting more than 5 pounds or excessive use of the wrist for 24 hours - for example, treat your wrist as if it is sprained. Do not engage in vigorous activities (tennis, golf, bowling, weights) for at least 48 hours after the procedure. Do not submerge the wrist for 7 days after the procedure. You should expect mild tingling in your hand and tenderness at the puncture site for up to 3 days. - The transparent dressing should be removed from the site 24 hours after the procedure. Wash the site gently with soap and water. Rinse well and pat dry. Keep the area clean and dry. You may apply a Band-Aid to the site. Avoid lotions, ointments, or powders until fully healed. - You may shower the day after your procedure. - It is normal to notice a small bruise around the puncture site and/or a small grape sized or smaller lump. Any large bruising or large lump warrants a call to the office. - If bleeding should occur, lay down and apply pressure to the affected area for 10 minutes. If the bleeding stops notify your physician. If there is a large amount of bleeding or spurting of blood CALL [address] yourself to the hospital. - You may experience some tenderness, bruising or minimal inflammation. If you have any concerns, you may contact the [facility] or if any of these symptoms become excessive, contact your spike machine operator or go to the emergency room. - You can resume your regular diet right after your procedure. We always recommend a heart healthy diet with lots of fruits, vegetables and lean meats; low fat. OTHER INSTRUCTIONS - You may take acetaminophen (Tylenol) as directed for discomfort. If pain is not relieved with acetaminophen (Tylenol), contact your doctor. - If you notice or experience any of the following, you should notify your doctor or seek medical attention Chest pain or discomfort Change in mental status or weakness in extremities. Dizziness, light headedness, or feeling faint. Change in the site where the procedure was performed, such as bleeding or an increased area of bruising or swelling. Tingling, numbness, pain, or coolness in the leg/arm beyond the site where the procedure was performed. Signs of infection (i.e. shaking chills, temperature > 100 degrees Fahrenheit, warmth, redness) in the leg/arm area where the procedure was performed. Changes in urination Bloody or black stools Vomiting blood Severe nose bleeds Any excessive bleeding - If you DO NOT have an appointment with your spike machine operator within 2-4 weeks following your procedure, please contact their office. documented in this encounter [facility] Work Phone: 05-01-2025 Nurse procedure note Sedation Plan ASA 3 Mallampati class: I. Risks, benefits, and alternatives discussed with patient. [facility] Work Phone: 05-01-2025 Evaluation + Plan note Associated Problem(s): SOB (shortness of breath) Rip Jiménez is a 49 y.o. male with PMH significant for PAH presenting with for planned RHC. Patient is NYHA Functional Class 2-3 and WHO Group 1. Last office visit with Dr. Mckinney was 11/04/24. Pt denies CP, SOB, syncope, palpitations. [facility] Work Phone: 05-01-2025 History and physical note History Of Present Illness Rip Jiménez is a 49 y.o. male with PMH significant for PAH presenting with for planned RHC. Patient is NYHA Functional Class 2-3 and WHO Group 1, taking Orenitrsm 5mg TID. Last office visit with Dr. Mckinney was 11/04/24. Pt denies CP, SOB, syncope, palpitations. Reports he did not take his lasix this morning. Past Medical History Medical History[1] Surgical History Surgical History[2] Social History He reports that he has quit smoking. His smoking use included cigarettes. He does not have any smokeless tobacco history on file. No history on file for alcohol use and drug use. Family History Family History[3] Allergies Patient has no known allergies. Review of Systems Physical Exam Last Recorded Vitals There were no vitals taken for this visit. Relevant Results General: NAD, lying in bed Skin: warm and dry Head/neck: JVD above clavicle at 60 degrees Cardiac: S1S2 Pulm: CTA GI: soft, nontender Extremities: shiny LE, 1+ edema to shins Neuro: no focal neuro deficits Psych: appropriate mood and behavior Assessment & Plan Pulmonary hypertension (Multi) SOB (shortness of breath) Rip Jiménez is a 49 y.o. male with PMH significant for PAH presenting with for planned RHC. Patient is NYHA Functional Class 2-3 and WHO Group 1. Last office visit with Dr. Mckinney was 11/04/24. Pt denies CP, SOB, syncope, palpitations. PAH - f/b Dr. Mckinney - RHC today [facility]ENCHO Edouard [1] No past medical history on file. [2] No past surgical history on file. [3] Family History Problem Relation Name Age of Onset Coronary artery disease Other Family Lung cancer Other Family [facility] Work Phone: 05-01-2025 History and physical note History Of Present Illness Rip Jiménez is a 49 y.o. male with PMH significant for PAH presenting with for planned RHC. Patient is NYHA Functional Class 2-3 and WHO Group 1, taking Orenitrsm 5mg TID. Last office visit with Dr. Mckinney was 11/04/24. Pt denies CP, SOB, syncope, palpitations. Reports he did not take his lasix this morning. Past Medical History Medical History[1] Surgical History Surgical History[2] Social History He reports that he has quit smoking. His smoking use included cigarettes. He does not have any smokeless tobacco history on file. No history on file for alcohol use and drug use. Family History Family History[3] Allergies Patient has no known allergies. Review of Systems Physical Exam Last Recorded Vitals There were no vitals taken for this visit. Relevant Results General: NAD, lying in bed Skin: warm and dry Head/neck: JVD above clavicle at 60 degrees Cardiac: S1S2 Pulm: CTA GI: soft, nontender Extremities: shiny LE, 1+ edema to shins Neuro: no focal neuro deficits Psych: appropriate mood and behavior Assessment & Plan Pulmonary hypertension (Multi) SOB (shortness of breath) Rip Jiménez is a 49 y.o. male with PMH significant for PAH presenting with for planned RHC. Patient is NYHA Functional Class 2-3 and WHO Group 1. Last office visit with Dr. Mckinney was 11/04/24. Pt denies CP, SOB, syncope, palpitations. PAH - f/b Dr. Mckinney - RHC today [facility] Edouard [1] No past medical history on file. [2] No past surgical history on file. [3] Family History Problem Relation Name Age of Onset Coronary artery disease Other Family Lung cancer Other Family documented in this encounter [facility] Work Phone: 11-04-2024 History of Presen t illness Narrative History Of Present Illness Rip Jiménez is a 49 y.o. male presenting with pulmonary arterial hypertension follow up. Patient is NYHA Functional Class 2-3 and WHO Group 1. Last office visit on 01/29/2020. Referred during inpatient hospital 08/26/2019. Patient presented to OSH in [place] on 08/09/19 with sudden onset RUQ pain. After worsening liver dysfunction, he was transferred to [facility] (08/16/19). An echo was obtained at [place] showing severe PAH. A RHC was also done, confirming PAH. Patient left against physicians' recommendations and prior to any PAH therapy initiation. Of note, patient was reportedly on ambrisentan since 2013, though was non-compliant. He was agreeable to starting Orenitram as an outpatient which was started on 10/13/19. Patient has been actively increasing and tolerating Orenitram well. Only side effect is headaches which he states is about twice a week. PAH Treatment: Orenitram 5 mg TID (10/13/2019) Infusion site: N/A Treatment history: N/A Ambrisentan 10 mg (2013-02/2024) prescription Today's testing includes Echo, 6 MWT, Labs Interval History Last seen in clinic in 2019. Reporting increased SOB and fatigue, chest tightness worsening over the past few months. BLE edema +3. Past Medical History Patient Active Problem List Diagnosis Pulmonary hypertension (Multi) SOB (shortness of breath) Thrombocytopenia (CMS-HCC) Pancreatitis, chronic (Multi) Hypertension DM2 (diabetes mellitus, type 2) (Multi) Alcoholic cirrhosis of liver with ascites (Multi) High risk medication use Surgical History He has no past surgical history on file. Social History He reports that he has quit smoking. His smoking use included cigarettes. He does not have any smokeless tobacco history on file. No history on file for alcohol use and drug use. Family History Family History Problem Relation Name Age of Onset Coronary artery disease Other Family Lung cancer Other Family Medications Current Outpatient Medications: ambrisentan (Letairis) 10 mg tablet, TAKE 1 TABLET BY MOUTH 1 TIME A DAY. DO NOT HANDLE IF , Disp: 30 tablet, Rfl: 0 furosemide (Lasix) 40 mg tablet, Take 1 tablet (40 mg) by mouth once daily., Disp: , Rfl: magnesium oxide (Mag-Ox) 400 mg tablet, Take 1 tablet (400 mg) by mouth once daily., Disp: , Rfl: omeprazole (PriLOSEC) [address] capsule, Take 1 capsule (20 mg) by mouth. Do not crush or chew., Disp: , Rfl: oxazepam (Serax) 10 mg capsule, Take 1 capsule (10 mg) by mouth 4 times a day as needed for sleep., Disp: , Rfl: oxyCODONE (Oxy-IR) 5 mg immediate release capsule, Take 1 capsule (5 mg) by mouth every 6 hours if needed for severe pain (7 - 10)., Disp: , Rfl: PARoxetine (Paxil) 20 mg tablet, Take 1 tablet (20 mg) by mouth once daily in the morning., Disp: , Rfl: Allergies Patient has no known allergies. Review of Systems Constitutional: Positive for activity change and fatigue. Negative for appetite change, chills, fever and unexpected weight change. Respiratory: Positive for chest tightness and shortness of breath. Negative for cough and wheezing. Cardiovascular: Positive for chest pain. Negative for palpitations. Gastrointestinal: Positive for diarrhea and nausea. Negative for abdominal distention, abdominal pain, constipation and vomiting. Neurological: Negative for dizziness, syncope, light-headedness and headaches. Last Recorded Vitals There were no vitals taken for this visit. Physical Exam Constitutional: Appearance: Normal appearance. HENT: Head: Normocephalic. Nose: Nose normal. Eyes: Pupils: Pupils are equal, round, and reactive to light. Neck: Comments: No JVD Cardiovascular: Rate and Rhythm: Normal rate and regular rhythm. Heart sounds: Murmur (1/6 NIA LLSB) heard. Comments: Increased second heart sound. Pulmonary: Effort: Pulmonary effort is normal. Breath sounds: Normal breath sounds. Abdominal: General: Bowel sounds are normal. Palpations: Abdomen is soft. Musculoskeletal: Right lower leg: Edema (trace) present. Left lower leg: Edema (trace) present. Neurological: General: No focal deficit present. Psychiatric: Mood and Affect: Mood normal. Judgment: Judgment normal. Relevant Results Echo (11/04/2024) pending - refused by insurance due to not being seen. Echo 02/2024 with RV:LV about 1 by my eye. RV appears muscularized. 6MWT (11/04/2024) SP02- 97%-95% HR- 84-110 SHELLEY- 0-2 Actual Meters- 366m Echo (03/20/2024) Left Ventricle: The left ventricular systolic function is normal, with an estimated ejection fraction of 60-65%. There are no regional wall motion abnormalities. The left ventricular cavity size is normal. The left ventricular septal wall thickness is mildly increased. The interventricular septum is flattened in systole, consistent with right ventricular pressure overload. Spectral Doppler shows an impaired relaxation pattern of left ventricular diastolic filling. Left Atrium: The left atrium is normal in size. Right Ventricle: The right ventricle is moderately enlarged. There is moderately increased right ventriclar wall thickness. There is reduced right ventricular systolic function. Right Atrium: The right atrium is normal in size. Aortic Valve: The aortic valve is trileaflet. There is no evidence of aortic valve regurgitation. The peak instantaneous gradient of the aortic valve is 6.3 mmHg. Mitral Valve: The mitral valve is normal in structure. There is trace mitral valve regurgitation. Tricuspid Valve: The tricuspid valve is structurally normal. There is mild to moderate tricuspid regurgitation. Pulmonic Valve: The pulmonic valve is structurally normal. There is no indication of pulmonic valve regurgitation. Pericardium: There is a trivial pericardial effusion. Aorta: The aortic root is normal. There is no dilatation of the aortic root. Pulmonary Artery: The tricuspid regurgitant velocity is 4.57 m/s, and with an estimated right atrial pressure of 3 mmHg, the estimated pulmonary artery pressure is severely elevated with the RVSP at 86.7 mmHg. Systemic Veins: The inferior vena cava appears to be of normal size. There is IVC inspiratory collapse greater than 50%. In comparison to the previous echocardiogram(s): Compared with study from 08/16/2019, no significant change. CONCLUSIONS: 1. Left ventricular systolic function is normal with a 60-65% estimated ejection fraction. 2. Mildly increased left ventricular septal thickness. 3. Spectral Doppler shows an impaired relaxation pattern of left ventricular diastolic filling. 4. There is moderately increased right ventriclar wall thickness. 5. Moderately enlarged right ventricle. 6. There is reduced right ventricular systolic function. TAPSE 1.3 cm; RV s' 0.07 m/s. 7. Mild to moderate tricuspid regurgitation visualized. 8. Severely elevated pulmonary artery pressure. 9. Right ventricular pressure overload. 6MWT (03/07/2024) FF25-03-41% HR-97-110 SHELLEY-0-0 Actual Meters- 548.6 [place]/DLCO (11/21/2023) FVC- 4.20 (87% predicted) FEV1-3.26 (86% predicted) FEV1/FVC- 78 (98% predicted) DLCOuncor-26.29 (87% predicted) Echo (11/16/2020) [facility] Left Ventricle: Chamber size is small. Normal global wall motion. Regional wall motion is normal. Abnormal septal motion. Systolic flattening of the interventricular septum is consistent with right ventricle pressure overload. Ejection fraction is normal (65 - 70%). Diastolic function is normal. Right Ventricle: Chamber size is enlarged. Systolic function is severely reduced. There is coronary sinus dilation. Moderate TR. Pulmonary artery/right heart systolic pressure is elevated. Estimated right ventricular systolic pressure is 110 mmHg. Trivial pericardial effusion. No prior [facility] echo for comparison. 6MWT (01/29/2020) ES78-05-30% HR-83-101 SHELLEY-2-2 Actual Meters-453m; predicted 669m RHC (08/25/2019) PAP-98/33 (59) PWP-10 CO/CI-2.6/1.3 PVR-1508 dynes.sec.cm (RN calculated) Echo (08/16/2019) RV: moderately enlarged with mildly reduced function RA: moderately dilated Assessment/Plan 1) Pulmonary A. portopulmonary hypertension, FCII+, RV/LV 1.4 estimate by my eye. Has worsened from non-follow up. RV similar , walk test down. FC III likley. B. Odd complaint of orthopnea. Will check cxr for unexpected changes/effusion. 2) GI a. alcoholic cirrhosis - no alcohol for 10 years according to patient. b. Chronic pancreatitis 3) Neuro-psych a. Difficult to leave house b. Previous (+) drug screen 2018 with cannaboids, opiates, oxycodone. Plan 1) Repeat RHC 2) Repeat echo 3) Rx based on findings, virtual follow up after testing to discuss medication options. Does appear to need additional PAH meds based on February 2024 echo. If no change (No reason to suspect there will be improvement) will likely restart ambrisentan or macitentan, start PDE5 - tadalafil +/- additional meds based on workup. 4) Will get stat PA and Lateral today to investigate orthopnea - ? Effusion. documented in this encounter [facility] Work Phone: 04-28-2024 History of Presen t illness Narrative Hepatobiliary Surgery (HPB) & Surgical Oncology Consultation Chief complaint: Abdominal pain HPI: 48-year-old male referral for chronic cholecystitis and large ventral hernia in the setting of cirrhosis 04/28/2024 -this is a 48-year-old male with a extensive past history. Patient has a history of alcoholism 15 years ago and at 1 point had some level of decompensation with ascites requiring paracentesis. In more recent years he has really decreased his drinking and states that he does not feel that he is currently dependent on it. He has had a few episodes of biliary colic which she states are infrequent and are unrelated to any particular type of food. A few years ago he developed acute cholecystitis and had a percutaneous cholecystostomy placed due to presumably significant cirrhosis. This was eventually removed. Patient states that he continues to have bouts of abdominal pain particularly in the upper epigastric region that is severe. Patient does have chronic pain and is on medications at home. Patient also has a history of acute pancreatitis with 2 prior episodes secondary to what he states is medication. Currently he denies any pain PMH: Past Medical History: Diagnosis Date Cirrhosis of liver (HCC) Diabetes (HCC) Hypertension PSH: No past surgical history on file. FH: No family history on file. Social: Social Determinants of Health Tobacco Use: Medium Risk (04/28/2024) Patient History Smoking Tobacco Use: Former Smokeless Tobacco Use: Former Passive Exposure: Past Alcohol Use: Not on file Financial Resource Strain: Not on file Food Insecurity: Not on file Transportation Needs: Not on file Physical Activity: Not on file Stress: Not on file Social Connections: Not on file Intimate Partner Violence: Not on file Depression: Not on file Housing Stability: Not on file Utilities: Not on file Medications: Medication Documentation Review Audit Reviewed by Emily Marr MA ([employer]) on 04/28/24 at 1037 Medication Order Taking? Sig Documenting Provider Last Dose Status ambrisentan (Letairis) 10 MG tablet [id number] Yes TAKE 1 TABLET BY MOUTH 1 TIME A DAY. DO NOT HANDLE IF Historical Provider, Taking Active Continuous Glucose Sensor (Dexcom G6 Sensor) [facility] [id number] Yes 1 (ONE) EACH DIRECTED EVERY 10 DAYS NEEDED Historical Provider, Taking Active DULoxetine (Cymbalta) [address] capsule [id number] Yes Take 60 mg by mouth daily. Historical Provider, Taking Active Farxiga 10 MG tablet [id number] Yes Take 10 mg by mouth daily. Historical Provider, Taking Active Gvoke HypoPen 2-Pack 0.5 MG/0.1ML injection [id number] Yes 1 (ONE) SOLUTION AUTO-INJECTOR DIRECTED FOR LOW BLOOD SUGAR Historical Provider, Taking Active magnesium oxide (Mag-Ox) 400 MG tablet [id number] Yes Take 1 tablet by mouth 3 times daily. Historical Provider, Taking Active NAC 600 MG capsule capsule [id number] Yes TAKE 1 CAPSULE BY MOUTH TWICE A DAY TO SUPPORT LIVER AND REDUCE ITCHING Historical Provider, Taking Active naloxone (Narcan) 4 mg/0.1 mL nasal spray [id number] Yes SPRAY ONCE IBNTO EACH NOSTIL NEEDED FOR RESPRITORY DEPRESSION/OVERDOSE Historical Provider, Taking Active NovoLOG FLEXPEN 100 UNIT/ML pen [id number] Yes INJECT 18 UNITS BEFORE EACH MEAL UP TO 3X DAILY Historical Provider, Taking Active ondansetron (Zofran) 4 MG tablet [id number] Yes Take 4 mg by mouth every 8 hours as needed for nausea. Historical Provider, Taking Active Orenitram 2.5 MG tablet controlled-release [id number] Yes Historical Provider, Taking Active oxazepam (Serax) 10 MG capsule [id number] Yes 1 TO 2 CAPS 2X/DAY NEEDED TRAVEL/VISITS HEALTH CARE PROVIDERS SEVERE PANIC TRY TO AVOID DAILY USE Historical Provider, Taking Active oxyCODONE (Roxicodone) 5 MG immediate release tablet [id number] Yes Take 5 mg by mouth every 6 hours as needed. Historical Provider, Taking Active pantoprazole (ProtoNix) 40 MG EC tablet [id number] Yes Take 40 mg by mouth every morning. Historical Provider, Taking Active potassium citrate CR (Urocit-K-10) 10 mEq ER tablet [id number] Yes TAKE 1 TABLET 10MEQ ER BY MOUTH TWO TIMES DAILY Historical Provider, Taking Active pramipexole (Mirapex) 1 MG tablet [id number] Yes Take 1 mg by mouth Nightly. Historical Provider, Taking Active pregabalin (Lyrica) 75 MG capsule [id number] Yes TAKE 1 (ONE) CAPSULE BY MOUTH TWICE DAILY Historical Provider, Taking Active Topili SoloStar 300 UNIT/ML injection [id number] Yes DIRECTED INJECTION 64 UNTS TWICE DAILIY Historical Provider, Taking Active Allergies: No Known Allergies ROS: Negative unless otherwise noted in HPI Physical Exam: General - patient awake alert oriented x 3 no acute distress Cardiovascular - normal rate and rhythm pulses intact Respiratory -airway intact, respirations no tachypnea or use of accessory muscles Abdominal - abdomen is soft nontender nondistended Musculoskeletal - normal range of motion of bilateral upper and lower extremities Lymphatic - no palpable lymphadenopathy Neurologic -gross motor and sensory intact Skin/wound -normal inspection of skin without any rashes Diagnostics: No results found for: GLUCOSE, CALCIUM, NA, K, CO2, CL, BUN, CREATININE No results found for: WBC, HGB, HCT, MCV, PLT No results found for: ALT, AST, GGT, ALKPHOS, BILITOT No results found for: PTT No results found for: INR, PROTIME Assessment/Plan: 48-year-old male referral for chronic cholecystitis and large ventral hernia in the setting of cirrhosis 04/28/2024 -patient does appear to have symptoms of biliary colic. Based on history he does have an indication for surgery given his persistent symptomatology, history of pancreatitis and history of a need for a percutaneous cholecystostomy tube. 40% of patients with a percutaneous cholecystostomy tube and up eventually needing a cholecystectomy as 1 would suspect in this case. The question from a preoperative planning standpoint is how significant is his liver disease and is there ascites and/or varices present as well. We will obtain a CT scan to really evaluate this and to get labs to assess his liver function. Afterwards we will determine if cholecystectomy and hernia repair possible on the same operation versus a staged approach. Eladio Flores MD FACS Hepatobiliary Surgery (HPB) and Surgical Oncology Department of Surgery [facility] -------- Time spent(Minutes): See above for more details -LOW 30[] -MODERATE 45 [x] -HIGH 60 [] documented in this encounter [facility] 04-28-2024 Note Hepatobiliary Surger y (HPB) & Surgical Oncology Consultation Chief complaint: Abdominal pain HPI: 48-year-old male referral for chronic cholecystitis and large ventral hernia in the setting of cirrhosis 04/28/2024 -this is a 48-year-old male with a extensive past history. Patient has a history of alcoholism 15 years ago and at 1 point had some level of decompensation with ascites requiring paracentesis. In more recent years he has really decreased his drinking and states that he does not feel that he is currently dependent on it. He has had a few episodes of biliary colic which she states are infrequent and are unrelated to any particular type of food. A few years ago he developed acute cholecystitis and had a percutaneous cholecystostomy placed due to presumably significant cirrhosis. This was eventually removed. Patient states that he continues to have bouts of abdominal pain particularly in the upper epigastric region that is severe. Patient does have chronic pain and is on medications at home. Patient also has a history of acute pancreatitis with 2 prior episodes secondary to what he states is medication. Currently he denies any pain PMH: Past Medical History: Diagnosis Date Cirrhosis of liver (HCC) Diabetes (HCC) Hypertension PSH: No past surgical history on file. FH: No family history on file. Social: Social Determinants of Health Tobacco Use: Medium Risk (04/28/2024) Patient History Smoking Tobacco Use: Former Smokeless Tobacco Use: Former Passive Exposure: Past Alcohol Use: Not on file Financial Resource Strain: Not on file Food Insecurity: Not on file Transportation Needs: Not on file Physical Activity: Not on file Stress: Not on file Social Connections: Not on file Intimate Partner Violence: Not on file Depression: Not on file Housing Stability: Not on file Utilities: Not on file Medications: Medication Documentation Review Audit Reviewed by Emily Marr MA ([employer]) on 04/28/24 at 1037 Medication Order Taking? Sig Documenting Provider Last Dose Status ambrisentan (Letairis) 10 MG tablet [id number] Yes TAKE 1 TABLET BY MOUTH 1 TIME A DAY. DO NOT HANDLE IF Historical Provider, Taking Active Continuous Glucose Sensor (Dexcom G6 Sensor) misc [id number] Yes 1 (ONE) EACH DIRECTED EVERY 10 DAYS NEEDED Historical Provider, Taking Active DULoxetine (Cymbalta) [address] capsule [id number] Yes Take 60 mg by mouth daily. Historical Provider, Taking Active Farxiga 10 MG tablet [id number] Yes Take 10 mg by mouth daily. Historical Provider, Taking Active Gvoke HypoPen 2-Pack 0.5 MG/0.1ML injection [id number] Yes 1 (ONE) SOLUTION AUTO-INJECTOR DIRECTED FOR LOW BLOOD SUGAR Historical Provider, Taking Active magnesium oxide (Mag-Ox) 400 MG tablet [id number] Yes Take 1 tablet by mouth 3 times daily. Historical Provider, Taking Active NAC 600 MG capsule capsule [id number] Yes TAKE 1 CAPSULE BY MOUTH TWICE A DAY TO SUPPORT LIVER AND REDUCE ITCHING Historical Provider, Taking Active naloxone (Narcan) 4 mg/0.1 mL nasal spray [id number] Yes SPRAY ONCE IBNTO EACH NOSTIL NEEDED FOR RESPRITORY DEPRESSION/OVERDOSE Historical Provider, Taking Active NovoLOG FLEXPEN 100 UNIT/ML pen [id number] Yes INJECT 18 UNITS BEFORE EACH MEAL UP TO 3X DAILY Historical Provider, Taking Active ondansetron (Zofran) 4 MG tablet [id number] Yes Take 4 mg by mouth every 8 hours as needed for nausea. Historical Provider, Taking Active Orenitram 2.5 MG tablet controlled-release [id number] Yes Historical Provider, Taking Active oxazepam (Serax) 10 MG capsule [id number] Yes 1 TO 2 CAPS 2X/DAY NEEDED TRAVEL/VISITS HEALTH CARE PROVIDERS SEVERE PANIC TRY TO AVOID DAILY USE Historical Provider, Taking Active oxyCODONE (Roxicodone) 5 MG immediate release tablet [id number] Yes Take 5 mg by mouth every 6 hours as needed. Historical Provider, Taking Active pantoprazole (ProtoNix) 40 MG EC tablet [id number] Yes Take 40 mg by mouth every morning. Historical Provider, Taking Active potassium citrate CR (Urocit-K-10) 10 mEq ER tablet [id number] Yes TAKE 1 TABLET 10MEQ ER BY MOUTH TWO TIMES DAILY Historical Provider, Taking Active pramipexole (Mirapex) 1 MG tablet [id number] Yes Take 1 mg by mouth Nightly. Historical Provider, Taking Active pregabalin (Lyrica) 75 MG capsule [id number] Yes TAKE 1 (ONE) CAPSULE BY MOUTH TWICE DAILY Historical Provider, Taking Active Toujeo SoloStar 300 UNIT/ML injection [id number] Yes DIRECTED INJECTION 64 UNTS TWICE DAILIY Historical Provider, Taking Active Allergies: No Known Allergies ROS: Negative unless otherwise noted in HPI Physical Exam: General - patient awake alert oriented x 3 no acute distress Cardiovascular - normal rate and rhythm pulses intact Respiratory -airway intact, respirations no tachypnea or use of accessory muscles Abdominal - abdomen is soft nontender nondistend (more content not included)... [facility] 05-21-2023 Procedure note [facility] 05-21-2023 Procedure note [facility] 05-21-2023 Procedure note [facility] 05-21-2023 Procedure note [facility] 03-14-2023 Procedure note [facility] 02-03-2021 Note Patient Outreach ([place] [facility]) RIP ETIENNE ([id number]) 1975 M Date Time Provider Department 02/03/21 MARII ROWE During your visit today, we recorded the following information about you: Allergies As of Date: 02/03/2021 (No Known Allergies) Date Reviewed: 06/08/2020 Reviewed by: Adelina Dean - Fully Assessed Order(s):SARS-COVID VACCINE 1ST DOSE APPT [[id number]] Order #: [id number] FUTURE Prescriptions as of 02/03/2021 Sig: GLUCAGON (HUMAN RECOMBINANT) * glucagon GLUCAGON EMERGENCY 1* PREGABALIN 50 MG CAPSULE SODIUM CHLORIDE 0.9 % (FLUSH)* 10 mL every 12 hours. AMBRISENTAN 10 MG TABLET Take 10 mg by mouth once vern* TREPROSTINIL DIOLAMINE ER 0.2* Take 3.75 mg by mouth every 8* PAROXETINE 10 MG TABLET Take 10 mg by mouth once vern* RIFAXIMIN 550 MG TABLET Take by mouth twice daily. INSULIN GLARGINE (U-100) 100 * Inject 30 Units subcutaneousl* MEDICATION, NON-DATABASE Letaris as part of study OXYCODONE 5 MG CAPSULE Take 5 mg by mouth every 4 ho* LIRAGLUTIDE 0.6 MG/0.1 ML (18* Inject subcutaneously once d* POTASSIUM CHLORIDE ER 10 MEQ * Take 10 mEq by mouth twice da* MAGNESIUM 400 MG ( MAGNESIU* Take 400 mg by mouth three ti* PRAMIPEXOLE 0.25 MG TABLET Take 0.25 mg by mouth once da* * OXAZEPAM 10 MG CAPSULE Take 10 mg by mouth at bedtim* OMEPRAZOLE 20 MG CAPSULE,MARCELINO* 1 Cap ORAL DAILY AT 6 AM SPIRONOLACTONE 50 MG TABLET Take one(1) tablet daily. FUROSEMIDE 20 MG TABLET Take one(1) tablet daily. Patient taking differently: taking 3 times per day Problem List As Of Date 02/03/2021 Noted Resolved Depression [F32.9] Tobacco use [Z72.0] 02/17/2016 Anxiety [F41.9] 02/17/2016 RLS (restless legs syndrome) [G25.81] 02/17/2016 Pulmonary HTN (HCC) [I27.20] 02/17/2016 More... Type 2 diabetes mellitus with complication (HCC*02/17/2016 Gastroesophageal reflux disease without esophag*02/17/2016 Thrombocytopenia (HCC) [D69.6] 02/17/2016 RVH (right ventricular hypertrophy) [I51.7] 02/17/2016 More... Severe tricuspid regurgitation [I07.1] 02/17/2016 More... Acute gallstone pancreatitis [K85.10] 04/05/2018 04/09/2018 Bacteremia [R78.81] 04/09/2018 Acute cholecystitis [K81.0] 03/25/2020 03/28/2020 Letter Text Encounter Status:Closed by KALEY BERMUDEZ on 02/07/21 [facility] Evaluation + Plan note No data available for this section [facility] Evaluation note No assessment inform ation available [facility] Work Phone: Evaluation note Diagnosis Onset Date Screening for malignant neoplasm of colon acute Transaminitis acute Cirrhosis chronic Pancreatitis chronic [facility] Work Phone: Evaluation note* Diagnosis Pulmonary hypertension (CMS/HCC) Other chronic pulmonary heart diseases documented in this encounter [facility] Work Phone: Evaluation note* Diagnosis Pulmonary hypertension (Multi) Other chronic pulmonary heart diseases documented in this encounter [facility] Work Phone: [phone] note* Diagnosis Pulmonary hypertension (Multi) Other chronic pulmonary heart diseases documented in this encounter [facility] Work Phone: [phone] note* Diagnosis Cholecystitis- Primary [facility]olecystitis, unspecified [facility] Diagnosis Cholecystitis Cholecystitis, unspecified [facility]* Diagnosis Pulmonary hypertension (Multi)- Primary Other chronic pulmonary heart diseases Long-term use of high-risk medication Orthopnea documented in this encounter [facility] Work Phone: [phone] note* Diagnosis SOB (shortness of breath) Shortness of breath Pulmonary hypertension (Multi) Other chronic pulmonary heart diseases documented in this encounter [facility] Work Phone: [phone] note* Diagnosis Orthopnea NIETO (dyspnea on exertion) Other dyspnea and respiratory abnormality documented in this encounter [facility] Work Phone: [phone] note* Diagnosis Pulmonary hypertension (Multi) Other chronic pulmonary heart diseases SOB (shortness of breath) Shortness of breath documented in this encounter [facility] Work Phone: [phone] note* Diagnosis Pulmonary hypertension (Multi)- Primary Other chronic pulmonary heart diseases SOB (shortness of breath) Shortness of breath Pulmonary hypertension (Multi) Other chronic pulmonary heart diseases SOB (shortness of breath) Shortness of breath documented in this encounter [facility] Work Phone: [phone] note* Diagnosis Pulmonary hypertension (Multi)- Primary Other chronic pulmonary heart diseases SOB (shortness of breath) Shortness of breath Pulmonary hypertension (Multi)- Primary Other chronic pulmonary heart diseases Long-term use of high-risk medication SOB (shortness of breath) Shortness of breath documented in this encounter [facility] Work Phone: Evaluation note* Diagnosis Pulmonary hypertension (Multi)- Primary Other chronic pulmonary heart diseases SOB (shortness of breath) Shortness of breath Pulmonary hypertension (Multi) Other chronic pulmonary heart diseases SOB (shortness of breath) Shortness of breath documented in this encounter [facility] Work Phone: Fall risk assessmentmedical contraindication[facility] Work Phone: History and physical note Author Nelson Andrews [facility] May 21, 2023 11:12am Note Date/Time May 21, 2023 11:1 2am [facility] Medical Records Department [address] [place] [address] History & Physical Exam 05/21/23 1111 MR#: [id number] Acct: [id number] Name: RIP ETIENNE Rep #:[id number] : 1975 47 From: Nelson Andrews DO PCP: Dr. Zayda Ovalle MD Status:[facility] Location: [place] [address] History and Physical Date of Admission: 05/21/23 47 M who presents to the office today to establish care. [facility] established 03.09.23with referral from [facility]. ? ? GI Hx gallstone pancreatitis; alcoholic cirrhosis. PMH severe pulmonary HTN, anxiety, DMII, BCC eye lid? ? [facility] Dr[facility] Sandoval established 2015.? MRI abd [facility]?with history of alcoholic cirrhosis with ascites 16 with hepaticnodular lobular contour consistent with cirrhosis; focal hepatic fibrosis with capsular retraction in dome of right lobe; splenomegaly; normal pancreas; gallbladder pack with stones; main portal vein prominent; varices noted draininginto superior ? mesentery vein suggestive of portal HTN.? ? [facility] ED presentation 08.11.19 with abdominal pain. [facility] and transferred to for worsening hepatic function evidenced by LFT changes of ALT 53-3164: AST 127-5813: t. Bili 5.3-6.4 and LENY with creatinine 1.3-2.4. Tylenol level negative.? MRCP 08.12.19?slight lobulation of liver contour compatible with underlying hepatocellular disease; gallbladder dilated with innumerable cholelithiasis and sludge with thickened wall; pericholeystic fluid/perihepatic ascites; cystic dilation likely from prior ERCP; main portal vein prominent with GE varices, portal HTN; small hiatal hernia.?ERCP? ? hospitalization 08.16.19-08.26.19 for acute liver failure with sepsis r/t bacteroids and complicated by need for heart catheterization. Vitamin K, IVF utilized with downward trend of LFT. Developed abdominal pain and tachycardia with blood cultures sent (bacteroids) and Zosyn started. Transplant team consulted and not pursued r/t pulmonary HTN. He left AMA 08.26.19.? US liver 08.17.19?liver with coarsened and diffusely heterogeneous echotexture consistent with cirrhosis; gallbladder wall thickened with stones and sludge; CBD mildly dilated without intrahepatic biliary dilation. Portal vein, splenic vein, hepatic vein with IVC patent with noted of recanalized umbilical vein; splenic measurement 13.8cm? ? [facility] hospitalization 03.25.20-03.28.20 with RUQ pain with US and HIDA scan showing cholelithiasis. Because of comorbidities and high risk the plan was to insert cholecystotomy tube. Tube cultures E.Coli+ and treated with antibiotics.?Cholecystotomy tube placement 03.26.20? [facility] outpatient? Cholangiogram via cholecystotomy tube 04.21.22 [facility]?via tube noting small fillingdefects of gallbladder; small filling defect in distal CBD consistent with smallcalculus; duodenal diverticulum.? ? [facility] ED 11.15.20 with abdominal pain; suspected GI etiology with suspicion of chronic cholecystitis complicated by cirrhosis. Symptoms did not allow dischargehome and transferred to [facility] for [facility] care.?US RUQ 11.15.20?hepatic measurement 18.7cm with fatty infiltration, enlargement of caudate lobe; gallbladder wall thickening with solitary gallstone.? [facility] admission 11.15.20-11.17.20 with epigastric pain radiating into back. Semi-elective cholecystectomy cancelled r/t abnormal ECG with heart catheterization required. Discharged.?HIDA 11.15.20?findings suggestive of acute cholecystitis.? ? PCP workup for abdominal pain with history of acute pancreatitis.? MRCP 05.25.22?left and caudate lobes of liver enlarged consistent with underlyingcirrhosis; splenomegaly 13.9cm; large patent umbilical vein extending to anterior abdominal wall terminating in caput medusae, portal HTN; multiple stoneof gallbladder; no pancreatitis.? ? [facility] established 01.04.23 with a history of cirrhosis with portal HTN and esophageal varices. Dr. Castro declined to do any procedures and recommendedGI consult.? ROS Const Constitutional: Positive for weakness; No fatigue ENT ENT: No difficulty swallowing Gastro GI: Positive for bloating, diarrhea, heartburn, excessive flatus, nausea/dyspepsia and vomiting; No abdominal pain, belching, change in bowel habits, change in stool character, coffee ground emesis, constipation, cramping, difficulty swallowing, feeling full early, incontinent of stools, Vomiting blood/hematemesis, Blood in stool, loose stools, Black,tarry stools, pain with swallowing or other Musc Musculoskeletal: Positive for joint pain, muscle cramps, muscle weakness, numbness, stiffness, tingling and Arthritis Skin Skin: No yellowing of the eye or itchy eyes Neuro Neurology: Positive for weakness, numbness and tingling Psych Psychiatric: Positive for anxiety, Positive for depression, Positive for Behavioral Problems and Positive for inattentiveness Endo Endocrine: No fatigue Aller/Imm Allergy/Immunologic: No itchy eyes Andi/Lymp Hematologic/Lymphatic: No easy bleeding or easy bruising Exam Const General: cooperative and comfortable Nutritional Appearance: average body habitus and well nourished [facility] Head: normal to inspection Ears: hearing grossly normal bilaterally Nose: external nose normal Face and sinus: normal facial exam Mouth: oral mucosae normal Throat: posterior oropharynx normal Eyes General: appearance normal, both eyes and all related structures Neck Neck: normal visual inspection Chest Chest palpation & inspection: normal inspection of the chest and normal palpation of entire chest wall Resp Effort & Inspection: normal respiratory effort Auscultation: Bilateral: Clear to Auscultation Cardio Palpation: normal PMI Rate: regular rate Rhythm: regular rhythm GI Inspection: normal to inspection Auscultation: normal bowel sounds Percussion: normal to percussion Palpation: no hepatosplenomegaly Skin General: no rashes or lesions noted Neuro General: patient alert Extrem General: normal to inspection Psych Affect: normal affect Assessment and Plan Assessment and Plan (1) Screening for malignant neoplasm of colon: ?Status:?Acute ?Plan: She will need to undergo screening colonoscopy. ? He was explained alternatives,risk, benefits including bleeding, infection, sepsis, perforation, need for emergent surgery and .? He will have an ASA of 3. (2) Pancreatitis: ?Status:?Chronic ?Plan: He does not have any signs or symptoms of chronic pancreatitis.? I am assuming that if he does have a history of chronic pancreatitis to be from alcohol induced pancreatitis.? We will get an MRI and MRCP to look for signs and symptoms of chronic pancreatitis.? At this time I will pancreatic enzymes.? He has not had any alcohol for 12 years. (3) Transaminitis: ?Status:?Acute ?Plan: Mildly elevated transaminitis likely secondary to underlying liver disease.? He does not think he was checked for hepatitis C, HIV, CMP or CBC contributing to his already known alcoholic cirrhosis. (4) Cirrhosis: ?Status:?Chronic ?Plan: His meld at 13.? He is a child Kaminski class A.? He has a history of anemia, leukopenia, thrombocytopenia secondary to cirrhosis.? Also his cirrhosis was complicated by ascites and development of acute cholecystitis status post percutaneous drain placement and removal.? We will check him for hyperammonemia by checking ammonia level we will also get biochemical work-up for autoimmune disease related fatty liver.? Recommend Xifaxan 550 mg twice a day and he will need to undergo an upper endoscopy for varices screening. I have examined the patient and the H&P has been reviewed. There are no clinicalchanges since date of exam. 05/21/23 1112 <Electronically signed by Nelson Andrews DO> Cosigner Signature (if applicable): CC: Dr. Zayda Ovalle MD; Nelson Andrews DO~ Signed [facility] Work Phone: Hospital Discharge instructions No data available for this section [facility] Progress note No data available for this section [facility] Reason for visit Narrative* PFT (Routine) - Pending Review Specialty Diagnoses / Procedures Referred By Contac t Referred To Contact Diagnoses SOB (shortness of breath) Pulmonary hypertension (Multi) Procedures Pulmonary Stress Test (6 Min. Walk) [place] [address] [place] [id number] Phone: tel: fax: Referral ID Status Reason Start Date Expiration Date V isits Requested Visits Authorized [id number] Pending Review 10/13/2024 10/13/2025 1 1 [facility] Work Phone: Retixw for visit Narrative* Imaging (Emergency) - Authorized Specialty Diagnoses / Procedures Referred By Contac t Referred To Contact Radiology Diagnoses Orthopnea NIETO (dyspnea on exertion) Procedures XR chest [place] [address] [place] [address] Phone: tel: fax: Referral ID Status Reason Start Date Expiration Date Visits Requested Visits Authorized [id number] Authorized Perform Procedure 11/04/2025 1 1 [facility] Work Phone: Reason for visit Narrative* PFT (Routine) - Pending Review Specialty Diagnoses / Procedures Referred By Contac t Referred To Contact Diagnoses Pulmonary hypertension (Multi) SOB (shortness of breath) Procedures Pulmonary Stress Test (6 Min. Walk) [place] [address] [place] [address] Phone: tel: fax: Referral ID Status Reason Start Date Expiration Date V isits Requested Visits Authorized [id number] Pending Review 03/04/2025 03/04/2026 1 1 [facility] Work Phone: Reason for visit Narrative* Auth/Cert Specialty Diagnoses / Procedures Referred By Natanael kendall Referred To Contact Diagnoses Pulmonary hypertension (Multi) SOB (shortness of breath) Pulmonary hypertension (Multi) [I27.20] SOB (shortness of breath) [R06.02] Procedures ID RIGHT HEART CATH O2 SATURATION & [place] [address] [place] [address] Phone: tel: fax: [facility] [place] [address] [address] [facility] Arnel [address] [place] [address] Phone: tel: fax: Referral ID Status Reason Start Date Expiration Date Visits Re quested Visits Authorized [id number] 1 1 [facility] Work Phone: Reason for visit Narrative* PFT (Routine) - Pending Review Specialty Diagnoses / Procedures Referred By Natanael kendall Referred To Contact Diagnoses Pulmonary hypertension (Multi) SOB (shortness of breath) Procedures Pulmonary Stress Test (6 Min. Walk) [place] [address] [place] [address] Phone: tel: fax: Referral ID Status Reason Start Date Expiration Date V isits Requested Visits Authorized [id number] Pending Review 05/28/2025 05/28/2026 1 1 [facility] Work Phone: Summary Purpose Family History No Family History Records Found Mother Name Dates Details Family history of lung cance r(V16.1, Z80.1) Status:Active Father Name Dates Details Family history of lung cance r(V16.1, Z80.1) Status:Active Brother Name Dates Details Family history of lung cance r(V16.1, Z80.1) Status:Active Family history of Coronary a therosclerosis(414.00, I25.10) Status:Active Unknown Family Member Name Dates Details Family history of lung cance r: Mother, Father, Brother(V16.1, Z80.1) Status:Active Coronary atherosclerosis: Br other Status:Active Unknown Family Member Name Dates Details Family history of lung cance r: Mother, Father, Brother(V16.1, Z80.1) Status:Active Coronary atherosclerosis: Br other Status:Active Relationship Condition Age at Onset Recorded Date/T yoli brother Coronary artery disease Unknown mother Malignant neoplasm of lung Unknown father Malignant neoplasm of lung Unknown Unknown Family Member Name Dates Details Coronary atherosclerosis: Br other Status:Active Family history of lung cance r: Mother, Father, Brother(V16.1, Z80.1) Status:Active Unknown Family Member Name Dates Details Family history of lung cance r: Mother, Father, Brother(V16.1, Z80.1) Status:Active Coronary atherosclerosis: Br other Status:Active Advance Directives No Advanced Directives Records Found Advance Directive Response Recorded Date/ Time Advance Directives No March 14, 2 016 6:19am Living Will No November 15, 020 8:02am Power of Blind Installer No November 15, 2020 8:02am Advance Directive Response Recorded Date/ Time Advance Directives No March 14, 2 016 5:19am Living Will No November 15, 2 020 7:02am Power of Blind Installer No November 15, 2020 7:02am Advance Directive Response Recorded Date/ Time Advance Directives No March 14, 2 016 6:19am Living Will No May 21, 2023 11:08am Power of Blind Installer No May 21 3 11:08am Advance Directive Response Recorded Date/ Time Advance Directives No July 1:46pm Living Will No May 21, 2023 11:08am Power of Blind Installer No May 21 3 11:08am Date Activated Date Inactivated Comments 05/01/2025 12:38 PM Question Answer Comments Plan of Care: Code Status Discussion Completed Decision Maker: Patient Date Activated Date Inactivated Comments 05/01/2025 12:38 PM Question Answer Comments Plan of Care: Code Status Discussion Completed Decision Maker: Patient Procedure Findings Note HNO ID: [id number] Author: Moses Blackwell Service: Interventional Radiology Author Type: Physician Type: Brief Op Note Filed: 03/26/2020 4:59 PM Note Text: BRIEF OPERATIVE / PROCEDURE NOTE LOG ID: [id number] Surgery/Procedure Date: 03/26/2020 Incision/Procedure Start Time: Incision Close/Procedure End Time: Surgeon(s)/Proceduralist(s) and Special Event Assistant(s): Surgeon(s) and Role: * Hema Sadia Rishi - Primary No Additional Staff Procedure(s): Other (specify) - Fluoroscopically guided cholecystotomy tube insertion Anesthesia: Procedural Sedation Findings: Utilizing realtime ultrasound and fluorscopic guidance a 8 F drainage catheter was placed into the gallbladder. 30 cc of highly viscous scot fluid fluid was obtained. The fluid was sent for culture. The catheter was placed to closed leg bag drainage. The patient tolerated the procedure well. No immediate complications were noted. Recomend flushing the catheter with 10 cc of sterile normal saline twice daily. The full report is located under Imaging i (more content not included)... Note HNO ID: [id number] Author: Moses Blackwell Service: Interventional Radiology Author Type: Physician Type: Brief Op Note Filed: 04/21/2020 10:00 AM Note Text: BRIEF OPERATIVE / PROCEDURE NOTE LOG ID: [id number] Surgery/Procedure Date: 04/21/2020 Incision/Procedure Start Time: Incision Close/Procedure End Time: Surgeon(s)/Proceduralist(s) and Special Event Assistant(s): Surgeon(s) and Role: * Hema Sadia Blackwell - Primary No Additional Staff Procedure(s): Other (specify) - cholangiogram via cholecystotomy tube Anesthesia: Local Findings: Cholangiogram via cholecystotomy tube completed. The cholecystotomy tube is patent and in adequate position. There are small filling defects in the gall bladder consistent with small calculi. The cystic duct and common bile duct are patent. There is a small filling defect in the distal CBD consistent with a small calculus. Contrast does flow into the duodenum. There is a duodenal diverticulum. The catheter was capped as requested. If the patient does not tolerate capping of the (more content not included)... Note HNO ID: [id number] Author: Marcus veliz ([facility]) Mavis Service: General Surgery Author Type: Nurse Specialist Type: Discharge Summary Filed: 03/28/2020 10:00 AM Note Text: Attestation signed by Savita Haskins at 03/28/2020 11:03 AM Attending Note I personally saw and examined the patient. I reviewed the resident's note. I agree with the resident's assessment and plan unless otherwise noted. Signature: Savita Haskins MD Date: 03/28/2020 Time: 11:03 AM DISCHARGE SUMMARY PATIENT NAME: Rip Etienne Code Status: Not on file Highest Readmission Risk Score: 17 The 30 day readmissions risk score is derived from an internally validated risk model which evaluates patient level characteristics, utilization history, medication orders and lab results up until the day of discharge. Patients with a score of 40 or above are considered highes (more content not included)... Hospital Course Note HNO ID: [id number] Author: Marcus veliz ([facility]) Mavis Service: General Surgery Author Type: Nurse Specialist Type: Discharge Summary Filed: 03/28/2020 10:00 AM Note Text: Attestation signed by Savita Haskins at 03/28/2020 11:03 AM Attending Note I personally saw and examined the patient. I reviewed the resident's note. I agree with the resident's assessment and plan unless otherwise noted. Signature: Savita Haskins MD Date: 03/28/2020 Time: 11:03 AM DISCHARGE SUMMARY PATIENT NAME: Rip Etienne Code Status: Not on file Highest Readmission Risk Score: 17 The 30 day readmissions risk score is derived from an internally validated risk model which evaluates patient level characteristics, utilization history, medication orders and lab results up until the day of discharge. Patients with a score of 40 or above are considered highes (more content not included)... Chief Complaint and Reason for Visit Chief Complaint ACUTE PANCREATITIS Chief Complaint UPPER & LOWER SCOPE Consult HAND PAIN HAND PAIN Reason for Visit Screening for malign ant neoplasm of colon Transaminitis Cirrhosis Pancreatitis Chief Complaint Consult HAND PAIN HAND PAIN Reason for Visit Screening for malign ant neoplasm of colon Transaminitis Cirrhosis Pancreatitis Reason for Referral Specialty Diagnoses / Procedures Referred By Contac t Referred To Contact Diagnoses Pulmonary hypertension (CMS/HCC) Procedures [place] [address] [place] [id number] Referral ID Status Reason Start Date Expiration Date V isits Requested Visits Authorized [id number] Pending Review 11/02/2023 11/01/2024 1 1 Specialty Diagnoses / Procedures Referred By Contac t Referred To Contact Diagnoses Pulmonary hypertension (Multi) Procedures Pulmonary Stress Test (6 Min. Walk) [place] [address] [place] [address] Referral ID Status Reason Start Date Expiration Date V isits Requested Visits Authorized [id number] Pending Review 03/04/2024 03/04/2025 1 1 Specialty Diagnoses / Procedures Referred By Contac t Referred To Contact Cardiology Diagnoses Pulmonary hypertension (Multi) Procedures Transthoracic Echo Complete ID ECHO TTHRC R-T 2D W/WOM-MODE COMPL SPEC&[place] [address] [place] [address] Referral ID Status Reason Start Date Expiration Date Visits Requested Visits Authorized [id number] Authorized Perform Procedure 03/04/2024 03/04/2025 1 1 Specialty Diagnoses / Procedures Referred By Natanael t Referred To Contact Radiology Diagnoses Cholecystitis Procedures CT abdomen pelvis w contrast Eladio Flores MD [address] [facility] [address] [place] [address] Referral ID Status Reason Start Date Expiration Date V isits Requested Visits Authorized [id number] Pending Review 04/28/2024 04/28/2025 1 1 Referral ID Status Reason Start Date Expiration Date Visits Re quested Visits Authorized [id number] Closed 04/28/2024 06/27/2024 1 1 Additional Source Comments (unrecognized sect ion and content) No Status Records FoundNo Status Records FoundNo Status Records FoundNo Status Records FoundNo Status Records FoundNo Status Records FoundNo Status Records FoundNo Status Records FoundNo Status Records FoundNo Status Records Found INFORMATION SOURCE (unrecogn ized section and content) DATE CREATED AUTHOR 04/28/2020 [facility] DATE CREATED AUTHOR AUTHOR'S ORGANIZ ATION 09/29/2020 [facility] DATE CREATED AUTHOR AUTHOR'S ORGANIZ ATION 05/12/2021 [facility] DATE CREATED AUTHOR AUTHOR'S ORGANIZ ATION 12/21/2021 [facility] DATE CREATED AUTHOR AUTHOR'S ORGANIZ ATION 06/07/2023 [employer] DATE CREATED AUTHOR AUTHOR'S ORGANIZ ATION 04/08/2024 [facility] ([place]) DATE CREATED AUTHOR AUTHOR'S ORGANIZ ATION 05/24/[address] [facility] DATE CREATED AUTHOR AUTHOR'S ORGANIZ ATION 01/31/2025 [facility] DATE CREATED AUTHOR AUTHOR'S ORGANIZ ATION 03/20/2025 [facility] DATE CREATED AUTHOR AUTHOR'S ORGANIZ ATION 09/12/2025 [facility] Goals (unrecognized section and content) Goals may be documented in a n alternate sectionGoals may be documented in an alternate sectionGoals may be documented in an alternate sectionGoals may be documented in an alternate sectionGoals may be documented in an alternate sectionGoals may be documented in an alternate sectionGoals may be documented in an alternate sectionGoals may be documented in an alternate section No data available for this section Care Teams (unrecognized sec tion and content) Team Status: Active Member Role Status Dates Dr. Zayda Ovalle MD Family Provider Active Dr. Zayda Ovalle MD Primary Care Provider Active Team Status: Inactive Member Role Status Dates Dr. Zayda Ovalle MD Primary Care Provide r, Attending Provider, Referring Provider Active Team Status: Inactive Member Role Status Dates Dr. Zayda Ovalle MD Primary Care Provider, Referring P rovider Active Dr. Lakhwinder Castro MD Attending Provider Active Team Status: Inactive Member Role Status Dates Dr. Zayda Ovalle MD Primary Care Provider, Referring P rovider Active Dr. Nelson Anrdews DO Attending Provider Active Team Status: Active Member Role Status Dates Dr. Zayda Ovalle MD Primary Care Provider, Other Provi austin Active Dr. Senia Tavarez MD Attending Provider Active Team Status: Inactive Member Role Status Dates Dr. Zayda Ovalle MD Primary Care Provider, Attending P rovider Active Team Status: Active Member Role Status Dates Dr. Zayda Ovalle MD Primary Care Provider, Attending P rovider Active Team Status: Active Member Role Status Dates Dr. Zayda Ovalle MD Primary Care Provider, Referring P rovider Active Dr. Nelson Andrews DO Attending Provider, Other Prov ider Active Non Destructive Testing Specialist Relationship Specialty Start Date End Date Zayda Ovalle MD [address] [facility] [address] [place] [address] PCP - General Family Medicine 11/13/23 Non Destructive Testing Specialist Relationship Specialty Start Date End Date Zayda Ovalle MD [address] [facility] [address] [place] [address] PCP - General Family Medicine 11/13/23 Non Destructive Testing Specialist Relationship Specialty Start Date End Date Zayda Ovalle MD [address] [facility] [address] [place] [address] PCP - General Family Medicine 11/13/23 Non Destructive Testing Specialist Relationship Specialty Start Date End Date Zayda Ovalle [address] [place] [address] PCP - General Family Medicine 04/28/24 Non Destructive Testing Specialist Relationship Specialty Start Date End Date Zayda Ovalle MD [address] [place] [address] PCP - General Family Medicine 11/13/23 Non Destructive Testing Specialist Relationship Specialty Start Date End Date Zayda Ovalle MD [address] [place] [address] PCP - General Family Medicine 11/13/23 Non Destructive Testing Specialist Relationship Specialty Start Date End Date Zayda Ovalle MD [address] [place] [address] PCP - General Family Medicine 11/13/23 Non Destructive Testing Specialist Relationship Specialty Start Date End Date Zayda Ovalle MD [address] [place] [address] PCP - General Family Medicine 11/13/23 Non Destructive Testing Specialist Relationship Specialty Start Date End Date Zayda Ovalle MD [address] [place] [address] PCP - General Family Medicine 11/13/23 Non Destructive Testing Specialist Relationship Specialty Start Date End Date Zayda Ovalle MD [address] [place] [address] PCP - General Family Medicine 11/13/23 Non Destructive Testing Specialist Relationship Specialty Start Date End Date Zayda Ovalle MD [address] [place] [address] PCP - General Family Medicine 11/13/23 Reason for Visit (unrecogniz ed section and content) Specialty Diagnoses / Procedures Referred By Contac t Referred To Contact Diagnoses Pulmonary hypertension (CMS/HCC) Procedures Pulmonary [place] [address] [place] [address] Referral ID Status Reason Start Date Expiration Date V isits Requested Visits Authorized [id number] Pending Review 11/02/2023 11/01/2024 1 1 Specialty Diagnoses / Procedures Referred By Contac t Referred To Contact Diagnoses Pulmonary hypertension (Multi) Procedures Pulmonary Stress Test (6 Min. Walk) [place] [address] [place] [address] Referral ID Status Reason Start Date Expiration Date V isits Requested Visits Authorized [id number] Pending Review 03/04/2024 03/04/2025 1 1 Specialty Diagnoses / Procedures Referred By Contac t Referred To Contact Cardiology Diagnoses Pulmonary hypertension (Multi) Procedures Transthoracic Echo Complete ID ECHO TTHRC R-T 2D W/WOM-MODE COMPL SPEC&[place] [address] [place] [address] Referral ID Status Reason Start Date Expiration Date Visits Requested Visits Authorized [id number] Authorized Perform Procedure 03/04/2024 03/04/2025 1 1 Reason Comments New Patient Gallbladder/Cirrhosi s of liver/pancreatitis/ventral hernia/several issues/Referred by Dr. Zayda Ovalle/no recent testing Specialty Diagnoses / Procedures Referred By Contac t Referred To Contact Radiology Diagnoses Cholecystitis Procedures CT abdomen pelvis w contrast Eladio Flores MD [address] [place] [address] Referral ID Status Reason Start Date Expiration Date Visits Re quested Visits Authorized [id number] Closed 04/28/2024 06/27/2024 1 1 PRN Active and Recently Administ ered Medications (unrecognized section and content) Medication Order 04/29/2025 04/30/2025 05/01/2025 fentaNYL PF (Sublimaze) injection (CANCELED) As needed, Starting on Sun05/01/25 at 1430, Intraprocedure 1430 (Given - Provid er: Chrissie Melo RN) lidocaine PF (Xylocaine) 10 mg/mL (1 %) injection (CANCELED) As needed, Starting on Sun05/01/25 at 1431, Intraprocedure 1431 (Given - Provid er: Chrissie Melo RN - Comment: Rt brachial) midazolam (Versed) injection (CANCELED) As needed, Starting on Sun05/01/25 at 1431, Intraprocedure 1431 (Given - Provid er: Chrissie Melo RN) FOR RECORDS PERTAINING TO PATIENTS WHO ARE OR HAVE BEEN ENROLLED IN A CHEMICAL DEPENDENCY/SUBSTANCEABUSE PROGRAM, SOME INFORMATION MAY BE OMITTED. This clinical summary was aggregated from multiple sources. Caution should be exercised in using it in the provision of clinical care. This summary normalizes information from multiple sources, and as a consequence, information in this document may materially change the coding, format and clinical context of patient data. In addition, data may be omitted in some cases. CLINICAL DECISIONS SHOULD BE BASED ON THE PRIMARY CLINICAL RECORDS. [facility]. provides no warranty or guarantee of the accuracy or completeness of information in this document.
== END | disposition home or self-care (01) ==
LOC: US 08:59
PROVIDERS: PCP Family Medicine; Referring Provider Family Medicine; Visit Provider Family Medicine
DX: K74.60 Unspecified cirrhosis of liver (principal)
CPT/HCPCS: 76705; 76981